=== PATIENT | male | born 1980 | race Caucasian/White ===

== ENCOUNTER → 2017-12-06 10:30 | Outpatient (CLI) | payer MEDICARE, MEDICAID, SELFPAY | PROVIDERS: PCP Nurse Practitioner Family; Visit Provider Orthopaedic Surgery | DX: S43.52XD Sprain of left acromioclavicular joint, subsequent encounter (principal); X58.XXXD Exposure to other specified factors, subsequent encounter | CPT/HCPCS: 99213 ==

== ENCOUNTER 2018-01-28 18:27 | Emergency (ER) | payer MEDICARE, MEDICAID, SELFPAY ==
[2018-01-28 18:32] VITALS: BP 125/85; PULSE 96; RESP 15; TEMP 36.7; O2SAT 97
--- NOTE | 2018-01-28 19:17 | W.ED.GENAD ---
Discharge Plan Disposition Patient Disposition: HOME Condition: Stable Discharge Details Chief Complaint: Laceration Clinical Impression: Facial laceration Primary Care Provider: Perla Martin ED Provider: Grecia Ruth Home Meds and New Rx's Prescriptions: Continue resperadine consta 50 mg IM q2w RF: 0 benztropine 1 MG tablet 1 mg PO BID RF: 0 lorazepam 1 MG tablet 1 mg PO BID RF: 0 ranitidine HCl 150 MG tablet 150 mg PO DAILY RF: 0 risperidone [Risperdal] 3 MG tablet 4 mg PO DAILY RF: 0 omeprazole 20 MG capsule,delayed release(DR/EC) 20 mg PO BID RF: 0 Discharge Instructions Additional Instructions: Keep wound clean dry and cover with bacitracin twice daily over the next 2 days. Take Tylenol and Motrin as needed and directed for pain. Follow-up with your primary care doctor in 1 week for reevaluation as needed. Return to the emergency department with any worsening or new concerning symptoms such as fever, increased pain redness or swelling. Discharge Data Discharge Physician: Grecia Ruth Medical Decision Making 37-year-old male presents with laceration to area just below right eyebrow prior to arrival. No LOC or vomiting. Patient states unknown tetanus status but we were able to confirm 2008. Patient denied any blurry vision but visual acuity done on arrival and left eye 20/50, right eye 20/70, patient does wear reading glasses and does not have them. No periorbital edema/ecchymoses, normal EOMI, no entrapment. Wound edges are closely approximated there is no active bleeding. Patient irrigated wound well at home. I offered to patient to open wound, irrigate and close with Dermabond but he declines. I discussed with patient that as edges are closely approximated and there is no bleeding, we can apply bacitracin and wound will likely heal well. Dose of tetanus given here due to high risk of dirty wound. Patient was instructed on the importance of keeping wound clean dry and to apply bacitracin twice daily. He was instructed to follow-up with his primary care doctor for reevaluation as needed and to the ER with any concerns or significant worsening of symptoms. HPI General Mode of arrival: ambulatory. Date/Time Provider Initiated Documentation: 01/28/18 18:30. Limitations to Documentation: no limitations. Information obtained by: patient. HPI Narrative: Pt is a 37yo male who presents with laceration to area below right eyebrow sustained at home when scratched against a colten nail. States he was working at home when he lifted his head up and scratched across a colten nail. He denies loss of consciousness, vomiting. He is unsure of his last tetanus. He states he immediately washed the wound with soap and water and took a shower and cleaned it well. Past medical history: Bipolar disorder, GERD, Schizophrenia Surgical history: Hernia, L forearm surgery, R leg surgery Social history: Smokes tobacco, Previous alcohol and drug use Meds: See list Allergies: NKDA Related Data Home Medications Medication Instructions Recorded Confirmed benztropine 1 mg PO BID 08/10/12 01/28/18 Resperadine Consta 50 mg IM q2w 04/19/16 01/28/18 lorazepam 1 mg PO BID 12/29/16 01/28/18 ranitidine HCl 150 mg PO DAILY 10/29/17 01/28/18 risperidone [Risperdal] 4 mg PO DAILY 10/29/17 01/28/18 omeprazole 20 mg PO BID 01/28/18 01/28/18 Allergies Allergy/AdvReac Type Severity Reaction Status Date / Time No Known Allergies Allergy Unverified 01/28/18 18:42 General Stated Complaint: Laceration SCARLETT: 4 Review of Systems Review of Systems All systems reviewed & are unremarkable except as noted in HPI and below [facility] Medical History Gastroesophageal reflux disease Mental disorder Social History Smoking/Tobacco Use Status: Current every day Surgical History EGD - IV Sedation (06/14/16) Repair of inguinal hernia Exam Const General: cooperative and healthy appearing Orientation: alert and awake [facility] Head: other Head images: 1. 1.5 cm straight laceration noted to area just below lateral aspect of right eyebrow. Wound edges closely approximated. No active bleeding, erythema, edema or ecchymosis. Ears: hearing grossly normal bilaterally, external ears normal and TM's normal bilaterally General nose exam: external nose normal Face and sinus: normal facial exam Mouth: oral mucosae normal Teeth and gingiva: dentition normal Throat: posterior oropharynx normal Eyes General: appearance normal, both eyes and all related structures Periorbital: periorbital findings normal Eyelids: eyelids normal Conjunctivae: conjunctivae normal Sclera: sclerae normal Cornea: corneas normal Pupils: PERRL EOM: EOM intact bilaterally and no movement deficit Neck Neck: normal visual inspection Lymphatic: no lymphadenopathy noted Chest Chest: normal inspection of the chest Resp Effort & Inspection: normal respiratory effort and able to speak in complete sentences Cardio Rate: regular rate Skin General skin exam: no rashes or lesions noted Neuro General: alert and awake Cognition: normal cognition Speech: speech normal Gait: normal gait Motor: muscle tone normal throughout Sensory Exam: no sensory deficits noted Extrem General: normal to inspection and full ROM Psych Appearance: grossly normal Mental Status: mental status grossly normal Speech and Movement: speech and movement normal Affect: normal affect Thought Process: normal Course Vital Signs Temperature 98.1 F 01/28/18 18:32 Pulse 96 H 01/28/18 18:32 Respiratory Rate 15 01/28/18 18:32 Blood Pressure 125/85 01/28/18 18:32 Pulse Oximetry 97 01/28/18 18:32 Temperature 98.1 F 01/28/18 18:32 Temperature Source Temporal Artery Scan 01/28/18 18:32 Pulse 96 H 01/28/18 18:32 Respiratory Rate 15 01/28/18 18:32 Respiratory Effort 01/28/18 18:56 Blood Pressure 125/85 01/28/18 18:32 Blood Pressure Position Sitting 01/28/18 18:32 Pulse Oximetry 97 01/28/18 18:32 Oxygen Delivery Method Room Air 01/28/18 18:32 Oxygen Flow Rate 0 01/28/18 18:32 Pain Level 0 01/28/18 18:53
[2018-01-28] MEDS: Bacitracin 1 PACKET TP (19:25)
--- NOTE | 2018-01-28 19:26 | ED.GENADUL_ITS ---
Discharge Plan Disposition Patient Disposition: HOME Condition: Stable Discharge Details Chief Complaint: Laceration Clinical Impression: Facial laceration Primary Care Provider: Perla Martin ED Provider: Grecia Ruth Home Meds and New Rx's Prescriptions: Continue resperadine consta 50 mg IM q2w RF: 0 benztropine 1 MG tablet 1 mg PO BID RF: 0 lorazepam 1 MG tablet 1 mg PO BID RF: 0 ranitidine HCl 150 MG tablet 150 mg PO DAILY RF: 0 risperidone [Risperdal] 3 MG tablet 4 mg PO DAILY RF: 0 omeprazole 20 MG capsule,delayed release(DR/EC) 20 mg PO BID RF: 0 Discharge Instructions Additional Instructions: Keep wound clean dry and cover with bacitracin twice daily over the next 2 days. Take Tylenol and Motrin as needed and directed for pain. Follow-up with your primary care doctor in 1 week for reevaluation as needed. Return to the emergency department with any worsening or new concerning symptoms such as fever, increased pain redness or swelling. Discharge Data Discharge Physician: Grecia Ruth Medical Decision Making 37-year-old male presents with laceration to area just below right eyebrow prior to arrival. No LOC or vomiting. Patient states unknown tetanus status but we were able to confirm 2008. Patient denied any blurry vision but visual acuity done on arrival and left eye 20/50, right eye 20/70, patient does wear reading glasses and does not have them. No periorbital edema/ecchymoses, normal EOMI, no entrapment. Wound edges are closely approximated there is no active bleeding. Patient irrigated wound well at home. I offered to patient to open wound, irrigate and close with Dermabond but he declines. I discussed with patient that as edges are closely approximated and there is no bleeding, we can apply bacitracin and wound will likely heal well. Dose of tetanus given here due to high risk of dirty wound. Patient was instructed on the importance of keeping wound clean dry and to apply bacitracin twice daily. He was instructed to follow-up with his primary care doctor for reevaluation as needed and to the ER with any concerns or significant worsening of symptoms. HPI General Mode of arrival: ambulatory . Date/Time Provider Initiated Documentation: 01/28/18 18:30 . Limitations to Documentation: no limitations . Information obtained by: patient . HPI Narrative: Pt is a 37yo male who presents with laceration to area below right eyebrow sustained at home when scratched against a colten nail. States he was working at home when he lifted his head up and scratched across a colten nail. He denies loss of consciousness, vomiting. He is unsure of his last tetanus. He states he immediately washed the wound with soap and water and took a shower and cleaned it well. Past medical history: Bipolar disorder, GERD, Schizophrenia Surgical history: Hernia, L forearm surgery, R leg surgery Social history: Smokes tobacco, Previous alcohol and drug use Meds: See list Allergies: NKDA Related Data Home Medications Medication Instructions Recorded Confirmed benztropine 1 mg PO BID 08/10/12 01/28/18 Resperadine Consta 50 mg IM q2w 04/19/16 01/28/18 lorazepam 1 mg PO BID 12/29/16 01/28/18 ranitidine HCl 150 mg PO DAILY 10/29/17 01/28/18 risperidone [Risperdal] 4 mg PO DAILY 10/29/17 01/28/18 omeprazole 20 mg PO BID 01/28/18 01/28/18 Allergies Allergy/AdvReac Type Severity Reaction Status Date / Time No Known Allergies Allergy Unverified 01/28/18 18:42 General Stated Complaint: Laceration SCARLETT: 4 Review of Systems Review of Systems All systems reviewed & are unremarkable except as noted in HPI and below [facility] Medical History Gastroesophageal reflux disease Mental disorder Social History Smoking/Tobacco Use Status: Current every day Surgical History EGD - IV Sedation (06/14/16) Repair of inguinal hernia Exam Const General: cooperative and healthy appearing Orientation: alert and awake [facility] Head: other Head images: 2 1. 1.5 cm straight laceration noted to area just below lateral aspect of right eyebrow. Wound edges closely approximated. No active bleeding, erythema, edema or ecchymosis. Ears: hearing grossly normal bilaterally, external ears normal and TM's normal bilaterally General nose exam: external nose normal Face and sinus: normal facial exam Mouth: oral mucosae normal Teeth and gingiva: dentition normal Throat: posterior oropharynx normal Eyes General: appearance normal, both eyes and all related structures Periorbital: periorbital findings normal Eyelids: eyelids normal Conjunctivae: conjunctivae normal Sclera: sclerae normal Cornea: corneas normal Pupils: PERRL EOM: EOM intact bilaterally and no movement deficit Neck Neck: normal visual inspection Lymphatic: no lymphadenopathy noted Chest Chest: normal inspection of the chest Resp Effort & Inspection: normal respiratory effort and able to speak in complete sentences Cardio Rate: regular rate Skin General skin exam: no rashes or lesions noted Neuro General: alert and awake Cognition: normal cognition Speech: speech normal Gait: normal gait Motor: muscle tone normal throughout Sensory Exam: no sensory deficits noted Extrem General: normal to inspection and full ROM Psych Appearance: grossly normal Mental Status: mental status grossly normal Speech and Movement: speech and movement normal Affect: normal affect Thought Process: normal Course Vital Signs Temperature 98.1 F 01/28/18 18:32 Pulse 96 H 01/28/18 18:32 Respiratory Rate 15 01/28/18 18:32 Blood Pressure 125/85 01/28/18 18:32 Pulse Oximetry 97 01/28/18 18:32 Temperature 98.1 F 01/28/18 18:32 Temperature Source Temporal Artery Scan 01/28/18 18:32 Pulse 96 H 01/28/18 18:32 Respiratory Rate 15 01/28/18 18:32 Respiratory Effort 01/28/18 18:56 Blood Pressure 125/85 01/28/18 18:32 Blood Pressure Position Sitting 01/28/18 18:32 Pulse Oximetry 97 01/28/18 18:32 Oxygen Delivery Method Room Air 01/28/18 18:32 Oxygen Flow Rate 0 01/28/18 18:32 Pain Level 0 01/28/18 18:53
== END 2018-01-28 19:33 | disposition home or self-care (01) ==
PROVIDERS: Emergency Provider Physician Assistant; PCP Nurse Practitioner Family
DX: S01.111A Laceration without foreign body of right eyelid and periocular area, initial encounter (principal); W45.0XXA Nail entering through skin, initial encounter
CPT/HCPCS: 90471; 99284; 99283

== ENCOUNTER 2018-02-03 22:54 | Emergency (ER) | payer MEDICARE, MEDICAID, SELFPAY ==
[2018-02-03 22:59] VITALS: BP 142/89; PULSE 87; RESP 18; TEMP 36.8
--- NOTE | 2018-02-04 02:44 | ED.GENADUL_ITS ---
Discharge Plan Discharge Details Chief Complaint: Patient Exposure Risk Primary Care Provider: Perla Martin ED Provider: Karl Healy Home Meds and New Rx's Prescriptions: No Action resperadine consta 50 mg IM q2w RF: 0 benztropine 1 MG tablet 1 mg PO BID RF: 0 lorazepam 1 MG tablet 1 mg PO BID RF: 0 ranitidine HCl 150 MG tablet 150 mg PO DAILY RF: 0 risperidone [Risperdal] 3 MG tablet 4 mg PO DAILY RF: 0 omeprazole 20 MG capsule,delayed release(DR/EC) 20 mg PO BID RF: 0 Discharge Data Discharge Date/Time-TO BE ENTERED AT DEPARTURE: 02/03/18 23:10 Medical Decision Making Patient eloped prior to my evaluation. I did not have the opportunity to speak with this patient. HPI General Date/Time Provider Initiated Documentation: 02/03/18 23:02 . Related Data Home Medications Medication Instructions Recorded Confirmed benztropine 1 mg PO BID 08/10/12 01/28/18 Resperadine Consta 50 mg IM q2w 04/19/16 01/28/18 lorazepam 1 mg PO BID 12/29/16 01/28/18 ranitidine HCl 150 mg PO DAILY 10/29/17 01/28/18 risperidone [Risperdal] 4 mg PO DAILY 10/29/17 01/28/18 omeprazole 20 mg PO BID 01/28/18 01/28/18 Allergies Allergy/AdvReac Type Severity Reaction Status Date / Time No Known Allergies Allergy Unverified 01/28/18 18:42 General Stated Complaint: Patient Exposure Risk SCARLETT: 3 Course Vital Signs Temperature 36.8 C 02/03/18 22:59 Pulse 87 02/03/18 22:59 Respiratory Rate 18 02/03/18 22:59 Blood Pressure 142/89 H 02/03/18 22:59 Temperature 36.8 C 02/03/18 22:59 Temperature Source Temporal Artery Scan 02/03/18 22:59 Pulse 87 02/03/18 22:59 Respiratory Rate 18 02/03/18 22:59 Respiratory Effort 02/03/18 23:01 Blood Pressure 142/89 H 02/03/18 22:59 Blood Pressure Position Sitting 02/03/18 22:59 Oxygen Delivery Method Room Air 02/03/18 22:59 Oxygen Flow Rate 0 02/03/18 22:59 Pain Level 0 02/03/18 23:09
== END 2018-02-03 23:10 ==
LOC: ER 23:07
PROVIDERS: Emergency Provider Student in an Organized Health Care Education/Training Program; PCP Nurse Practitioner Family
DX: Z53.21 Procedure and treatment not carried out due to patient leaving prior to being seen by health care provider (principal)

== ENCOUNTER 2018-03-11 21:17 | Emergency (ER) | payer MEDICARE, MEDICAID, SELFPAY ==
--- NOTE | 2018-03-11 21:22 | W.ED.GENAD ---
Discharge Plan Disposition Patient Disposition: HOME Condition: Good Discharge Details Chief Complaint: GenMedical Clinical Impression: Possible exposure to STD Primary Care Provider: Perla Martin ED Provider: Leoncio Miranda Home Meds and New Rx's Prescriptions: Continue resperadine consta 50 mg IM q2w RF: 0 benztropine 1 MG tablet 1 mg PO BID RF: 0 lorazepam 1 MG tablet 1 mg PO BID RF: 0 ranitidine HCl 150 MG tablet 150 mg PO DAILY RF: 0 risperidone [Risperdal] 3 MG tablet 4 mg PO DAILY RF: 0 omeprazole 20 MG capsule,delayed release(DR/EC) 20 mg PO BID RF: 0 Discharge Instructions Additional Instructions: Follow up with your primary care provider for std testing IF you have severe abdominal pain, fevers or persistent vomit return to the emergency department Medical Decision Making patient comes in with concern for possible hIV. HE states his current partner's old partner may have HIV and he got concerned about this so came here. HE is completely asymptomatic without complaints, no d/c or burning on urination. I advised I generally leave HIV testing to the pcp but am happy to test for gc/chlamdyia but he declined and wants to just f/u with his pcp for testing. HE was advised strongly to do so and return if he develops any symptoms Differential Diagnosis std exposure, anxiety HPI General Mode of arrival: ambulatory. Date/Time Provider Initiated Documentation: 03/11/18 21:18. Limitations to Documentation: no limitations. Information obtained by: patient. History of Present Illness 37 year old M presents to the emergency department with the chief complaint of concern for HIV, No relieving factors improve symptom(s), No exacerbating factors reported . Patient did receive the following treatments prior to arrival, none Related Data Home Medications Medication Instructions Recorded Confirmed benztropine 1 mg PO BID 08/10/12 01/28/18 Resperadine Consta 50 mg IM q2w 04/19/16 01/28/18 lorazepam 1 mg PO BID 12/29/16 01/28/18 ranitidine HCl 150 mg PO DAILY 10/29/17 01/28/18 risperidone [Risperdal] 4 mg PO DAILY 10/29/17 01/28/18 omeprazole 20 mg PO BID 01/28/18 01/28/18 Allergies Allergy/AdvReac Type Severity Reaction Status Date / Time No Known Allergies Allergy Unverified 01/28/18 18:42 General SCARLETT: 3 Review of Systems Review of Systems All systems reviewed & are unremarkable except as noted in HPI and below Constitutional Denies chills and Denies fever(s) Cardiovascular Denies dyspnea Respiratory Denies dyspnea Gastrointestinal Denies abdominal pain, Denies nausea and Denies vomiting Genitourinary Denies dysuria Musculoskeletal Denies joint swelling Psychiatric Denies depression Exam Const General: no acute distress Orientation: alert HENMT Head: normal to inspection Ears: external ears normal General nose exam: external nose normal Mouth: moist mucous membranes Eyes General: appearance normal, both eyes and all related structures Neck Neck: normal visual inspection Resp Effort & Inspection: normal respiratory effort and able to speak in complete sentences Cardio Rate: regular rate Skin General skin exam: no rashes or lesions noted Neuro General: alert and oriented x3 Extrem General: normal to inspection Psych Mental Status: mental status grossly normal
[2018-03-11 21:24] VITALS: BP 120/74; PULSE 71; RESP 15; TEMP 36.4; O2SAT 98
--- NOTE | 2018-03-11 21:26 | ED.GENADUL_ITS ---
Discharge Plan Disposition Patient Disposition: HOME Condition: Good Discharge Details Chief Complaint: GenMedical Clinical Impression: Possible exposure to STD Primary Care Provider: Perla Martin ED Provider: Leoncio Miranda Home Meds and New Rx's Prescriptions: Continue resperadine consta 50 mg IM q2w RF: 0 benztropine 1 MG tablet 1 mg PO BID RF: 0 lorazepam 1 MG tablet 1 mg PO BID RF: 0 ranitidine HCl 150 MG tablet 150 mg PO DAILY RF: 0 risperidone [Risperdal] 3 MG tablet 4 mg PO DAILY RF: 0 omeprazole 20 MG capsule,delayed release(DR/EC) 20 mg PO BID RF: 0 Discharge Instructions Additional Instructions: Follow up with your primary care provider for std testing IF you have severe abdominal pain, fevers or persistent vomit return to the emergency department Medical Decision Making patient comes in with concern for possible hIV. HE states his current partner's old partner may have HIV and he got concerned about this so came here. HE is completely asymptomatic without complaints, no d/c or burning on urination. I advised I generally leave HIV testing to the pcp but am happy to test for gc/ chlamdyia but he declined and wants to just f/u with his pcp for testing. HE was advised strongly to do so and return if he develops any symptoms Differential Diagnosis std exposure, anxiety HPI General Mode of arrival: ambulatory . Date/Time Provider Initiated Documentation: 03/11/18 21:18 . Limitations to Documentation: no limitations . Information obtained by: patient . History of Present Illness 37 year old M presents to the emergency department with the chief complaint of concern for HIV, No relieving factors improve symptom(s), No exacerbating factors reported . Patient did receive the following treatments prior to arrival, none Related Data Home Medications Medication Instructions Recorded Confirmed benztropine 1 mg PO BID 08/10/12 01/28/18 Resperadine Consta 50 mg IM q2w 04/19/16 01/28/18 lorazepam 1 mg PO BID 12/29/16 01/28/18 ranitidine HCl 150 mg PO DAILY 10/29/17 01/28/18 risperidone [Risperdal] 4 mg PO DAILY 10/29/17 01/28/18 omeprazole 20 mg PO BID 01/28/18 01/28/18 Allergies Allergy/AdvReac Type Severity Reaction Status Date / Time No Known Allergies Allergy Unverified 01/28/18 18:42 General SCARLETT: 3 Review of Systems Review of Systems All systems reviewed & are unremarkable except as noted in HPI and below Constitutional Denies chills and Denies fever(s) Cardiovascular Denies dyspnea Respiratory Denies dyspnea Gastrointestinal Denies abdominal pain, Denies nausea and Denies vomiting Genitourinary Denies dysuria Musculoskeletal Denies joint swelling Psychiatric Denies depression Exam Const General: no acute distress Orientation: alert HENMT Head: normal to inspection Ears: external ears normal General nose exam: external nose normal Mouth: moist mucous membranes Eyes General: appearance normal, both eyes and all related structures Neck Neck: normal visual inspection Resp Effort & Inspection: normal respiratory effort and able to speak in complete sentences Cardio Rate: regular rate Skin General skin exam: no rashes or lesions noted Neuro General: alert and oriented x3 Extrem General: normal to inspection Psych Mental Status: mental status grossly normal
[2018-03-11 21:28] VITALS: RESP 16
== END 2018-03-11 21:35 | disposition home or self-care (01) ==
LOC: ER 21:32
PROVIDERS: Emergency Provider Emergency Medicine; PCP Nurse Practitioner Family
DX: F41.9 Anxiety disorder, unspecified (principal); Z20.6 Contact with and (suspected) exposure to human immunodeficiency virus [HIV]
CPT/HCPCS: 99281

== ENCOUNTER 2018-03-12 15:57 | Outpatient (REF) | payer MEDICARE, MEDICAID, SELFPAY ==
[2018-03-14 10:06] LABS: HIV-1/2 Ag & Ab Screen Negative (NEGAT)
[2018-03-14 12:39] LABS: Syphilis Serology (RPR) Negative (Negative)
== END 2018-03-12 16:17 ==
LOC: NCHCN 15:57
PROVIDERS: PCP Nurse Practitioner Family; Visit Provider Nurse Practitioner Family
DX: Z20.2 Contact with and (suspected) exposure to infections with a predominantly sexual mode of transmission (principal); Z11.4 Encounter for screening for human immunodeficiency virus [HIV]
CPT/HCPCS: 87389; 86592

== ENCOUNTER 2018-03-13 08:46 | Outpatient (REF) | payer MEDICARE, MEDICAID, SELFPAY ==
[2018-03-14 15:20] LABS: Chlamydia Result Negative; GC Result Negative; Specimen Description URINE
== END 2018-03-13 09:06 ==
LOC: NCHCN 08:46
PROVIDERS: PCP Nurse Practitioner Family; Visit Provider Nurse Practitioner Family
DX: Z20.2 Contact with and (suspected) exposure to infections with a predominantly sexual mode of transmission (principal); Z11.3 Encounter for screening for infections with a predominantly sexual mode of transmission
CPT/HCPCS: 87491; 87591

== ENCOUNTER 2018-03-28 17:52 | Emergency (ER) | payer MEDICARE, MEDICAID, SELFPAY ==
[2018-03-28 18:20] VITALS: BP 128/83; PULSE 96; RESP 16; TEMP 36.8; O2SAT 97
[2018-03-28 19:42] LABS: Abs Immature Grans 0.02 k/cumm (0.0-0.09); Absolute Basophil Count 0.04 k/cumm (0.0-0.2); Absolute Eosinophil Count 0.27 k/cumm (0.0-0.7); Absolute Lymphocyte Count 4.38 k/cumm (1.2-3.4); Absolute Monocyte Count 0.54 k/cumm (0.11-0.7); Basophils % 0.4; Eosinophils % 2.5; HCT 43.6 % (40.0-50.0); Immature Grans % 0.2; Lymphocytes % 41.1; Mean Corp. HGB Concentration 34.4 g/dL (32.0-36.0); Mean Corpuscular Hemoglobin 31.5 pg (27.0-33.0); Mean Corpuscular Volume 91.6 fL (80-95); Mean Platelet Volume 9.4 fL (8.0-11.0); Monocytes % 5.1; Neutrophils % 50.7; Platelet Count 231 x1000/uL (130-400); RBC 4.76 m/cumm (4.50-6.00); RBC Distribution Width 12.4 % (11.8-14.1); White Blood Cell Count 10.65 k/cumm (4.4-10.8)
[2018-03-28 19:51] LABS: Anion Gap 8.6 mmol/L (3-11); BUN 12 mg/dL (7-18); CO2 27.4 mmol/L (21.0-32.0); CREATININE 0.98 mg/dL (0.70-1.30); Chloride 102 mmol/L (98-107); Glucose 99 mg/dL (70-100); Potassium 3.6 mmol/L (3.5-5.1); Sodium 138 mmol/L (136-145)
[2018-03-28 19:53] LABS: *AMPHETAMINES SCREEN URINE Negative (Negative); *BARBITURATES SCREEN URINE Negative (Negative); *BENZODIAZEPINES SCREEN URINE Negative (Negative); Cannabinoids THC Negative (Negative); Cocaine Screen,Urine Negative (Negative); METHADONE URINE SCREEN Negative (Negative); OPIATES URINE SCREEN Negative (Negative)
[2018-03-28 19:56] LABS: Tricyclic Antidepressants Negative (Negative)
--- NOTE | 2018-03-28 19:59 | W.ED.GENAD ---
Discharge Plan Disposition Patient Disposition: HOME Condition: Good Discharge Details Chief Complaint: PsychEval Clinical Impression: Paranoid schizophrenia Primary Care Provider: Perla Martin ED Provider: Gonzales Bolaños [place] Meds and New Rx's Prescriptions: Continue resperadine consta 50 mg IM q2w RF: 0 benztropine 1 MG tablet 1 mg PO BID RF: 0 lorazepam 1 MG tablet 1 mg PO BID RF: 0 ranitidine HCl 150 MG tablet 150 mg PO DAILY RF: 0 risperidone [Risperdal] 3 MG tablet 4 mg PO DAILY RF: 0 esomeprazole magnesium [Nexium] 20 mg Capsule,Delayed Release(Dr/Ec) 20 mg PO DAILY RF: 0 Discharge Instructions Additional Instructions: Keep your appointment with your counselor on Monday. Continue medications as before. Call mental health to return to ED if any unsafe feelings or concerns per Referrals: [facility] [Provider Group] Medical Decision Making Patient here to see mental health. He has no physical complaints of. He has been having suicidal thoughts on and off today but is fairly confident he would not act on them. He just felt he needed to talk to someone. Basic labs are unremarkable. Urine drug screen and alcohol negative. He does have one-to-one observation ordered. He is medically cleared and waiting for mental health to see him. Seen by mental health. No longer suicidal and feels safe. Is good with going home and will contact mental health and return to ED if any problems. Will follow up with his counselor on Monday as planned. HPI General Mode of arrival: ambulatory. Date/Time Provider Initiated Documentation: 03/28/18 18:33. Limitations to Documentation: no limitations. Information obtained by: patient. HPI Narrative: Patient here for mental health eval. He is feeling a little suicidal. He thought about jumping off a bridge but has not even gone near bridge. He does have a history of mental health disorders. He is taking his medications. He has been stable and doing well. He denies being actively suicidal. He has had some thoughts that are bothering him. He has a counselor that he is supposed to see on Monday. He denies drugs or alcohol. He denies physical complaint of. He has no visual or auditory hallucination. Related Data Home Medications Medication Instructions Recorded Confirmed benztropine 1 mg PO BID 08/10/12 03/28/18 Resperadine Consta 50 mg IM q2w 04/19/16 03/28/18 lorazepam 1 mg PO BID 12/29/16 03/28/18 ranitidine HCl 150 mg PO DAILY 10/29/17 03/28/18 risperidone [Risperdal] 4 mg PO DAILY 10/29/17 03/28/18 esomeprazole magnesium [Nexium] 20 mg PO DAILY 03/28/18 03/28/18 Allergies Allergy/AdvReac Type Severity Reaction Status Date / Time No Known Allergies Allergy Unverified 03/28/18 18:24 General Stated Complaint: PsychEval SCARLETT: 2 Review of Systems Constitutional Denies chills, Denies fever(s), Denies headache(s), Denies malaise and Denies weakness Eyes Denies eye discharge and Denies eye pain ENT Denies otalgia, Denies headache(s), Denies neck pain and Denies sinus pressure Cardiovascular Denies chest pain, Denies syncope and Denies dyspnea Respiratory Denies cough and Denies dyspnea Gastrointestinal Denies abdominal pain, Denies diarrhea, Denies nausea and Denies vomiting Musculoskeletal Denies back pain, Denies arthralgias, Denies neck pain and Denies numbness Integumentary/Breasts Denies rash Neurologic Denies syncope, Denies headache(s), Denies focal weakness, Denies numbness and Denies weakness Psychiatric Denies depression, Denies paranoia, Denies hallucinations, Denies homicidal ideation and Reports suicidal ideation PFSH Gastroesophageal reflux disease Mental disorder EGD - IV Sedation (06/14/16) Repair of inguinal hernia Social History Smoking/Tobacco Use Status: Current every day Exam Const General: cooperative, comfortable, well developed and well groomed Orientation: alert and oriented x3 HENMT Head: normocephalic and atraumatic Neck Neck: trachea midline and supple Resp Effort & Inspection: normal respiratory effort Auscultation: clear to auscultation bilaterally Cardio Rate: regular rate Rhythm: regular rhythm Heart Sounds: S1 normal and S2 normal Skin General skin exam: no rashes or lesions noted Neuro General: alert, oriented x3, no focal motor deficits and CN's II-XI intact bilaterally Extrem General: normal to inspection and full ROM Psych Appearance: grossly normal Mental Status: mental status grossly normal Speech and Movement: speech and movement normal Mood: congruent mood Affect: normal affect Attitude: cooperative Thought Process: normal Thought Content: suicidality (on/off today) Insight: insight good Judgment: judgment good Course Vital Signs Temperature 98.2 F 03/28/18 18:20 Pulse 96 H 03/28/18 18:20 Respiratory Rate 16 03/28/18 18:20 Blood Pressure 128/83 03/28/18 18:20 Pulse Oximetry 97 03/28/18 18:20 Temperature 98.2 F 03/28/18 18:20 Temperature Source Skin 03/28/18 18:20 Pulse 96 H 03/28/18 18:20 Respiratory Rate 16 03/28/18 18:20 Respiratory Effort Non-Labored 03/28/18 18:20 Blood Pressure 128/83 03/28/18 18:20 Blood Pressure Position Sitting 03/28/18 18:20 Pulse Oximetry 97 03/28/18 18:20 Pain Level 0 03/28/18 18:20 Lab/Test Results Lab/Test Results: Laboratory Tests Range/Units 03/28/18 03/28/18 03/28/18 19:20 19:33 19:33 WBC (4.4-10.8) k/cumm 10.65 RBC (4.50-6.00) m/cumm 4.76 Hgb (13.5-17.5) g/dL 15.0 Hct (40.0-50.0) % 43.6 MCV (80-95) fL 91.6 MCH (27.0-33.0) pg 31.5 MCHC (32.0-36.0) g/dL 34.4 RDW (11.8-14.1) % 12.4 Plt Count (130-400) x1000/uL 231 MPV (8.0-11.0) fL 9.4 Immature Gran % 0.2 Neutrophils % 50.7 Lymphocytes % 41.1 Monocytes % 5.1 Eosinophils % 2.5 Basophils % 0.4 Absolute Neutrophils (1.2-6.7) k/cumm 5.40 Absolute Lymphocytes (1.2-3.4) k/cumm 4.38 H Absolute Monocytes (0.11-0.7) k/cumm 0.54 Absolute Eosinophils (0.0-0.7) k/cumm 0.27 Absolute Basophils (0.0-0.2) k/cumm 0.04 Sodium (136-145) mmol/L 138 Potassium (3.5-5.1) mmol/L 3.6 Chloride (98-107) mmol/L 102 Carbon Dioxide (21.0-32.0) mmol/L 27.4 Anion Gap (3-11) mmol/L 8.6 BUN (7-18) mg/dL 12 Creatinine (0.70-1.30) mg/dL 0.98 Estimated GFR/1.73 m2 (mL/min/1.73m2) >= 60.00 Glucose (70-100) mg/dL 99 Calcium (8.5-10.1) mg/dL 9.0 Urine Opiates Screen (Negative) Negative Urine Methadone Screen (Negative) Negative Ur Barbiturates Screen (Negative) Negative Ur Tricyclics Screen (Negative) Negative Ur Amphetamines Screen (Negative) Negative U Benzodiazepines Scrn (Negative) Negative Urine Cocaine Screen (Negative) Negative Ur THC Screen (Negative) Negative
[2018-03-28 20:07] LABS: ETHANOL BLOOD < 3.0 mg/dL (<3)
--- NOTE | 2018-03-28 21:11 | PDOC.MHCN ---
Mental Health Crisis Note Presenting Issue How did you arrive at the ED and why did you come: Patient's friend brings him to the ED due to suicidal ideation. Precipitating Factors When I meet with patient at the hospital, he reports that he is feeling better and denies current suicidal ideation. He states he was depressed earlier and had suicidal thoughts but says these thoughts are gone. He denies intent or plan of harming himself, and says he is safe to return home. He expresses his belief that he is prescribed too many medications and states that he has an appointment with his psych med provider on Monday, March 30, 2018, and he will discuss that with her. Disposition BEHAVIOR: Cooperative. EYE CONTACT: Good. MOOD: Euthymic. AFFECT: Congruent to mood. APPETITE: Reported by patient as good. SLEEP(trouble falling/staying asleep: Patient denies sleep difficulties. Plan After consultation with Dr. Bolaños, the decision is made to discharge patient home. He knows how to contact [facility] emergency services and agrees to call if needed. 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
--- NOTE | 2018-03-28 21:20 | PDOC.MHCN_ITS ---
Mental Health Crisis Note Presenting Issue How did you arrive at the ED and why did you come: Patient's friend brings him to the ED due to suicidal ideation. Precipitating Factors When I meet with patient at the hospital, he reports that he is feeling better and denies current suicidal ideation. He states he was depressed earlier and had suicidal thoughts but says these thoughts are gone. He denies intent or plan of harming himself, and says he is safe to return home. He expresses his belief that he is prescribed too many medications and states that he has an appointment with his psych med provider on Monday, March 30, 2018, and he will discuss that with her. Disposition BEHAVIOR: Cooperative. EYE CONTACT: Good. MOOD: Euthymic. AFFECT: Congruent to mood. APPETITE: Reported by patient as good. SLEEP(trouble falling/staying asleep: Patient denies sleep difficulties. Plan After consultation with Dr. Bolaños, the decision is made to discharge patient home. He knows how to contact [facility] emergency services and agrees to call if needed. 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
== END 2018-03-28 22:07 | disposition home or self-care (01) ==
PROVIDERS: Physician Assistant; Emergency Provider Emergency Medicine; PCP Nurse Practitioner Family
DX: F20.0 Paranoid schizophrenia (principal); R45.851 Suicidal ideations
CPT/HCPCS: 36415; 80048; 80307; 99285; 80320; 85025; 99284

== ENCOUNTER 2018-05-29 13:02 | Emergency (ER) | payer MEDICARE, MEDICAID, SELFPAY ==
[2018-05-29] VITALS (39 sets, daily range): BP systolic 109–139; BP diastolic 70–88; PULSE 52–98; RESP 13–37; TEMP 36.6–36.7; O2SAT 96–100
--- NOTE | 2018-05-29 13:27 | DI.RAD_ITS ---
SYMPTOMS/DIAGNOSIS: CHEST PAIN PA AND LATERAL CHEST: Comparison is made with February,. The cardiac and mediastinal contours have a normal appearance. The lungs are well inflated and clear. No infiltrate, effusion or pneumothorax is seen. IMPRESSION: Negative chest x-ray.
--- NOTE | 2018-05-29 13:31 | ED.GENADUL_ITS ---
Discharge Plan Disposition Patient Disposition: HOME Condition: Stable Discharge Details Chief Complaint: Chest Pain Clinical Impression: Chest pain, precordial Primary Care Provider: Perla Martin ED Provider: Leoncio Miranda Home Meds and New Rx's Prescriptions: Continued resperadine consta 50 mg IM q2w RF: 0 benztropine 1 MG tablet 1 mg PO BID RF: 0 lorazepam 1 MG tablet 1 mg PO BID RF: 0 ranitidine HCl 150 MG tablet 150 mg PO DAILY RF: 0 risperidone [Risperdal] 3 MG tablet 4 mg PO DAILY RF: 0 esomeprazole magnesium [Nexium] 20 mg Capsule,Delayed Release(Dr/Ec) 20 mg PO DAILY RF: 0 Discharge Instructions Instructions: Chest Pain (ED) Additional Instructions: Feel free to return for any new or worsening symptoms or further concerns he may have otherwise follow-up with your primary care provider as needed for reassessment. Continue to take your medications as prescribed. Referrals: Perla Martin [Primary Care Provider] - (As needed for reassess or continued pain) Discharge Data Discharge Date/Time-TO BE ENTERED AT DEPARTURE: 05/29/18 16:52 Medical Decision Making <Nigel Garcia NP - Last Filed: 05/31/18 19:58> Patient presenting to the emergency department for chief complaint of chest pain. Patient states proximal a 1 hour prior to arrival he had some left arm pain that lasted a couple minutes and then had very sharp cardiac pain. Patient denies any reproducibility to pain and discomfort. Patient did attempt to see primary care provider but was sent to the emergency department for evaluation. Patient does state previous history of heart attacks but denies any treatment. Patient is a heavy smoker. Physical exam is unremarkable and patient is asymptomatic with no EKG changes noted plan to check labs including troponin for rule out of ACS but highly concerned for more precordial catch type discomfort. Review of initial labs is nondiagnostic and shows no elevation of troponin. Patient reevaluated and states one other episodes of this happen since being in the emergency department otherwise is now asymptomatic again Did finally speak with patient's primary care provider pending second troponin and primary care provider stated no known history of heart attack or any other medical problems except for bipolar, and GERD along with some anxiety. Primary care provider states main reason they sent patient to the emergency department is due to severe anxiety in regards to chest pain and patient wants to rule out with labs. I feel that this is reassuring knowing patient's mental health history and reason they sent him here. Patient reassessed and continued to remain asymptomatic. Pending second troponin patient signed out to Dr. Miranda for review of results any further treatment and disposition. HPI <Nigel Garcia NP - Last Filed: 05/31/18 19:58> General Mode of arrival: ambulatory . Date/Time Provider Initiated Documentation: 05/29/18 13:10 . Limitations to Documentation: no limitations . Information obtained by: patient, RN notes reviewed and old records reviewed . History of Present Illness 37 year old M presents to the emergency department with the chief complaint of chest pain, Quality is described as sharp and other, Patient extremity (left). Patient started experiencing this hour(s) (1) and it has been now resolved. No relieving factors improve symptom(s), No exacerbating factors reported . Patient notes no other symptoms.. Patient did receive the following treatments prior to arrival, none Related Data Home Medications Medication Instructions Recorded Confirmed benztropine 1 mg PO BID 08/10/12 05/29/18 Resperadine Consta 50 mg IM q2w 04/19/16 03/28/18 lorazepam 1 mg PO BID 12/29/16 05/29/18 ranitidine HCl 150 mg PO DAILY 10/29/17 05/29/18 risperidone [Risperdal] 4 mg PO DAILY 10/29/17 05/29/18 esomeprazole magnesium [Nexium] 20 mg PO DAILY 03/28/18 05/29/18 Allergies Allergy/AdvReac Type Severity Reaction Status Date / Time No Known Allergies Allergy Unverified 05/29/18 13:16 General Stated Complaint: Chest Pain SCARLETT: 2 Review of Systems <Nigel Garcia NP - Last Filed: 05/31/18 19:58> Constitutional Denies chills, Denies fever(s) and Denies malaise Cardiovascular Reports as per HPI, Reports chest pain, Denies chest pain with activity, Denies syncope, Denies irregular heart rhythm, Denies palpitations and Denies dyspnea Respiratory Denies cough, Denies hemoptysis and Denies dyspnea Gastrointestinal Denies abdominal pain, Denies nausea and Denies vomiting Neurologic Denies syncope Psychiatric Denies anxiety Endocrine Denies cold intolerance, Denies heat intolerance and Denies palpitations PFSH <Nigel Garcia NP - Last Filed: 05/31/18 19:58> Social History Smoking and Tabacco status: Current every day Exam <Nigel Garcia NP - Last Filed: 05/31/18 19:58> Const General: cooperative, healthy appearing, comfortable, no acute distress, not diaphoretic and not ill appearing Nutritional Appearance: average body habitus Orientation: alert, awake and oriented x3 Limitations: mental status not altered Neck Neck: normal visual inspection, full ROM, trachea midline, supple and no anterior neck swelling Thyroid: thyroid normal Carotids: normal carotid upstroke and no bruits Chest Chest: normal inspection of the chest Resp Effort & Inspection: normal respiratory effort and able to speak in complete sentences Auscultation: clear to auscultation bilaterally Cardio Jugular venous pressure: no JVD Palpation: normal PMI Rate: regular rate Rhythm: regular rhythm Heart Sounds: S1 normal, S2 normal, no click, no gallops, no murmurs and no rubs Bruits: no abdominal aortic bruits and no carotid bruits Pulses: radial pulses present bilaterally 2+ GI Inspection: normal to inspection Palpation: soft, no aortic enlargement, no pulsatile masses and nontender Auscultation: normal bowel sounds Skin General skin exam: no rashes or lesions noted Neuro General: alert, awake, oriented x3, tone normal and moves all extremities Course <Nigel Garcia NP - Last Filed: 05/31/18 19:58> Vital Signs Temperature 36.6 C 05/29/18 13:12 Pulse 71 05/29/18 13:12 Respiratory Rate 16 05/29/18 13:12 Blood Pressure 139/88 05/29/18 13:12 Pulse Oximetry 98 05/29/18 13:12 Temperature 36.6 C 05/29/18 13:12 Temperature Source Skin 05/29/18 13:12 Pulse 71 05/29/18 13:12 Respiratory Rate 16 05/29/18 13:22 Respiratory Effort Non-Labored 05/29/18 13:22 Respiratory Depth Normal 05/29/18 13:22 Respiratory Pattern Normal 05/29/18 13:22 Blood Pressure 139/88 05/29/18 13:12 Blood Pressure Position Supine 05/29/18 13:12 Pulse Oximetry 98 05/29/18 13:12 Oxygen Delivery Method Room Air 05/29/18 13:12 Oxygen Flow Rate 0 05/29/18 13:12 Pain Level 0 05/29/18 13:12 Sign Out <Nigel Garcia NP - Last Filed: 05/31/18 19:58> Sign Out Data: Sign Out Comment: Signed out to Dr. Miranda pending repeat troponin results concern for more precordial chest pain. Last updated by Nigel Garcia NP at 05/29/18 16:32 Post-Handoff Eval: PT signed out to me pending lab work, second troponin negative. HE is pain free on my exam, heart scorre is 1 on my hx and physical exam. Feel he is safe for outaptient management, ahs an appt on 06/01 with his pcp and advised to return if symptoms worsen
[2018-05-29 13:50] LABS: ALT 15 U/L (12-78); AST 10 U/L (15-37); Alkaline Phosphatase 73 U/L (46-116); Anion Gap 9.9 mmol/L (3-11); BUN 9 mg/dL (7-18); Bilirubin, Total 0.5 mg/dL (0.2-1.0); CO2 28.1 mmol/L (21.0-32.0); CREATININE 1.03 mg/dL (0.70-1.30); Chloride 103 mmol/L (98-107); Glucose 104 mg/dL (70-100); Potassium 3.5 mmol/L (3.5-5.1); Sodium 141 mmol/L (136-145); Total Protein 7.9 g/dL (6.4-8.2); Troponin I < 0.02 ng/mL (0.00-0.06)
[2018-05-29 13:52] LABS: Absolute Lymphocyte Count 3.07 k/cumm (1.2-3.4); Absolute Monocyte Count 0.67 k/cumm (0.11-0.7); Absolute Neutrophil Count 5.76 k/cumm (1.2-6.7); Atypical Lymphocytes % 2; HCT 45.4 % (40.0-50.0); HGB 15.1 g/dL (13.5-17.5); Mean Corp. HGB Concentration 33.3 g/dL (32.0-36.0); Mean Corpuscular Hemoglobin 31.3 pg (27.0-33.0); Mean Platelet Volume 9.8 fL (8.0-11.0); Platelet Count 231 x1000/uL (130-400); RBC 4.83 m/cumm (4.50-6.00); RBC Distribution Width 12.9 % (11.8-14.1)
[2018-05-29 13:53] LABS: Diff Comment Manual Differential; RBC Morphology Normal
[2018-05-29 16:32] LABS: Troponin I < 0.02 ng/mL (0.00-0.06)
[2018-05-29] MEDS: Ketorolac 15 MG/ML VIAL IVP (16:42)
[2018-05-29] MEDS: Normal Saline Flush 10 ML SYR IVP (16:43)
--- NOTE | 2018-06-01 13:39 | ED.FU.B_ITS ---
Patient called the emergency department requesting further information as he was convinced that during the visit which I took care of him a couple days ago that he had a heart attack . I never inform the patient of that and patient had 2- troponins and nondiagnostic EKGs. I did also did communicate with patient's primary care provider of these negative results. Patient also was under the impression when he presented to the emergency department at that time that he had also had previous heart attacks which there were no records of nor did his primary care provider ever have records of any heart attack. There were records that patient did have heartburn and GERD type symptoms but was being appropriately treated for these. When I thoroughly discussed these findings with patient today he stated he wanted a second opinion. I informed patient that if he had any emergent concerns that he should go to the closest emergency department for evaluation if his worry was heart attack. He stated clear understanding and it was also vocalized that we would be more than willing to reassessed and reevaluate patient on an emergent basis. Patient states that he may get a second opinion at [facility] which I informed him if this is an emergency that he again should go to closest facility.
== END 2018-05-29 16:52 | disposition home or self-care (01) ==
PROVIDERS: Nurse Practitioner Family; Emergency Provider Emergency Medicine; PCP Nurse Practitioner Family
DX: R07.2 Precordial pain (principal); F41.9 Anxiety disorder, unspecified; F17.210 Nicotine dependence, cigarettes, uncomplicated
CPT/HCPCS: 36415; 80053; 93005; 96374; 99285; 71046; 83735; 84484; 85025; 93010; 99284; J1885

== ENCOUNTER 2018-06-04 03:13 | Outpatient (CLI) | payer MEDICARE, MEDICAID, SELFPAY | END 2018-06-04 03:33 | PROVIDERS: PCP Nurse Practitioner Family; Visit Provider Nurse Practitioner Family | DX: R07.89 Other chest pain (principal) | CPT/HCPCS: 93225 ==

== ENCOUNTER 2018-06-05 13:44 | Outpatient (CLI) | payer MEDICARE, MEDICAID, SELFPAY ==
--- NOTE | 2018-06-06 13:40 | HOLTER_ITS ---
JUDSON MONITOR DATE OF DICTATION June 06, 2018 STUDY INDICATION Chest pain. REQUESTING PROVIDER Perla Martin NP FINDINGS The patient was monitored for 24 hours. The baseline rhythm was sinus rhythm. Average heart rate 86 beats per minute, range 59 to 165 beats per minute. There was no significant ectopy, 9 PVCs and 2 PACs. There was no ventricular or supraventricular tachycardia. There were no patient events. FINAL INTEPRETATION Normal study. Fish Azar M.D. FATMATA/sharon T - 06/06/18
== END 2018-06-05 14:04 ==
PROVIDERS: PCP Nurse Practitioner Family; Visit Provider Nurse Practitioner Family
DX: R07.89 Other chest pain (principal)
CPT/HCPCS: 93226

== ENCOUNTER 2018-06-06 20:02 | Emergency (ER) | payer MEDICARE, MEDICAID, SELFPAY ==
[2018-06-06] VITALS (16 sets, daily range): BP systolic 135–147; BP diastolic 79–89; PULSE 62–97; RESP 15–23; TEMP 37.4; O2SAT 96–98
--- NOTE | 2018-06-06 20:22 | ED.GENADUL_ITS ---
Discharge Plan Disposition Patient Disposition: HOME Condition: Stable Discharge Details Chief Complaint: Chest Pain Clinical Impression: Abdominal wall strain Primary Care Provider: Perla Martin ED Provider: Juan Freeman Home Meds and New Rx's Prescriptions: Continued resperadine consta 50 mg IM q2w RF: 0 benztropine 1 MG tablet 1 mg PO BID RF: 0 lorazepam 1 MG tablet 1 mg PO BID RF: 0 ranitidine HCl 150 MG tablet 150 mg PO DAILY RF: 0 risperidone [Risperdal] 3 MG tablet 4 mg PO DAILY RF: 0 esomeprazole magnesium [Nexium] 20 mg Capsule,Delayed Release(Dr/Ec) 20 mg PO DAILY RF: 0 Discharge Instructions Instructions: Muscle Strain (ED) Additional Instructions: Your CAT scan and laboratories are reassuring. Para please return if you develop a fever, vomiting, or any other acute concerns. Resume normal activity,you may have ongoing muscular discomfort tomorrow. Medical Decision Making 37-year-old male presents from home stating that after shoveling a number of snow he walkways he developed periumbilical aching discomfort similar to previous hernia. No vomiting, no fever. He also has come continuing intermittent palpitations for which he had an unremarkable Holter monitor during the second week of May He arrives afebrile, pleasant, in no acute distress. Screening EKG is normal. Screening laboratories including troponin obtained patient referred for CT scan of the abdomen to rule out incarcerated hernia, bowel. Labs notable for slightly elevated white blood cell count of 12, otherwise reassuring laboratories including negative lipase and troponin. CT scan without acute findings. Patient improved. Stable for outpatient management. Discussed with him his reassuring findings. He will return for worsening, otherwise follow up with PMD for recheck Lab Data Lab results reviewed: Yes I reviewed the patient's lab results. Laboratory Results - last 24 hr 06/06/18 06/06/18 20:16 20:16 WBC 12.42 H RBC 4.32 L Hgb 13.5 Hct 40.0 MCV 92.6 MCH 31.3 MCHC 33.8 RDW 12.6 Plt Count 202 MPV 9.5 Immature Gran % 0.1 Neutrophils % 59.2 Lymphocytes % 32.9 Monocytes % 5.9 Eosinophils % 1.4 Basophils % 0.5 Absolute Neutrophils 7.35 H Absolute Lymphocytes 4.09 H Absolute Monocytes 0.73 H Absolute Eosinophils 0.17 Absolute Basophils 0.06 Sodium 141 Potassium 3.4 L Chloride 102 Carbon Dioxide 28.2 Anion Gap 10.8 BUN 12 Creatinine 1.27 Estimated GFR/1.73 m2 >= 60.00 Glucose 121 H Calcium 9.1 Magnesium 1.8 Total Bilirubin 0.4 AST 11 L ALT 15 Alkaline Phosphatase 76 Troponin I < 0.02 Total Protein 7.6 Albumin 3.8 Lipase 113 ECG Data Attestation: I personally reviewed and interpreted this ECG (s) as follows: Interpretation: Normal sinus rhythm, rate of 85, QRS is narrow, no ST segment elevation HPI General Mode of arrival: ambulatory . Date/Time Provider Initiated Documentation: 06/06/18 20:10 . Limitations to Documentation: no limitations . Information obtained by: patient . History of Present Illness 37 year old M presents to the emergency department with the chief complaint of 2 complaints, ongoing palpitations, periumbilical pain, described as similar to prior episodes, Quality is described as aching and dull, and is localized to the abdomen. Patient reports no radiation. Patient started experiencing this hour(s) and it has been intermittent and now resolved. No relieving factors improve symptom(s), No exacerbating factors reported . Patient notes cough; denies chest pain and nausea/vomiting. Patient did receive the following treatments prior to arrival, none Related Data Home Medications Medication Instructions Recorded Confirmed benztropine 1 mg PO BID 08/10/12 05/29/18 Resperadine Consta 50 mg IM q2w 04/19/16 03/28/18 lorazepam 1 mg PO BID 12/29/16 05/29/18 ranitidine HCl 150 mg PO DAILY 10/29/17 05/29/18 risperidone [Risperdal] 4 mg PO DAILY 10/29/17 05/29/18 esomeprazole magnesium [Nexium] 20 mg PO DAILY 03/28/18 05/29/18 Allergies Allergy/AdvReac Type Severity Reaction Status Date / Time No Known Allergies Allergy Unverified 05/29/18 13:16 General SCARLETT: 2 Review of Systems Review of Systems 8 systems reviewed and otherwise negative [facility] Medical History Gastroesophageal reflux disease Mental disorder Surgical History EGD - IV Sedation (06/14/16) Repair of inguinal hernia Social History Smoking and Tabacco status: Current every day Exam Narrative Exam Narrative: GEN: awake, alert, oriented 3. Pleasant, well groomed, interactive. HEAD: Normocephalic, atraumatic ENT: Mucous membranes moist, oropharynx unremarkable, External ear exam unremarkable EYES: PERRL, EOMI NECK: Full ROM, no FRITZ, no menigismus CHEST/RESP: Nontender, clear to auscultation bilateral, no wheeze/rhonchi/rales CARDIOVASCULAR: RRR, no murmur, rub senia. 2+ Rad pulse bilateral ABDOMEN: Soft, minimal left periumbilical tenderness without palpable defect, no mass. +Bowel sounds EXT: Full ROM, no edema, no rash Neuro: Grossly normal neurologic exam, conversant, interactive. Psych: Speech fluent, thoughts congruent, affect normal
--- NOTE | 2018-06-06 20:28 | DI.CT_ITS ---
SYMPTOM/DIAGNOSIS: LT PERIUMBILICAL PAIN, ? HERNIA ABDOMEN AND PELVIC CT: CT examination of the abdomen and pelvis was performed with a bolus infusion of 100 cc's of Omnipaque 350. There is significant motion artifact on this examination which limits interpretation. Likely small bone islands noted in right femur and right iliac bone. Liver and spleen appear intact as visualized. Gallbladder is contracted. There is a large hiatal hernia. Pancreas appears normal as visualized. Adrenals and kidneys appear normal. No evidence of urinary tract calcification or obstruction. Abdominal aorta is of normal diameter and no major vascular abnormality is seen. Small fat containing right inguinal hernia noted. No other significant abdominal wall hernia is seen. Appendix is normal. No evidence of diverticulitis or bowel obstruction. No abdominal or pelvic adenopathy is seen. CONCLUSION: No evidence of acute intra-abdominal process.
[2018-06-06 20:42] LABS: Abs Immature Grans 0.01 k/cumm (0.0-0.09); Absolute Basophil Count 0.06 k/cumm (0.0-0.2); Absolute Eosinophil Count 0.17 k/cumm (0.0-0.7); Absolute Lymphocyte Count 4.09 k/cumm (1.2-3.4); Absolute Monocyte Count 0.73 k/cumm (0.11-0.7); Absolute Neutrophil Count 7.35 k/cumm (1.2-6.7); Basophils % 0.5; Eosinophils % 1.4; HGB 13.5 g/dL (13.5-17.5); Immature Grans % 0.1; Lymphocytes % 32.9; Mean Corp. HGB Concentration 33.8 g/dL (32.0-36.0); Mean Corpuscular Hemoglobin 31.3 pg (27.0-33.0); Mean Corpuscular Volume 92.6 fL (80-95); Mean Platelet Volume 9.5 fL (8.0-11.0); Monocytes % 5.9; Neutrophils % 59.2; Platelet Count 202 x1000/uL (130-400); RBC 4.32 m/cumm (4.50-6.00); RBC Distribution Width 12.6 % (11.8-14.1); White Blood Cell Count 12.42 k/cumm (4.4-10.8)
[2018-06-06] MEDS: Normal Saline Flush 10 ML SYR IVP (20:45)
[2018-06-06] MEDS: Normal Saline 1,000 ML 1000 ML IV (20:45)
[2018-06-06 21:01] LABS: ALT 15 U/L (12-78); AST 11 U/L (15-37); Albumin 3.8 g/dL (3.4-5.0); Alkaline Phosphatase 76 U/L (46-116); Anion Gap 10.8 mmol/L (3-11); BUN 12 mg/dL (7-18); Bilirubin, Total 0.4 mg/dL (0.2-1.0); CO2 28.2 mmol/L (21.0-32.0); CREATININE 1.27 mg/dL (0.70-1.30); Calcium 9.1 mg/dL (8.5-10.1); Chloride 102 mmol/L (98-107); Glucose 121 mg/dL (70-100); Lipase 113 U/L (73-393); Magnesium 1.8 mg/dL (1.8-2.4); Potassium 3.4 mmol/L (3.5-5.1); Sodium 141 mmol/L (136-145); Total Protein 7.6 g/dL (6.4-8.2)
[2018-06-06 21:02] LABS: Troponin I < 0.02 ng/mL (0.00-0.06)
[2018-06-06] MEDS: Omnipaque 350 MG/ML 100 ML BTL IJ (21:29)
[2018-06-06] MEDS: Calcium Carbonate *TUMS* 500 MG CHEW (21:30)
--- NOTE | 2018-06-06 22:01 | DI.VRAD_ITS ---
EXAM: CT Abdomen and Pelvis With Contrast EXAM DATE/TIME: 06/06/2018 8:30 PM CLINICAL HISTORY: 37 years old, male; Pain; Abdominal pain; Periumbilical TECHNIQUE: Axial computed tomography images of the abdomen and pelvis with intravenous contrast. All CT scans at this facility use at least one of these dose optimization techniques: automated exposure control; mA and/or kV adjustment per patient size (includes targeted exams where dose is matched to clinical indication); or iterative reconstruction. Coronal and sagittal reformatted images were created and reviewed. CONTRAST: 100 ml of [id number] administered intravenously. COMPARISON: No relevant prior studies available. FINDINGS: Limitations: Study is limited due to motion artifact. Lower thorax: There is subpleural atelectasis of the dependent portions of the lungs. ABDOMEN: Liver: Normal. No mass. Gallbladder and bile ducts: The gallbladder is contracted. There is no evidence of biliary ductal dilation. Pancreas: Normal. No ductal dilation. Spleen: Normal. No splenomegaly. Adrenals: Normal. No mass. Kidneys and ureters: Mild distention to the right ureter when compared with the left is most likely related to urine excretion. No concerning right ureteral pathology was noted within the limits of this examination. No acute renal findings otherwise. Stomach and bowel: Normal. No obstruction. No mucosal thickening. Appendix: No evidence of appendicitis. PELVIS: Bladder: Unremarkable as visualized. Reproductive: Unremarkable as visualized. ABDOMEN and PELVIS: Intraperitoneal space: Normal. No free air. No significant fluid collection. Bones/joints: 6.5 mm sclerotic lesion in the right iliac bone favors a bone island. There are degenerative changes of the right sacroiliac joint likewise noted. No acute skeletal abnormalities. Mild multilevel degenerative changes of the spine. Soft tissues: Unremarkable. Vasculature: Normal. No abdominal aortic aneurysm. Lymph nodes: Normal. No enlarged lymph nodes. IMPRESSION: 1. Negative for acute abdominopelvic pathology, within the limits of this exam. 2. Incidental findings as detailed above. Dictated and Authenticated by: Juan Feliz MD. Ordering:LONDON Martinez MD
== END 2018-06-06 22:20 | disposition home or self-care (01) ==
PROVIDERS: Emergency Provider Emergency Medicine; PCP Nurse Practitioner Family
DX: S29.019A Strain of muscle and tendon of unspecified wall of thorax, initial encounter (principal); R00.2 Palpitations; X50.3XXA Overexertion from repetitive movements, initial encounter; K44.9 Diaphragmatic hernia without obstruction or gangrene; R07.89 Other chest pain
CPT/HCPCS: 36415; 80053; 83690; 93005; 93227; 96360; 99285; 74177; 83735; 84484; 85025; 93010; 99284; J3490

== ENCOUNTER 2018-07-09 11:51 | Emergency (ER) | payer MEDICARE, MEDICAID, SELFPAY ==
--- NOTE | 2018-07-09 12:06 | NUR.NOTE ---
Nursing Note: Patient stated to [facility] in Access that he was leaving. Would come back later when it wasn't as busy. Kely Goldberg.
--- NOTE | 2018-07-10 14:23 | PDOC.ERCMPRO ---
Care Management Progress Note 07/10-Nigel presented to the emergency department on 07/09 for hernia pain. Nigel left without being seen. His PCP is Fatemeh Martin at [facility]. This CM called Nigel and left a message on his voice mail.
== END 2018-07-09 12:06 | disposition left before discharge ==
LOC: ER 12:29
PROVIDERS: PCP Nurse Practitioner Family
DX: R69 Illness, unspecified (principal)

== ENCOUNTER 2018-08-05 12:32 | Observation (INO) | payer MEDICARE, MEDICAID, SELFPAY ==
[2018-08-05] VITALS (10 sets, daily range): BP systolic 119–153; BP diastolic 76–96; PULSE 68–110; RESP 14–22; TEMP 36.6–37.4; O2SAT 92–98
--- NOTE | 2018-08-05 12:52 | W.ED.GENAD ---
Discharge Plan Disposition Patient Disposition: [facility] INPATIENT Condition: Stable Discharge Details Chief Complaint: Abd Prob Clinical Impression: Acute appendicitis Primary Care Provider: Perla Martin ED Provider: Kaleb Miller Home Meds and New Rx's Prescriptions: No Action resperadine consta 50 mg IM q2w RF: 0 benztropine 1 MG tablet 1 mg PO BID RF: 0 lorazepam 1 MG tablet 1 mg PO BID RF: 0 ranitidine HCl 150 MG tablet 150 mg PO DAILY RF: 0 risperidone [Risperdal] 3 MG tablet 4 mg PO DAILY RF: 0 esomeprazole magnesium [Nexium] 20 mg Capsule,Delayed Release(Dr/Ec) 20 mg PO DAILY RF: 0 Medical Decision Making This is a 37-year-old male with a past medical history of GERD, paranoid schizophrenia, who presents for right lower quadrant abdominal pain that started today. He did multiple push-ups yesterday and the day before and is concerned this might have brought about his symptoms. No concerning red flags of diarrhea, vomiting, fever, chills. Normal genital exam that is inconsistent with testicular torsion. No urinary complaints. He does have a history of an umbilical hernia repair with subsequent mesh. Exam demonstrates right lower quadrant tenderness however it is notably mild, with no guarding or rebound. Symptoms may be a muscle strain versus pain from mild constipation, however obviously an appendicitis is certainly on the differential. We will get a CT scan to rule out acute intra-abdominal process, laboratory workup to evaluate for any other signs of significant systemic infection. 3:[address] scan has returned, he does demonstrate evidence of an acute appendicitis per virtual radiology. No evidence of abscess or perforation. We will start Zosyn. I did contact surgeon telephone triage nurse Dr. Aquino, she agrees with the plan and recommends admission to the OR for surgical management. Patient's pain is notably improved at this time. I have extensively reviewed the treatment plan with the patient. I have addressed all patient concerns at this time. I have also discussed the plan with the admitting physician and they agree with the current assessment and plan and have agreed to assume responsibility for the patient. All parties demonstrate verbal understanding and agreement with our assessment and plan at this time. FINDINGS: Lower thorax: No acute findings. ABDOMEN: Liver: Normal. No mass. Gallbladder and bile ducts: Normal. No calcified stones. No ductal dilation. Pancreas: Normal. No ductal dilation. Spleen: Normal. No splenomegaly. Adrenals: Normal. No mass. Kidneys and ureters: Normal. No hydronephrosis. Stomach and bowel: Normal. No obstruction. No mucosal thickening. Appendix: Mild appendicitis without abscess or perforation. 9 mm appendix with appendiceal wall thickening and mild periappendiceal fat inflammation consistent with mild appendicitis. PELVIS: Bladder: Unremarkable as visualized. Reproductive: Unremarkable as visualized. ABDOMEN and PELVIS: Intraperitoneal space: Normal. No free air. No significant fluid collection. Bones/joints: Mild dextroscoliosis. Partial sacralization of the right portion of L5 with unilateral right-sided articulation which can be a source of chronic low back pain. Soft tissues: Previous right inguinal hernia repair. Vasculature: Normal. No abdominal aortic aneurysm. Lymph nodes: Normal. No enlarged lymph nodes. IMPRESSION: Mild appendicitis without abscess or perforation. Dictated and Authenticated by: Leoncio Hamilton MD. Ordering:KHADRA Manuel MD HPI General Date/Time Provider Initiated Documentation: 08/05/18 12:34. HPI Narrative: This is a 37-year-old male with past medical history of an umbilical hernia that was surgically repaired, as well as a history of paranoid schizophrenia, GERD, who presents today for evaluation of abdominal pain. Patient states that he was doing push-ups 2-3 days ago, and then this morning he developed a mild achy-like sensation in his periumbilical region. He has been able to eat without any difficulty. He has had no associated vomiting or diarrhea. No radiation of the pain to his genitals or any other location. He denies any tearing or ripping sensation. He denies any hematuria or increased urinary frequency or dysuria. He denies any flank or CVA tenderness. He denies any other complaints or modifying factors at this time. He has not taken any medications for relief of the pain. Related Data Home Medications Medication Instructions Recorded Confirmed benztropine 1 mg PO BID 08/10/12 08/05/18 Resperadine Consta 50 mg IM q2w 04/19/16 08/05/18 lorazepam 1 mg PO BID 12/29/16 08/05/18 ranitidine HCl 150 mg PO DAILY 10/29/17 08/05/18 risperidone [Risperdal] 4 mg PO DAILY 10/29/17 08/05/18 esomeprazole magnesium [Nexium] 20 mg PO DAILY 03/28/18 08/05/18 Allergies Allergy/AdvReac Type Severity Reaction Status Date / Time No Known Allergies Allergy Unverified 08/05/18 12:41 General Stated Complaint: Abd Prob SCARLETT: 3 Review of Systems Review of Systems All systems reviewed & are unremarkable except as noted in HPI and below PFSH Social History Smoking/Tobacco Use Status: Current every day Alcohol Intake: former Drug use: Never Substance use type: does not use Do you feel safe at home: Yes Do you feel safe in your relationship?: Yes Exam Narrative Exam Narrative: 1.Const: Well-nourished, Well-developed, appearing stated age 2.Eyes: PERRL, no conjunctival injection, and symmetrical lids. 3.ENT: Atraumatic external nose and ears. Moist MM. Neck: Symmetric, trachea midline, No thyromegaly. 4.CVS: +S1/S2, No murmurs or gallops. Peripheral pulses 2+ and equal in all extremities. Brisk capillary refill in all extremities. 5.RESP: Unlabored respiratory effort. Clear to auscultation bilaterally. No wheezes rales or rhonchi 6.GI: Soft, Nontender, No hepatosplenomegaly. No guarding or rebound. Right lower quadrant reproducible tenderness at McBurney's point. Negative Willis sign. Negative Rovsing sign. Negative obturator and psoas sign. No flank or CVA tenderness. Genital exam demonstrates bilaterally descended testicles, normal mole male genitalia. Normal cremasteric reflex. Nontender testicles on palpation. 7.MSK: Normocephalic/Atraumatic, Extremities w/o deformity or ttp No cyanosis or clubbing, Normal movement of all extremities 8.Skin: Warm, Dry. No rashes or lesions. 9.Neuro: dispatcher radio II-XII grossly intact. Sensation grossly intact, no focal neurologic deficits. 10.Psych: (AAO) x3. Appropriate mood and affect Course Vital Signs Temperature 36.6 C 08/05/18 12:37 Pulse 97 H 08/05/18 12:37 Respiratory Rate 18 08/05/18 12:37 Blood Pressure 139/92 H 08/05/18 12:37 Pulse Oximetry 98 08/05/18 12:37 Temperature 36.6 C 08/05/18 12:37 Temperature Source Skin 08/05/18 12:37 Pulse 97 H 08/05/18 12:37 Respiratory Rate 18 08/05/18 12:37 Blood Pressure 139/92 H 08/05/18 12:37 Blood Pressure Position Supine 08/05/18 12:37 Pulse Oximetry 98 08/05/18 12:37 Oxygen Delivery Method Room Air 08/05/18 12:37 Oxygen Flow Rate 0 08/05/18 12:37
--- NOTE | 2018-08-05 12:57 | ED.GENADUL_ITS ---
Discharge Plan Disposition Patient Disposition: [facility] INPATIENT Condition: Stable Discharge Details Chief Complaint: Abd Prob Clinical Impression: Acute appendicitis Primary Care Provider: Perla Martin ED Provider: Kaleb Miller Home Meds and New Rx's Prescriptions: No Action resperadine consta 50 mg IM q2w RF: 0 benztropine 1 MG tablet 1 mg PO BID RF: 0 lorazepam 1 MG tablet 1 mg PO BID RF: 0 ranitidine HCl 150 MG tablet 150 mg PO DAILY RF: 0 risperidone [Risperdal] 3 MG tablet 4 mg PO DAILY RF: 0 esomeprazole magnesium [Nexium] 20 mg Capsule,Delayed Release(Dr/Ec) 20 mg PO DAILY RF: 0 Medical Decision Making This is a 37-year-old male with a past medical history of GERD, paranoid schizophrenia, who presents for right lower quadrant abdominal pain that started today. He did multiple push-ups yesterday and the day before and is concerned this might have brought about his symptoms. No concerning red flags of diarrhea, vomiting, fever, chills. Normal genital exam that is inconsistent with testicular torsion. No urinary complaints. He does have a history of an umbilical hernia repair with subsequent mesh. Exam demonstrates right lower q uadrant tenderness however it is notably mild, with no guarding or rebound. Symptoms may be a muscle strain versus pain from mild constipation, however obviously an appendicitis is certainly on the differential. We will get a CT scan to rule out acute intra-abdominal process, laboratory workup to evaluate for any other signs of significant systemic infection. 3:[address] scan has returned, he does demonstrate evidence of an acute appendicitis per virtual radiology. No evidence of abscess or perforation. We will start Zosyn. I did contact surgeon computer operations analyst Dr. Aquino, she agrees with the plan and recommends admission to the OR for surgical management. Patient's pain is notably improved at this time. I have extensively reviewed the treatment plan with the patient. I have addressed all patient concerns at this time. I have also discussed the plan with the admitting physician and they agree with the current assessment and plan and have agreed to assume responsibility for the patient. All parties demonstrate verbal understanding and agreement with our assessment and plan at this time. FINDINGS: Lower thorax: No acute findings. ABDOMEN: Liver: Normal. No mass. Gallbladder and bile ducts: Normal. No calcified stones. No ductal dilation. Pancreas: Normal. No ductal dilation. Spleen: Normal. No splenomegaly. Adrenals: Normal. No mass. Kidneys and ureters: Normal. No hydronephrosis. Stomach and bowel: Normal. No obstruction. No mucosal thickening. Appendix: Mild appendicitis without abscess or perforation. 9 mm appendix with appendiceal wall thickening and mild periappendiceal fat inflammation consistent with mild appendicitis. PELVIS: Bladder: Unremarkable as visualized. Reproductive: Unremarkable as visualized. ABDOMEN and PELVIS: Intraperitoneal space: Normal. No free air. No significant fluid collection. Bones/joints: Mild dextroscoliosis. Partial sacralization of the right portion of L5 with unilateral right-sided articulation which can be a source of chronic low back pain. Soft tissues: Previous right inguinal hernia repair. Vasculature: Normal. No abdominal aortic aneurysm. Lymph nodes: Normal. No enlarged lymph nodes. IMPRESSION: Mild appendicitis without abscess or perforation. Dictated and Authenticated by: Leoncio Hamilton MD. Ordering:KHADRA Manuel MD HPI General Date/Time Provider Initiated Documentation: 08/05/18 12:34 . HPI Narrative: This is a 37-year-old male with past medical history of an umbilical hernia that was surgically repaired, as well as a history of paranoid schizophrenia, GERD, who presents today for evaluation of abdominal pain. Hilda ent states that he was doing push-ups 2-3 days ago, and then this morning he developed a mild achy-like sensation in his periumbilical region. He has been able to eat without any difficulty. He has had no associated vomiting or diarrhea. No radiation of the pain to his genitals or any other location. He denies any tearing or ripping sensation. He denies any hematuria or increased urinary frequency or dysuria. He denies any flank or CVA tenderness. He denies any other complaints or modifying factors at this time. He has not taken any medications for relief of the pain. Related Data Home Medications Medication Instructions Recorded Confirmed benztropine 1 mg PO BID 08/10/12 08/05/18 Resperadine Consta 50 mg IM q2w 04/19/16 08/05/18 lorazepam 1 mg PO BID 12/29/16 08/05/18 ranitidine HCl 150 mg PO DAILY 10/29/17 08/05/18 risperidone [Risperdal] 4 mg PO DAILY 10/29/17 08/05/18 esomeprazole magnesium [Nexium] 20 mg PO DAILY 03/28/18 08/05/18 Allergies Allergy/AdvReac Type Severity Reaction Status Date / Time No Known Allergies Allergy Unverified 08/05/18 12:41 General Stated Complaint: Abd Prob SCARLETT: 3 Review of Systems Review of Systems All systems reviewed & are unremarkable except as noted in HPI and below PFSH Social History Smoking/Tobacco Use Status: Current every day Alcohol Intake: former Drug use: Never Substance use type: does not use Do you feel safe at home: Yes Do you feel safe in your relationship?: Yes Exam Narrative Exam Narrative: 1.Const: Well-nourished, Well-developed, appearing stated age 2.Eyes: PERRL, no conjunctival injection, and symmetrical lids. 3.ENT: Atraumatic external nose and ears. Moist MM. Neck: Symmetric, trachea midline, No thyromegaly. 4.CVS: +S1/S2, No murmurs or gallops. Peripheral pulses 2+ and equal in all extremities. Brisk capillary refill in all extremities. 5.RESP: Unlabored respiratory effort. Clear to auscultation bilaterally. No wh eezes rales or rhonchi 6.GI: Soft, Nontender, No hepatosplenomegaly. No guarding or rebound. Right lower quadrant reproducible tenderness at McBurney's point. Negative Willis sign. Negative Rovsing sign. Negative obturator and psoas sign. No flank or CVA tenderness. Genital exam demonstrates bilaterally descended testicles, normal mole male genitalia. Normal cremasteric reflex. Nontender testicles on palpation. 7.MSK: Normocephalic/Atraumatic, Extremities w/o deformity or ttp No cyanosis or clubbing, Normal movement of all extremities 8.Skin: Warm, Dry. No rashes or lesions. 9.Neuro: night monitor II-XII grossly intact. Sensation grossly intact, no focal neurologic deficits. 10.Psych: (AAO) x3. Appropriate mood and affect Course Vital Signs Temperature 36.6 C 08/05/18 12:37 Pulse 97 H 08/05/18 12:37 Respiratory Rate 18 08/05/18 12:37 Blood Pressure 139/92 H 08/05/18 12:37 Pulse Oximetry 98 08/05/18 12:37 Temperature 36.6 C 08/05/18 12:37 Temperature Source Skin 08/05/18 12:37 Pulse 97 H 08/05/18 12:37 Respiratory Rate 18 08/05/18 12:37 Blood Pressure 139/92 H 08/05/18 12:37 Blood Pressure Position Supine 08/05/18 12:37 Pulse Oximetry 98 08/05/18 12:37 Oxygen Delivery Method Room Air 08/05/18 12:37 Oxygen Flow Rate 0 08/05/18 12:37
[2018-08-05] MEDS: Ketorolac 30 MG/ML VIAL IVP ×2 (13:10→19:46)
[2018-08-05] MEDS: MORPHine 10 MG/ML VIAL 4 MG IVP (13:10)
[2018-08-05] MEDS: Normal Saline 1,000 ML 1000 ML IV (13:11)
[2018-08-05 13:28] LABS: Abs Immature Grans 0.04 k/cumm (0.0-0.09); Absolute Basophil Count 0.05 k/cumm (0.0-0.2); Absolute Monocyte Count 1.02 k/cumm (0.11-0.7); Absolute Neutrophil Count 14.19 k/cumm (1.2-6.7); Basophils % 0.3; Eosinophils % 0.6; HCT 43.2 % (40.0-50.0); HGB 14.8 g/dL (13.5-17.5); Immature Grans % 0.2; Lymphocytes % 11.3; Mean Corp. HGB Concentration 34.3 g/dL (32.0-36.0); Mean Corpuscular Hemoglobin 31.7 pg (27.0-33.0); Mean Corpuscular Volume 92.5 fL (80-95); Mean Platelet Volume 9.6 fL (8.0-11.0); Monocytes % 5.9; Neutrophils % 81.7; Platelet Count 204 x1000/uL (130-400); RBC 4.67 m/cumm (4.50-6.00); RBC Distribution Width 12.4 % (11.8-14.1); White Blood Cell Count 17.37 k/cumm (4.4-10.8)
[2018-08-05 13:32] LABS: Absolute Lymphocyte Count 1.96 k/cumm (1.2-3.4)
[2018-08-05 13:37] LABS: ALT 25 U/L (12-78); AST 45 U/L (15-37); Alkaline Phosphatase 84 U/L (46-116); Anion Gap 10.3 mmol/L (3-11); BUN 12 mg/dL (7-18); Bilirubin, Total 0.7 mg/dL (0.2-1.0); CO2 27.7 mmol/L (21.0-32.0); Chloride 98 mmol/L (98-107); Glucose 137 mg/dL (70-100); Lipase 63 U/L (73-393); Potassium 3.6 mmol/L (3.5-5.1); Sodium 136 mmol/L (136-145); Total Protein 7.7 g/dL (6.4-8.2)
[2018-08-05 13:38] LABS: Bilirubin Negative (Negative); Blood Negative (Negative); Clarity Clear; Glucose Negative (Negative); Ketones Negative (Negative); Leukocyte Esterase Negative (Negative); Nitrite Negative (Negative); Urobilinogen 0.2 EU/dL (Up TO 0.2)
[2018-08-05] MEDS: Omnipaque 350 MG/ML 100 ML BTL IJ (14:13)
--- NOTE | 2018-08-05 14:16 | DI.CT_ITS ---
SYMPTOM/DIAGNOSIS: RLQ PAIN. H/O ABD UMB HERNIA SURG ABDOMINAL AND PELVIC CT: 08/05/18 CT examination of the abdomen and pelvis was performed with intravenous infusion of 100 cc Omnipaque 350. Images obtained through the lung bases are unremarkable. Liver, spleen, pancreas, gallbladder and bile ducts are unremarkable. Adrenals and kidneys are unremarkable. Abdominal aorta is of normal diameter. No major vascular abnormality seen. No significant abdominal wall hernia seen. No abdominal or pelvic adenopathy. Appendix is borderline enlarged measuring up to about 10-13 mm in greatest diameter with suggestion of mild periappendiceal fat edema. Findings are suspicious for acute appendicitis. No evidence of perforation or abscess. No additional bowel pathology apart from mild small bowel dilatation consistent with nonspecific ileus. I would note that the appendix is significantly more thick-walled and dilated than on previous abdominal CT of 06/06/18 which is also suggestive of an acute process. CONCLUSION: Findings suspicious for acute appendicitis.
--- NOTE | 2018-08-05 14:47 | DI.VRAD_ITS ---
EXAM: CT Abdomen and Pelvis With Contrast EXAM DATE/TIME: 08/05/2018 12:49 PM CLINICAL HISTORY: 37 years old, male; Pain; Other: Rlq; Prior surgery; Surgery date: 6+ months; Surgery type: Hernia 26yrs ago; Patient HX: Rlq pain TECHNIQUE: Imaging protocol: Axial computed tomography images of the abdomen and pelvis with intravenous contrast. Coronal and sagittal reformatted images were created and reviewed. Radiation optimization: All CT scans at this facility use at least one of these dose optimization techniques: automated exposure control; mA and/or kV adjustment per patient size (includes targeted exams where dose is matched to clinical indication); or iterative reconstruction. Contrast material: [id number] Contrast volume: 100 ml Contrast route: iv COMPARISON: CT ABDOMEN PELVIS W 06/06/2018 8:57 PM FINDINGS: Lower thorax: No acute findings. ABDOMEN: Liver: Normal. No mass. Gallbladder and bile ducts: Normal. No calcified stones. No ductal dilation. Pancreas: Normal. No ductal dilation. Spleen: Normal. No splenomegaly. Adrenals: Normal. No mass. Kidneys and ureters: Normal. No hydronephrosis. Stomach and bowel: Normal. No obstruction. No mucosal thickening. Appendix: Mild appendicitis without abscess or perforation. 9 mm appendix with appendiceal wall thickening and mild periappendiceal fat inflammation consistent with mild appendicitis. PELVIS: Bladder: Unremarkable as visualized. Reproductive: Unremarkable as visualized. ABDOMEN and PELVIS: Intraperitoneal space: Normal. No free air. No significant fluid collection. Bones/joints: Mild dextroscoliosis. Partial sacralization of the right portion of L5 with unilateral right-sided articulation which can be a source of chronic low back pain. Soft tissues: Previous right inguinal hernia repair. Vasculature: Normal. No abdominal aortic aneurysm. Lymph nodes: Normal. No enlarged lymph nodes. IMPRESSION: Mild appendicitis without abscess or perforation. Dictated and Authenticated by: Leoncio Hamilton MD. Ordering:KHADRA Manuel MD
[2018-08-05] MEDS: PIPERACILLIN/TAZO 4.5 GM in Normal Saline 100 ML IVPB (15:16)
--- NOTE | 2018-08-05 15:50 | HPE_ITS ---
Date of service: 08/05/18 Time of Service: 15:00 Assessment and Plan (1) Acute appendicitis: Current visit: Yes Status: Acute A\\ Acute Appendicitis without signs of perforation or abscess on CT scan P\\ 1. Laparoscopic Appendectomy Risks, benefits, complications of laparoscopic appendectomy were reviewed with the patient. Alternative treatment with inpatient IV antibiotics was also reviewed. Risk of recurrence if treated with IV antibiotics only were reviewed. Complications of laparoscopic appendectomy were reviewed. These include but are not limited to bleeding, infection, injury to large or small bowel, postoperative abscess, postoperative leak, postoperative ileus, adverse reaction to the medications given, ID, stroke, and . Questions were entertained and answered to his satisfaction and he wished to proceed. No guarantees were given or implied. I discussed postoperative pain control with the patient. He will be getting Tylenol, Toradol, and narcotics as needed. I discussed postoperative shoulder pain with the patient. 2. Admission to hospital overnight, most likely for OBS 3. DVT prophilaxis with SCD's and ambulation 4. GI prophilaxis with PPI 5. Diet: Will start on clear liquids and advanced as tolerated to regular diet 6. Activity: up ad demario Qualifiers: Acute appendicitis type: with localized peritonitis Appendicitis gangrene presence: unspecified whether gangrene present Appendicitis perforation presence: without perforation Appendicitis abscess presence: wi thout abscess Qualified Code(s): K35.30 - Acute appendicitis with localized peritonitis, without perforation or gangrene (2) Paranoid schizophrenia: Current visit: Yes Status: Acute A\\ Stable P\\ Will continue his home medcations (3) GERD (gastroesophageal reflux disease): Current visit: No Status: Chronic P\\ Place on antacid post surgery Qualifiers: Esophagitis presence: esophagitis presence not specified Qualified Code(s): K21.9 - Gastro-esophageal reflux disease without esophagitis History of Present Illness Chief Complaint: Abdominal pain Consults Consult date: 08/05/18 Requesting physician: Kaleb Miller Narrative: This is a 37-year-old male with past medical history of an umbilical hernia that was surgically repaired, as well as a history of paranoid schizophrenia, GERD, who presents today for evaluation of abdominal pain. Patient states that he was doing push-ups 2-3 days ago, and then this morning he developed a mild achy-like sensation in his periumbilical region. He has been able to eat without any difficulty. He has had no associated vomiting or diarrhea. No radiation of the pain to his genita ls or any other location. He denies any tearing or ripping sensation. He denies any hematuria or increased urinary frequency or dysuria. He denies any flank or CVA tenderness. He denies any other complaints or modifying factors at this time. He has not taken any medications for relief of the pain. Workup in the ER revealed a WBC count of >17,000. Ct scan showed an enlarged appendix. No signs of perforation or abscess. Review of Systems Constitutional Denies fever(s), Denies headache(s), Denies lethargy and Denies weight loss Eyes Denies change in vision ENT Denies dysphagia, Denies ear discharge, Denies headache(s) and Denies hearing loss Cardiovascular Denies chest pain, Denies chest pain at rest, Denies irregular heart rhythm, Denies claudication, Denies palpitations, Denies dyspnea and Denies dyspnea on exertion Respiratory Denies cough, Denies dyspnea and Denies dyspnea on exertion Gastrointestinal Reports as per HPI and Denies dysphagia Genitourinary Denies hematuria and Denies dysuria Neurologic Denies headache(s) Endocrine Denies palpitations Hematologic/Lymphatic Denies easy bleeding, Denies easy bruising and Denies lymphadenopathy [facility] Medical History Paranoid schizophrenia (Acute) Gastroesophageal reflux disease Mental disorder Surgical History EGD - IV Sedation (06/14/16) Repair of inguinal hernia Social History Smoking/Tobacco Use Status: Current every day Alcohol Intake: former Drug use: Never Substance use type: does not use Do you feel safe at home: Yes Do you feel safe in your relationship?: Yes Meds Home Medications Medication Instructions Recorded Confirmed Type benztropine 1 mg PO BID 08/10/12 08/05/18 History Resperadine Consta 50 mg IM q2w 04/19/16 08/05/18 History lorazepam 1 mg PO BID 12/29/16 08/05/18 History ranitidine HCl 150 mg PO DAILY 10/29/17 08/05/18 History risperidone [Risperdal] 4 mg PO DAILY 10/29/17 08/05/18 History esomeprazole magnesium [Nexium] 20 mg PO DAILY 03/28/18 08/05/18 History Allergies Allergy/AdvReac Type Severity Reaction Status Date / Time No Known Allergies Allergy Unverified 08/05/18 12:41 Exam Const General: cooperative, healthy appearing, comfortable and no acute distress Orientation: alert and oriented x3 HENMT Head: normocephalic and atraumatic Eyes Pupils: PERRL Resp Effort & Inspection: normal respiratory effort Auscultation: clear to auscultation bilaterally Cardio Rate: regular rate Rhythm: regular rhythm Heart Sounds: no click, no gallops and no murmurs GI Inspection: normal to inspection Palpation: soft, no hepatosplenomegaly, hernia umbilical and tender in the RLQ (No rebound or guarding) Auscultation: normal bowel sounds Results Labs : 08/05/18 13:10 08/05/18 13:10 Laboratory Results - last 24 hr 08/05/18 08/05/18 08/05/18 13:02 13:10 13:10 WBC 17.37 H RBC 4.67 Hgb 14.8 Hct 43.2 MCV 92.5 MCH 31.7 MCHC 34.3 RDW 12.4 Plt Count 204 MPV 9.6 Immature Gran % 0.2 Neutrophils % 81.7 Lymphocytes % 11.3 Monocytes % 5.9 Eosinophils % 0.6 Basophils % 0.3 Absolute Neutrophils 14.19 H Absolute Lymphocytes 1.96 Absolute Monocytes 1.02 H Absolute Eosinophils 0.10 Absolute Basophils 0.05 Sodium 136 Potassium 3.6 Chloride 98 Carbon Dioxide 27.7 Anion Gap 10.3 BUN 12 Creatinine 1.00 Estimated GFR/1.73 m2 >= 60.00 Glucose 137 H Calcium 9.0 Total Bilirubin 0.7 AST 45 H ALT 25 Alkaline Phosphatase 84 Total Protein 7.7 Albumin 4.0 Lipase 63 L Urine Color Yellow Urine Clarity Clear Urine pH 6.0 Ur Specific [place] 1.010 Urine Protein Negative Urine Ketones Negative Urine Blood Negative Urine Nitrite Negative Urine Bilirubin Negative Urine Urobilinogen 0.2 Ur Leukocyte Esterase Negative Urine Glucose Negative Last Vital Signs Temp 98.6 F 08/05/18 15:29 Pulse 86 08/05/18 15:29 Resp 20 08/05/18 15:29 BP 128/76 08/05/18 15:29 Pulse Ox 96 08/05/18 15:29
[2018-08-05] MEDS: Lactated Ringers 1,000 ML 75 ML IV (16:00)
--- NOTE | 2018-08-05 16:30 | APP_PTH ---
PATIENT: Nigel Gomez LOC: U#:[id number] AGE/SX: 37/M ROOM: 230 RE08/05/[address]: Park Aquino MD : 1980 BED: A DIS: 08/06/2018 SPEC #: [id number] RECD: 08/06/18 12:36 STATUS: BRAULIO REQ #: [id number] ELIZABETH: 08/05/18 16:[address]: Park Aquino DEPT: Surgical Specimen RECD BY: Nu Driver ENTERED: 08/06/18 12:37 SP TYPE: Appendix OTHR DR: Perla Martin Tissues: 1 - APPENDIX NOT INCIDENTAL Procedures: GROSS AND MICRO LEVEL 3 Comments: [id number]
[2018-08-05] MEDS: Lidocaine 1% Multi-Dose 50 ML VIAL (16:40)
--- NOTE | 2018-08-05 16:52 | W.PM.OP ---
Date of service: 08/05/18 Time of Service: 16:52 Operative Note DATE OF PROCEDURE: 08/05/18 PRE-OP DIAGNOSIS: Acute Appendicitis POST-OP DIAGNOSIS: same PROCEDURE: Laparoscopic Appendectomy SURGEON: Park Aquino WEATHERIZATION COORDINATOR: Chinmay Hatfield ANESTHESIA: GETA (Imtiaz Urena, FORESTRY EXTENSION SPECIALIST/ ASA 2) ESTIMATED BLOOD LOSS: 5 PATHOLOGY: other (Appendix) COMPLICATIONS: None Patient was transported to: PACU Patient's condition: stable Indications: Mr. Gomez is a pleasant 37-year-old gentleman who came to the emergency department with abdominal pain which started this morning. CT scan showed appendicitis. White blood cell count was over 17,000. Risks, benefits, complications and alternatives were reviewed with him and he wished to proceed. No guarantees were given or implied Findings: Enlarged and thick-walled appendix. No purulent fluid in the abdomen. Liver looked smooth and normal. Previous right inguinal hernia repair noted. Procedure Description: After informed consent was obtained the patient was taken to the operating room placed in the supine position, SCDs were applied, as well as monitors. A timeout was done. The patient was then placed under general anesthesia and intubated without any difficulty. Next a Abreu catheter was placed in a standard surgical fashion. The abdomen hair was clipped. At this point the abdomen was prepped and draped in a sterile surgical fashion with chlorhexidine. A second timeout was done and the patient's name, date of , operation to be performed, DVT prophylaxis, antibiotic given, and fire risk was assessed. 1% Percent lidocaine was mixed 50-50 with 0.5 % Marcaine with epinephrine. The mixture was injected into the dermis just above the umbilicus. A small 5 mm incision was made with an 11 blade. The skin was grasped with penetrating towel clamps on either side of the incision and then using a Visiport, a 5 mm port was placed under direct visualization into the abdomen. The abdomen was insufflated. Local anesthetic was then injected just above the pubic symphysis in the midline. A small 5 mm incision was made with an 11 blade and another 5 mm port was placed under direct visualization into the abdomen. The local anesthetic was then injected in the left lower quadrant area and a 11 mm incision was made with an 11 blade. A 11 mm port was then placed under direct visualization. The patient's bed was then turned to the left allowing me to sweep the small bowel out of the right lower quadrant. The cecum was gently grasped and the appendix was identified. The appendix was grasped at the tip and pulled up allowing me to visualize the junction with the cecum. Using the laparoscopic LigaSure the mesoappendix was transected. Using a straight laparoscopic stapler the appendix was stapled at the junction with the cecum. The appendix was then placed into an Endo Catch bag and removed through the 11 mm port site. The port was placed back into the abdomen and the staple line was identified. No bleeding was noted at the staple line. The liver was inspected and looked normal. The Glabbladder was not seen as it was under some omentum. 20 cc of the local anesthetic was then injected above the liver bed to hopefully help with postoperative shoulder pain. The Right inguinal area was inspected. A mesh was noted from his previous repair. No hernia was identified in the left inguinal area. The two 5 mm ports were then removed under direct visualization and no bleeding was noted from the fascia. The insufflation was stopped and the 11 mm port was removed. The 11 mm port site fascia was closed with a 0 Vicryl [id number] suture. The skin was then closed with 4-0 Vicryl. The skin was cleaned and dried and skin affix was applied. The abreu catheter was removed prior to the patient waking up. There was about 250 cc of clear urine noted. The patient was woken up extubated and taken back to recovery room in stable condition. There were no immediate complications. Sponge instrument needle counts were correct at the end of the case x2.
--- NOTE | 2018-08-05 18:35 | NUR.NOTE ---
Nursing Note: Pt to [facility] floor at 1730 via stretcher. Ambulated well from stretcher to bed with standby. Report received from CLOCK ASSEMBLER and BUSINESS INTELLIGENCE CONSULTANT. A&Ox3, VSS, lungs clear. Pt denies pain at this time. Pt oriented to hospital room, call jones, etc. RN will continue to monitor.
[2018-08-05] MEDS: Benztropine 1 MG TAB PO (19:45)
[2018-08-05] MEDS: Docusate Sodium 100 MG CAP PO (19:46)
[2018-08-05] MEDS: LORazepam 1 MG TAB PO (19:46)
[2018-08-05] MEDS: Normal Saline Flush 10 ML SYR IVP ×2 (19:46→20:18)
[2018-08-05] MEDS: PIPERACILLIN/TAZO 3.375 GM in Normal Saline 50 ML IVPB (20:18)
[2018-08-06] MEDS: PIPERACILLIN/TAZO 3.375 GM in Normal Saline 50 ML IVPB ×2 (02:14→07:54)
[2018-08-06] MEDS: Ketorolac 30 MG/ML VIAL IVP (02:14)
[2018-08-06] MEDS: Normal Saline Flush 10 ML SYR IVP ×2 (02:15→07:47)
[2018-08-06 03:24] VITALS: BP 122/70; PULSE 63; RESP 17; TEMP 36.6; O2SAT 95
[2018-08-06 07:25] VITALS: BP 119/76; PULSE 77; RESP 18; TEMP 36.6; O2SAT 96
[2018-08-06] MEDS: LORazepam 1 MG TAB PO (07:44)
[2018-08-06] MEDS: risperiDONE 1 MG TAB 4 MG PO (07:44)
[2018-08-06] MEDS: Docusate Sodium 100 MG CAP PO ×2 (07:44→13:25)
[2018-08-06] MEDS: Benztropine 1 MG TAB PO (07:45)
[2018-08-06] MEDS: Esomeprazole 20 MG CAPCR PO (07:45)
[2018-08-06 07:50] LABS: Abs Immature Grans 0.04 k/cumm (0.0-0.09); Absolute Basophil Count 0.01 k/cumm (0.0-0.2); Absolute Eosinophil Count 0.01 k/cumm (0.0-0.7); Absolute Lymphocyte Count 1.43 k/cumm (1.2-3.4); Basophils % 0.1; Eosinophils % 0.1; HCT 39.9 % (40.0-50.0); HGB 13.3 g/dL (13.5-17.5); Immature Grans % 0.3; Lymphocytes % 9.8; Mean Corp. HGB Concentration 33.3 g/dL (32.0-36.0); Mean Corpuscular Hemoglobin 31.1 pg (27.0-33.0); Mean Corpuscular Volume 93.4 fL (80-95); Mean Platelet Volume 9.7 fL (8.0-11.0); Monocytes % 5.5; Neutrophils % 84.2; Platelet Count 206 x1000/uL (130-400); RBC 4.27 m/cumm (4.50-6.00); RBC Distribution Width 12.3 % (11.8-14.1); White Blood Cell Count 14.61 k/cumm (4.4-10.8)
--- NOTE | 2018-08-06 07:52 | W.PM.PROGNOT ---
Date of Service Date of service: 08/06/18 Time of Service: 07:52 Assessment and Plan (1) Acute appendicitis: Current visit: Yes Status: Acute A\\ POD #1 s/p laparoscopic appendectomy. Patient reports minimal pain over night. He Has not yet had a BM, nsg was giving him a stool softner. He has not yet passed any flatus. No fevers over night. WBC 14.61 this morning. BMP Pending Tolerating regular diet late last night, will see how he does with breakfast tray. P\\ See how he tolerates regular diet this morning. Encouraged ambulation and activities out of bed. Continue Tylenol and Toradol PRN for pain. If tolerating regular diet and passing flatus probable D/C home later today. Qualifiers: Acute appendicitis type: with localized peritonitis Appendicitis gangrene presence: unspecified whether gangrene present Appendicitis perforation presence: without perforation Appendicitis abscess presence: without abscess Qualified Code(s): K35.30 - Acute appendicitis with localized peritonitis, without perforation or gangrene (2) Paranoid schizophrenia: Current visit: Yes Status: Acute A\\ Stable P\\ Will continue his home medications (3) GERD (gastroesophageal reflux disease): Current visit: No Status: Chronic P\\ Placed on antacid post surgery Qualifiers: Esophagitis presence: esophagitis presence not specified Qualified Code(s): K21.9 - Gastro-esophageal reflux disease without esophagitis Subjective Interval history since last seen: Feeling better, the pain is gone. He reports that he has been eating okay. Denies nausea, vomiting or fevers. He has not yet had a BM and is not passing gas yet this morning. Exam Const General: cooperative, healthy appearing and comfortable Orientation: alert and oriented x3 Resp Effort & Inspection: normal respiratory effort and no audible wheezes GI Inspection: normal to inspection, non-distended and incision (With skin a fix. No erythema, swelling or ecchymosis) Palpation: soft, no guarding and nontender Auscultation: hypoactive bowel sounds Objective Objective Clinical Data: Abnormal lab results 08/05/18 08/05/18 Range/Units 13:10 13:10 WBC 17.37 H (4.4-10.8) k/cumm Absolute Neutrophils 14.19 H (1.2-6.7) k/cumm Absolute Monocytes 1.02 H (0.11-0.7) k/cumm Glucose 137 H (70-100) mg/dL AST 45 H (15-37) U/L Lipase 63 L (73-393) U/L Vital Signs Temperature 36.6 C 08/06/18 03:24 Temperature Source Tympanic 08/06/18 03:24 Pulse 63 08/06/18 03:24 Pulse Rhythm Regular 08/05/18 20:52 Respiratory Rate 17 08/06/18 03:24 Respiratory Effort Non-Labored 08/05/18 20:52 Respiratory Depth Normal 08/05/18 20:52 Respiratory Pattern Normal 08/05/18 20:52 Blood Pressure 122/70 08/06/18 03:24 Blood Pressure Position Supine 08/05/18 12:37 Pulse Oximetry 95 08/06/18 03:24 Respiratory End-tidal CO2 39 08/05/18 17:13 Oxygen Delivery Method Room Air 08/06/18 03:24 Oxygen Flow Rate 0 08/06/18 03:24 Pain Level 1 08/06/18 07:47 Intake & Output 08/05/18 08/06/18 08/06/18 18:59 06:59 18:59 Intake Total 1890 / 3617.5 1727.5 / 3617.5 Output Total 200 / 2900 2700 / 2900 Balance 1690 / 717.5 -972.5 / 717.5 Weight 90.718 kg Intake: IV 1700 / 1987.5 287.5 / 1987.5 Oral 190 / 1630 1440 / 1630 Output: Urine 200 / 2900 2700 / 2900 Other: Urine Color Yellow Yellow Urine Appearance Clear Clear Emesis Description None Voiding Methods Toilet Laboratory Results WBC 17.37 k/cumm (4.4-10.8) H 08/05/18 13:10 RBC 4.67 m/cumm (4.50-6.00) 08/05/18 13:10 Hgb 14.8 g/dL (13.5-17.5) 08/05/18 13:10 Hct 43.2 % (40.0-50.0) 08/05/18 13:10 MCV 92.5 fL (80-95) 08/05/18 13:10 MCH 31.7 pg (27.0-33.0) 08/05/18 13:10 MCHC 34.3 g/dL (32.0-36.0) 08/05/18 13:10 RDW 12.4 % (11.8-14.1) 08/05/18 13:10 Plt Count 204 x1000/uL (130-400) 08/05/18 13:10 MPV 9.6 fL (8.0-11.0) 08/05/18 13:10 Immature Gran % 0.2 08/05/18 13:10 Neutrophils % 81.7 08/05/18 13:10 Lymphocytes % 11.3 08/05/18 13:10 Monocytes % 5.9 08/05/18 13:10 Eosinophils % 0.6 08/05/18 13:10 Basophils % 0.3 08/05/18 13:10 Absolute Neutrophils 14.19 k/cumm (1.2-6.7) H 08/05/18 13:10 Absolute Lymphocytes 1.96 k/cumm (1.2-3.4) 08/05/18 13:10 Absolute Monocytes 1.02 k/cumm (0.11-0.7) H 08/05/18 13:10 Absolute Eosinophils 0.10 k/cumm (0.0-0.7) 08/05/18 13:10 Absolute Basophils 0.05 k/cumm (0.0-0.2) 08/05/18 13:10 Sodium 136 mmol/L (136-145) 08/05/18 13:10 Potassium 3.6 mmol/L (3.5-5.1) 08/05/18 13:10 Chloride 98 mmol/L (98-107) 08/05/18 13:10 Carbon Dioxide 27.7 mmol/L (21.0-32.0) 08/05/18 13:10 Anion Gap 10.3 mmol/L (3-11) 08/05/18 13:10 BUN 12 mg/dL (7-18) 08/05/18 13:10 Creatinine 1.00 mg/dL (0.70-1.30) 08/05/18 13:10 Estimated GFR/1.73 m2 >= 60.00 (mL/min/1.73m2) 08/05/18 13:10 Glucose 137 mg/dL (70-100) H 08/05/18 13:10 Calcium 9.0 mg/dL (8.5-10.1) 08/05/18 13:10 Total Bilirubin 0.7 mg/dL (0.2-1.0) 08/05/18 13:10 AST 45 U/L (15-37) H 08/05/18 13:10 ALT 25 U/L (12-78) 08/05/18 13:10 Alkaline Phosphatase 84 U/L (46-116) 08/05/18 13:10 Total Protein 7.7 g/dL (6.4-8.2) 08/05/18 13:10 Albumin 4.0 g/dL (3.4-5.0) 08/05/18 13:10 Lipase 63 U/L (73-393) L 08/05/18 13:10 Urine Color Yellow (Yellow) 08/05/18 13:02 Urine Clarity Clear 08/05/18 13:02 Urine pH 6.0 (5-8) 08/05/18 13:02 Ur Specific [place] 1.010 (1.005-1.025) 08/05/18 13:02 Urine Protein Negative mg/dL (Negative) 08/05/18 13:02 Urine Ketones Negative mg/dL (Negative) 08/05/18 13:02 Urine Blood Negative (Negative) 08/05/18 13:02 Urine Nitrite Negative (Negative) 08/05/18 13:02 Urine Bilirubin Negative (Negative) 08/05/18 13:02 Urine Urobilinogen 0.2 EU/dL (Up TO 0.2) 08/05/18 13:02 Ur Leukocyte Esterase Negative (Negative) 08/05/18 13:02 Urine Glucose Negative mg/dL (Negative) 08/05/18 13:02
[2018-08-06 08:03] LABS: Anion Gap 9.8 mmol/L (3-11); BUN 13 mg/dL (7-18); CO2 26.2 mmol/L (21.0-32.0); CREATININE 0.87 mg/dL (0.70-1.30); Calcium 8.6 mg/dL (8.5-10.1); Chloride 101 mmol/L (98-107); Glucose 140 mg/dL (70-100); Sodium 137 mmol/L (136-145)
--- NOTE | 2018-08-06 09:12 | INITIAL_ITS ---
Care Management Initial Assess REASON FOR HOSPITALIZATION:: Acute Appendicitis PAST MEDICAL HISTORY/PAST SURGICAL HISTORY:: GERD, Mental disorder; paranoid schizophrenia, EGD, inguinal hernia PREVIOUS FUNCTIONAL STATUS/SOCIAL/FAMILY SUPPORTS:: Nigel resides in his own apartment in [place], [place]. His dad resides in [place]. Nigel is on diability due to mental health history; though is current well managed with medications and services through [facility]. He is independent with all ADLs in the community. CURRENT FUNCTIONAL STATUS:: Nigel was sitting up on the side of his bed, he was quite friendly in interaction and reported appreciation for his care and surgical intervention. Nigel reported anticipating he would discharge to home today. ADVANCE DIRECTIVES:: None on file at [facility] Has patient been provided with information about the portal?: Yes Did the patient sign up for the portal?: No CODE STATUS:: Full Code INSURANCE COVERAGE / FINANCIAL ISSUES:: Medicare. Medicaid CURRENT HOME/COMMUNITY SERVICES/EQUIPMENT:: [facility] PRIMARY CARE PHYSICIAN:: Perla Martin POTENTIAL DISCHARGE NEEDS:: Follow up appointments. PATIENT/FAMILY EDUCATION NEEDS:: Review discharge instructions, discuss Ask Me Three. ANTICIPATED BARRIERS TO DISCHARGE:: None identified. TRANSPORTATION:: Via private vehicle with a friend, or RCT. PLAN:: Nigel will return home when ready per MD. He will follow up with his PCP and plan of care as prescribed. He will transport via private vehicle with a friend or via RCT.
[2018-08-06 11:27] VITALS: BP 134/82; PULSE 73; RESP 19; TEMP 36.8; O2SAT 99
--- NOTE | 2018-08-06 14:39 | NUR.NOTE ---
Patient left AMA at 1438. Pt was advice to wait for the doctor to see him before leaving and wait for a discharge order. Pt was educated on risk of leaving patient still refused to wait and insisted on signing out AMA. Nursing Note:
--- NOTE | 2018-08-06 14:59 | W.PM.PROGNOT ---
Date of Service Date of service: 08/06/18 Time of Service: 14:59 Assessment and Plan (1) Acute appendicitis: Current visit: Yes Status: Acute A\\ 37 year old male POD #1 from Lap. Appi. His WBC count still elevated today. No fevers overnight. I was waiting to discharge patient until he had had his 3rd dose of antibiotic to give him 24 hour coverage. Patient decided to leave AMA prior to me beeing able to come back up to see him. he was seen by our PA this morning. He should be seen for follow up in 2 weeks. I will ask my office to call him and try to get him in to see me. No Rx were written for pain medication. Again patient left AMA prior to getting his last dose of antibiotics and with a still elevated WBC count Qualifiers: Acute appendicitis type: with localized peritonitis Appendicitis gangrene presence: unspecified whether gangrene present Appendicitis perforation presence: without perforation Appendicitis abscess presence: without abscess Qualified Code(s): K35.30 - Acute appendicitis with localized peritonitis, without perforation or gangrene Objective Objective Clinical Data: Abnormal lab results 08/06/18 08/06/18 Range/Units 07:20 07:20 WBC 14.61 H (4.4-10.8) k/cumm RBC 4.27 L (4.50-6.00) m/cumm Hgb 13.3 L (13.5-17.5) g/dL Hct 39.9 L (40.0-50.0) % Absolute Neutrophils 12.30 H (1.2-6.7) k/cumm Absolute Monocytes 0.80 H (0.11-0.7) k/cumm Glucose 140 H (70-100) mg/dL Vital Signs Temperature 97.9 F 08/06/18 07:25 Temperature Source Tympanic 08/06/18 07:25 Pulse 77 08/06/18 07:25 Pulse Rhythm Regular 08/06/18 09:10 Respiratory Rate 18 08/06/18 07:25 Respiratory Effort Non-Labored 08/06/18 09:10 Respiratory Depth Normal 08/06/18 09:10 Respiratory Pattern Normal 08/06/18 09:10 Blood Pressure 119/76 08/06/18 07:25 Blood Pressure Position Supine 08/05/18 12:37 Pulse Oximetry 96 08/06/18 07:25 Respiratory End-tidal CO2 39 08/05/18 17:13 Oxygen Delivery Method Room Air 08/06/18 07:25 Oxygen Flow Rate 0 08/06/18 07:25 Pain Level 1 08/06/18 13:25 Intake & Output 08/05/18 08/06/18 08/06/18 23:59 11:59 23:59 Intake Total 2767.5 / 2767.5 1210 / 1450 240 / 1450 Output Total 1500 / 1500 1400 / 1400 Balance 1267.5 / 1267.5 -190 / 50 240 / 50 Weight 199 lb 15.983 oz Intake: IV 1937.5 / 1937.5 50 / 50 Oral 830 / 830 1160 / 1400 240 / 1400 Output: Urine 1500 / 1500 1400 / 1400 Other: Urine Color Yellow Yellow Urine Appearance Clear Clear Stool Size Moderate Stool Characteristics Soft Formed Brown Emesis Description None Undigested Food Voiding Methods Toilet Toilet Laboratory Results WBC 14.61 k/cumm (4.4-10.8) H 08/06/18 07:20 RBC 4.27 m/cumm (4.50-6.00) L 08/06/18 07:20 Hgb 13.3 g/dL (13.5-17.5) L 08/06/18 07:20 Hct 39.9 % (40.0-50.0) L 08/06/18 07:20 MCV 93.4 fL (80-95) 08/06/18 07:20 MCH 31.1 pg (27.0-33.0) 08/06/18 07:20 MCHC 33.3 g/dL (32.0-36.0) 08/06/18 07:20 RDW 12.3 % (11.8-14.1) 08/06/18 07:20 Plt Count 206 x1000/uL (130-400) 08/06/18 07:20 MPV 9.7 fL (8.0-11.0) 08/06/18 07:20 Immature Gran % 0.3 08/06/18 07:20 Neutrophils % 84.2 08/06/18 07:20 Lymphocytes % 9.8 08/06/18 07:20 Monocytes % 5.5 08/06/18 07:20 Eosinophils % 0.1 08/06/18 07:20 Basophils % 0.1 08/06/18 07:20 Absolute Neutrophils 12.30 k/cumm (1.2-6.7) H 08/06/18 07:20 Absolute Lymphocytes 1.43 k/cumm (1.2-3.4) 08/06/18 07:20 Absolute Monocytes 0.80 k/cumm (0.11-0.7) H 08/06/18 07:20 Absolute Eosinophils 0.01 k/cumm (0.0-0.7) 08/06/18 07:20 Absolute Basophils 0.01 k/cumm (0.0-0.2) 08/06/18 07:20 Sodium 137 mmol/L (136-145) 08/06/18 07:20 Potassium 4.0 mmol/L (3.5-5.1) 08/06/18 07:20 Chloride 101 mmol/L (98-107) 08/06/18 07:20 Carbon Dioxide 26.2 mmol/L (21.0-32.0) 08/06/18 07:20 Anion Gap 9.8 mmol/L (3-11) 08/06/18 07:20 BUN 13 mg/dL (7-18) 08/06/18 07:20 Creatinine 0.87 mg/dL (0.70-1.30) 08/06/18 07:20 Estimated GFR/1.73 m2 >= 60.00 (mL/min/1.73m2) 08/06/18 07:20 Glucose 140 mg/dL (70-100) H 08/06/18 07:20 Calcium 8.6 mg/dL (8.5-10.1) 08/06/18 07:20 Total Bilirubin 0.7 mg/dL (0.2-1.0) 08/05/18 13:10 AST 45 U/L (15-37) H 08/05/18 13:10 ALT 25 U/L (12-78) 08/05/18 13:10 Alkaline Phosphatase 84 U/L (46-116) 08/05/18 13:10 Total Protein 7.7 g/dL (6.4-8.2) 08/05/18 13:10 Albumin 4.0 g/dL (3.4-5.0) 08/05/18 13:10 Lipase 63 U/L (73-393) L 08/05/18 13:10 Urine Color Yellow (Yellow) 08/05/18 13:02 Urine Clarity Clear 08/05/18 13:02 Urine pH 6.0 (5-8) 08/05/18 13:02 Ur Specific [place] 1.010 (1.005-1.025) 08/05/18 13:02 Urine Protein Negative mg/dL (Negative) 08/05/18 13:02 Urine Ketones Negative mg/dL (Negative) 08/05/18 13:02 Urine Blood Negative (Negative) 08/05/18 13:02 Urine Nitrite Negative (Negative) 08/05/18 13:02 Urine Bilirubin Negative (Negative) 08/05/18 13:02 Urine Urobilinogen 0.2 EU/dL (Up TO 0.2) 08/05/18 13:02 Ur Leukocyte Esterase Negative (Negative) 08/05/18 13:02 Urine Glucose Negative mg/dL (Negative) 08/05/18 13:02
--- NOTE | 2018-08-06 15:08 | DSE_ITS ---
Date of service: 08/06/18 Time of Service: 15:03 DS: Diagnosis Discharge Diagnosis (1) Acute appendicitis: Status: Acute Discharge Plan Disposition Patient Disposition: AGAINST MEDICAL ADVICE Condition: Stable Discharge Details Reason For Visit: ACUTE APENDICITIS Admit Date/Time: 08/05/18 16:44 Admit Provider: Park Aquino Attending Provider: Park Aquino [facility] Hospital Course: Mr. Gomez was admitted yesterday evening after undergoing a Laparoscopic Appendectomy. His WBC count on admission was >17,000. He was admitted for obs. My plan was to give him 24 hour s of IV antibiotics prior to discharge. His WBC count was just over 14,000 on 08/06/18. He was seen in the am by Shayna Medeiros and was doing well. His diet had been advanced. I was going to go see the patient in the afternoon with plan for discharge after his last dose of antibiotics. Patient left AMA prior to me being able to come up to see him. No Rx were written Will attempt to contact to make a follow up appointment Home Meds and New Rx's Prescriptions: No Action resperadine consta 50 mg IM q2w RF: 0 benztropine 1 MG tablet 1 mg PO BID RF: 0 lorazepam 1 MG tablet 1 mg PO BID RF: 0 ranitidine HCl 150 MG tablet 150 mg PO DAILY RF: 0 risperidone [Risperdal] 3 MG tablet 4 mg PO DAILY RF: 0 esomeprazole magnesium [Nexium] 20 mg Capsule,Delayed Release(Dr/Ec) 20 mg PO DAILY RF: 0 Discharge Instructions Stand Alone Forms: Nursing Discharge Form Referrals: Park Aquino MD [ [facility] STAFF PHYSICIAN] - 08/14/18 1:30 pm Activity:: No lifting >20 lb Equipment/Supplies:: No Equipment Needed Diet:: As Tolerated DS: Data Vitals/I&O Vitals and I&O: Vital Signs Temperature 97.9 F 08/06/18 07:25 Temperature Source Tympanic 08/06/18 07:25 Pulse 77 08/06/18 07:25 Pulse Rhythm Regular 08/06/18 09:10 Respiratory Rate 18 08/06/18 07:25 Respiratory Effort Non-Labored 08/06/18 09:10 Respiratory Depth Normal 08/06/18 09:10 Respiratory Pattern Normal 08/06/18 09:10 Blood Pressure 119/76 08/06/18 07:25 Blood Pressure Position Supine 08/05/18 12:37 Pulse Oximetry 96 08/06/18 07:25 Respiratory End-tidal CO2 39 08/05/18 17:13 Oxygen Delivery Method Room Air 08/06/18 07:25 Oxygen Flow Rate 0 08/06/18 07:25 Pain Level 1 08/06/18 13:25 Intake & Output 08/05/18 08/06/18 08/06/18 23:59 11:59 23:59 Intake Total 2767.5 / 2767.5 1210 / 1450 240 / 1450 Output Total 1500 / 1500 1400 / 1400 Balance 1267.5 / 1267.5 -190 / 50 240 / 50 Weight 199 lb 15.983 oz Intake: IV 1937.5 / 1937.5 50 / 50 Oral 830 / 830 1160 / 1400 240 / 1400 Output: Urine 1500 / 1500 1400 / 1400 Other: Urine Color Yellow Yellow Urine Appearance Clear Clear Stool Size Moderate Stool Characteristics Soft Formed Brown Emesis Description None Undigested Food Voiding Methods Toilet Toilet Labs on day of discharge: Labs from last 24 hours 08/06/18 08/06/18 07:20 07:20 WBC 14.61 H RBC 4.27 L Hgb 13.3 L Hct 39.9 L MCV 93.4 MCH 31.1 MCHC 33.3 RDW 12.3 Plt Count 206 MPV 9.7 Immature Gran % 0.3 Neutrophils % 84.2 Lymphocytes % 9.8 Monocytes % 5.5 Eosinophils % 0.1 Basophils % 0.1 Absolute Neutrophils 12.30 H Absolute Lymphocytes 1.43 Absolute Monocytes 0.80 H Absolute Eosinophils 0.01 Absolute Basophils 0.01 Sodium 137 Potassium 4.0 Chloride 101 Carbon Dioxide 26.2 Anion Gap 9.8 BUN 13 Creatinine 0.87 Estimated GFR/1.73 m2 >= 60.00 Glucose 140 H Calcium 8.6 PFSH Medical History Paranoid schizophrenia (Acute) Gastroesophageal reflux disease Mental disorder Surgical History S/P laparoscopic appendectomy (Acute ~04/14/19) EGD - IV Sedation (06/14/16) Repair of inguinal hernia Social History Smoking/Tobacco Use Status: Current every day Alcohol Intake: former Drug use: Never Substance use type: does not use Do you feel safe at home: Yes Do you feel safe in your relationship?: Yes
== END 2018-08-06 15:23 | disposition left against medical advice (07) ==
LOC: ER 15:52 → SUR 15:55 → MS 17:34
PROVIDERS: Admitting Provider Surgery; Emergency Provider Student in an Organized Health Care Education/Training Program; PCP Nurse Practitioner Family; Visit Provider Surgery
PROC: 0DTJ4ZZ Resection of Appendix, Percutaneous Endoscopic Approach (ICD-10-PCS; CPT 44970; principal; 2018-08-05 15:30)
DX: K35.30 Acute appendicitis with localized peritonitis, without perforation or gangrene (principal); Z53.21 Procedure and treatment not carried out due to patient leaving prior to being seen by health care provider; F20.0 Paranoid schizophrenia; K21.9 Gastro-esophageal reflux disease without esophagitis
CPT/HCPCS: 44970; 36415; 80048; 80053; 83690; 96361; 96365; 96375; 99220; 99223; 99285; NC; 74177; 81003; 85025; 88304; 99284; G0378; J1100; J1885; J2270; J2405; J2543; J3490

== ENCOUNTER → 2018-08-17 10:41 | Outpatient (BNVA) | payer MEDICARE, MEDICAID, SELFPAY | PROVIDERS: PCP Nurse Practitioner Family; Referring Provider Nurse Practitioner Family; Visit Provider Surgery | DX: Z48.815 Encounter for surgical aftercare following surgery on the digestive system (principal); Z90.49 Acquired absence of other specified parts of digestive tract; K35.80 Unspecified acute appendicitis ==

== ENCOUNTER 2018-08-23 19:38 | Emergency (ER) | payer MEDICARE, MEDICAID, SELFPAY ==
--- NOTE | 2018-08-23 19:47 | DI.CT_ITS ---
SYMPTOM/DIAGNOSIS: RT MID ABD PAIN, S/P APPENDECTOMY ABDOMEN AND PELVIC CT: CT examination of the abdomen and pelvis was performed with a bolus infusion of 100 cc's of Omnipaque 350. Images obtained through the lung bases are unremarkable. Liver, spleen and pancreas appear normal. Gallbladder is contracted and there is no biliary dilatation. Abdominal aorta is of normal diameter and no major vascular abnormality is seen. Small fat containing inguinal hernia is noted bilaterally along with a small fat containing umbilical hernia. No evidence of abdominal or pelvic adenopathy. Appendix has been surgically removed since the previous CT of 08/05/18. No evidence of abscess or hematoma. No free intraperitoneal air. No evidence of bowel obstruction. Adrenals and kidneys are unremarkable in appearance with no evidence of urinary tract obstruction or calcification. Urinary bladder is unremarkable in appearance. CONCLUSION: No evidence of acute intra-abdominal process.
[2018-08-23 19:48] VITALS: BP 124/90; PULSE 94; RESP 20; TEMP 37.2; O2SAT 94
--- NOTE | 2018-08-23 19:56 | ED.GENADUL_ITS ---
Discharge Plan Disposition Patient Disposition: HOME Condition: Stable Discharge Details Chief Complaint: Abd Prob Clinical Impression: Abdominal pain Primary Care Provider: Perla Martin ED Provider: Leoncio Miranda Home Meds and New Rx's Prescriptions: No Action resperadine consta 50 mg IM q2w RF: 0 benztropine 1 MG tablet 1 mg PO BID RF: 0 lorazepam 1 MG tablet 1 mg PO BID RF: 0 ranitidine HCl 150 MG tablet 150 mg PO DAILY RF: 0 risperidone [Risperdal] 3 MG tablet 4 mg PO DAILY RF: 0 esomeprazole magnesium [Nexium] 20 mg Capsule,Delayed Release(Dr/Ec) 20 mg PO DAILY RF: 0 Discharge Instructions Additional Instructions: Your cat scan and lab work did not show any concerning findings. this is likely abdominal muscle pain causing your discomfort you can take 1000mg tylenol and 600mg ibuprofen every 6 hours for pain as needed if you have significant worsening of pain, persistent vomit or high fevers return to the emergency department Medical Decision Making 37 yo male who underwent appendectomy on 08/05 last month comes in with right mid abdomen/oblique area that started earlier today. Denies fevers, vomit, chills, chest pain or sob. He has tenderness to the right oblique and right middle abodmen without guarding or rebuond and his surgical wounds are well healed without signs of infection. I suspect muscle pain but given recent surgery will obtian imaging to eval for possible abscess, less likely sbo. no testicle swelling or pain so doubt torsion Pt's labs and imaging unremarkble. He feels significantly better after toradol. He has no tenderness on exam now. Feel he is safe for d/c, advised f/u with pcp and return precautions given Differential Diagnosis post surgical pain, muscle strain, abscess Medical Records Medical records reviewed: Yes I reviewed the patient's medical records. Imaging Data Radiologic Study: Attestation: I personally reviewed and interpreted this imaging study as follows: Imaging: CT Scan My impression: no acute findings Lab Data Lab results reviewed: Yes I reviewed the patient's lab results. HPI General Mode of arrival: ambulatory . Date/Time Provider Initiated Documentation: 08/23/18 19:39 . Limitations to Documentation: no limitations . Information obtained by: patient . History of Present Illness 37 year old M presents to the emergency department with the chief complaint of right mid/oblique pain, described as moderate, Quality is described as aching, and is localized to the abdomen. Patient reports no radiation. Patient started experiencing this hour(s) (5) and it has been constant. No relieving factors improve symptom(s), No exacerbating factors reported . Patient notes no other symptoms.. Patient did receive the following treatments prior to arrival, none Related Data Home Medications Medication Instructions Recorded Confirmed benztropine 1 mg PO BID 08/10/12 08/23/18 Resperadine Consta 50 mg IM q2w 04/19/16 08/23/18 lorazepam 1 mg PO BID 12/29/16 08/23/18 ranitidine HCl 150 mg PO DAILY 10/29/17 08/23/18 risperidone [Risperdal] 4 mg PO DAILY 10/29/17 08/23/18 esomeprazole magnesium [Nexium] 20 mg PO DAILY 03/28/18 08/23/18 Allergies Allergy/AdvReac Type Severity Reaction Status Date / Time No Known Allergies Allergy Unverified 08/23/18 19:52 General Stated Complaint: Abd Prob SCARLETT: 3 Review of Systems Review of Systems All systems reviewed & are unremarkable except as noted in HPI and below Constitutional Denies chills, Denies fever(s) and Denies weakness ENT Denies change in voice Cardiovascular Denies chest pain and Denies dyspnea Respiratory Denies dyspnea Gastrointestinal Denies nausea and Denies vomiting Genitourinary Denies dysuria Musculoskeletal Denies joint swelling Integumentary/Breasts Denies rash Neurologic Denies weakness [facility] Medical History Paranoid schizophrenia (Acute) Gastroesophageal reflux disease Mental disorder Surgical History S/P laparoscopic appendectomy (Acute ~08/05/18) EGD - IV Sedation (06/14/16) Repair of inguinal hernia Social History Smoking/Tobacco Use Status: Current every day Alcohol Intake: former Drug use: Never Substance use type: does not use Do you feel safe at home: Yes Do you feel safe in your relationship?: Yes Exam Const General: no acute distress Orientation: alert HENMT Head: normal to inspection Ears: external ears normal General nose exam: external nose normal Mouth: moist mucous membranes Eyes General: appearance normal, both eyes and all related structures Neck Neck: normal visual inspection Resp Effort & Inspection: normal respiratory effort and able to speak in complete sentences Cardio Rate: regular rate GI Palpation: soft Skin General skin exam: no rashes or lesions noted Neuro General: alert and oriented x3 Extrem General: normal to inspection Psych Mental Status: mental status grossly normal Course Vital Signs Temperature 37.2 C 08/23/18 19:48 Pulse 94 H 08/23/18 19:48 Respiratory Rate 20 08/23/18 19:48 Blood Pressure 124/90 08/23/18 19:48 Pulse Oximetry 94 L 08/23/18 19:48 Temperature 37.2 C 08/23/18 19:48 Temperature Source Temporal Artery Scan 08/23/18 19:48 Pulse 94 H 08/23/18 19:48 Respiratory Rate 08/23/18 19:48 Respiratory Effort Non-Labored 08/23/18 19:48 Blood Pressure 124/90 08/23/18 19:48 Blood Pressure Position Sitting 08/23/18 19:48 Pulse Oximetry 94 L 08/23/18 19:48 Oxygen Delivery Method Room Air 08/23/18 19:48 Oxygen Flow Rate 0 08/23/18 19:48 Pain Level 6 08/23/18 19:48
[2018-08-23] MEDS: Normal Saline 1,000 ML 1000 ML IV (20:10)
[2018-08-23] MEDS: Ketorolac 15 MG/ML VIAL IVP (20:12)
[2018-08-23 20:24] LABS: Abs Immature Grans 0.03 k/cumm (0.0-0.09); Absolute Basophil Count 0.05 k/cumm (0.0-0.2); Absolute Lymphocyte Count 3.99 k/cumm (1.2-3.4); Absolute Monocyte Count 0.38 k/cumm (0.11-0.7); Absolute Neutrophil Count 5.59 k/cumm (1.2-6.7); Basophils % 0.5; Eosinophils % 2.9; HCT 41.2 % (40.0-50.0); HGB 14.3 g/dL (13.5-17.5); Immature Grans % 0.3; Lymphocytes % 38.6; Mean Corp. HGB Concentration 34.7 g/dL (32.0-36.0); Mean Corpuscular Hemoglobin 32.1 pg (27.0-33.0); Mean Corpuscular Volume 92.4 fL (80-95); Mean Platelet Volume 9.4 fL (8.0-11.0); Monocytes % 3.7; Platelet Count 236 x1000/uL (130-400); RBC 4.46 m/cumm (4.50-6.00); RBC Distribution Width 12.3 % (11.8-14.1); White Blood Cell Count 10.34 k/cumm (4.4-10.8)
[2018-08-23 20:35] LABS: ALT 20 U/L (12-78); AST 9 U/L (15-37); Albumin 3.6 g/dL (3.4-5.0); Alkaline Phosphatase 76 U/L (46-116); BUN 12 mg/dL (7-18); Bilirubin, Total 0.4 mg/dL (0.2-1.0); CREATININE 1.05 mg/dL (0.70-1.30); Chloride 103 mmol/L (98-107); Glucose 139 mg/dL (70-100); Lipase 81 U/L (73-393); Potassium 3.2 mmol/L (3.5-5.1); Sodium 140 mmol/L (136-145); Total Protein 7.2 g/dL (6.4-8.2)
[2018-08-23 20:36] LABS: INR 0.9 (0.9-1.1); PTT Activated 23.9 sec (21.0-31.4); Prothrombin Time 9.3 sec (9.3-11.0)
[2018-08-23] MEDS: Omnipaque 350 MG/ML 100 ML BTL IJ (20:41)
[2018-08-23 20:48] LABS: Calcium 8.8 mg/dL (8.5-10.1)
--- NOTE | 2018-08-23 21:27 | DI.VRAD_ITS ---
EXAM: CT Abdomen and Pelvis With Contrast EXAM DATE/TIME: 08/23/2018 7:48 PM CLINICAL HISTORY: 37 years old, male; Abdominal pain; Localized; Other: Right mid abdominal; Prior surgery; Surgery date: <1 month; Surgery type: Appendectomy 2 weeks ago TECHNIQUE: Imaging protocol: Axial computed tomography images of the abdomen and pelvis with intravenous contrast. Coronal and sagittal reformatted images were created and reviewed. Radiation optimization: All CT scans at this facility use at least one of these dose optimization techniques: automated exposure control; mA and/or kV adjustment per patient size (includes targeted exams where dose is matched to clinical indication); or iterative reconstruction. Contrast material: [id number]; Contrast volume: 100 ml; Contrast route: IV; COMPARISON: CT ABDOMEN PELVIS W 08/05/2018 2:09 PM FINDINGS: ABDOMEN: Liver: Unremarkable. No mass. Gallbladder and bile ducts: No calcified stones. No ductal dilation. Pancreas: Unremarkable. No ductal dilation. Spleen: Unremarkable. No splenomegaly. Adrenals: Unremarkable. No mass. Kidneys and ureters: Unremarkable. No hydronephrosis. Stomach and bowel: Unremarkable. No obstruction. No mucosal thickening. Appendix: Status post appendectomy. PELVIS: Bladder: Unremarkable as visualized. Reproductive: Unremarkable as visualized. ABDOMEN and PELVIS: Intraperitoneal space: No free air. No significant fluid collection. Bones/joints: No acute fracture. No dislocation. Soft tissues: Status post herniorrhaphy with mesh placement in the right lower quadrant. Vasculature: No abdominal aortic aneurysm. Lymph nodes: No enlarged lymph nodes. IMPRESSION: No acute intra-abdominal pathology. Status post interval appendectomy. Dictated and Authenticated by: Anup Duran MD. Ordering:KARI Fang MD
== END 2018-08-23 21:41 | disposition home or self-care (01) ==
PROVIDERS: Emergency Provider Emergency Medicine; PCP Nurse Practitioner Family
DX: R10.9 Unspecified abdominal pain (principal); Z90.49 Acquired absence of other specified parts of digestive tract
CPT/HCPCS: 80053; 83690; 96374; 99285; 74177; 85025; 85610; 85730; 99284; J1885; J3490

== ENCOUNTER 2019-01-15 16:40 | Emergency (ER) | payer MEDICARE, MEDICAID, SELFPAY ==
[2019-01-15 16:50] VITALS: BP 144/88; PULSE 85; RESP 18; TEMP 36.8; O2SAT 97
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
== END 2019-01-15 17:45 | disposition home or self-care (01) ==
PROVIDERS: Emergency Provider Physician Assistant; PCP Nurse Practitioner Family
DX: T20.09XA Burn of unspecified degree of multiple sites of head, face, and neck, initial encounter (principal); W40.1XXA Explosion of explosive gases, initial encounter; Y99.0 Civilian activity done for income or pay
CPT/HCPCS: 99282

== ENCOUNTER 2019-01-23 20:04 | Emergency (ER) | payer MEDICARE, MEDICAID, SELFPAY ==
[2019-01-23 20:07] VITALS: BP 135/70; PULSE 92; RESP 18; TEMP 36.3; O2SAT 97
--- NOTE | 2019-01-23 20:12 | W.ED.GENAD ---
Discharge Plan Disposition Patient Disposition: HOME Condition: Fair Discharge Details Chief Complaint: RespSymp Clinical Impression: Pneumonia Primary Care Provider: Perla Martin ED Provider: Toshia Wade Home Meds and New Rx's Prescriptions: New doxycycline hyclate 100 mg capsule 100 mg PO BID Qty: 10 RF: 0 Continued resperadine consta 50 mg IM q2w RF: 0 benztropine 1 MG tablet 1 mg PO BID RF: 0 lorazepam 1 MG tablet 1 mg PO BID RF: 0 ranitidine HCl 150 MG tablet 150 mg PO DAILY RF: 0 risperidone [Risperdal] 3 MG tablet 4 mg PO HS RF: 0 esomeprazole magnesium [Nexium] 20 mg Capsule,Delayed Release(Dr/Ec) 20 mg PO DAILY RF: 0 Discharge Instructions Instructions: Doxycycline (By mouth), Pneumonia (ED) Additional Instructions: Encourage hydration. Tylenol and ibuprofen as needed for discomfort. Please take the doxycycline as prescribed for your infection. Even if symptoms improve, please take the entire thing. Please stop smoking. Keep your appointment tomorrow with your primary care discussed your medications further. Your risperidone was administered here today. If you develop chest pain, difficulty breathing, shortness of breath or the new/worsening symptoms please seek care urgently once again. Referrals: Perla Martin [Primary Care Provider] - Discharge Data Discharge Date/Time-TO BE ENTERED AT DEPARTURE: 01/23/19 20:55 Medical Decision Making Patient is a 38-year-old male presents today with chief complaint of cough. Reports a cough began approximate 3 weeks ago but over the recent days, he has developed fevers, increased sputum production. Change in sputum color. Patient is an active smoker. He is not feeling short of breath. No chest pain. No recent travel. No recent antibiotics. On exam, patient is resting comfortably. He is speaking in full sentences. Lungs are clear to auscultation. However, given the patient's progression, I am concerned he may be developing pneumonia. No evidence at this time to suggest ACS, PE, pneumothorax. Patient is not having any tenderness. No recent trauma. Is likely developing a pneumonia. We discussed chest x-ray, he prefers to hold off at this time. Instead, patient will be treated with doxycycline as he sounds to be developing pneumonia. Patient is also requesting that we can give him his risperidone injection. He reports that he gets this every 2 weeks. However, he states that he missed recent doses. States that he did stop a multitude of his medications as he was experiencing suicidal ideation. Denies suicidal ideation at this time. He did not find that this was a link with the risperidone. Patient picked up an injection of his risperidone today from the pharmacy today. Patient has intact package with appropriate labeling on it. He is requesting nursing staff to administer the medication for him. Last dosing was administered November 16 based on primary care notes. Nursing staff will administer the patient's 50 mg one-time dose of risperidone. Patient discharged home diagnosed with pneumonia. Encourage hydration. Advise close follow-up with primary care. He does have an appointment with them tomorrow. He was given strict return precautions. All his questions and concerns were addressed and he is in agreement this plan. He was requesting refills of his other medications and advised that he discuss this further with his primary care particularly as these were inducing suicidal ideation. We will hold off on prescribing or refilling any of his medications at this time. He does have follow-up appointment tomorrow. HPI General Mode of arrival: ambulatory. Date/Time Provider Initiated Documentation: 01/23/19 20:12. Limitations to Documentation: no limitations. Information obtained by: patient and RN notes reviewed. History of Present Illness 38 year old M presents to the emergency department with the chief complaint of cough, described as moderate, Patient started experiencing this week(s) (3) and it has been constant (worsening over recent days). No relieving factors improve symptom(s), No exacerbating factors reported . Patient notes cough and fever/chills; denies chest pain, headaches, loss of appetite, nausea/vomiting, rash, shortness of breath and weakness. Patient did receive the following treatments prior to arrival, none Related Data Home Medications Medication Instructions Recorded Confirmed benztropine 1 mg PO BID 08/10/12 01/23/19 Resperadine Consta 50 mg IM q2w 04/19/16 01/23/19 lorazepam 1 mg PO BID 12/29/16 01/23/19 ranitidine HCl 150 mg PO DAILY 10/29/17 01/23/19 risperidone [Risperdal] 4 mg PO HS 10/29/17 01/23/19 esomeprazole magnesium [Nexium] 20 mg PO DAILY 03/28/18 01/23/19 doxycycline hyclate 100 mg PO BID #10 cap 01/23/19 Previous Rx's Medication Instructions Recorded doxycycline hyclate 100 mg PO BID #10 cap 01/23/19 Allergies Allergy/AdvReac Type Severity Reaction Status Date / Time No Known Allergies Allergy Unverified 01/23/19 20:16 General SCARLETT: 3 Review of Systems Constitutional Constitutional: Reports as per HPI, Denies chills, Reports fatigue, Reports fever(s), Denies headache(s), Denies lethargy and Denies poor appetite Eyes Eyes: Reports as per HPI, Denies eye discharge and Denies irritation ENT Ears, Nose, Mouth, and Throat: Reports as per HPI, Denies change in voice, Denies ear discharge, Denies otalgia, Denies headache(s), Reports nasal congestion, Reports nasal discharge, Denies sinus pain, Denies sinus pressure, Denies sore throat and Denies throat swelling Cardiovascular Cardiovascular: Reports as per HPI, Denies chest pain, Reports chest pain with activity, Denies syncope, Denies lightheadedness, Denies radiating jaw, neck or arm pain, Denies dyspnea and Denies dyspnea on exertion Respiratory Respiratory: Reports as per HPI, Reports chest congestion, Reports cough, Denies hemoptysis, Denies excessive phlegm production, Denies pain on inspiration, Denies pain with cough, Denies dyspnea and Denies dyspnea on exertion Gastrointestinal Gastrointestinal: Reports as per HPI, Denies abdominal pain, Denies change in bowel habits, Denies nausea and Denies vomiting Integumentary/Breasts Skin/Breast: Reports as per HPI and Denies rash Neurologic Neurologic: Reports as per HPI, Denies syncope and Denies headache(s) Psychiatric Psychiatric: Denies homicidal ideation and Denies suicidal ideation Endocrine Endocrine: Reports fatigue Allergic/Immunologic Allergic/Immunologic: Denies throat swelling PFSH Medical History Gastroesophageal reflux disease Mental disorder Poorly defined Paranoid schizophrenia (Acute) Surgical History EGD - IV Sedation (06/14/16) Repair of inguinal hernia S/P laparoscopic appendectomy (Acute ~08/05/18) Social History Smoking/Tobacco Use Status: Current every day Tobacco Type: cigarettes Years smoked: 28 Alcohol Intake: former Drug use: Never Substance use type: does not use Do you feel safe at home: Yes Do you feel safe in your relationship?: Yes Exam Const General: cooperative, healthy appearing, comfortable, no acute distress, well developed and well groomed Nutritional Appearance: average body habitus and well nourished Orientation: alert and awake [facility] Head: normal to inspection, normocephalic and atraumatic Ears: hearing grossly normal bilaterally, external ears normal and TM's normal bilaterally General nose exam: external nose normal and nares normal Face and sinus: normal facial exam, sinuses nontender and face symmetric Mouth: oral mucosae normal, lip normal, tongue normal, oropharynx normal and moist mucous membranes Teeth and gingiva: dentition normal Throat: posterior oropharynx normal, tonsils normal and uvula midline Eyes General: appearance normal, both eyes and all related structures Neck Neck: normal visual inspection, full ROM, no lymphadenopathy and no meningeal signs Resp Effort & Inspection: normal respiratory effort, able to speak in complete sentences and no respiratory distress Auscultation: clear to auscultation bilaterally, no rales, no rhonchi and no wheezes Cardio Rate: regular rate Rhythm: regular rhythm Heart Sounds: S1 normal and S2 normal Skin General skin exam: no rashes or lesions noted Neuro General: alert and awake Cognition: normal cognition Speech: speech normal Gait: normal gait Psych Appearance: grossly normal and well kempt Mental Status: mental status grossly normal Speech and Movement: speech and movement normal
[2019-01-23] MEDS: Doxycycline Hyclate 100 MG CAP PO ×2 (20:49)
--- NOTE | 2019-01-23 20:55 | NUR.NOTE ---
Respirdal contra 50mg admin to right deltoid as ordered without incident. Nursing Note:
== END 2019-01-23 20:55 | disposition home or self-care (01) ==
PROVIDERS: Emergency Provider Physician Assistant; PCP Nurse Practitioner Family
DX: J18.9 Pneumonia, unspecified organism (principal)
CPT/HCPCS: 96374; 99284

== ENCOUNTER 2019-01-30 20:03 | Emergency (ER) | payer MEDICARE, SELFPAY ==
[2019-01-30 20:33] VITALS: BP 134/83; PULSE 98; RESP 16; TEMP 36.7; O2SAT 98
== END 2019-01-30 20:45 ==
LOC: ER 20:48
PROVIDERS: PCP Nurse Practitioner Family
DX: Z53.21 Procedure and treatment not carried out due to patient leaving prior to being seen by health care provider (principal)

== ENCOUNTER 2019-02-09 11:27 | Emergency (ER) | payer MEDICARE, MEDICAID, SELFPAY ==
--- NOTE | 2019-02-09 11:39 | W.ED.GENAD ---
Discharge Plan Disposition Patient Disposition: OTHER Condition: Stable Discharge Details Chief Complaint: PsychEval Clinical Impression: Paranoid schizophrenia Primary Care Provider: Perla Martin ED Provider: Leoncio Miranda Home Meds and New Rx's Prescriptions: No Action resperadine consta 50 mg IM q2w RF: 0 benztropine 1 MG tablet 1 mg PO BID RF: 0 lorazepam 1 MG tablet 1 mg PO BID RF: 0 ranitidine HCl 150 MG tablet 150 mg PO DAILY RF: 0 risperidone [Risperdal] 3 MG tablet 4 mg PO HS RF: 0 doxycycline hyclate 100 mg capsule 100 mg PO BID Qty: 10 RF: 0 esomeprazole magnesium [Nexium] 20 mg Capsule,Delayed Release(Dr/Ec) 20 mg PO DAILY RF: 0 Medical Decision Making 38 yo male with hx of paranoid schizophrenia who comes in with PD for psychiatric eval. He apparently has been arrested numberous times this week and mental health clinician advised he come here for an eval. He initially wasn't answering questions with nursing but answers all my questions with clear speech. He is caox4 and denies any si/hi and denies hallucinations or delusions on my exam and has no complaints. I am unclear the reason he was sent here for an eval, will consult with mental health. mental health saw patient and agreed he couldn't be EE'd. He refused any meidcal care and has capacity to make his own decisions. He will return if any new symptoms arise or he feels more ill Differential Diagnosis Differential Diagnosis: schizophrenia, bipolar HPI General Mode of arrival: ambulatory (with PD). Date/Time Provider Initiated Documentation: 02/09/19 11:37. Limitations to Documentation: no limitations. Information obtained by: patient. History of Present Illness 38 year old M presents to the emergency department with the chief complaint of there's nothing wrong, Patient started experiencing this unknown No relieving factors improve symptom(s), No exacerbating factors reported . Related Data Home Medications Medication Instructions Recorded Confirmed benztropine 1 mg PO BID 08/10/12 01/23/19 Resperadine Consta 50 mg IM q2w 04/19/16 01/23/19 lorazepam 1 mg PO BID 12/29/16 01/23/19 ranitidine HCl 150 mg PO DAILY 10/29/17 01/23/19 risperidone [Risperdal] 4 mg PO HS 10/29/17 01/23/19 esomeprazole magnesium [Nexium] 20 mg PO DAILY 03/28/18 01/23/19 doxycycline hyclate 100 mg PO BID #10 cap 01/23/19 Previous Rx's Medication Instructions Recorded doxycycline hyclate 100 mg PO BID #10 cap 01/23/19 Allergies Allergy/AdvReac Type Severity Reaction Status Date / Time No Known Allergies Allergy Unverified 01/23/19 20:16 General Stated Complaint: PsychEval SCARLETT: 2 Review of Systems Review of Systems ROS Unobtainable: All systems reviewed & are unremarkable except as noted in HPI and below Constitutional Constitutional: Denies chills, Denies fever(s) and Denies weakness Cardiovascular Cardiovascular: Denies dyspnea Respiratory Respiratory: Denies cough and Denies dyspnea Gastrointestinal Gastrointestinal: Denies abdominal pain, Denies nausea and Denies vomiting Musculoskeletal Musculoskeletal: Denies joint swelling Neurologic Neurologic: Denies weakness Psychiatric Psychiatric: Denies depression Endocrine Endocrine: Denies cold intolerance and Denies heat intolerance [facility] Social History Smoking/Tobacco Use Status: Current every day Tobacco Type: cigarettes Years smoked: 28 Alcohol Intake: former Drug use: Never Substance use type: does not use Details: refuses to annswer any questions Do you feel safe at home: Yes Do you feel safe in your relationship?: Yes Exam Const General: no acute distress Orientation: alert HENMT Head: normal to inspection Ears: external ears normal General nose exam: external nose normal Mouth: moist mucous membranes Eyes General: appearance normal, both eyes and all related structures Neck Neck: normal visual inspection Resp Effort & Inspection: normal respiratory effort and able to speak in complete sentences Cardio Rate: regular rate Skin General skin exam: no rashes or lesions noted Neuro General: alert and oriented x3 Extrem General: normal to inspection Psych Mental Status: mental status grossly normal
--- NOTE | 2019-02-12 13:47 | PDOC.MHCN_ITS ---
Date of service: 02/09/19 Time of Service: 11:30 Mental Health Crisis Note Presenting Issue How did you arrive at the ED and why did you come: Client came to [facility] via law enforcement for mental health assessment by [facility]. Precipitating Factors Client has been off his medications for three months and is presenting with paranoid delusions. Examples: that their are drugs in the back tires of the truck he purchased. Disposition BEHAVIOR: When asked questions he refused Don't you worry about it.; he was not able to engage in questions. EYE CONTACT: Intense - abnormal amount of time MOOD: Irritable. Angry. AFFECT: Flat - with sharpness APPETITE: unknown to this clinician SLEEP(trouble falling/staying asleep: unknown to this clinician Plan Client will walk home and meet up with this clinician, at the police station, at 5 pm (January). This clinician advised Dr. Walton and officer Harvey that this client should be seen by a [facility], and one was on their way. Dr. Walton stated that he was going to discharge the client before the [facility] arrived, as client was not engaging and Dr. Walton didn't see a reason that the client could meet the criteria to be EE'd. Signature Clinician's Name/Title: Julia Calderón
== END 2019-02-09 12:14 | disposition other institution (70) ==
PROVIDERS: Emergency Provider Emergency Medicine; PCP Nurse Practitioner Family
DX: F20.0 Paranoid schizophrenia (principal); Z13.39 Encounter for screening examination for other mental health and behavioral disorders; Z53.29 Procedure and treatment not carried out because of patient's decision for other reasons
CPT/HCPCS: 99285; 99281

== ENCOUNTER 2019-02-13 03:33 | Emergency (ER) | payer MEDICARE, MEDICAID, SELFPAY ==
[2019-02-13] VITALS (19 sets, daily range): BP systolic 115–125; BP diastolic 66–83; PULSE 53–92; RESP 13–20; TEMP 36.9; O2SAT 95–99
--- NOTE | 2019-02-13 03:43 | ED.GENADUL_ITS ---
Discharge Plan Disposition Patient Disposition: AGAINST MEDICAL ADVICE Condition: Good Discharge Details Chief Complaint: Chest Pain Clinical Impression: Chest pain, Paranoid schizophrenia Primary Care Provider: Perla Martin ED Provider: Gonzales Bolaños Sabine Meds and New Rx's Prescriptions: Continued resperadine consta 50 mg IM q2w RF: 0 benztropine 1 MG tablet 1 mg PO BID RF: 0 lorazepam 1 MG tablet 1 mg PO BID RF: 0 ranitidine HCl 150 MG tablet 150 mg PO DAILY RF: 0 risperidone [Risperdal] 3 MG tablet 4 mg PO HS RF: 0 esomeprazole magnesium [Nexium] 20 mg Capsule,Delayed Release(Dr/Ec) 20 mg PO DAILY RF: 0 Discharge Instructions Additional Instructions: Initial work-up appears unremarkable. He should stay and get a repeat EKG and troponin to help determine no heart problems. You understand there is some risk involved but want follow-up with your primary care and mental health. He was signing out AGAINST MEDICAL ADVICE. Return to ED if new or worsening pain, shortness of breath, other concerns or problems. Referrals: Perla Martin [Primary Care Provider] - Medical Decision Making Medical Records Medical records reviewed: Yes I reviewed the patient's medical records. Medical records narrative: Patient presenting with chief complaint of chest pain though he is unable to describe it in any way including timing other than a long time. Has a history of paranoid schizophrenia and has not been taking oral medications. Suspect this is related to his paranoia and psychiatric disease. However, he is a smoker and reports a family history though I am not sure how reliable that r eport is. His EKG is normal. His revised [place] score is 0. He PERCs out for PE. Recently treated with antibiotics here for presumed pneumonia. Will obtain chest x-ray but lungs are clear and sats are normal. Will proceed with HEART pathway. He is given aspirin. We will plan two troponins. If negative we will plan discharge for primary care follow-up. Will also need to be sure he has [facility] mental health support. 06:00 - Initial labs are fine. CXR without acute disease. No complaints here and calm/cooperative. Plan on EKG and trop at 7AM. 06:15 -patient has now decided that he does not want to wait for a second EKG or labs. He wishes to be discharged and will follow up with his primary care and mental health on his own. He states he will get his prescriptions filled and start taking them. Attempted to explain reason to get the repeat troponin. Does not want to hear it. Wants his IV out and wishes to leave. Explained that he would have to leave AMA which she has agreed to. He does have psychiatric history but appears to have capacity at this point in time and is discharged AGAINST MEDICAL ADVICE per his choosing. Lab Data Lab results reviewed: Yes I reviewed the patient's lab results. ECG Data Attestation: I personally reviewed and interpreted this ECG (s) as follows: Prior ECG tracings: not available for review Interpretation: Sinus arrhythmia at a rate of 61. Normal axis and intervals. Normal ST segments. HPI General Mode of arrival: ambulatory . Date/Time Provider Initiated Documentation: 02/13/19 03:40 . Information obtained by: patient, RN notes reviewed and old records reviewed . HPI Narrative: Patient presents to ED with complaint of heart problem. He is unable to really describe anything. He reports chest pain but cannot give any type of description of the pain. Is not clear on timing. He states that he has had chest pain for a long time. He initially told the nurses that he needed open heart surgery right now. He has history of schizophrenia. He was seen here recently for mental health eval. He has had his risperidone shot. He is not taking his oral medications. He denies SI or HI. His other physical complaints include shortness of breath which he cannot describe as well as nausea. Denies having pain elsewhere. Admits to smoking cigarettes but denies drug use. Related Data Home Medications Medication Instructions Recorded Confirmed benztropine 1 mg PO BID 08/10/12 02/13/19 Resperadine Consta 50 mg IM q2w 04/19/16 02/13/19 lorazepam 1 mg PO BID 12/29/16 02/13/19 ranitidine HCl 150 mg PO DAILY 10/29/17 02/13/19 risperidone [Risperdal] 4 mg PO HS 10/29/17 02/13/19 esomeprazole magnesium [Nexium] 20 mg PO DAILY 03/28/18 02/13/19 Allergies Allergy/AdvReac Type Severity Reaction Status Date / Time No Known Allergies Allergy Unverified 02/13/19 03:43 General Stated Complaint: Chest Pain SCARLETT: 3 Review of Systems Review of Systems ROS Unobtainable: Unobtainable due to mental condition (unreliable historian due to schizophrenia/non-compliance with medications) [facility], [facility] Medical History Gastroesophageal reflux disease Mental disorder Poorly defined Paranoid schizophrenia (Acute) Surgical History EGD - IV Sedation (06/14/16) Repair of inguinal hernia S/P laparoscopic appendectomy (Acute ~08/05/18) Social History Smoking/Tobacco Use Status: Current every day Tobacco Type: cigarettes Years smoked: 28 Alcohol Intake: former Drug use: Never Substance use type: does not use Details: refuses to annswer any questions Do you feel safe at home: Yes Do you feel safe in your relationship?: Yes Exam Narrative Exam Narrative: Vitals: Afebrile. Normal vital signs. Normal room air pulse oximetry. Const: WDWN male in NAD. HEENT: NC/AT. Normal facial exam. except for abrasion under chin he reports from shaving. Eyes: Normal conjunctiva and sclera. Neck: Supple. Trachea midline. Lungs: Normal respiratory effort. Lungs are clear. Cor: RRR without murmur/gallop. Good radial pulses. GI: Soft. NT/ND. No guarding or rebound. Neuro: A+O x 3. CN grossly in tact. Good strength and no focal deficit. Ext: No C/C/E. No calf tenderness. Skin: Warm and dry. Psych: A little disheveled. Seems detached. Normal speech and mental status. Denies SI or HI. Some paranoid thoughts present. No apparent hallucinations. Course Vital Signs Vital signs: Vital Signs Temperature 98.4 F 02/13/19 03:36 Pulse 65 02/13/19 03:36 Respiratory Rate 18 02/13/19 03:36 Blood Pressure 115/66 02/13/19 03:36 Pulse Oximetry 99 02/13/19 03:36 Temperature 98.4 F 02/13/19 03:36 Temperature Source Skin 02/13/19 03:36 Pulse 65 02/13/19 03:36 Respiratory Rate 18 02/13/19 03:36 Blood Pressure 115/66 02/13/19 03:36 Blood Pressure Position Supine 02/13/19 03:36 Pulse Oximetry 99 02/13/19 03:36 Oxygen Delivery Method Room Air 02/13/19 03:36 Oxygen Flow Rate 0 02/13/19 03:36 Pain Level 0 02/13/19 03:36
--- NOTE | 2019-02-13 03:58 | DI.RAD_ITS ---
EXAM: XR CHEST 2V PA LATERAL INDICATION: chest pain. COMPARISON: XR CHEST 2V PA LATERAL from 05/29/2018 TECHNIQUE: 2D digital imaging was performed. FINDINGS: The lungs are well expanded and free of infiltrate. There is no evidence of a pleural effusion. The c ardiovascular structures are intact. IMPRESSION: No evidence of acute cardiopulmonary disease.
[2019-02-13] MEDS: Aspirin 81 MG CHEW 324 MG CH (04:11)
[2019-02-13 04:26] LABS: Abs Immature Grans 0.01 k/cumm (0.0-0.09); Absolute Basophil Count 0.05 k/cumm (0.0-0.2); Absolute Eosinophil Count 0.35 k/cumm (0.0-0.7); Absolute Lymphocyte Count 2.84 k/cumm (1.2-3.4); Absolute Neutrophil Count 3.95 k/cumm (1.2-6.7); Basophils % 0.6; Eosinophils % 4.5; HCT 41.6 % (40.0-50.0); Immature Grans % 0.1; Lymphocytes % 36.9; Mean Corp. HGB Concentration 33.7 g/dL (32.0-36.0); Mean Corpuscular Hemoglobin 31.8 pg (27.0-33.0); Mean Corpuscular Volume 94.5 fL (80-95); Mean Platelet Volume 8.7 fL (8.0-11.0); Monocytes % 6.5; Neutrophils % 51.4; Platelet Count 244 x1000/uL (130-400); RBC Distribution Width 12.5 % (11.8-14.1)
[2019-02-13 04:39] LABS: ALT 15 U/L (16-63); AST 12 U/L (15-37); Albumin 3.7 g/dL (3.4-5.0); Alkaline Phosphatase 76 U/L (46-116); Anion Gap 7.7 mmol/L (3-11); BUN 17 mg/dL (7-18); Bilirubin, Total 0.4 mg/dL (0.2-1.0); CO2 30.3 mmol/L (21.0-32.0); Calcium 8.9 mg/dL (8.5-10.1); Chloride 105 mmol/L (98-107); Glucose 103 mg/dL (70-100); Magnesium 2.1 mg/dL (1.8-2.4); Potassium 4.9 mmol/L (3.5-5.1); Sodium 143 mmol/L (136-145); Total Protein 6.9 g/dL (6.4-8.2); Troponin I < 0.05 ng/mL (0.00-0.06)
--- NOTE | 2019-02-13 04:42 | DI.VRAD_ITS ---
PROCEDURE INFORMATION: Exam: XR Chest, 2 Views Exam date and time: 02/13/2019 4:02 AM Clinical history: 38 years old, male; Other: Chest pain TECHNIQUE: Imaging protocol: XR of the chest Views: 2 views. COMPARISON: CR XR CHEST 2V PA LATERAL 05/29/2018 1:45 PM FINDINGS: Lungs: Clear lungs. Pleural space: No pneumothorax. No sizable pleural effusion. Heart/Mediastinum: No cardiomegaly. Bones/joints: Unremarkable. IMPRESSION: Clear lungs. Dictated and Authenticated by: Red Serna MD. Ordering:ELFEGO Rolon MD
== END 2019-02-13 06:10 | disposition left against medical advice (07) ==
PROVIDERS: Emergency Provider Emergency Medicine; PCP Nurse Practitioner Family
DX: R07.9 Chest pain, unspecified (principal); F20.0 Paranoid schizophrenia
CPT/HCPCS: 36415; 80053; 93005; 99285; 71046; 83735; 84484; 85025; 93010

== ENCOUNTER 2019-02-25 14:36 | Observation (INO) | payer MEDICARE, SELFPAY ==
[2019-02-25 14:39] VITALS: BP 127/76; PULSE 78; RESP 16; TEMP 36.5; O2SAT 97
--- NOTE | 2019-02-25 15:44 | PDOC.MHCN ---
<Juan Burns - Last Filed: 02/25/19 16:05> Presenting Issue How did you arrive at the ED and why did you come: Patient drove himself to the ED after calling to report that he was having strong suicidal thoughts. Precipitating Factors Patient is going to loose his drivers license, may be evicted from his apartment and is facing multiple criminal charges for trespassing, breaking and entering and has had multiple encounters with police and emergency services. Patient has been off most of his medications for the past seven months and has been inconsistent with his Resperadol injection. Disposition BEHAVIOR: Patient is presenting with manic thought process and erratic behaviors. He has entered a home thinking that the had murdered his , he also called police for the same reason. He has also entered the home of a 92 year old female late at night. He admits he is not eating properly nor sleeping properly. He denies thoughts of harming others but has made threats to harm an individual who he traded equipment for a pickup truck and then wanted his things back. He is having difficulty in controlling his emotions and impulses. He also reports having an 8 inch boot knife in his truck, under the davis of the vehicle. EYE CONTACT: Patient makes appropriate eye contact but when your not talking with him he stairs at the floor. MOOD: Patients mood fluctuates from manic to withdrawn. AFFECT: Patients affect is flat. APPETITE: Patient reports being hungry but does not prepare any meals for himself. SLEEP(trouble falling/staying asleep: Patient reports difficulty in sleeping. Plan The patient is seeking voluntary hospitalization and has agreed to such at the present time. Emergency Personal at [facility] along with his Marketing Project Lead have been trying to get him hospitalized over the past two months and the patient has not accepted these offers.This clinician feels it is in the best interest of the patient at this time for the patient to receive treatment in an inpatient facility. Signature Clinician's Name/Title: Juan Burns BA, RAFFAELE, POWER AND RECOVERY SHIFT ENGINEER Health Occupations Teacher.
[2019-02-25 15:51] LABS: Abs Immature Grans 0.02 k/cumm (0.0-0.09); Absolute Basophil Count 0.05 k/cumm (0.0-0.2); Absolute Eosinophil Count 0.15 k/cumm (0.0-0.7); Absolute Lymphocyte Count 3.31 k/cumm (1.2-3.4); Absolute Monocyte Count 0.53 k/cumm (0.11-0.7); Absolute Neutrophil Count 6.51 k/cumm (1.2-6.7); Basophils % 0.5; Eosinophils % 1.4; HGB 14.8 g/dL (13.5-17.5); Immature Grans % 0.2; Lymphocytes % 31.3; Mean Corp. HGB Concentration 33.6 g/dL (32.0-36.0); Mean Corpuscular Hemoglobin 31.6 pg (27.0-33.0); Mean Corpuscular Volume 93.8 fL (80-95); Mean Platelet Volume 9.1 fL (8.0-11.0); Neutrophils % 61.6; Platelet Count 251 x1000/uL (130-400); RBC 4.69 m/cumm (4.50-6.00); RBC Distribution Width 12.4 % (11.8-14.1); White Blood Cell Count 10.57 k/cumm (4.4-10.8)
[2019-02-25 16:22] LABS: Bilirubin Negative (Negative); Blood Negative (Negative); Clarity Clear (Clear); Glucose Negative (Negative); Ketones Negative (Negative); Leukocyte Esterase Negative (Negative); Nitrite Negative (Negative); Specific Gravity 1.015 (1.005-1.025); Urobilinogen 0.2 EU/dL (Up TO 0.2); pH 7.5 (5-8)
[2019-02-25 16:30] LABS: ALT 29 U/L (16-63); AST 15 U/L (15-37); Albumin 4.1 g/dL (3.4-5.0); Alkaline Phosphatase 74 U/L (46-116); Anion Gap 9.5 mmol/L (3-11); BUN 11 mg/dL (7-18); Bilirubin, Total 0.5 mg/dL (0.2-1.0); CO2 29.5 mmol/L (21.0-32.0); CREATININE 0.94 mg/dL (0.70-1.30); Calcium 9.5 mg/dL (8.5-10.1); Chloride 101 mmol/L (98-107); Glucose 96 mg/dL (70-100); Potassium 3.6 mmol/L (3.5-5.1); Sodium 140 mmol/L (136-145); TSH 1.29 uIU/mL (0.36-3.74); Total Protein 7.9 g/dL (6.4-8.2)
[2019-02-25 16:32] LABS: Acetaminophen < 2 ug/mL (10-30)
--- NOTE | 2019-02-25 16:53 | PDOC.MHCN ---
Date of service: 02/26/19 Time of Service: 11:25 Mental Health Crisis Note Presenting Issue How did you arrive at the ED and why did you come: Patient was admitted after present with strong S/I. Precipitating Factors Patient denies H/I, reduced S/I but continues with increase levels of paranoia and delusions. Disposition BEHAVIOR: Patient is cooperating, sleeping well, eating well, and wanting to have help with the symptoms that are prominent in his life at this time. EYE CONTACT: Patient is denying H/I, and S/I, he is asking to go home. Currently there is insufficient evidence to EE, the patient. MOOD: Mixed with a high level of impatience. AFFECT: Animated. APPETITE: Good SLEEP(trouble falling/staying asleep: Good. Plan The plan is to discharge the patient. Signature Clinician's Name/Title: Juan Burns BA, HP
[2019-02-25 16:58] LABS: ETHANOL BLOOD < 3.0 mg/dL (<3)
--- NOTE | 2019-02-25 16:58 | PDOC.MHCN ---
Date of service: 02/26/19 Time of Service: 10:55 Mental Health Crisis Note Presenting Issue How did you arrive at the ED and why did you come: Patient arrived at the ED on 02/25/19 reporting S/I. Psychiatric placement is being requested. Precipitating Factors The Patient has been off the majority of his medications for the past 3 months. He is experiencing an increased level of symptoms including heightened paranoia, strong delusional thoughts and beliefs, and an elevated levels of manic thoughts and impulses. Disposition BEHAVIOR: The patient has improved since his initial screening with reduced S/I however still having delusional, paranoid and manic symptoms. He is cooperating with staff and being medication compliant. EYE CONTACT: Improved, with appropriate eye contact through the entire assessment. MOOD: His mood is improved, with some minor fluctuations. AFFECT: Unremarkable. APPETITE: Improved, he is eating appropriately. SLEEP(trouble falling/staying asleep: Patient reports sleeping well last night. Plan [facility]. Signature Clinician's Name/Title: Juan Burns BA, [facility]
[2019-02-25 17:00] LABS: *AMPHETAMINES SCREEN URINE Negative (Negative); *BARBITURATES SCREEN URINE Negative (Negative); *BENZODIAZEPINES SCREEN URINE Negative (Negative); Cannabinoids THC Negative (Negative); Cocaine Screen,Urine Negative (Negative); METHADONE URINE SCREEN Negative (Negative); OPIATES URINE SCREEN Negative (Negative)
[2019-02-25 17:03] LABS: Tricyclic Antidepressants Negative (Negative)
[2019-02-25] MEDS: Mylanta Suspension 30 ML CUP PO (17:08)
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
--- NOTE | 2019-02-25 17:41 | CMSP_ITS ---
- If Service Date Differs Date of service: 02/25/19 Time of Service: 17:41 Care Management Safety Plan VOLUNTARY FOR INPATIENT PSYCHIATRIC STABILIZATION. Patient is appropriate in all interactions since arriving at [facility]; Pt has demonstrated appropriate coping and communication skills, has articulated his or her needs and concerns and is fully engaged during staff interactions. Safety plan has been established with patient, and care team, to adhere to p atient goals, identify restrictions based on behavioral status, address nutrition, and determine allowed personal belongings, tools for hygiene and personal care. Determine level of activity including ambulation, level of supervision, visitors, and determine privileges based on behaviors and level of engagement by patient. Safety Huddle Participants: Mental Health screener PARAMJIT Dumont, Nursing plastic sheets finishing supervisor Dr. Karl Monique and nurse Ariana. SAFETY PLAN: 1. Will remain on suicide precautions. In Paper Clothes 2. Will remain in room under direct supervision of one-on-one staff at all times provided by [employer]; VICTOR M, SUPERVISOR TICKET SALES compressor assembler. 3. May have paper cups, plates, finger foods as well as a cardboard safety spoon with which to eat meals. 4. Follow [facility] Management of the Admitted Behavioral Health Patient policy. 5. Comfort bath system or may shower under the direct supervision of staff. 6. No personal belongings 7. Visitors-No visitors at this time 8. Activities:may watch tv; remote to be maintained by staff 9. Bathroom privileges under supervision 10. Phone - no phone privileges at this time. 11. Due to VOLUNTARY status, if patient wishes to leave [facility], the [facility] fuel system maintenance worker must be contacted to re-evaluate patient prior to patient exiting the building. Patient is currently voluntarily at [facility] and seeking inpatient admission when a bed becomes available. [facility] Frontline Mc Kay Machine Operator will continue seeking placement. Please contact the Spray Gunner Fence Machine Operator ([phone]) and [facility] Mc Kay Machine Operator ([phone]) for any needed changes in the Safety Plan. Safety plan has been provided to interdepartmental care team.
[2019-02-25] MEDS: clonazePAM 0.5 MG TAB PO (17:58)
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
--- NOTE | 2019-02-25 18:11 | CMPROGNOTE_ITS ---
- If Service Date Differs Date of service: 02/25/19 Time of Service: 18:11 Care Management Progress Note Care Management Safety Plan Jonny is a 38 year old gentleman who presented to the ED voicing strong suicidal thoughts. 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 He recently started receiving injections again and has an appointment on 02/28/19 with his provider. Jonny does not verbalize that he has a plan although he is stating that he wants to give away his truck and credit card to his daughter.In recent weeks his behavior has been erratic with manic thought processes and elements of paranoia which has resulted in frequent encounters with law enforcement and emergency services. VOLUNTARY FOR INPATIENT PSYCHIATRIC STABILIZATION. Patient is appropriate in all interactions since arriving at [facility]; Pt has demonstrated appropriate coping and communication skills, has articulated his or her needs and concerns and is fully engaged during staff interactions. Safety plan has been established with patient, and care team, to adhere to patient goals, identify restrictions based on behavioral status, address nutrition, and determine allowed personal belongings, tools for hygiene and personal care. Determine level of activity including ambulation, level of supervision, visitors, and determine privileges based on behaviors and level of engagement by patient. Safety Huddle Participants: Mental Health screener PARAMJIT Dumont, Nursing supervisor taping Dr. Karl Monique and nurse Ariana. SAFETY PLAN: 1. Will remain on suicide precautions. In Paper Clothes 2. Will remain in room under direct supervision of one-on-one staff at all times provided by [employer]; VICTOR M, LINE RIDER stitcher set up operator automatic. 3. May have paper cups, plates, finger foods as well as a cardboard safety spoon with which to eat meals. 4. Follow [facility] Management of the Admitted Behavioral Health Patient policy. 5. Comfort bath system or may shower under the direct supervision of staff. 6. No personal belongings 7. Visitors-No visitors at this time 8. Activities:may watch tv; remote to be maintained by staff 9. Bathroom privileges under supervision 10. Phone - no phone privileges at this time. 11. Due to VOLUNTARY status, if patient wishes to leave [facility], the [facility] spring floor service worker must be contacted to re-evaluate patient prior to patient exiting the building. Patient is currently voluntarily at [facility] and seeking inpatient admission when a bed becomes available. [facility] Frontline Program Engagement Director will continue seeking placement. Please contact the Health Support Specialist Cash Room Clerk ([phone]) and [facility] Program Engagement Director ([phone]) for any needed changes in the Safety Plan. Safety plan has been provided to interdepartmental care team. cc:
--- NOTE | 2019-02-25 20:46 | W.PM.HP.N ---
Date of service: 02/25/19 Time of Service: 20:46 Assessment and Plan Assessment and plan (1) Suicidal ideation: Start date: 02/25/19 Status: Acute Assessment and plan: This is a 38-year-old gentleman who reported to the ED with suicidal ideation voluntarily wanting to be admitted. There was no placement during the night therefore he was observed overnight and will replace with mental health in the morning. He did not escalate did not require further anxiolytics during the night. Is a full code and remains voluntary. (2) Paranoid schizophrenia: Status: Chronic Assessment and plan: Patient is noncompliant with medical therapy and presently is on IM Risperdal every 2 weeks. This will be reevaluated with inpatient care. Mental health is consulted. History of Present Illness History of Present Illness Chief Complaint: Suicidal ideation Narrative: This is a 38-year-old gentleman who has a history of paranoid schizophrenia who comes also hospital because of suicidal thoughts. He was admitted voluntarily pending placement in the morning. In no other complaints. He was asleep when I first approached him the night of admission and in the morning he was awake and stated his door slightly restless. He was retaining a rolled piece of napkin smoking it as if it was a cigarette. He was eating normally, had no ongoing disturbing thoughts and was comfortable voluntarily waiting for Placement. He is on Risperdal IM every 2 weeks and no other medication he is noncompliant and off medicines for some time prior to the recent past. He does carry a knife in his car but had no homicidal ideation. He had some paranoid thoughts about his family and is doing harm regular into the neighbor's homes recently. He had good eye contact and shook my hand in the morning as a left. I agree with the physical exam performed in the ED not repeating this with the patient approachable but not wanting to agitate him. Review of Systems Narrative: 13 point review of systems otherwise unrevealing or stable. [facility] Medical History Gastroesophageal reflux disease Mental disorder Poorly defined Paranoid schizophrenia (Acute) Surgical History EGD - IV Sedation (06/14/16) Repair of inguinal hernia S/P laparoscopic appendectomy (Acute ~08/05/18) Social History Smoking/Tobacco Use Status: Current every day Tobacco Type: cigarettes Years smoked: 28 Alcohol Intake: former Drug use: Never Substance use type: does not use Do you feel safe at home: Yes Do you feel safe in your relationship?: Yes Meds Home Medications and Allergies Home Medications Medication Instructions Recorded Confirmed Type Resperadine Consta 50 mg IM q2w 04/19/16 02/25/19 History Allergies Allergy/AdvReac Type Severity Reaction Status Date / Time No Known Allergies Allergy Unverified 02/25/19 17:51 Exam Narrative Exam Narrative: Physical exam: As per ER evaluation the patient asleep at the time I came to examine him: Const General: cooperative HENMT Mouth: moist mucous membranes Eyes Conjunctivae: normal conjunctivae Sclera: normal sclerae Neck Neck: trachea midline and supple Resp Auscultation: clear to auscultation bilaterally, no rales, no rhonchi and no wheezes Cardio Jugular venous pressure: no JVD Rate: regular rate and not tachycardic Rhythm: regular rhythm GI Palpation: soft, not firm, no guarding, no masses, not rigid and nontender Skin General skin exam: no rashes or lesions noted Neuro General: alert, awake, oriented x3 and tone normal Extrem General: no edema Psych Appearance: grossly normal Mental Status: other (depressed) Speech and Movement: speech and movement normal Mood: other (depressed) Thought Content: no hallucinations, no homicidality and active suicidality by report Insight: limited Results Labs Result diagrams: 02/25/19 15:40 02/25/19 15:40 Labs: Laboratory Results - last 24 hr 02/25/19 02/25/19 02/25/19 15:40 15:40 15:55 WBC 10.57 RBC 4.69 Hgb 14.8 Hct 44.0 MCV 93.8 MCH 31.6 MCHC 33.6 RDW 12.4 Plt Count 251 MPV 9.1 Immature Gran % 0.2 Neutrophils % 61.6 Lymphocytes % 31.3 Monocytes % 5.0 Eosinophils % 1.4 Basophils % 0.5 Absolute Neutrophils 6.51 Absolute Lymphocytes 3.31 Absolute Monocytes 0.53 Absolute Eosinophils 0.15 Absolute Basophils 0.05 Sodium 140 Potassium 3.6 Chloride 101 Carbon Dioxide 29.5 Anion Gap 9.5 BUN 11 Creatinine 0.94 Estimated GFR/1.73 m2 >= 60.00 Glucose 96 Calcium 9.5 Total Bilirubin 0.5 AST 15 ALT 29 Alkaline Phosphatase 74 Total Protein 7.9 Albumin 4.1 TSH 1.29 Urine Color Yellow Urine Clarity Clear Urine pH 7.5 Ur Specific [place] 1.015 Urine Protein Negative Urine Ketones Negative Urine Blood Negative Urine Nitrite Negative Urine Bilirubin Negative Urine Urobilinogen 0.2 Ur Leukocyte Esterase Negative Urine Glucose Negative Urine Opiates Screen Urine Methadone Screen Acetaminophen < 2 L Ur Barbiturates Screen Ur Tricyclics Screen Ur Amphetamines Screen U Benzodiazepines Scrn Urine Cocaine Screen Ur THC Screen Ethyl Alcohol < 3.0 02/25/19 15:55 WBC RBC Hgb Hct MCV MCH MCHC RDW Plt Count MPV Immature Gran % Neutrophils % Lymphocytes % Monocytes % Eosinophils % Basophils % Absolute Neutrophils Absolute Lymphocytes Absolute Monocytes Absolute Eosinophils Absolute Basophils Sodium Potassium Chloride Carbon Dioxide Anion Gap BUN Creatinine Estimated GFR/1.73 m2 Glucose Calcium Total Bilirubin AST ALT Alkaline Phosphatase Total Protein Albumin TSH Urine Color Urine Clarity Urine pH Ur Specific [place] Urine Protein Urine Ketones Urine Blood Urine Nitrite Urine Bilirubin Urine Urobilinogen Ur Leukocyte Esterase Urine Glucose Urine Opiates Screen Negative Urine Methadone Screen Negative Acetaminophen Ur Barbiturates Screen Negative Ur Tricyclics Screen Negative Ur Amphetamines Screen Negative U Benzodiazepines Scrn Negative Urine Cocaine Screen Negative Ur THC Screen Negative Ethyl Alcohol Last Vital Signs Temp 36.5 C 02/25/19 14:39 Pulse 78 02/25/19 14:39 Resp 16 02/25/19 14:39 BP 127/76 02/25/19 14:39 Pulse Ox 97 02/25/19 14:39
[2019-02-25 21:11] VITALS: BP 127/76; PULSE 78; RESP 16; TEMP 36.5; O2SAT 97
[2019-02-25 21:32] VITALS: BP 130/79; PULSE 80; RESP 18; TEMP 36.5; O2SAT 95
[2019-02-25 22:42] VITALS: BP 130/79; PULSE 80; RESP 18; TEMP 36.5; O2SAT 95
[2019-02-26 06:20] VITALS: BP 109/71; PULSE 114; RESP 18; TEMP 36.6; O2SAT 100
--- NOTE | 2019-02-26 12:21 | PDOC.MHCN_ITS ---
Date of service: 02/26/19 Time of Service: 12:21 Mental Health Crisis Note Presenting Issue How did you arrive at the ED and why did you come: Patient presented at ED with a report of S/I. Precipitating Factors Patient has had a lot of stressors recently, He has not been taking most of his medications and is experiencing increased paranoia, delusions and psychotic symptoms. Today he denies H/I or S/I and has decided to leave against medical advice. The is insufficient grounds for Involuntary Placement. Disposition BEHAVIOR: Patient has been cooperating until he decided he would no longer wait for acceptance. EYE CONTACT: Appropriate MOOD: Manic, and mixed. AFFECT: animated. APPETITE: Good SLEEP(trouble falling/staying asleep: Good Plan The plan was to obtain voluntary placement to address his medication issues in conjuction with getting his delusions, paranoia, and psychotic symptoms managed. However the patient has decided to leave against the advice of this clinician and medical staff. Signature Clinician's Name/Title: Juan Burns BA, [facility]
--- NOTE | 2019-02-26 15:01 | NUR.NOTE ---
Nursing Note: Pt left AMA at 1221 following meeting with . Up until this time, pt had been voluntary and open to inpatient placement for medication management. RN, CCRN, CM, ROOF PROMENADE TILE SETTER, and CPSO attempted to talk with pt regarding waiting on placement and not leaving AMA. Pt refused and was ultimately given his belongings (three bags of clothing, cigarettes, and cell phone) and signed out AMA. RN offered to phone for a ride; pt refused and informed RN that he lived 3 miles away and was fine walking.
--- NOTE | 2019-02-26 15:40 | DSE_ITS ---
Date of service: 02/26/19 Time of Service: 12:00 DS: Diagnosis Discharge Diagnosis (1) Suicidal ideation: Status: Acute (2) Paranoid schizophrenia: Status: Chronic Discharge Plan Disposition Patient Disposition: AGAINST MEDICAL ADVICE Condition: Fair Discharge Details Chief Complaint: PsychEval Reason For Visit: SUICIDAL IDEATION, CHRONIC SCHIZOPHRENIA Admit Date/Time: 02/25/19 20:37 Admit Provider: Jorgito Mensah Attending Provider: Jorgito Mensah Primary Care Provider: Perla Martin ED Provider: Karl Healy [place] [facility] Course Hospital Course: Mr. Gomez is a [facility] [employer] DIRECT[employer] client. He was admitted to the transition unit on a voluntary basis for placement at a psychiatric facility for medication adjustment and psychiatric stabilization. This morning, however, he was working with mental health and decided that he wished to leave the hospital. He was no longer interested in placement at a psychiatric hospital. Referrals had been sent the night prior, mental health was awaiting responses from facilities. [facility] health contacted [facility] to see if they were willing to offer a bed. [facility] was still reviewing the referral. Care management asked Mr. Gomez if he would like to wait to see what the final determination is, he declined. When I saw the patient, he denied any thoughts of self-harm including suicide. He denied any homicidal thoughts. He was requesting discharge from the hospital. He was not interested in psychiatric stabilization at that time. He stated he was willing to wait for a proper discharge, however, he did not wait for the discharge paperwork and left AGAINST MEDICAL ADVICE. Home Meds and New Rx's Prescriptions: No Action resperadine consta 50 mg IM q2w RF: 0 Discharge Instructions Activity:: Activity as Tolerated Equipment/Supplies:: No Equipment Needed Diet:: As Tolerated Discharge Orders Discharge Orders: Discharge Order (Routine); Ordered 02/26/19 Ordered By: Clari Bowens Discharge Data Discharge Date/Time-TO BE ENTERED AT DEPARTURE: 02/26/19 12:21 DS: Summary Status at Discharge Functional status at discharge: independent ambulation Overall status at discharge: patient is back to baseline Mental Status: other (History of paranoid schizophrenia with delusions.) Speech and Movement: speech and movement normal Mood: congruent mood and other (History of paranoid schizophrenia with delusions.) Affect: normal affect Exam Psych Mental Status: other (History of paranoid schizophrenia with delusions.) Speech and Movement: speech and movement normal Mood: congruent mood and other (History of paranoid schizophrenia with delusions.) Affect: normal affect DS: Data Vitals/I&O Vitals and I&O: Vital Signs Temperature 36.6 C 02/26/19 06:20 Temperature Source Skin 02/26/19 06:20 Pulse 114 H 02/26/19 06:20 Pulse Rhythm Regular 02/26/19 08:47 Respiratory Rate 18 02/26/19 06:20 Respiratory Effort Non-Labored 02/26/19 08:47 Respiratory Depth Normal 02/26/19 08:47 Respiratory Pattern Normal 02/26/19 08:47 Blood Pressure 109/71 02/26/19 06:20 Blood Pressure Position Sitting 02/25/19 14:39 Pulse Oximetry 100 02/26/19 06:20 Oxygen Delivery Method Room Air 02/26/19 06:20 Oxygen Flow Rate 0 02/26/19 06:20 Pain Level 0 02/26/19 06:20 Comment 02/26/19 06:20 Intake & Output 02/25/19 02/26/19 02/26/19 23:59 11:59 23:59 Intake Total 1740 / 1740 Balance 1740 / 1740 Weight 79.379 kg Intake: Oral 1740 / 1740 Other: Urine Color Yellow Urine Appearance Clear Urine Odor Normal Comment Pt voiding ad demario in toilet. Denies sx. No hat. Voiding Methods Toilet Data Completed and Pending Labs on day of discharge: Labs from last 24 hours 02/25/19 02/25/19 02/25/19 15:55 15:55 15:40 WBC 10.57 RBC 4.69 Hgb 14.8 Hct 44.0 MCV 93.8 MCH 31.6 MCHC 33.6 RDW 12.4 Plt Count 251 MPV 9.1 Immature Gran % 0.2 Neutrophils % 61.6 Lymphocytes % 31.3 Monocytes % 5.0 Eosinophils % 1.4 Basophils % 0.5 Absolute Neutrophils 6.51 Absolute Lymphocytes 3.31 Absolute Monocytes 0.53 Absolute Eosinophils 0.15 Absolute Basophils 0.05 Sodium Potassium Chloride Carbon Dioxide Anion Gap BUN Creatinine Estimated GFR/1.73 m2 Glucose Calcium Total Bilirubin AST ALT Alkaline Phosphatase Total Protein Albumin TSH Urine Color Yellow Urine Clarity Clear Urine pH 7.5 Ur Specific [place] 1.015 Urine Protein Negative Urine Ketones Negative Urine Blood Negative Urine Nitrite Negative Urine Bilirubin Negative Urine Urobilinogen 0.2 Ur Leukocyte Esterase Negative Urine Glucose Negative Urine Opiates Screen Negative Urine Methadone Screen Negative Acetaminophen Ur Barbiturates Screen Negative Ur Tricyclics Screen Negative Ur Amphetamines Screen Negative U Benzodiazepines Scrn Negative Urine Cocaine Screen Negative Ur THC Screen Negative Ethyl Alcohol 02/25/19 15:40 WBC RBC Hgb Hct MCV MCH MCHC RDW Plt Count MPV Immature Gran % Neutrophils % Lymphocytes % Monocytes % Eosinophils % Basophils % Absolute Neutrophils Absolute Lymphocytes Absolute Monocytes Absolute Eosinophils Absolute Basophils Sodium 140 Potassium 3.6 Chloride 101 Carbon Dioxide 29.5 Anion Gap 9.5 BUN 11 Creatinine 0.94 Estimated GFR/1.73 m2 >= 60.00 Glucose 96 Calcium 9.5 Total Bilirubin 0.5 AST 15 ALT 29 Alkaline Phosphatase 74 Total Protein 7.9 Albumin 4.1 TSH 1.29 Urine Color Urine Clarity Urine pH Ur Specific [place] Urine Protein Urine Ketones Urine Blood Urine Nitrite Urine Bilirubin Urine Urobilinogen Ur Leukocyte Esterase Urine Glucose Urine Opiates Screen Urine Methadone Screen Acetaminophen < 2 L Ur Barbiturates Screen Ur Tricyclics Screen Ur Amphetamines Screen U Benzodiazepines Scrn Urine Cocaine Screen Ur THC Screen Ethyl Alcohol < 3.0 PFSH Medical History Gastroesophageal reflux disease Mental disorder Poorly defined Paranoid schizophrenia (Acute) Surgical History EGD - IV Sedation (06/14/16) Repair of inguinal hernia S/P laparoscopic appendectomy (Acute ~08/05/18) Social History Smoking/Tobacco Use Status: Current every day Tobacco Type: cigarettes Years smoked: 28 Alcohol Intake: former Drug use: Never Substance use type: does not use Do you feel safe at home: Yes Do you feel safe in your relationship?: Yes
--- NOTE | 2019-02-26 19:50 | PDOC.CMDIS ---
- If Service Date Differs Date of service: 02/26/19 Time of Service: 19:50 LACE Index Scoring Tool - Questions: Length of Stay (in days): 1 Acuity (Admit via E.D.?): Yes E.D. Visits: 13 - Answers: Total Score: 8 Risk of Readmission: Low Risk Care Management Discharge Reason for Hospitalization: suicidal ideation Discharge Plan: Nigel signed out against medical advice. he had agreed to voluntary psychiatric hospitalization but decided to leave when no bed was available by noon. 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 Patient/Family Education Needs: Nigel was advised against leaving the hospital and offered voluntary placement . Services Needed at Discharge: Psychiatric Facility - MH Services (Omit if N/A) Current MH Services: [employer] TECHNICIAN
== END 2019-02-26 12:21 | disposition left against medical advice (07) ==
LOC: ER 16:06 → MS 21:19
PROVIDERS: Student in an Organized Health Care Education/Training Program; Admitting Provider Family Medicine; Emergency Provider Student in an Organized Health Care Education/Training Program; PCP Nurse Practitioner Family; Visit Provider Internal Medicine
DX: F20.0 Paranoid schizophrenia (principal); R45.851 Suicidal ideations; Z53.29 Procedure and treatment not carried out because of patient's decision for other reasons; F17.210 Nicotine dependence, cigarettes, uncomplicated
CPT/HCPCS: 36415; 80053; 80307; 93005; 99219; 99239; 99285; 80320; 80329; 81003; 84443; 85025; 93010; 99217; G0378

== ENCOUNTER 2019-07-29 19:02 | Emergency (ER) | payer MEDICARE, SELFPAY ==
--- NOTE | 2019-07-29 19:00 | DI.CT_ITS ---
EXAM: CT ABDOMEN PELVIS W CLINICAL HISTORY: upper abdominal pain TECHNIQUE: COMPARISON: CT ABDOMEN PELVIS W from 08/23/2018 FINDINGS: CT examination of the abdomen and pelvis was performed with bolus infusion of 100 cc of Omnipaque 350 . Images obtained through the lung bases are unremarkable. Note is made of a hiatal hernia. Liver and spleen are unremarkable in appearance as is the pancreas. Gallbladder and bile ducts are C T normal. Adrenals and kidneys appear normal, no urinary tract obstruction or calcification. Abdominal aorta and major branch vessels appear normal. No abdominal or pelvic adenopathy. There is been a prior appendectomy. No evidence of diverticulitis or bowel obstruction. Prior right inguinal hernia repair noted. Minimal right-sided fat containing hernia persists. Tiny fat containing umbilical hernia noted. IMPRESSION: No evidence of acute intra-abdominal process.
[2019-07-29 19:09] VITALS: BP 127/86; PULSE 106; RESP 16; TEMP 36.6; O2SAT 95
--- NOTE | 2019-07-29 19:09 | W.ED.GENAD ---
Discharge Plan Disposition Patient Disposition: HOME Condition: Stable Discharge Details Chief Complaint: Abd Prob Clinical Impression: GERD (gastroesophageal reflux disease), Constipation, Abdominal pain Primary Care Provider: Perla Martin ED Provider: Leoncio Miranda Home Meds and New Rx's Prescriptions: Continued risperidone 4 mg tablet 8 mg PO HS RF: 0 clonazepam 0.5 mg tablet 1 mg PO DAILY RF: 0 omeprazole 20 mg capsule,delayed release(DR/EC) 20 mg PO DAILY RF: 0 Risperdal Consta 50 mg/2 mL suspension,extended rel recon 50 mg IM RF: 0 Discharge Instructions Instructions: Constipation (ED), Gastroesophageal Reflux Disease (ED) Additional Instructions: try taking over the counter mylanta and also colace follow up with your primary care provider within 1-2 weeks if you feel more ill, have persistent vomit or worsening pain return to the emergency department Medical Decision Making 38 yo male with hx of paranoid schizophrenia, gerd, prior appendectomy comes in with chief complaint of upper abdominal pain. HE denies vomit, fevers, dyspnea, chest pain or pressure. He localizes the pain to the epigastric area, no lower abdominal pain or tenderness. HAs mild tenderness in the epigastric region. Given location of the pain will obtain labs including lfts, lipase and ct imaging to eval for entities such as sbo vs cholecystitis though has no baldwin's sign pt's pain resolved after gi cocktail and labs and imaging show no acute abnormalities, has small hiatal hernia and constipation. No longer has any tenderness. Will d/c and advised to f/u with pcp and return precautions given Differential Diagnosis Differential Diagnosis: pancreatitis, gerd, cholecystitis Medical Records Medical records reviewed: Yes I reviewed the patient's medical records. Imaging Data Radiologic Study: Attestation: I personally reviewed and interpreted this imaging study as follows: Imaging: CT Scan Radiologist's impression: IMPRESSION: 1. Small hiatal hernia. 2. Status post right inguinal hernia repair. Status post appendectomy. 3. Suspect constipation as above. 4. Lipoma as above. 5. Osseous findings as above. Lab Data Lab results reviewed: Yes I reviewed the patient's lab results. ECG Data Attestation: I personally reviewed and interpreted this ECG (s) as follows: Prior ECG tracings: not available for review Interpretation: sinus rhythm, rate of 88, pr 134, qtc 445, no acute st t wave ischemic findings HPI General Mode of arrival: ambulatory. Date/Time Provider Initiated Documentation: 07/29/19 19:04. Limitations to Documentation: no limitations. Information obtained by: patient. History of Present Illness 38 year old M presents to the emergency department with the chief complaint of abdominal pain, described as moderate, Patient reports no radiation. Patient started experiencing this hour(s) (3) and it has been constant. No relieving factors improve symptom(s), No exacerbating factors reported . Patient notes no other symptoms.. Patient did receive the following treatments prior to arrival, none Related Data Home Medications Medication Instructions Recorded Confirmed Risperdal Consta 50 mg IM 07/29/19 clonazepam 1 mg PO DAILY 07/29/19 07/29/19 omeprazole 20 mg PO DAILY 07/29/19 07/29/19 risperidone 8 mg PO HS 07/29/19 07/29/19 Allergies Allergy/AdvReac Type Severity Reaction Status Date / Time Penicillins Allergy Other (See Unverified 07/29/19 19:11 Comment) General SCARLETT: 2 Review of Systems All systems reviewed & are unremarkable except as noted in HPI and below Constitutional Constitutional: Denies chills, Denies fever(s) and Denies weakness Cardiovascular Cardiovascular: Denies chest pain and Denies dyspnea Respiratory Respiratory: Denies cough and Denies dyspnea Gastrointestinal Gastrointestinal: Denies nausea and Denies vomiting Musculoskeletal Musculoskeletal: Denies joint swelling Neurologic Neurologic: Denies weakness [facility] Social History Smoking/Tobacco Use Status: Current every day Tobacco Type: cigarettes Years smoked: 28 Alcohol Intake: former Drug use: Never Substance use type: does not use Do you feel safe at home: Yes Do you feel safe in your relationship?: Yes Exam Const General: no acute distress Orientation: alert HENMT Head: normal to inspection Ears: external ears normal General nose exam: external nose normal Mouth: moist mucous membranes Eyes General: appearance normal, both eyes and all related structures Neck Neck: normal visual inspection Resp Effort & Inspection: normal respiratory effort and able to speak in complete sentences Cardio Rate: regular rate GI Palpation: soft and tender Skin General skin exam: no rashes or lesions noted Neuro General: patient alert and patient oriented x3 Extrem General: normal to inspection Psych Mental Status: mental status grossly normal
[2019-07-29] MEDS: Normal Saline 1,000 ML 1000 ML IV (19:28)
[2019-07-29] MEDS: Omnipaque 350 MG/ML 100 ML BTL IV (19:40)
[2019-07-29] MEDS: Normal Saline - Diluent 50 ML VIAL IV (19:43)
[2019-07-29 19:44] LABS: Abs Immature Grans 0.03 k/cumm (0.0-0.09); Absolute Basophil Count 0.03 k/cumm (0.0-0.2); Absolute Eosinophil Count 0.35 k/cumm (0.0-0.7); Absolute Lymphocyte Count 4.33 k/cumm (1.2-3.4); Absolute Monocyte Count 0.67 k/cumm (0.11-0.7); Basophils % 0.2; Eosinophils % 2.7; HCT 42.4 % (40.0-50.0); HGB 14.2 g/dL (13.5-17.5); Immature Grans % 0.2 %; Lymphocytes % 33.7; Mean Corp. HGB Concentration 33.5 g/dL (32.0-36.0); Mean Corpuscular Hemoglobin 29.7 pg (27.0-33.0); Mean Corpuscular Volume 88.7 fL (80-95); Mean Platelet Volume 8.6 fL (8.0-11.0); Monocytes % 5.2; Platelet Count 298 x1000/uL (130-400); RBC 4.78 m/cumm (4.50-6.00); RBC Distribution Width 12.3 % (11.8-14.1); White Blood Cell Count 12.84 k/cumm (4.4-10.8)
[2019-07-29 19:45] LABS: Absolute Neutrophil Count 7.45 k/cumm (1.2-6.7)
[2019-07-29 19:54] LABS: INR 0.9 (0.9-1.1); PTT Activated 25.4 sec (21.0-31.4); Prothrombin Time 9.3 sec (9.3-11.0)
--- NOTE | 2019-07-29 20:03 | DI.VRAD_ITS ---
PROCEDURE INFORMATION: Exam: CT Abdomen And Pelvis With Contrast Exam date and time: 07/29/2019 7:09 PM Age: 38 years old Clinical indication: Other: Upper abdominal pain; Prior surgery; Surgery date: 6+ months; Surgery type: Hernia repair TECHNIQUE: Imaging protocol: Computed tomography of the abdomen and pelvis with intravenous contrast. Radiation optimization: All CT scans at this facility use at least one of these dose optimization techniques: automated exposure control; mA and/or kV adjustment per patient size (includes targeted exams where dose is matched to clinical indication); or iterative reconstruction. Contrast material: OMNIPAQUE 350; Contrast volume: 100 ml; Contrast route: IV; COMPARISON: CT ABDOMEN PELVIS W 08/23/2018 8:26 PM FINDINGS: Lungs: The visualized lung bases are within normal limits. Heart: The visualized portions of the heart and pericardium are unremarkable. Mediastinum: There is a small hiatal hernia. Liver: The liver is within normal limits. Gallbladder and bile ducts: The gallbladder is contracted. Pancreas: The pancreas is within normal limits. Spleen: The spleen is unremarkable. Adrenals: The adrenal glands are unremarkable. Kidneys and ureters: The kidneys are within normal limits. Stomach and bowel: There are feces within the colon which are suspicious for constipation. Appendix: The patient is status post appendectomy. Intraperitoneal space: Unremarkable. No free air. No significant fluid collection. Vasculature: Unremarkable. No abdominal aortic aneurysm. Lymph nodes: No enlarged lymph nodes. Bladder: Unremarkable as visualized. Reproductive: Unremarkable as visualized. Bones/joints: There is a small lipoma adjacent to the 10th right rib measuring 2.3 by 1.5 cm. There are degenerative changes of the thoracic lumbar spines. Soft tissues: The patient is status post right inguinal hernia repair There is an incipient right inguinal hernia containing mesenteric fat. IMPRESSION: 1. Small hiatal hernia. 2. Status post right inguinal hernia repair. Status post appendectomy. 3. Suspect constipation as above. 4. Lipoma as above. 5. Osseous findings as above. Dictated and Authenticated by: Fernando Richard MD. Ordering:KARI Fang MD
[2019-07-29 20:07] LABS: ALT 26 U/L (16-63); AST 14 U/L (15-37); Albumin 3.9 g/dL (3.4-5.0); Alkaline Phosphatase 85 U/L (46-116); Anion Gap 8.6 mmol/L (3-11); BUN 11 mg/dL (7-18); Bilirubin, Total 0.4 mg/dL (0.2-1.0); CO2 30.4 mmol/L (21.0-32.0); CREATININE 0.95 mg/dL (0.70-1.30); Calcium 9.2 mg/dL (8.5-10.1); Chloride 102 mmol/L (98-107); Glucose 90 mg/dL (74-106); Lipase 88 U/L (73-393); Magnesium 2.2 mg/dL (1.8-2.4); Potassium 3.7 mmol/L (3.5-5.1); Sodium 141 mmol/L (136-145)
[2019-07-29 20:09] LABS: Bilirubin Negative (Negative); Blood Negative (Negative); Clarity Clear (Clear); Glucose Negative (Negative); Ketones Negative (Negative); Leukocyte Esterase Negative (Negative); Nitrite Negative (Negative); Urobilinogen 0.2 EU/dL (Up TO 0.2)
[2019-07-29 20:09] LABS: Bilirubin, Direct 0.08 mg/dL (0.00-0.20); Bilirubin, Total 0.3 mg/dL (0.2-1.0)
[2019-07-29 20:11] LABS: Troponin I < 0.05 ng/Ml (<0.06)
[2019-07-29 20:31] VITALS: BP 138/92; PULSE 82; RESP 16; O2SAT 95
== END 2019-07-29 20:32 | disposition home or self-care (01) ==
PROVIDERS: Emergency Provider Emergency Medicine; PCP Nurse Practitioner Family
DX: K21.9 Gastro-esophageal reflux disease without esophagitis (principal); K59.00 Constipation, unspecified; R10.10 Upper abdominal pain, unspecified
CPT/HCPCS: 80053; 83690; 93005; 96361; 96374; 99285; 74177; 81003; 82247; 82248; 83735; 84484; 85025; 85610; 85730; 93010; 99284; J3490

== ENCOUNTER 2019-10-01 16:10 | Outpatient (REF) | payer MEDICARE, SELFPAY ==
[2019-10-03 10:16] LABS: COVID-19 RT-PCR UVMMC Result Negative (Negative)
== END 2019-10-01 16:30 ==
LOC: NCHCN 16:10
PROVIDERS: PCP Nurse Practitioner Family; Visit Provider Nurse Practitioner Family
DX: J06.9 Acute upper respiratory infection, unspecified (principal)
CPT/HCPCS: U0003

== ENCOUNTER 2019-11-11 21:51 | Emergency (ER) | payer MEDICARE, SELFPAY ==
[2019-11-11 21:57] VITALS: BP 124/80; PULSE 73; RESP 16; TEMP 36.5; O2SAT 98
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
== END 2019-11-11 22:15 | disposition home or self-care (01) ==
PROVIDERS: Emergency Provider Student in an Organized Health Care Education/Training Program; PCP Nurse Practitioner Family
DX: R68.84 Jaw pain (principal); K02.9 Dental caries, unspecified; F20.0 Paranoid schizophrenia
CPT/HCPCS: 99282

== ENCOUNTER 2020-02-18 06:50 | Emergency (ER) | payer MEDICARE, SELFPAY ==
--- NOTE | 2020-02-18 06:54 | ED.GENADUL_ITS ---
Discharge Plan Disposition Patient Disposition: OTHER Discharge Details Clinical Impression: Eloped from emergency department Primary Care Provider: Perla Martin ED Provider: Kaleb Miller Home Meds and New Rx's Prescriptions: No Action risperidone 4 mg tablet 8 mg PO HS RF: 0 clonazepam 0.5 mg tablet 1 mg PO DAILY RF: 0 omeprazole 20 mg capsule,delayed release(DR/EC) 20 mg PO DAILY RF: 0 Risperdal Consta 50 mg/2 mL suspension,extended rel recon 50 mg IM RF: 0 HPI General Date/Time Provider Initiated Documentation: 02/18/20 06:53 . HPI Narrative: Patient left prior to evaluation or treatment. He was walking into the emergency department towards the triage box with the nurse when he decided to turn around and not be evaluated today. Uncertain as to why he decided to le ave. I did not have the opportunity to see or evaluate the patient at all. Patient has left prior to any intervention or assessment. Related Data Home Medications Medication Instructions Recorded Confirmed Risperdal Consta 50 mg IM 07/29/19 clonazepam 1 mg PO DAILY 07/29/19 07/29/19 omeprazole 20 mg PO DAILY 07/29/19 07/29/19 risperidone 8 mg PO HS 07/29/19 07/29/19 Allergies Allergy/AdvReac Type Severity Reaction Status Date / Time Penicillins Allergy Other (See Unverified 07/29/19 19:11 Comment) General SCARLETT: 3 PFS Medical History (Updated 02/18/20 @ 07:00 by Kaleb Miller DO) Gastroesophageal reflux disease Mental disorder Poorly defined Paranoid schizophrenia Surgical History EGD - IV Sedation (06/14/16) Repair of inguinal hernia S/P laparoscopic appendectomy (~08/05/18) Social History Smoking/Tobacco Use Status: Current every day Tobacco Type: cigarettes Years smoked: 28 Alcohol Intake: former Drug use: Never Substance use type: does not use Do you feel safe at home: Yes Do you feel safe in your relationship?: Yes
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
== END 2020-02-18 06:58 | disposition other institution (70) ==
LOC: ER 07:04
PROVIDERS: Emergency Provider Student in an Organized Health Care Education/Training Program; PCP Nurse Practitioner Family
DX: Z53.21 Procedure and treatment not carried out due to patient leaving prior to being seen by health care provider (principal)

== ENCOUNTER 2020-02-18 09:25 | Inpatient (IN) | payer MEDICARE, SELFPAY ==
[2020-02-18 09:31] VITALS: BP 126/75; PULSE 100; RESP 16; TEMP 36.2; O2SAT 96
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
--- NOTE | 2020-02-18 10:37 | NUR.NOTE ---
Nursing Note: Medications agree with recent fills, though pt does not engage to report any actual use of medications. No way to confirm actual use.
[2020-02-18 11:27] LABS: Abs Immature Grans 0.03 10^3/uL (0.0-0.06); Absolute Basophil Count 0.05 10^3/uL (0.0-0.2); Absolute Eosinophil Count 0.06 10^3/uL (0.0-0.7); Absolute Lymphocyte Count 2.83 10^3/uL (1.2-3.4); Absolute Monocyte Count 0.83 10^3/uL (0.1-0.8); Absolute Neutrophil Count 8.21 10^3/uL (1.2-6.7); Basophils % 0.4; Eosinophils % 0.5; HCT 41.3 % (40.0-50.0); HGB 13.7 g/dL (13.5-17.5); Immature Grans % 0.2; Lymphocytes % 23.6; MCH 31.1 pg (27.0-33.0); MCHC 33.2 % (32.0-36.0); MCV 93.9 fL (80-95); MPV 9.4 fL (8.0-11.0); Monocytes % 6.9; Neutrophils % 68.4; Nucleated RBC 0 %; Platelet Count 261 10^3/uL (130-400); RDW 12.7 % (11.8-14.1); RDW-SD 43.8 fL; WBC 12.01 10^3/uL (4.4-10.8)
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
[2020-02-18 12:05] LABS: ALT 16 U/L (16-63); AST 31 U/L (15-37); Albumin 3.9 g/dL (3.4-5.0); Alkaline Phosphatase 91 U/L (46-116); Anion Gap 6.9 mmol/L (3-11); BUN 20 mg/dL (7-18); Bilirubin, Total 0.7 mg/dL (0.2-1.0); CO2 28.1 mmol/L (21.0-32.0); Calcium 9.2 mg/dL (8.5-10.1); Chloride 106 mmol/L (98-107); Glucose 95 mg/dL (74-106); Potassium 4.3 mmol/L (3.5-5.1); Sodium 141 mmol/L (136-145); TSH 0.73 uIU/mL (0.36-3.74); Total Protein 7.1 g/dL (6.4-8.2)
[2020-02-18 12:06] LABS: Acetaminophen < 2 ug/mL (10-30)
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
[2020-02-18 17:06] LABS: Bilirubin Small (Negative); Blood Negative (Negative); Clarity Cloudy (Clear); Glucose Negative (Negative); Ketones 80 mg/dL (Negative); Leukocyte Esterase Negative (Negative); Nitrite Negative (Negative); Specific Gravity >= 1.030 (1.005-1.025); Urobilinogen 0.2 EU/dL (Up TO 0.2)
[2020-02-18 17:42] LABS: *AMPHETAMINES SCREEN URINE Negative (Negative); *BARBITURATES SCREEN URINE Negative (Negative); *BENZODIAZEPINES SCREEN URINE Negative (Negative); Cannabinoids THC Negative (Negative); Cocaine Screen,Urine Negative (Negative); METHADONE URINE SCREEN Negative (Negative); OPIATES URINE SCREEN Negative (Negative)
[2020-02-18 17:51] LABS: Tricyclic Antidepressants Negative (Negative)
[2020-02-18] MEDS: clonazePAM 0.5 MG TAB PO (17:57)
--- NOTE | 2020-02-18 19:19 | PDOC.CMPRO ---
- If Service Date Differs Date of service: 02/18/20 Time of Service: 19:19 Care Management Progress Note S/O: Nigel meets with Mary Cheney, state psychiatrist, via zoom for the Second Certification by Psychiatrist. Dr. Cheney determines that Nigel meets criteria for involuntary hospitalization. Nigel' mood is labile during the evaluation, going from laughing one minute to crying the next. He is oriented to person but is unable to say what day of the week it is, what month or even what season. He reports to Dr. Cheney that he has been in this place for several years. CM will continue to follow. A: Nigel is a 39 year old male admitted to [facility] for psychosis. P: Plan is for [facility] to continue seeking placement for Nigel. Referrals have been made to [facility], [facility], and [facility]. Jonny will remain at [facility] on involuntary status until a bed can be secured for him. CM will continue to follow.
[2020-02-18 21:57] LABS: COVID-19 RT-PCR UVMMC Result Negative (Negative)
[2020-02-18] MEDS: risperiDONE 1 MG TAB 8 MG PO (23:14)
[2020-02-19 07:30] VITALS: BP 101/67; PULSE 93; RESP 18; TEMP 36.7; O2SAT 97
[2020-02-19] MEDS: Esomeprazole 20 MG CAPCR PO (07:42)
[2020-02-19] MEDS: LORazepam 1 MG TAB PO ×2 (08:30→17:41)
--- NOTE | 2020-02-19 10:10 | PDOC.MHCN_ITS ---
Date of service: 02/19/20 Time of Service: 10:10 Mental Health Crisis Note Presenting Issue How did you arrive at the ED and why did you come: Patient was brought to the ED by [facility] Police after having multiple psychotic episodes. He was place on Involuntary Status and awaiting psychiatric placement. Precipitating Factors The patient continues to deny S/I,H/I and AH. He says that he needs help but refuses to consider psychiatric placement. Upon discussion with the patient he became angry and demanding. Stating, I have been to all those places and I'm not going back, I will stay right here. Disposition BEHAVIOR: The patient is minimally cooperating with medical staff. He does become easily angry and agitated. EYE CONTACT: Fixed and glaring. MOOD: Patient clearly had an angry edge to his converstion. AFFECT: Animated and arrogant. APPETITE: He reports his appetite is good. SLEEP(trouble falling/staying asleep: Patient reports he is having difficulty sleeping. Plan The patient will need to continue on EE status and is in need of further treatment.
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
--- NOTE | 2020-02-19 17:59 | PDOC.CMSAFE ---
- If Service Date Differs Date of service: 02/19/20 Time of Service: 17:59 Care Management Safety Plan INVOLUNTARY FOR INPATIENT PSYCHIATRIC STABILIZATION. Safety plan has been established to meet the needs of the patient, and consideration of the care team, to adhere to patient goals, identify restrictions based on behavioral status, address nutrition, and determine allowed personal belongings, tools for hygiene and personal care, determine level of activity including ambulation, level of supervision, visitors, and determine privileges based on behaviors and level of engagement by patient. SAFETY PLAN: 1. Will remain on suicide precautions and in paper clothes. 2. Will remain in room under direct supervision of one-on-one staff at all times provided by [employer], AGRICULTURAL RESEARCH ENGINEER, CHARGE AIDE supervisor forming department. 3. May have paper cups, plates, finger foods, as well as a cardboard spoon with which to eat meals. 4. Follow [facility] Management of the Admitted Behavioral Health Patient policy. 5. Shower permitted with escort to shower room and at nursing discretion. 6. No personal belongings, other than his own socks and hat. 7. Visitors: None. 8. Activities: Television with remote when available, soft cart items permitted per RN discretion. 9. Bathroom privileges: bathroom available in room without limitations once moved to Med/Surg. 10. Telephone: No telephone calls at this time. 11. Due to INVOLUNTARY status, if patient wishes to leave [facility], the [facility] chore worker must be contacted to re-evaluate patient prior to patient exiting the building. Patient is currently involuntarily at [facility]. [facility] frontline chore worker will continue seeking placement. Please contact on-call rn care manager ([phone]) and [facility] chore worker ([phone]) for any needed changes in the Safety Plan. Safety Plan has been provided to interdepartmental care team. cc:
--- NOTE | 2020-02-19 18:02 | CMPROGNOTE_ITS ---
- If Service Date Differs Date of service: 02/19/20 Time of Service: 18:02 Care Management Progress Note S/O: Nigel was sitting up in bed when CM met with him. He stated that he was upset after talking with Juan [facility]. They had a zoom meeting which CM coordinated. He stated that Juan has sent him to many [facility] and they never do anything for him. Per Juan, the last time he took his long acting medication was 01/01/20. CM offered Nigel items from the activity cart, which he declined. CM spoke to Ene at [facility], who reported that they needed additional information in order to review him for admission. CM sent all information that was requested. Ene stated that there are no beds today, and that CM can call tomorrow after 10am to inquire about a bed at that time. No beds available at the other facilities at this time. CM will continue to follow. A: Nigel is a 39 year old male admitted to [facility] for psychosis. P: Plan is for [facility] to continue seeking an involuntary placement. Referrals have been made to [facility], [facility], and [facility]. A referral was also sent to [facility] today. Jonny will remain at [facility] on involuntary status until a bed can be secured for him. CM will continue to follow.
[2020-02-19] MEDS: risperiDONE 1 MG TAB 8 MG PO (21:01)
[2020-02-20] MEDS: Polyethylene Glycol 3350 17 GM PACKET PO (08:01)
[2020-02-20] MEDS: Esomeprazole 20 MG CAPCR PO (08:01)
[2020-02-20] MEDS: LORazepam 1 MG TAB PO ×2 (08:02→10:54)
[2020-02-20 08:32] VITALS: BP 121/76; PULSE 122; RESP 18; TEMP 36.7; O2SAT 98
--- NOTE | 2020-02-20 09:49 | W.INMHPGNOTE ---
Date of service: 02/20/20 Time of Service: 09:58 Mental Health Crisis Note Presenting Issue How did you arrive at the ED and why did you come: Nigel arrived to the ER early Monday via LE. He was placed on EE status at that time. Precipitating Factors Nigel deneid SI and HI. Disposition BEHAVIOR: Standoffish and then silly and engaged this am however, this changed as the morning went on. He requested to speak to this clinician again and was asking about when he was leaving and how long he would be there. I explained this was up to him. Nigel then stated that he will not take an injectable rx and if someone comes near him with it someone will be hurt. EYE CONTACT: Eye contact is consistent and very intense. MOOD: Agitated and verbally aggressive but not acting on anything at this time. AFFECT: Affect is intense and agiatated. APPETITE: Good SLEEP(trouble falling/staying asleep: Good Plan Will continue to assess daily until placement is found. Signature Clinician's Name/Title: Jackelyn Winters MS, [facility] Emergency Services Clinician
--- NOTE | 2020-02-20 10:51 | CMSP_ITS ---
- If Service Date Differs Date of service: 02/20/20 Time of Service: 10:51 Care Management Safety Plan INVOLUNTARY FOR INPATIENT PSYCHIATRIC STABILIZATION. Safety plan has been established to meet the needs of the patient, and consideration of the care team, to adhere to patient goals, identify restrictions based on behavioral status, address nutrition, and determine allowed personal belongings, tools for hygiene and personal care, determine level of activity including ambulation, level of supervision, visitors, and determine privileges based on behaviors and level of engagement by patient. SAFETY PLAN: 1. Will remain on suicide precautions and in paper clothes. 2. Will remain in transition bed area under direct supervision of one-on-one staff at all times provided by [employer]PSO, VICTOR M, CHILD & ADOLESCENT PSYCHIATRIST director banking. 3. May have paper cups, plates, finger foods, as well as a cardboard spoon with which to eat meals. 4. Follow [facility] Management of the Admitted Behavioral Health Patient policy. 5. Shower permitted with escort to shower room and at nursing discretion. 6. No personal belongings, other than his own socks and hat. 7. Visitors: None. 8. Activities: Television with remote when available, soft cart items permitted per RN discretion. 9. Bathroom privileges: bathroom available in room without limitations once moved to Med/Surg. 10. Telephone: No telephone calls at this time. 11. Due to INVOLUNTARY status, if patient wishes to leave [facility], the [facility] iron worker must be contacted to re-evaluate patient prior to patient exiting the building. Patient is currently involuntarily at [facility]. [facility] frontline iron worker will continue seeking placement. Please contact on-call clinical manager home care ([phone]) and [facility] iron worker ([phone]) for any needed changes in the Safety Plan. Safety Plan has been provided to interdepartmental care team.
--- NOTE | 2020-02-20 11:24 | CMPROGNOTE_ITS ---
- If Service Date Differs Date of service: 02/20/20 Time of Service: 11:24 Care Management Progress Note S/O: Nigel was sitting up in bed when CM met with him. Jackelyn [facility] mental health screener was in the room as well. He reported that he does not want to take the IM respiradol, which had been ordered for him. He stated that it makes him agitated and aggressive, and that 'someone will get hurt if they try to give [him] that shot'. CM relayed this information to the RN and INTEGRATION SPECIALIST. The medication will be held at this time, and he will have further med management once he is transferred to a psychiatric inpatient facility. CM amended the safety plan to include that he can move around in the transitional bed area, at RN request. [facility] cannot accept Nigel today due to being closed to admissions at this time. [facility] is considering Nigel. CM will continue to follow. A: Nigel is a 39 year old male admitted to [facility] for psychosis. P: Plan is for [facility] to continue seeking an involuntary placement. Referrals have been made to [facility], [facility], and [facility]. A referral was also sent to [facility] today. Jonny will remain at [facility] on involuntary status until a bed can be secured for him. CM will continue to follow.
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
--- NOTE | 2020-02-20 15:22 | PHA.REVIEW ---
Pharmacy Admission Review - Admission Clinical Review (Last Reviewed 02/18/20 @ 10:56 by Shiloh Healy MD) Constipation (Acute) Suicidal ideation (Acute) Penicillins Allergy (Unverified 02/18/20 10:38) Other (See Comment) Height 6 ft Weight 88.451 kg - Renal Dosing Renal Dosing: BUN 20 mg/dL (7-18) H 02/18/20 10:54 Creatinine 0.90 mg/dL (0.70-1.30) 02/18/20 10:54 Medications needing adjustments: Reviewed (Crcl ~119 mL/min, current meds okay) - Anticoagulation Anticoagulation: Hgb 13.7 g/dL (13.5-17.5) 02/18/20 10:54 Hct 41.3 % (40.0-50.0) 02/18/20 10:54 Plt Count 261 10^3/uL (130-400) 02/18/20 10:54 Creatinine 0.90 mg/dL (0.70-1.30) 02/18/20 10:54 DVT Prohphylaxis: N/A Therapeutic Anticoagulation: N/A - Opiate Usage Evaluate Pain Scale/Pains Meds: N/A - Relevant Labs Sodium 141 mmol/L (136-145) 02/18/20 10:54 Potassium 4.3 mmol/L (3.5-5.1) 02/18/20 10:54 Chloride 106 mmol/L (98-107) 02/18/20 10:54 Electrolytes, C-Reactive P, ESR: Reviewed - DM Control DM Control: Glucose 95 mg/dL (74-106) 02/18/20 10:54 Insulin Dosing: N/A - Heart Failure/MS EF%, YOSEPH's, B-Blockers, Diuretics: N/A - BP Control BP Control: Blood Pressure 121/76 If elevated: N/A - Qtc Review If Elevated: N/A - IV to PO Switch IV Medications: Reviewed - Home Meds Home Med List reviewed: Intervened (Changed omeprazole to esomeprazole as pt is on the later per external med history. Multiple [employer] depressants.) Relevent Home Meds Not ordered & why?: clonazepam (has lorazepam ordered) - Current meds Current Medication Order Review: Reviewed (Risperidone consta was ordered as a X1 dose today but the pt refused. The med is still in the pharmacy should the patient change their mind.) - Comments Comments/Follow Ups: Watch VS, labs, and for med changes.
[2020-02-20 15:45] VITALS: BP 143/88; PULSE 79; RESP 19; TEMP 35.9; O2SAT 97
--- NOTE | 2020-02-20 16:04 | W.INMHPGNOTE ---
Date of service: 02/20/20 Time of Service: 16:04 Mental Health Crisis Note Presenting Issue How did you arrive at the ED and why did you come: Nigel arrived the ER Monday after he was brought by [facility]. He was placed on EE status. Precipitating Factors Nigel denies SI and HI. He is not showing signs of delusions at this time. Disposition BEHAVIOR: Nigel has been appropriate today since this morning. He seems more sedated than he was ths am. It is reported that he had an extra dose of Ativan because he was getting ramped up. EYE CONTACT: He makes good eye contact. MOOD: Mood appears slightly confused about where he is going thinking he is going home instead of a psychiatric hospital and sedated. AFFECT: Affect is flat mostly and smiling. APPETITE: Nigel is eating well. SLEEP(trouble falling/staying asleep: Nigel is sleeping Plan Continue with twice daily check ins and referrals for placement. Signature Clinician's Name/Title: Jackelyn Winters MS, [facility] Emergency Services Clinician
[2020-02-20] MEDS: risperiDONE 1 MG TAB 8 MG PO (22:33)
[2020-02-21] MEDS: Esomeprazole 20 MG CAPCR PO (07:52)
[2020-02-21] MEDS: LORazepam 1 MG TAB PO ×3 (07:52→11:48)
[2020-02-21] MEDS: Polyethylene Glycol 3350 17 GM PACKET PO (07:52)
--- NOTE | 2020-02-21 10:39 | W.INMHPGNOTE ---
Date of service: 02/21/20 Time of Service: 10:40 Mental Health Crisis Note Presenting Issue How did you arrive at the ED and why did you come: Nigel arrived to the ER via [facility] on Monday for evaluation and EE. Precipitating Factors Nigel denies SI and HI. He is not showing signs of delusions today. Disposition BEHAVIOR: Nigel is seen walking in the hallway of the observation unit. He is happy and talkative today. He jokes about the question of SI and HI saying with a laugh you know me better than that Jackelyn. EYE CONTACT: Eye contact is good. MOOD: Nigel is in good spirts today when he was seen by this clinician. Staff however, feel he is presenting a little more escalated today reporting, that he is just being more demanding and intense. He is on ativan every two hours to help keep him from getting more agitated. AFFECT: Affect is smiling and eyes are softer than they were yesterday morning. APPETITE: Appetite is good. SLEEP(trouble falling/staying asleep: Sleep he said that he slep well. Plan [facility] has accepted Nigel today once their water is fixed. Andres will go via [employer] and [facility] has given a heads up that they will need transport at some point today. Signature Clinician's Name/Title: Jackelyn Winters MS, [facility] EMERGENCY SERVICES CLINICIAN
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
--- NOTE | 2020-02-21 12:40 | PDOC.CMDIS ---
- If Service Date Differs Date of service: 02/21/20 Time of Service: 12:40 LACE Index Scoring Tool - Questions: Length of Stay (in days): 4 - 6 Acuity (Admit via E.D.?): Yes E.D. Visits: 5 - Answers: Total Score: 11 Risk of Readmission: High Risk Care Management Discharge Reason for Hospitalization: Suicidal Ideation Discharge Plan: Nigel was increasingly agitated today. He was accepted at [facility] this morning, and was transported by [facility], coordinated by [facility]. He will follow up with his discharge plan of care. Patient/Family Education Needs: Review discharge instructions and plan for safety, expectations for psychiatric inpatient treatment. Services Needed at Discharge: Psychiatric Facility ([facility]), Transportation ([facility])
== END 2020-02-21 11:53 | disposition short-term general hospital (02) | DRG 885 ==
LOC: ER 09:32 → MS 14:04
PROVIDERS: Admitting Provider Family Medicine; Emergency Provider Student in an Organized Health Care Education/Training Program; PCP Nurse Practitioner Family; Visit Provider Family Medicine
DX: F20.0 Paranoid schizophrenia (principal); R45.851 Suicidal ideations; K21.9 Gastro-esophageal reflux disease without esophagitis; T14.91XA Suicide attempt, initial encounter; K59.00 Constipation, unspecified; T43.596A Underdosing of other antipsychotics and neuroleptics, initial encounter
CPT/HCPCS: 80053; 80307; 99223; 99233; 99239; 99285; U0003; 80329; 81003; 84443; 85025

== ENCOUNTER 2020-05-30 14:53 | Outpatient (REF) | payer MEDICARE, MEDICAID, SELFPAY ==
[2020-06-01 13:27] LABS: COVID-19 RT-PCR UVMMC Result Negative (Negative)
== END 2020-05-30 14:54 | disposition home or self-care (01) ==
LOC: NCHCN 14:53
PROVIDERS: PCP Nurse Practitioner Family; Visit Provider Nurse Practitioner Family
DX: J06.9 Acute upper respiratory infection, unspecified (principal)
CPT/HCPCS: U0003

== ENCOUNTER 2020-06-23 19:12 | Emergency (ER) | payer MEDICARE, MEDICAID, SELFPAY ==
[2020-06-23 19:23] VITALS: BP 149/82; PULSE 120; RESP 18; TEMP 36.1; O2SAT 96
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
== END 2020-06-23 20:41 | disposition home or self-care (01) ==
PROVIDERS: Emergency Provider Emergency Medicine; PCP Nurse Practitioner Family
DX: S02.2XXA Fracture of nasal bones, initial encounter for closed fracture (principal); Y04.0XXA Assault by unarmed brawl or fight, initial encounter
CPT/HCPCS: 21310; 70450; 70486

== ENCOUNTER 2020-07-06 19:50 | Emergency (ER) | payer MEDICARE, MEDICAID, SELFPAY ==
[2020-07-06 19:54] VITALS: BP 121/79; PULSE 86; RESP 16; TEMP 36.7; O2SAT 97
[2020-07-06 20:16] LABS: Bilirubin Negative (Negative); Blood Negative (Negative); Clarity Clear (Clear); Glucose Negative (Negative); Ketones Negative (Negative); Leukocyte Esterase Negative (Negative); Nitrite Negative (Negative); Specific Gravity 1.025 (1.005-1.025); Urobilinogen 0.2 EU/dL (Up TO 0.2); pH 5.5 (5-8)
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
--- NOTE | 2020-07-07 07:15 | NUR.NOTE ---
Nursing Note: RCT referral given to Care Management. Kely Goldberg
[2020-07-08 14:09] LABS: Chlamydia Result Negative (Negative); GC Result Negative (Negative)
== END 2020-07-06 20:58 | disposition home or self-care (01) ==
PROVIDERS: Emergency Provider Physician Assistant; PCP Nurse Practitioner Family
DX: R10.31 Right lower quadrant pain (principal); R10.32 Left lower quadrant pain
CPT/HCPCS: 87491; 87591; 99282; 81003; 99283

== ENCOUNTER 2020-07-07 12:21 | Emergency (ER) | payer MEDICARE, SELFPAY ==
[2020-07-07 12:25] VITALS: BP 145/83; PULSE 81; RESP 18; TEMP 36.6; O2SAT 94
--- NOTE | 2020-07-07 12:30 | ED.GENADUL_ITS ---
Discharge Plan Disposition Patient Disposition: HOME Condition: Stable Discharge Details Clinical Impression: Spermatocele of epididymis Primary Care Provider: Perla Martin ED Provider: Brea Negron Home Meds and New Rx's Prescriptions: No Action budesonide-formoterol [Symbicort] 160-4.5 mcg/actuation HFA aerosol inhaler INHALATION RF: 0 risperidone 4 mg tablet 8 mg PO HS RF: 0 Risperdal Consta 50 mg/2 mL suspension,extended rel recon 50 mg IM Q2W RF: 0 Discharge Instructions Instructions: Spermatocele (ED) Additional Instructions: Please take Tylenol or Ibuprofen with food every 4-6 hours as needed for pain and swelling. Follow up with primary care provider in 3-5 days. Return to ED sooner if any worsening or concerns. Increase oral fluids. A referral was placed for urology follow-up regarding your symptoms. At this time cultures are pending we will call you if they are positive and you need to be on an antibiotic. Referrals: Perla Martin [Primary Care Provider] - Aj Traore MD [ [facility] STAFF PHYSICIAN] - 2 weeks (Right spermatocele/groin pain) Brandy Klein DNP [NURSE PRACTITIONER] - 2 weeks (Spermatocele/groin pain) Discharge Data Discharge Date/Time-TO BE ENTERED AT DEPARTURE: 07/07/20 13:07 Medical Decision Making 29-year-old male presents the ER chief complaint of ultrasound recheck, he was seen yesterday and referred for outpatient ultrasound of the scrotum due to some groin pain. Ultrasound results are noted below he does have a right-sided spermatocele or tiny epididymal cyst approximately 2 to 3 mm. Discussed these findings with patient who verbalizes understanding. Referral given to urology. EXAM: US SCROTUM CLINICAL HISTORY: NIKO GROIN PAIN INTO SCROTUM TECHNIQUE: Scrotal ultrasound was performed utilizing scanning with high-f requency transducer. COMPARISON: No exams were available for comparison FINDINGS: The testes are normal in size and shape and are normal in echotexture. There is normal vascular flow of the testes on Doppler evaluation and flow is symmetrical. No testicular mass identified. The epididymi are unremarkable in appearance with normal vascular flow. There is tiny right epididymal cyst or spermatocele, 2-3 millimeters. There is no evidence of a varicocele or hydrocele. Additional scanning of the patient's suprapubic area of discomfort shows no specific soft tissue findings. IMPRESSION: Normal scrotal ultrasound. Discussed home care and strict return instructions, verbalized understanding. HPI General Mode of arrival: ambulatory . Date/Time Provider Initiated Documentation: 07/07/20 12:25 . Limitations to Documentation: no limitations . Information obtained by: patient, RN notes reviewed and old records reviewed . HPI Narrative: 39-year-old male presents to the ER status post follow-up for scrotum ultrasound. She was seen here yesterday with chief complaint of groin pain. Preliminary results obtained from diagnostic imaging department and repor ting a right-sided spermatocele, nothing acute, no torsion good blood flow to bilateral testes, ultrasound was also done in the suprapubic area no masses no hernias. Patient has past medical history of paranoid schizophrenia, GERD, constipation. Related Data Home Medications Medication Instructions Recorded Confirmed Risperdal Consta 50 mg IM Q2W 07/29/19 07/07/20 risperidone 8 mg PO HS 07/29/19 07/07/20 budesonide-formoterol [Symbicort] INHALATION 06/23/20 06/23/20 Allergies Allergy/AdvReac Type Severity Reaction Status Date / Time Penicillins Allergy Other (See Unverified 07/07/20 12:41 Comment) General SCARLETT: 4 Review of Systems All systems reviewed & are unremarkable except as noted in HPI and below Genitourinary Genitourinary: Reports genital pain and Reports testicular pain [facility] Medical History (Updated 07/07/20 @ 12:53 by Brea Negron) Gastroesophageal reflux disease Mental disorder Poorly defined Paranoid schizophrenia Surgical History EGD - IV Sedation (06/14/16) Repair of inguinal hernia S/P laparoscopic appendectomy (~08/05/18) Social History Smoking/Tobacco Use Status: Current every day Tobacco Type: cigarettes Years smoked: 28 Smoking risk assessment performed?: Yes Alcohol Intake: current Alcohol Intake frequency: a few times a week Alcohol type: beer Drug use: Never Substance use type: does not use Do you feel safe at home: Yes Do you feel safe in your relationship?: Yes Exam Narrative Exam Narrative: Constitutional: Alert and oriented x3. Appears stated age. Normal body habitus. Head: Normocephalic, no trauma. Chest: RRR, Normal S1, S2, distal pulses intact. Musculoskeletal: Normal gait, 5/5 strength to all four extremities. Skin: No suspicious rashes or lesions. Capillary refill less than 2 sec. Neurologic: Cranial nerves II-XII intact. Alert and oriented x 3. DTR's intact.
--- NOTE | 2020-07-07 13:10 | NUR.NOTE ---
Nursing Note:Referral to [facility] Urology for spermatocele faxed. Kely Goldberg
== END 2020-07-07 13:07 | disposition home or self-care (01) ==
PROVIDERS: Emergency Provider Registered Nurse Emergency; PCP Nurse Practitioner Family
DX: N43.41 Spermatocele of epididymis, single (principal)

== ENCOUNTER 2020-07-07 12:22 | Outpatient (CLI) | payer MEDICARE, MEDICAID, SELFPAY ==
--- NOTE | 2020-07-07 | DI.US_ITS ---
EXAM: US SCROTUM CLINICAL HISTORY: NIKO GROIN PAIN INTO SCROTUM TECHNIQUE: Scrotal ultrasound was performed utilizing scanning with high-frequency transducer. COMPARISON: No exams were available for comparison FINDINGS: The testes are normal in size and shape and are normal in echotexture. There is normal vascular flow of the testes on Doppler evaluation and flow is symmetrical. No testicular mass identified. The epididymi are unremarkable in appearance with normal vascular flow. There is tiny right epididym al cyst or spermatocele, 2-3 millimeters. There is no evidence of a varicocele or hydrocele. Additional scanning of the patient's suprapubic area of discomfort shows no specific soft tissue find ings. IMPRESSION: Normal scrotal ultrasound. RADIATION DOSE DELIVERED: Total DLP
== END 2020-07-07 12:42 ==
PROVIDERS: PCP Nurse Practitioner Family; Visit Provider Physician Assistant
DX: R10.31 Right lower quadrant pain (principal); R10.32 Left lower quadrant pain; N50.82 Scrotal pain
CPT/HCPCS: 76870

== ENCOUNTER 2020-08-14 14:25 | Emergency (ER) | payer MEDICARE, MEDICAID, SELFPAY ==
[2020-08-14 14:29] VITALS: BP 149/85; PULSE 92; RESP 20; TEMP 36.6; O2SAT 97
--- NOTE | 2020-08-14 14:30 | DI.RAD_ITS ---
EXAM: XR KNEE LT 4V+ CLINICAL HISTORY: fall/pain. TECHNIQUE: 2D digital imaging was performed. COMPARISON: CR LEFT TIB/FIB from 10/29/2017 CR LEFT TIB/FIB from 10/29/2017 FINDINGS: BONES: No acute fracture is present. No bony destructive lesion is seen. Bony densities are seen p osterior to the tibial plateaus which appears smoothly marginated. JOINTS: The knee is normally aligned. A large joint effusion is seen. SOFT TISSUE: Normal. IMPRESSION: Large joint effusion. No fracture is visible. DATA REPOSITORY: RADIATION DOSE DELIVERED:
--- NOTE | 2020-08-14 15:41 | ED.GENADUL_ITS ---
Discharge Plan Disposition Patient Disposition: HOME Condition: Stable Discharge Details Clinical Impression: Effusion of knee Primary Care Provider: Perla Martin ED Provider: Yan Crow Home Meds and New Rx's Prescriptions: Continued budesonide-formoterol [Symbicort] 160-4.5 mcg/actuation HFA aerosol inhaler INHALATION RF: 0 risperidone 4 mg tablet 8 mg PO HS RF: 0 Risperdal Consta 50 mg/2 mL suspension,extended rel recon 50 mg IM Q2W RF: 0 omeprazole 20 mg capsule,delayed release(DR/EC) 20 mg PO DAILY RF: 0 loratadine [Allergy Relief (loratadine)] 10 mg tablet 10 mg PO DAILY RF: 0 Discharge Instructions Instructions: Swollen Knee Joint (ED), Knee Pain (ED) Additional Instructions: X-ray does not reveal any obvious bony abnormality but there is a joint effusion, this often means a soft tissue, meniscus, ligamentous injury. Rest, elevate, cool compresses every 2 hours for 20 minutes. Wear knee immobilizer and use crutches as needed, advance activity as tolerated. [id number] Tylenol and/or Motrin as directed for discomfort. Please watch for new or worsening symptoms and return to the ER for any concerns. I have given you the name and number of our local orthopedic provider and placed you on the orthopedic list. Contact their office on Monday for prompt outpatient orthopedic reevaluation. Referrals: Kirit Kaplan MD [ [facility] STAFF PHYSICIAN] - Discharge Data Discharge Date/Time-TO BE ENTERED AT DEPARTURE: 08/14/20 15:55 Medical Decision Making 39-year-old gentleman presents having slipped down the stairs twisting his left knee earlier this morning. Denies any other injury. Patient does have anterior and medial swelling, pain with valgus stress. He does ambulate with an antalgic gait. More concerned of internal derangement versus fracture. Will obtain x- ray for further evaluation. Neuro, vascular, tendon intact. X-ray read by me and confirmed by radiology as joint effusion, no bony abnormality. Discussed x-ray findings with patient. Given the large joint effusion, certainly higher concern for internal derangement. Discussed treatment options. Will place into a long leg immobilizer, crutches, weight-bear as tolerated, and placed on the orthopedic list to help expedite outpatient care. He was instructed to rest, elevate, cool compresses every 2 hours for 20 minutes., [id number] Tylenol and/or Motrin as directed for discomfort, advance activity as tolerated. Encouraged to return to the ER for new or worsening symptoms, otherwise contact the orthopedic office during business hours to set up outpatient reevaluation. He understands that reevaluation and possible MRI may be indicated. Medical Records Medical records reviewed: Yes I reviewed the patient's medical records. Imaging Data Radiologic Study: Attestation: I personally reviewed and interpreted this imaging study as follows: Imaging: X-Ray Radiologist's impression: Left knee, no bony abnormality, large joint effusion. HPI General Mode of arrival: ambulatory . Date/Time Provider Initiated Documentation: 08/14/20 14:32 . Limitations to Documentation: no limitations . Information obtained by: patient . HPI Narrative: This is a 39-year-old gentleman, presents to the ER for a left knee injury. He states that earlier this morning he was walking down the stairs, slipped, falling forward and twisting his left knee. He reports that the pain is moderate at rest, worse with movement or bearing weight. He is able to bear weight but does cause him to have an antalgic gait. He denies any other injury, denies previous knee injury. Denies striking his head, numbness, tingling, weakness. Pain does not radiate. Patient has taken the counter Tylenol for minimal relief. Has not tried resting, elevation, icing, or NSAIDs. Related Data Home Medications Medication Instructions Recorded Confirmed Risperdal Consta 50 mg IM Q2W 07/29/19 08/14/20 risperidone 8 mg PO HS 07/29/19 08/14/20 budesonide-formoterol [Symbicort] INHALATION 06/23/20 06/23/20 loratadine [Allergy Relief 10 mg PO DAILY 08/14/20 08/14/20 (loratadine)] omeprazole 20 mg PO DAILY 08/14/20 08/14/20 Allergies Allergy/AdvReac Type Severity Reaction Status Date / Time Penicillins Allergy Other (See Unverified 07/07/20 12:41 Comment) General Stated Complaint: Orthopedic SCARLETT: 4 Review of Systems Constitutional Constitutional: Denies fever(s) and Denies weakness Musculoskeletal Musculoskeletal: Reports arthralgias, Denies numbness, Reports stiffness and Denies tingling Integumentary/Breasts Skin/Breast: Denies rash Neurologic Neurologic: Denies numbness, Denies tingling and Denies weakness [facility] Medical History Gastroesophageal reflux disease Mental disorder Poorly defined Paranoid schizophrenia Surgical History EGD - IV Sedation (06/14/16) Repair of inguinal hernia S/P laparoscopic appendectomy (~08/05/18) Social History Smoking/Tobacco Use Status: Current every day Tobacco Type: cigarettes Years smoked: 28 Smoking risk assessment performed?: Yes Alcohol Intake: current Alcohol Intake frequency: a few times a week Alcohol type: beer Drug use: Never Substance use type: does not use Do you feel safe at home: Yes Do you feel safe in your relationship?: Yes Exam Const General: cooperative, healthy appearing, comfortable and no acute distress Orientation: alert and awake [facility] Head: normal to inspection, normocephalic and atraumatic Eyes General: appearance normal, both eyes and all related structures Conjunctivae: conjunctivae normal Neck Neck: normal visual inspection, trachea midline and supple Resp Effort & Inspection: normal respiratory effort and able to speak in complete sentences Cardio Rate: regular rate Rhythm: regular rhythm Back/Spine/Pelvis Back: No back tenderness Skin General skin exam: no rashes or lesions noted Neuro General: patient alert, patient awake, moves all extremities and no focal motor deficits Cognition: normal cognition Speech: speech normal Gait: antalgic Motor: muscle tone normal throughout Sensory Exam: no sensory deficits noted Extrem General: full ROM and capillary refill normal Left lower extremity: full ROM, normal capillary refill and knee Details: tenderness, swelling, normal ROM and knee ligament exam normal Details: anterior drawer test normal (Unremarkable) and valgus stress test normal (Increase his discomfort) Other: Left knee full range of motion. There is diffuse anterior and medial swelling and discomfort. No posterior or lateral discomfort. No erythema, warmth, ecchymosis. Neuro, vascular, tendon intact. The examination is somewhat guarded but recommends feel stable. There is increased discomfort with valgus stress. There is no bony point tenderness. Patient is neuro, vascular, tendon intact. He is able to ambulate with an antalgic gait. Psych Appearance: grossly normal Mental Status: mental status grossly normal Course Vital Signs Vital signs: Vital Signs Temperature 36.6 C 08/14/20 14:29 Pulse 92 H 08/14/20 14:29 Respiratory Rate 20 08/14/20 14:29 Blood Pressure 149/85 H 08/14/20 14:29 Pulse Oximetry 97 08/14/20 14:29 Temperature 36.6 C 08/14/20 14:29 Temperature Source Skin 08/14/20 14:29 Pulse 92 H 08/14/20 14:29 Respiratory Rate 20 08/14/20 14:29 Respiratory Effort Non-Labored 08/14/20 14:34 Blood Pressure 149/85 H 08/14/20 14:29 Blood Pressure Position Sitting 08/14/20 14:29 Pulse Oximetry 97 08/14/20 14:29 Oxygen Delivery Method Room Air 08/14/20 14:29 Oxygen Flow Rate 0 08/14/20 14:29 Pain Level 6 08/14/20 14:29
== END 2020-08-14 15:55 | disposition home or self-care (01) ==
PROVIDERS: Emergency Provider Physician Assistant; PCP Nurse Practitioner Family
DX: M25.462 Effusion, left knee (principal); W10.8XXA Fall (on) (from) other stairs and steps, initial encounter
CPT/HCPCS: 29505; 99283; 73564

== ENCOUNTER 2020-08-25 11:50 | Emergency (ER) | payer MEDICARE, MEDICAID, SELFPAY ==
[2020-08-25 12:07] VITALS: BP 134/77; PULSE 94; RESP 16; TEMP 36.4; O2SAT 99
--- NOTE | 2020-08-25 13:04 | ED.GENADUL_ITS ---
Discharge Plan Disposition Patient Disposition: HOME Condition: Stable Discharge Details Clinical Impression: Leg pain Primary Care Provider: Perla Martin ED Provider: Yan Crow Home Meds and New Rx's Prescriptions: Continued budesonide-formoterol [Symbicort] 160-4.5 mcg/actuation HFA aerosol inhaler INHALATION RF: 0 risperidone 4 mg tablet 8 mg PO HS RF: 0 Risperdal Consta 50 mg/2 mL suspension,extended rel recon 50 mg IM Q2W RF: 0 omeprazole 20 mg capsule,delayed release(DR/EC) 20 mg PO DAILY RF: 0 loratadine [Allergy Relief (loratadine)] 10 mg tablet 10 mg PO DAILY RF: 0 Discharge Instructions Instructions: Leg Pain (ED) Additional Instructions: At this time your overall presentation appears better than when I saw you from your initial injury. Swelling and bruising are much improved. It appears as though you are more comfortable not wearing the splint then when you are wearing the splint. Please follow-up with orthopedics in 2 days as already scheduled. Wear splint as needed, advance activity as tolerated. [id number] Tylenol and/or Motrin as directed for discomfort. Rest, elevate, cool and/or warm compresses every 2 hours for 20 minutes Medical Decision Making 39-year-old gentleman presenting complaining that his left knee brace is not fitting well, to restrict his. He reports his pain is much improved. He is scheduled be seen by orthopedics in 2 days. Knee examination does reveal mild swelling, tenderness but is stable, without erythema or ecchymosis. No warmth. Neuro, vascular, tendon intact. Discussed options. Patient is able to ambulate steadily without any difficulty. We discussed that I do not believe that he will need a hinged brace, and he can likely discontinue using the long-leg knee immobilizer if he feels as though he is able to ambulate steadily without discomfort. If bracing or other management is necessary then he can discuss this with orthopedics in 2 days. Patient comfortable this plan and has no additional questions or concerns. Medical Records Medical records reviewed: Yes I reviewed the patient's medical records. HPI General Mode of arrival: ambulatory . Date/Time Provider Initiated Documentation: 08/25/20 13:03 . Limitations to Documentation: no limitations . Information obtained by: patient . HPI Narrative: This is a 39-year-old male who was seen in the ER on 08-15-20 by me for a twisting injury to his left knee. X-ray reveals joint effusion. Patient states that he is scheduled to be seen by orthopedics in 2 days. He presents today because he feels as though his knee brace is too restricting and he is wondering if there is a different type of brace. He reports that his pain is much improved, he is no longer ambulating with an antalgic gait. Denies any fever, rash, numbness, tingling, weakness. Denies new injury. Patient has no additional questions or concerns at this time Related Data Home Medications Medication Instructions Recorded Confirmed Risperdal Consta 50 mg IM Q2W 07/29/19 08/25/20 risperidone 8 mg PO HS 07/29/19 08/25/20 budesonide-formoterol [Symbicort] INHALATION 06/23/20 06/23/20 loratadine [Allergy Relief 10 mg PO DAILY 08/14/20 08/25/20 (loratadine)] omeprazole 20 mg PO DAILY 08/14/20 08/25/20 Allergies Allergy/AdvReac Type Severity Reaction Status Date / Time Penicillins Allergy Other (See Unverified 08/25/20 12:11 Comment) General Stated Complaint: Orthopedic SCARLETT: 4 Review of Systems Constitutional Constitutional: Denies fever(s) Musculoskeletal Musculoskeletal: Reports arthralgias, Reports joint swelling, Denies numbness, Reports stiffness and Denies tingling Integumentary/Breasts Skin/Breast: Denies rash Neurologic Neurologic: Denies numbness and Denies tingling [facility] Medical History Gastroesophageal reflux disease Mental disorder Poorly defined Paranoid schizophrenia Surgical History EGD - IV Sedation (06/14/16) Repair of inguinal hernia S/P laparoscopic appendectomy (~08/05/18) Social History Smoking/Tobacco Use Status: Current every day Tobacco Type: cigarettes Years smoked: 28 Smoking risk assessment performed?: Yes Alcohol Intake: current Alcohol Intake frequency: a few times a week Alcohol type: beer Drug use: Never Substance use type: does not use Do you feel safe at home: Yes Do you feel safe in your relationship?: Yes Exam Const General: cooperative, healthy appearing, comfortable and no acute distress Orientation: alert and awake [facility] Head: normal to inspection, normocephalic and atraumatic Eyes Conjunctivae: conjunctivae normal Neck Neck: normal visual inspection, trachea midline and supple Resp Effort & Inspection: normal respiratory effort and able to speak in complete sentences Cardio Rate: regular rate Rhythm: regular rhythm Skin General skin exam: no rashes or lesions noted Neuro General: patient alert, patient awake, moves all extremities and no focal motor deficits Cognition: normal cognition Speech: speech normal Gait: normal gait Motor: muscle tone normal throughout Sensory Exam: no sensory deficits noted Extrem General: full ROM and capillary refill normal Left lower extremity: full ROM and normal capillary refill Other: Left knee with diffuse anterior mild swelling, and discomfort to palpation. There is no erythema or ecchymosis. Full range of motion. There is no instability or discomfort with varus or valgus strain. Negative Albert test. Hip, calf, ankle, foot unremarkable. Normal dorsalis pedis pulse. Neuro, vascular, tendon intact. Psych Appearance: grossly normal Mental Status: mental status grossly normal Course Vital Signs Vital signs: Vital Signs Temperature 36.4 C L 08/25/20 12:07 Pulse 94 H 08/25/20 12:07 Respiratory Rate 16 08/25/20 12:07 Blood Pressure 134/77 08/25/20 12:07 Pulse Oximetry 99 08/25/20 12:07 Temperature 36.4 C L 08/25/20 12:07 Temperature Source Skin 08/25/20 12:07 Pulse 94 H 08/25/20 12:07 Respiratory Rate 16 08/25/20 12:07 Respiratory Effort Non-Labored 08/25/20 12:07 Blood Pressure 134/77 08/25/20 12:07 Blood Pressure Position Sitting 08/25/20 12:07 Pulse Oximetry 99 08/25/20 12:07 Oxygen Delivery Method Room Air 08/25/20 12:07 Oxygen Flow Rate 0 08/25/20 12:07 Pain Level 3 08/25/20 12:07
== END 2020-08-25 13:26 | disposition home or self-care (01) ==
PROVIDERS: Emergency Provider Physician Assistant; PCP Nurse Practitioner Family
DX: M79.605 Pain in left leg (principal)
CPT/HCPCS: 99282

== ENCOUNTER → 2020-08-27 08:34 | Outpatient (BNVA) | payer MEDICARE, MEDICAID, SELFPAY | PROVIDERS: PCP Nurse Practitioner Family; Referring Provider Student in an Organized Health Care Education/Training Program; Visit Provider Physician Assistant Surgical | DX: M25.462 Effusion, left knee (principal); S83.105A Unspecified dislocation of left knee, initial encounter; W10.8XXA Fall (on) (from) other stairs and steps, initial encounter | CPT/HCPCS: 20610; 99213; J1040 ==

== ENCOUNTER 2020-09-08 11:13 | Outpatient (CLI) | payer MEDICARE, MEDICAID, SELFPAY ==
--- NOTE | 2020-09-08 13:30 | DI.MRI_ITS ---
Exam(s) MR LOWER JOINT LT WO EXAM: MR LOWER JOINT LT WO CLINICAL HISTORY: Pain ACUTE TRAUMA INTERNAL DERANGEMENT OF LT KNEE. TECHNIQUE: Multiplanar multisequence MRI was performed. COMPARISON: CR XR KNEE LT 4V+ from 08/14/2020 FINDINGS: There is a small to moderate-sized joint effusion. There is abnormal high signal in the lateral femoral condyle and posterior aspects of the medial and lateral tibial plateaus, consistent with bone contusions. There is cartilage thinning extending down to bone of the lateral femoral condyle and mild irregular thinning of the cartilage over the lateral tibial plateau. The cartilage overlying the patella shows normal thickness. The anterior cruciate ligament is not well seen and presumed completely torn. The posterior cruciate ligament, medial and lateral collateral ligaments and extensor mechanism appear intact. Medial meniscus appears peripherally displaced, consistent with degenerative changes. There is linea r high signal in the body and posterior horn extending to the into inferior articular surface. There is also some blunting of the apex. There is a question of a of few tiny loose bodies near the apex of the posterior horn. The lateral meniscal body is diminutive. There is a triangular area of low signal adjacent to the to the posterior cruciate ligament consistent with a bucket-handle type tear. IMPRESSION: 1. Bone contusion with osteochondral defect of the lateral femoral condyle. Contusions of the poste rior aspects of both tibial plateaus. Question of loose bodies. 2. Inferior surfacing tear the body and posterior horn of the medial meniscus. 3. Bucket-handle tear of the lateral meniscus. 4. Full-thickness tear of the anterior cruciate ligament. DATA REPOSITORY:
== END 2020-09-08 11:33 ==
PROVIDERS: PCP Nurse Practitioner Family; Visit Provider Student in an Organized Health Care Education/Training Program
DX: M25.562 Pain in left knee (principal); M21.862 Other specified acquired deformities of left lower leg; S83.242A Other tear of medial meniscus, current injury, left knee, initial encounter; S83.252A Bucket-handle tear of lateral meniscus, current injury, left knee, initial encounter; S83.512A Sprain of anterior cruciate ligament of left knee, initial encounter
CPT/HCPCS: 73721

== ENCOUNTER → 2020-09-15 11:20 | Outpatient (BNVA) | payer MEDICARE, MEDICAID, SELFPAY | PROVIDERS: PCP Nurse Practitioner Family; Referring Provider Nurse Practitioner Family; Visit Provider Student in an Organized Health Care Education/Training Program | DX: S89.82XD Other specified injuries of left lower leg, subsequent encounter (principal); W10.8XXD Fall (on) (from) other stairs and steps, subsequent encounter; J44.9 Chronic obstructive pulmonary disease, unspecified; F17.210 Nicotine dependence, cigarettes, uncomplicated | CPT/HCPCS: 99213; 99214 ==

== ENCOUNTER 2020-10-02 16:17 | Outpatient (REF) | payer MEDICARE, MEDICAID, SELFPAY ==
[2020-10-04 14:15] LABS: COVID-19 RT-PCR UVMMC Result Negative (Negative)
== END 2020-10-02 16:18 | disposition home or self-care (01) ==
LOC: LBN 16:17
PROVIDERS: PCP Nurse Practitioner Family; Visit Provider Physician Assistant Medical
DX: Z20.822 Contact with and (suspected) exposure to COVID-19 (principal); R05 Cough
CPT/HCPCS: U0003

== ENCOUNTER 2020-10-21 16:13 | Emergency (ER) | payer MEDICARE, MEDICAID, SELFPAY ==
[2020-10-21] VITALS (22 sets, daily range): BP systolic 119–134; BP diastolic 72–81; PULSE 63–95; RESP 15–22; TEMP 36.6–36.7; O2SAT 94–99
--- NOTE | 2020-10-21 16:00 | RT.EKG_ITS ---
APPROVED REPORT Exam: Resting ECG Reason for Exam: chest pain Patient Location: E HR:84 bpm ECG Measurements Heart Rate 84 AXIS IL 132 P 79 QRSd 86 QRS 13 QT 381 T 26 QTc 452 Conclusion Sinus rhythm...normal P axis, V-rate 60- 99 Normal Electrocardiogram
--- NOTE | 2020-10-21 16:15 | DI.RAD_ITS ---
Exam(s) XR CHEST 2V PA LATERAL EXAM: XR CHEST 2V PA LATERAL CLINICAL HISTORY: left sided chest pain. TECHNIQUE: 2D digital imaging was performed. COMPARISON: CR,XR XR CHEST 2V PA LATERAL from 02/13/2019 FINDINGS: Heart size is normal. The mediastinum is not widened. Lungs are clear. No infiltrates nor pleural effusions. IMPRESSION: No acute pulmonary findings.No significant radiographic change compared 02/13/2019 DATA REPOSITORY: RADIATION DOSE DELIVERED:
--- NOTE | 2020-10-21 16:21 | W.ED.GENAD ---
Discharge Plan Disposition Patient Disposition: HOME Condition: Stable Discharge Details Clinical Impression: Chest pain Primary Care Provider: Perla Martin ED Provider: Yan Crow Home Meds and New Rx's Prescriptions: Continued budesonide-formoterol [Symbicort] 160-4.5 mcg/actuation HFA aerosol inhaler 1 inh INHALATION DAILY RF: 0 risperidone 4 mg tablet 8 mg PO HS RF: 0 Risperdal Consta 50 mg/2 mL suspension,extended rel recon 50 mg IM Q2W RF: 0 omeprazole 20 mg capsule,delayed release(DR/EC) 20 mg PO DAILY RF: 0 loratadine [Allergy Relief (loratadine)] 10 mg tablet 10 mg PO DAILY RF: 0 Discharge Instructions Instructions: Chest Pain (ED) Additional Instructions: At this time your work-up does not reveal any obvious emergent medical process. As we discussed I recommend reaching out your primary care provider tomorrow to discuss your ongoing symptoms, if you continue to have the symptoms an outpatient stress test and/or echocardiogram may be indicated for further evaluation. Please watch for new or worsening symptoms and return to the ER for any concerns Discharge Data Discharge Date/Time-TO BE ENTERED AT DEPARTURE: 10/21/20 20:45 Medical Decision Making This is a 40-year-old male, past medical history that includes current smoker, paranoid schizophrenia, GERD, Dillard's esophagus, presenting to the ER for evaluation of left-sided chest pain intermittently for the past 3 months. Last episode at 245 today, asymptomatic now, episode lasted 15 minutes. Clinically he appears well, nontoxic. Extremely low suspicion for ACS but will give aspirin and initiate cardiac work-up. Other differential include but not excluded to PE, chest wall discomfort, pneumonia, costochondritis, etc. Patient has mild nonspecific leukocytosis of 12.89. Initial troponin is less than 0.05. D-dimer 472. Chemistries unremarkable. Chest x-ray negative Patient has remained asymptomatic while under my care. Heart score of 1. Plan is to hold the patient for a repeat troponin and if negative will discharge home. Patient is comfortable with this plan but is concerned that his symptoms could return, 30 IV Toradol given Repeat troponin remains less than 0.05. Patient remains asymptomatic. Patient was given standard discharge and return precautions. Encouraged to return to the ER for new or worsening symptoms. Otherwise he will contact his primary care provider tomorrow to discuss his symptoms, the potential need for outpatient work-up including stress test and/or echocardiogram if indicated. Medical Records Medical records reviewed: Yes I reviewed the patient's medical records. Imaging Data Radiologic Study: Attestation: I personally reviewed and interpreted this imaging study as follows: Imaging: X-Ray Radiologist's impression: Chest x-ray negative Lab Data Lab results reviewed: Yes I reviewed the patient's lab results. Labs: Laboratory Tests Range/Units 10/21/20 10/21/20 10/21/20 16:30 16:30 16:45 WBC (4.4-10.8) 10^3/uL 12.89 H RBC (4.36-5.78) 10^6/uL 4.60 Hgb (13.5-17.5) g/dL 14.3 Hct (40.0-50.0) % 43.4 MCV (80-95) fL 94.3 MCH (27.0-33.0) pg 31.1 MCHC (32.0-36.0) % 32.9 RDW (11.8-14.1) % 12.2 Plt Count (130-400) 10^3/uL 254 MPV (8.0-11.0) fL 9.3 Immature Gran % 0.3 Neutrophils % 63.1 Lymphocytes % 28.4 Monocytes % 4.7 Eosinophils % 3.0 Basophils % 0.5 Nucleated RBC % % 0 Absolute Neutrophils (1.2-6.7) 10^3/uL 8.13 H Absolute Lymphocytes (1.2-3.4) 10^3/uL 3.66 H Absolute Monocytes (0.1-0.8) 10^3/uL 0.61 Absolute Eosinophils (0.0-0.7) 10^3/uL 0.39 Absolute Basophils (0.0-0.2) 10^3/uL 0.06 PT (9.3-11.0) sec 9.7 INR (0.9-1.1) 1.0 APTT (21.0-27.5) sec 24.5 D-Dimer (<500) ng/mlFEU 472 Sodium (136-145) mmol/L 139 Potassium (3.5-5.1) mmol/L 3.8 Chloride (98-107) mmol/L 104 Carbon Dioxide (21.0-32.0) mmol/L 28.3 Anion Gap (3-11) mmol/L 6.7 BUN (7-18) mg/dL 11 Creatinine (0.70-1.30) mg/dL 1.0 Estimated GFR/1.73 m2 (mL/min/1.73m2) >= 60.00 Glucose (74-106) mg/dL 124 H Calcium (8.5-10.1) mg/dL 8.7 Magnesium (1.8-2.4) mg/dL 2.1 Total Bilirubin (0.2-1.0) mg/dL 0.6 AST (15-37) U/L 21 ALT (16-63) U/L 24 Alkaline Phosphatase (46-116) U/L 94 Troponin I (<0.06) ng/mL < 0.05 Total Protein (6.4-8.2) g/dL 7.7 Albumin (3.4-5.0) g/dL 3.7 Range/Units 10/21/20 19:30 WBC (4.4-10.8) 10^3/uL RBC (4.36-5.78) 10^6/uL Hgb (13.5-17.5) g/dL Hct (40.0-50.0) % MCV (80-95) fL MCH (27.0-33.0) pg MCHC (32.0-36.0) % RDW (11.8-14.1) % Plt Count (130-400) 10^3/uL MPV (8.0-11.0) fL Immature Gran % Neutrophils % Lymphocytes % Monocytes % Eosinophils % Basophils % Nucleated RBC % % Absolute Neutrophils (1.2-6.7) 10^3/uL Absolute Lymphocytes (1.2-3.4) 10^3/uL Absolute Monocytes (0.1-0.8) 10^3/uL Absolute Eosinophils (0.0-0.7) 10^3/uL Absolute Basophils (0.0-0.2) 10^3/uL PT (9.3-11.0) sec INR (0.9-1.1) APTT (21.0-27.5) sec D-Dimer (<500) ng/mlFEU Sodium (136-145) mmol/L Potassium (3.5-5.1) mmol/L Chloride (98-107) mmol/L Carbon Dioxide (21.0-32.0) mmol/L Anion Gap (3-11) mmol/L BUN (7-18) mg/dL Creatinine (0.70-1.30) mg/dL Estimated GFR/1.73 m2 (mL/min/1.73m2) Glucose (74-106) mg/dL Calcium (8.5-10.1) mg/dL Magnesium (1.8-2.4) mg/dL Total Bilirubin (0.2-1.0) mg/dL AST (15-37) U/L ALT (16-63) U/L Alkaline Phosphatase (46-116) U/L Troponin I (<0.06) ng/mL < 0.05 Total Protein (6.4-8.2) g/dL Albumin (3.4-5.0) g/dL ECG Data Attestation: I personally reviewed and interpreted this ECG (s) as follows: Interpretation: Please see official report by Dr. Bolaños. Sinus rhythm, ventricular rate of 84. No STEMI. HPI General Mode of arrival: ambulatory. Date/Time Provider Initiated Documentation: 10/21/20 16:17. Limitations to Documentation: no limitations. Information obtained by: patient. HPI Narrative: Is a 40-year-old gentleman, past medical history that includes GERD, paranoid schizophrenia, Dillard's esophagus, presenting to the ER complaining of left-sided chest pain intermittent, 2 times weekly for the past 3 months. States that he has been seen at the [facility] and by his primary care provider, initially treated for potential seasonal allergies and a URI. Patient states that his last episode today was around 2:45 PM, occurred at rest, lasted 15 minutes, resolved spontaneously. Patient is currently asymptomatic. Patient states that when the pain is present it is achy, left-sided, does not radiate anywhere. He denies recent illness or trauma. He denies headache, neck pain, cough, shortness of breath, back pain, jaw pain, shoulder pain, abdominal pain, nausea, vomiting, change in bowel or bladder function, numbness, tingling, weakness in his extremities, pain or swelling in his lower extremities. Patient is a current smoker, roughly 1 pack of cigarettes daily. Occasional alcohol use, denies any drug use. Reports that he knows that his grandfather had a heart condition and had to take aspirin every day. Related Data Home Medications Medication Instructions Recorded Confirmed Risperdal Consta 50 mg IM Q2W 07/29/19 10/21/20 risperidone 8 mg PO HS 07/29/19 10/21/20 budesonide-formoterol [Symbicort] 1 inh INHALATION DAILY 06/23/20 10/21/20 loratadine [Allergy Relief 10 mg PO DAILY 08/14/20 10/21/20 (loratadine)] omeprazole 20 mg PO DAILY 08/14/20 10/21/20 Allergies Allergy/AdvReac Type Severity Reaction Status Date / Time Penicillins Allergy Other (See Unverified 10/21/20 16:22 Comment) General Stated Complaint: Chest Pain SCARLETT: 2 Review of Systems Constitutional Constitutional: Denies fatigue, Denies fever(s) and Denies headache(s) Eyes Eyes: Denies change in vision ENT Ears, Nose, Mouth, and Throat: Denies headache(s) and Denies neck pain Cardiovascular Cardiovascular: Reports chest pain and Denies dyspnea Respiratory Respiratory: Denies cough and Denies dyspnea Gastrointestinal Gastrointestinal: Denies abdominal pain, Denies nausea and Denies vomiting Musculoskeletal Musculoskeletal: Denies back pain, Denies neck pain, Denies numbness and Denies tingling Integumentary/Breasts Skin/Breast: Denies rash Neurologic Neurologic: Denies headache(s), Denies numbness and Denies tingling Endocrine Endocrine: Denies fatigue Hematologic/Lymphatic Hematologic/Lymphatic: Denies easy bleeding and Denies easy bruising [facility] Medical History 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) Gastroesophageal reflux disease Left ACL tear Mental disorder Poorly defined Paranoid schizophrenia Surgical History EGD - IV Sedation (06/14/16) Repair of inguinal hernia S/P laparoscopic appendectomy (~08/05/18) Social History Smoking/Tobacco Use Status: Current every day Tobacco Type: cigarettes Years smoked: 28 Smoking risk assessment performed?: Yes Alcohol Intake: current Alcohol Intake frequency: a few times a week Alcohol type: beer Drug use: Never Substance use type: does not use Current gender identity: male Do you feel safe at home: Yes Do you feel safe in your relationship?: Yes Exam Const General: cooperative, healthy appearing, comfortable and no acute distress Orientation: alert, awake and oriented x3 HENMT Head: normal to inspection, normocephalic and atraumatic Face and sinus: normal facial exam Mouth: moist mucous membranes Eyes General: appearance normal, both eyes and all related structures Conjunctivae: conjunctivae normal Neck Neck: normal visual inspection, full ROM, no meningeal signs, trachea midline, supple and nontender Chest Chest: normal inspection of the chest and normal palpation of entire chest wall Resp Effort & Inspection: normal respiratory effort and able to speak in complete sentences Auscultation: clear to auscultation bilaterally Cardio Rate: regular rate Rhythm: regular rhythm GI Palpation: soft and nontender Back/Spine/Pelvis Back: No back tenderness Skin General skin exam: no rashes or lesions noted Neuro General: patient alert, patient awake, moves all extremities and no focal motor deficits Cognition: normal cognition Speech: speech normal Gait: normal gait Motor: muscle tone normal throughout Sensory Exam: no sensory deficits noted Extrem General: normal to inspection, full ROM, capillary refill normal, no pedal edema and no calf tenderness Psych Appearance: grossly normal Mental Status: mental status grossly normal Course Vital Signs Vital signs: Vital Signs Temperature 36.6 C 10/21/20 16:17 Pulse 86 10/21/20 16:17 Respiratory Rate 10/21/20 16:17 Blood Pressure 129/81 10/21/20 16:17 Pulse Oximetry 96 10/21/20 16:17 Temperature 36.6 C 10/21/20 16:17 Temperature Source Temporal Artery Scan 10/21/20 16:17 Pulse 86 10/21/20 16:17 Respiratory Rate 10/21/20 16:17 Blood Pressure 129/81 10/21/20 16:17 Blood Pressure Position Supine 10/21/20 16:17 Pulse Oximetry 96 10/21/20 16:17 Oxygen Delivery Method Room Air 10/21/20 16:17 Oxygen Flow Rate 0 10/21/20 16:17 Pain Level 4 10/21/20 16:17
[2020-10-21] MEDS: Aspirin 81 MG CHEW 324 MG CH (16:41)
[2020-10-21 16:52] LABS: Abs Immature Grans 0.04 10^3/uL (0.0-0.06); Absolute Basophil Count 0.06 10^3/uL (0.0-0.2); Absolute Eosinophil Count 0.39 10^3/uL (0.0-0.7); Absolute Lymphocyte Count 3.66 10^3/uL (1.2-3.4); Absolute Monocyte Count 0.61 10^3/uL (0.1-0.8); Absolute Neutrophil Count 8.13 10^3/uL (1.2-6.7); Basophils % 0.5; HCT 43.4 % (40.0-50.0); HGB 14.3 g/dL (13.5-17.5); Immature Grans % 0.3; Lymphocytes % 28.4; MCH 31.1 pg (27.0-33.0); MCHC 32.9 % (32.0-36.0); MCV 94.3 fL (80-95); MPV 9.3 fL (8.0-11.0); Monocytes % 4.7; Neutrophils % 63.1; Nucleated RBC 0 %; Platelet Count 254 10^3/uL (130-400); RDW 12.2 % (11.8-14.1); RDW-SD 42.5 fL; WBC 12.89 10^3/uL (4.4-10.8)
[2020-10-21 17:03] LABS: ALT 24 U/L (16-63); AST 21 U/L (15-37); Albumin 3.7 g/dL (3.4-5.0); Alkaline Phosphatase 94 U/L (46-116); Anion Gap 6.7 mmol/L (3-11); BUN 11 mg/dL (7-18); Bilirubin, Total 0.6 mg/dL (0.2-1.0); CO2 28.3 mmol/L (21.0-32.0); Calcium 8.7 mg/dL (8.5-10.1); Chloride 104 mmol/L (98-107); Glucose 124 mg/dL (74-106); Magnesium 2.1 mg/dL (1.8-2.4); Potassium 3.8 mmol/L (3.5-5.1); Sodium 139 mmol/L (136-145); Total Protein 7.7 g/dL (6.4-8.2); Troponin I < 0.05 ng/mL (<0.06)
[2020-10-21 17:09] LABS: PTT Activated 24.5 sec (21.0-27.5); Prothrombin Time 9.7 sec (9.3-11.0)
--- NOTE | 2020-10-21 17:28 | DI.VRAD_ITS ---
PROCEDURE INFORMATION: Exam: XR Chest Exam date and time: 10/21/2020 4:31 PM Age: 40 years old Clinical indication: Chest pressure; Patient HX: Worsening chest pain TECHNIQUE: Imaging protocol: XR of the chest. Views: 2 views. COMPARISON: CR XR CHEST 2V PA LATERAL 02/13/2019 4:24 AM FINDINGS: Lungs: The lungs are clear. There is no pulmonary vascular congestion. Pleural spaces: There are no pleural effusions present. There is no evidence of pneumothorax. Heart/Mediastinum: The cardiomediastinal silhouette is within normal limits. Bones/joints: Unremarkable. IMPRESSION: No active cardiopulmonary disease identified. Dictated and Authenticated by: Jose Luis Sharma MD. Ordering:KOBE Heredia MD
[2020-10-21 17:29] LABS: D-Dimer 472 ng/mlFEU (<500)
[2020-10-21] MEDS: Ketorolac 30 MG/ML VIAL IVP (17:49)
[2020-10-21 20:26] LABS: Troponin I < 0.05 ng/mL (<0.06)
== END 2020-10-21 20:45 | disposition home or self-care (01) ==
PROVIDERS: Emergency Provider Physician Assistant; PCP Nurse Practitioner Family
DX: R07.9 Chest pain, unspecified (principal)
CPT/HCPCS: 80053; 93005; 96374; 99284; 71046; 83735; 84484; 85025; 85379; 85610; 85730; 93010; 99283; J1885

== ENCOUNTER 2020-10-30 11:08 | Emergency (ER) | payer MEDICARE, MEDICAID, SELFPAY ==
[2020-10-30 11:15] VITALS: BP 162/143; PULSE 103; RESP 16; TEMP 36.9; O2SAT 96
--- NOTE | 2020-10-30 11:28 | NUR.NOTE ---
Nursing Note: Received call from [facility] stating pt is accepted at the care bed and needs medical clearance to go. Pt arrives reporting he needs labs and pee done. Cooperative, maintains eye contact. Unable to provide urine sample at this time provided with water to drink
[2020-10-30 11:45] LABS: Bilirubin Negative (Negative); Blood Negative (Negative); Clarity Clear (Clear); Glucose Negative (Negative); Ketones Negative (Negative); Leukocyte Esterase Negative (Negative); Nitrite Negative (Negative); Specific Gravity 1.025 (1.005-1.025); Urobilinogen 0.2 EU/dL (Up TO 0.2)
[2020-10-30 11:57] LABS: *AMPHETAMINES SCREEN URINE Negative (Negative); *BARBITURATES SCREEN URINE Negative (Negative); *BENZODIAZEPINES SCREEN URINE Negative (Negative); Cannabinoids THC Negative (Negative); Cocaine Screen,Urine Negative (Negative); METHADONE URINE SCREEN Negative (Negative); OPIATES URINE SCREEN Negative (Negative); Tricyclic Antidepressants Negative (Negative)
[2020-10-30 12:05] LABS: Source Nasal/Nares
--- NOTE | 2020-10-30 12:41 | ED.GENADUL_ITS ---
Discharge Plan Disposition Patient Disposition: HOME Condition: Stable Discharge Details Clinical Impression: Mood disorder Primary Care Provider: Perla Martin ED Provider: Nu Low Home Meds and New Rx's Prescriptions: No Action budesonide-formoterol [Symbicort] 160-4.5 mcg/actuation HFA aerosol inhaler 1 inh INHALATION BID RF: 0 risperidone 4 mg tablet 8 mg PO HS RF: 0 Risperdal Consta 50 mg/2 mL suspension,extended rel recon 50 mg IM Q2W RF: 0 omeprazole 20 mg capsule,delayed release(DR/EC) 20 mg PO DAILY RF: 0 loratadine [Allergy Relief (loratadine)] 10 mg tablet 10 mg PO DAILY RF: 0 Discharge Instructions Additional Instructions: Please follow-up for crisis bed placement Please return to the emergency room should you develop any new or worsening symptoms Please follow-up with your primary care physician in the outpatient setting Discharge Data Discharge Date/Time-TO BE ENTERED AT DEPARTURE: 10/30/20 13:43 Medical Decision Making <Karl Healy MD - Last Filed: 11/01/20 10:34> Patient seen, examined, and discussed with JOSÉ MIGUEL Klein. I agree with treatment plan as discussed/documented. <JOSÉ MIGUEL Grant - Last Filed: 10/31/20 19:58> Patient is alert and oriented, he is pleasant throughout this encounter and cooperative He does not appear to be under the influence Any mood altering substance. He denies any attempts to harm self Clinically I see no indication for ordering any diagnostic blood work and the patient is medically cleared for at time of my evaluation [facility] human services made aware He adamantly denies suicidal ideation and will be discharged from the emergency room for care bed placement No suicidal ideation, homicidal ideation Competent to make decisions at time of my evaluation There is no indication for for placement inpatient at this time Medical Records Medical records reviewed: Yes I reviewed the patient's medical records. HPI <Karl Healy MD - Last Filed: 11/01/20 10:34> General Date/Time Provider Initiated Documentation: 10/30/20 11:37 . Related Data Home Medications Medication Instructions Recorded Confirmed Risperdal Consta 50 mg IM Q2W 07/29/19 10/30/20 risperidone 8 mg PO HS 07/29/19 10/30/20 budesonide-formoterol [Symbicort] 1 inh INHALATION BID 06/23/20 10/30/20 loratadine [Allergy Relief 10 mg PO DAILY 08/14/20 10/30/20 (loratadine)] omeprazole 20 mg PO DAILY 08/14/20 10/30/20 Allergies Allergy/AdvReac Type Severity Reaction Status Date / Time Penicillins Allergy Other (See Unverified 10/30/20 12:18 Comment) <JOSÉ MIGUEL Grant - Last Filed: 10/31/20 19:58> General Mode of arrival: ambulatory . Limitations to Documentation: no limitations . Information obtained by: patient . HPI Narrative: Very pleasant 40-year-old gentleman with history of schizophrenia presents with reports of worsening depression. Denies suicidal ideation. Taking his medication as prescribed. States he is here for care bed clearance. He already spoke with his primary care physician and counselor today. Denies any chest pain, shortness of breath, or any additional complaints at this time. Denies any attempt to harm self. Denies any auditory visual hallucinations. Denies any homicidal ideation. 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) Gastroesophageal reflux disease Left ACL tear Mental disorder Poorly defined Paranoid schizophrenia Surgical History EGD - IV Sedation (06/14/16) Repair of inguinal hernia S/P laparoscopic appendectomy (~08/05/18) Social History Smoking/Tobacco Use Status: Current every day Tobacco Type: cigarettes Years smoked: 28 Smoking risk assessment performed?: Yes Alcohol Intake: current Alcohol Intake frequency: a few times a week Alcohol type: beer Drug use: Never Substance use type: does not use Current gender identity: male Do you feel safe at home: Yes Do you feel safe in your relationship?: Yes <JOSÉ MIGUEL Grant - Last Filed: 10/31/20 19:58> Const Orientation: alert and oriented x3 Eyes Pupils: PERRL Resp Effort & Inspection: normal respiratory effort Cardio Rate: regular rate Skin General skin exam: no rashes or lesions noted Neuro General: patient alert and patient oriented x3 Cranial Nerves: CN's II-XI intact bilaterally Psych Appearance: well kempt Mental Status: mental status grossly normal Speech and Movement: speech and movement normal Attitude: cooperative <JOSÉ MIGUEL Grant - Last Filed: 10/31/20 19:58> Vital Signs Vital signs: Vital Signs Temperature 36.9 C 10/30/20 11:15 Pulse 103 H 10/30/20 11:15 Respiratory Rate 16 10/30/20 11:15 Blood Pressure 162/143 H 10/30/20 11:15 Pulse Oximetry 96 10/30/20 11:15 Temperature 36.9 C 10/30/20 11:15 Temperature Source Skin 10/30/20 11:15 Pulse 103 H 10/30/20 11:15 Respiratory Rate 16 10/30/20 11:15 Respiratory Effort Non-Labored 10/30/20 12:16 Blood Pressure 162/143 H 10/30/20 11:15 Blood Pressure Position Sitting 10/30/20 11:15 Pulse Oximetry 96 10/30/20 11:15 Oxygen Delivery Method Room Air 10/30/20 11:15 Oxygen Flow Rate 0 10/30/20 11:15 Pain Level 0 10/30/20 11:15 Lab/Test Results Lab/Test Results: Laboratory Tests Range/Units 10/30/20 10/30/20 10/30/20 11:35 11:35 12:00 Urine Color (Yellow) Yellow Urine Clarity (Clear) Clear Urine pH (5-8) 6.0 Ur Specific [place] (1.005-1.025) 1.025 Urine Protein (Negative) mg/dL Negative Urine Ketones (Negative) mg/dL Negative Urine Blood (Negative) Negative Urine Nitrite (Negative) Negative Urine Bilirubin (Negative) Negative Urine Urobilinogen (Up TO 0.2) EU/dL 0.2 Ur Leukocyte Esterase (Negative) Negative Urine Glucose (Negative) mg/dL Negative Urine Opiates Screen (Negative) Negative Urine Methadone Screen (Negative) Negative Ur Barbiturates Screen (Negative) Negative Ur Tricyclics Screen (Negative) Negative Ur Amphetamines Screen (Negative) Negative U Benzodiazepines Scrn (Negative) Negative Urine Cocaine Screen (Negative) Negative Ur THC Screen (Negative) Negative COVID-19 Source Nasal/Nares
[2020-10-30 13:10] LABS: COVID-19 PCR Negative (Negative)
== END 2020-10-30 13:43 | disposition home or self-care (01) ==
PROVIDERS: Emergency Provider Physician Assistant; PCP Nurse Practitioner Family
DX: F20.0 Paranoid schizophrenia (principal); F32.9 Major depressive disorder, single episode, unspecified; Z20.822 Contact with and (suspected) exposure to COVID-19; Z03.818 Encounter for observation for suspected exposure to other biological agents ruled out
CPT/HCPCS: 80307; 87635; 99283; 81003

== ENCOUNTER 2020-11-06 03:38 | Outpatient (CLI) | payer MEDICARE, MEDICAID, SELFPAY ==
[2020-11-06 09:38] LABS: Abs Immature Grans 0.04 10^3/uL (0.0-0.06); Absolute Basophil Count 0.07 10^3/uL (0.0-0.2); Absolute Eosinophil Count 0.39 10^3/uL (0.0-0.7); Absolute Lymphocyte Count 3.38 10^3/uL (1.2-3.4); Absolute Neutrophil Count 4.65 10^3/uL (1.2-6.7); Basophils % 0.8; Eosinophils % 4.3; HCT 41.7 % (40.0-50.0); HGB 13.9 g/dL (13.5-17.5); Immature Grans % 0.4; MCH 31.3 pg (27.0-33.0); MCHC 33.3 % (32.0-36.0); MCV 93.9 fL (80-95); MPV 8.6 fL (8.0-11.0); Monocytes % 6.6; Neutrophils % 50.9; Nucleated RBC 0 %; Platelet Count 210 10^3/uL (130-400); RBC 4.44 10^6/uL (4.36-5.78); RDW 12.1 % (11.8-14.1); RDW-SD 42.3 fL; WBC 9.13 10^3/uL (4.4-10.8)
[2020-11-06 10:36] LABS: BUN 17 mg/dL (7-18); Calcium 9.2 mg/dL (8.5-10.1); Chloride 105 mmol/L (98-107); Glucose 93 mg/dL (74-106); Potassium 4.3 mmol/L (3.5-5.1); Sodium 140 mmol/L (136-145)
[2020-11-06 22:27] LABS: Calculated LDL 124 mg/dL (<100); Cholesterol 189 mg/dL (<200); HDL Cholesterol 49 mg/dL (40-60); Triglyceride 83 mg/dL (<150)
[2020-11-10 09:19] LABS: 1,25-Dihydroxyvitamin D 42 pg/mL (18-64)
[2020-11-19 13:29] LABS: 9-Hydroxyrisperidone 104.6 ng/ml; Risperidone (Risperdal) 28.9 ng/ml
== END 2020-11-06 03:39 | disposition home or self-care (01) ==
LOC: LBO 03:39
PROVIDERS: PCP Nurse Practitioner Family; Visit Provider Nurse Practitioner Psychiatric/Mental Health
DX: F20.9 Schizophrenia, unspecified (principal); Z79.899 Other long term (current) drug therapy; Z51.81 Encounter for therapeutic drug level monitoring
CPT/HCPCS: 36415; 80048; 80061; 82306; 82542; 82652; 85025

== ENCOUNTER 2021-01-22 18:01 | Emergency (ER) | payer MEDICARE, MEDICAID, SELFPAY ==
[2021-01-22 18:07] VITALS: BP 137/88; PULSE 70; TEMP 36.5; O2SAT 96
--- NOTE | 2021-01-22 18:32 | ED.GENADUL_ITS ---
Discharge Plan Disposition Patient Disposition: OTHER Condition: Serious Discharge Details Chief Complaint: PsychEval Clinical Impression: Paranoid schizophrenia Primary Care Provider: Perla Martin ED Provider: Toshia Wade Home Meds and New Rx's Prescriptions: No Action budesonide-formoterol [Symbicort] 160-4.5 mcg/actuation HFA aerosol inhaler 1 inh INHALATION BID RF: 0 risperidone 4 mg tablet 8 mg PO HS RF: 0 Risperdal Consta 50 mg/2 mL suspension,extended rel recon 50 mg IM Q2W RF: 0 omeprazole 20 mg capsule,delayed release(DR/EC) 20 mg PO DAILY RF: 0 loratadine [Allergy Relief (loratadine)] 10 mg tablet 10 mg PO DAILY RF: 0 Medical Decision Making Patient is a pleasant 40-year-old male presenting today brought in by [place] [employer] after warrant was completed by [facility] for acute psychosis. Past medical history is pertinent for suicide ideation, paranoid schizophrenia. Patient reports he stopped his medications approximately 4 months ago because they have all making suicidal. He denies any thoughts of self-harm or harming others currently. Reviewed past few days, patient has had multiple episodes of acting erratically and psychotic. Patient has been evaluated by mental health prior to arrival here. He states that he does not want to speak with the current mental health provider because he believes that the mental health provider is attempting to force him to become a member of their family and he does not want to do so. Mental health reports that patient was directing traffic because they were police after he was attempting to hold at the bank. Was also reported that the patient was stopping cars and reporting that he had stabbed someone. Mental health also has known patient for several years and reports that his current physical state is very unusual and that typically he is very well kempt. They are concerned that he is been disheveled which is atypical. Patient denies any suicidal or homicidal ideations. Patient does not seem aware of the actions bringing him into the department this evening. On exam, patient does appear disheveled. He is calm and agreeable. However, personal insight seems very limited. He has grandiose ideas regarding himself and his relationship to provider. Nurses have grandiose ideas about his ability to control his bodily functions. He reports that the had multiple heart attacks in the past and is always able to stop them with his mind. States he did have 1 last week while watching golf on TV. He reports that this lasted approximately 10 minutes before he was able to resolve this through with relaxation techniques. Has not had any chest discomfort since then. I am concerned with the reported behavior prior to arrival that patient is a risk to himself as well as others despite his personal beliefs against this. We will have mental health consult with the patient. At this time, the patient is calm and agreeable. He is refusing any blood work. He would like to be able to be discharged to home where he feels safe. Mental health attempted to see the patient. However, he quickly became agitated and is refusing to speak with them. Feels that they were against me. They do not feel that they are able to trust mental health. Spoke with mental health again and was able to review the warrant prompting him to come in. After speaking with him, I am quite concerned regarding his safety in public and ability to have any type of personal insight. Patient is not actively taking any of his medications. Patient is at high risk for injury as he is attempting to stop active traffic as well as discussing stabbing people with a knife. I do feel that inpatient admission and continued evaluation is appropriate for the patient. I discussed plan with the patient for him to stay for continued monitoring and care as his increase paranoia chronic behavior. Patient became very agitated and began stepping towards me wanting to leave. With the patient's abrupt change in demeanor, visible agitation and aggressive behavior, I was concerned for small safety and patient quickly eloped from the department. We immediately contacted local police as well as mental health to have the patient brought back for continued evaluation, work-up and admission. HPI General Mode of arrival: ambulatory ([place] [employer]) . Date/Time Provider Initiated Documentation: 01/22/21 18:15 . Limitations to Documentation: no limitations . Information obtained by: patient, RN/MD (contacted by ) and RN notes reviewed . HPI Narrative: Patient is a pleasant 40-year-old male presenting today after warrant was submitted by mental health. Patient's brought in by Police Department. Patient reports he sees not sure why he is in regular. States that he was just simply trying to cross the street when he was arrested and brought here. He reports that is trying to force me to be part of their family and I wont do it so they made me come here. He denies hallucinations, denies SI or HI. States that last week he, had a heart attack while watching gold at home but I got it go away through mental relaxation. Denies any exertional symptoms and no pain since that singular event. States he has CA regularly and that he is always able to get them to go away. He denies ETOH or elicit drug use. Related Data Home Medications Medication Instructions Recorded Confirmed Risperdal Consta 50 mg IM Q2W 07/29/19 01/22/21 risperidone 8 mg PO HS 07/29/19 01/22/21 budesonide-formoterol [Symbicort] 1 inh INHALATION BID 06/23/20 01/22/21 loratadine [Allergy Relief 10 mg PO DAILY 08/14/20 01/22/21 (loratadine)] omeprazole 20 mg PO DAILY 08/14/20 01/22/21 Allergies Allergy/AdvReac Type Severity Reaction Status Date / Time Penicillins Allergy Other (See Unverified 01/22/21 18:17 Comment) General Stated Complaint: PsychEval SCARLETT: 2 Review of Systems Constitutional Constitutional: Reports as per HPI, Denies chills, Denies fatigue, Denies fever(s) and Denies headache(s) ENT Ears, Nose, Mouth, and Throat: Denies headache(s) Cardiovascular Cardiovascular: Reports as per HPI, Reports chest pain (one week ago x 10 minutes ), Denies chest pain with activity, Denies lightheadedness, Denies dyspnea and Denies dyspnea on exertion Respiratory Respiratory: Reports as per HPI, Denies cough, Denies dyspnea and Denies dyspnea on exertion Integumentary/Breasts Skin/Breast: Reports as per HPI and Denies rash Neurologic Neurologic: Denies abnormal movements, Denies abnormal speech, Denies headache(s) and Denies paresthesias Psychiatric Psychiatric: Reports paranoia, Denies visual hallucinations, Denies hallucinations, Denies homicidal ideation and Denies suicidal ideation Endocrine Endocrine: Denies fatigue [facility] Medical History 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) Gastroesophageal reflux disease Left ACL tear Mental disorder Poorly defined Paranoid schizophrenia Surgical History EGD - IV Sedation (06/14/16) Repair of inguinal hernia S/P laparoscopic appendectomy (~08/05/18) Social History Smoking/Tobacco Use Status: Current every day Tobacco Type: cigarettes Years smoked: 28 Smoking risk assessment performed?: Yes Alcohol Intake: current Alcohol Intake frequency: a few times a month Alcohol type: beer Drug use: Never Substance use type: does not use Current gender identity: male Do you feel safe at home: Yes Do you feel safe in your relationship?: Yes Exam Const General: cooperative, healthy appearing, comfortable, well developed and anxious Nutritional Appearance: average body habitus and well nourished Orientation: alert and awake Eyes General: appearance normal, both eyes and all related structures Resp Effort & Inspection: normal respiratory effort, able to speak in complete sentences and no respiratory distress Auscultation: clear to auscultation bilaterally, no rales, no rhonchi and no wheezes Cardio Rate: regular rate Rhythm: regular rhythm Heart Sounds: S1 normal and S2 normal Skin General skin exam: no rashes or lesions noted Trauma: no lacerations or abrasions Neuro General: patient alert and patient awake Cognition: normal cognition Speech: speech normal Gait: normal gait Psych Appearance: disheveled Mental Status: mental status grossly normal Speech and Movement: speech and movement normal Mood: congruent mood Affect: normal affect Attitude: guarded Thought Process: normal Thought Content: delusions Insight: limited Judgment: limited Course Vital Signs Vital signs: Vital Signs Temperature 36.5 C 01/22/21 18:07 Pulse 70 01/22/21 18:07 Blood Pressure 137/88 01/22/21 18:07 Pulse Oximetry 96 01/22/21 18:07 Temperature 36.5 C 01/22/21 18:07 Temperature Source Temporal Artery Scan 01/22/21 18:07 Pulse 70 01/22/21 18:07 Respiratory Effort Non-Labored 01/22/21 18:15 Blood Pressure 137/88 01/22/21 18:07 Pulse Oximetry 96 01/22/21 18:07 Pain Level 0 01/22/21 18:07 PAWSS Have you Been Recently Intoxicated or Drunk Within the Last 30 days?: No Have you Ever Experienced Previous Episodes of Alcohol Withdrawal?: No Have you ever Experienced Withdrawal Seizures?: No Have you ever Experienced Delirium Tremens(DT)s?: No Have you ever undergone Alcohol Rehabilitation Treatment (i.e, inpt ot outpatient treatment programs)?: No Have you ever Experienced Blackouts?: No Have you ever Combined Alcohol with other Downers within the last 90 days?: No Have you ever Combined Alcohol with any other Substance of Abuse during the last 90 days?: No Positive Blood Alcohol level on Presentation? [PCS.BAL]: No Evidence of Increased Autonomic Activity (i.e. HR>120, tremor, sweating, agitation, nausea)?: No Result: 0
--- NOTE | 2021-01-22 20:04 | PDOC.MHCN ---
Date of service: 01/22/21 Time of Service: 20:05 Mental Health Crisis Note Presenting Issue How did you arrive at the ED and why did you come: Pt arrived on a Mental Health Warranted executed by NEVIN Winters. Precipitating Factors Pt denied Si and HI however, recent behaviors in the last 24 hours suggest that his diminished mental wellbeing have compromised his ability to make sound decision making skills. Disposition BEHAVIOR: Pt is agitated and manipulative with
== END 2021-01-22 19:38 | disposition other institution (70) ==
PROVIDERS: Emergency Provider Physician Assistant; PCP Nurse Practitioner Family
DX: F20.0 Paranoid schizophrenia (principal); R45.1 Restlessness and agitation; T43.506A Underdosing of unspecified antipsychotics and neuroleptics, initial encounter; Z91.128 Patient's intentional underdosing of medication regimen for other reason; Z91.51 Personal history of suicidal behavior; Z53.29 Procedure and treatment not carried out because of patient's decision for other reasons
CPT/HCPCS: 36415; 80053; 80307; 87635; 93005; 94640; 99283; 99285; 80320; 80329; 81003; 81015; 84443; 84484; 85025; 87086; 99284; J1200; J2060

== ENCOUNTER 2021-01-22 20:12 | Emergency (ER) | payer MEDICARE, MEDICAID, SELFPAY ==
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
[2021-01-22 20:40] VITALS: BP 128/85; PULSE 73; RESP 18; TEMP 36.4; O2SAT 99
--- NOTE | 2021-01-22 20:45 | RT.EKG_ITS ---
APPROVED REPORT Exam: Resting ECG Reason for Exam: CP one week ago Patient Location: E HR:57 bpm ECG Measurements Heart Rate 57 AXIS CA 131 P 72 QRSd 96 QRS 16 QT 446 T 10 QTc 433 Conclusion Sinus bradycardia...rate< 60
[2021-01-22 20:47] LABS: Abs Immature Grans 0.02 10^3/uL (0.0-0.06); Absolute Basophil Count 0.07 10^3/uL (0.0-0.2); Absolute Lymphocyte Count 3.61 10^3/uL (1.2-3.4); Absolute Monocyte Count 0.56 10^3/uL (0.1-0.8); Absolute Neutrophil Count 4.72 10^3/uL (1.2-6.7); Basophils % 0.8; Eosinophils % 1.1; HCT 40.3 % (40.0-50.0); HGB 13.2 g/dL (13.5-17.5); Immature Grans % 0.2; Lymphocytes % 39.8; MCH 30.7 pg (27.0-33.0); MCHC 32.8 % (32.0-36.0); MCV 93.7 fL (80-95); MPV 8.7 fL (8.0-11.0); Monocytes % 6.2; Neutrophils % 51.9; Nucleated RBC 0 %; Platelet Count 215 10^3/uL (130-400); RDW 12.2 % (11.8-14.1); RDW-SD 42.5 fL; WBC 9.08 10^3/uL (4.4-10.8)
[2021-01-22 20:49] VITALS: BP 128/85; PULSE 73; RESP 18; TEMP 36.4; O2SAT 99
[2021-01-22 21:10] LABS: ALT 24 U/L (16-63); AST 16 U/L (15-37); Albumin 3.8 g/dL (3.4-5.0); Alkaline Phosphatase 82 U/L (46-116); Anion Gap 8.4 mmol/L (3-11); BUN 14 mg/dL (7-18); CO2 28.6 mmol/L (21.0-32.0); CREATININE 1.1 mg/dL (0.70-1.30); Calcium 8.9 mg/dL (8.5-10.1); Chloride 105 mmol/L (98-107); Glucose 93 mg/dL (74-106); Potassium 3.5 mmol/L (3.5-5.1); Sodium 142 mmol/L (136-145); TSH (W/Ref FT4) 1.71 uIU/mL (0.36-3.74); Total Protein 7.3 g/dL (6.4-8.2)
[2021-01-22 21:25] LABS: Salicylate < 2.8 mg/dL (<2.8)
[2021-01-22 21:26] LABS: Troponin I < 0.05 ng/mL (<0.06)
[2021-01-22 21:31] LABS: Source Nasal/Nares
[2021-01-22 21:43] LABS: ETHANOL BLOOD < 3.0 mg/dL (<3)
[2021-01-22 21:46] LABS: Acetaminophen < 2 ug/mL (10-30)
--- NOTE | 2021-01-22 22:09 | PDOC.MHCN ---
Date of service: 01/22/21 Time of Service: 22:10 Mental Health Crisis Note Presenting Issue How did you arrive at the ED and why did you come: Pt arrived on 01.22.2021 after this clinician executed a mental health Warrant. Pt was brought to the ED and then walked out only to be returned to the ED via [facility]. Precipitating Factors Pt denied SI and HI. He is displaying delusions and is not presenting as safe to self and others as a result. Disposition BEHAVIOR: Pt has been belligerent and manipulative toward this clinician and ED staff. He presented as fine with ED staff even though he was verbally aggressive and belligerent toward this clinician and [employer] Warner Moran during his initial interview. He only became belligerent when NEVIN Lee addressed that he was on a Warrant. EYE CONTACT: Pt makes good eye contact however his stare is intense and he appears tired despite his report that he is sleeping fine. MOOD: Pt presents as manic and responding to his delusional thoughts and not those of reality. It is important for team members to know that the Pt has had numerous hospitalizations and years of experience being able to alter his mood for sometimes extended moments in time to make people believe that he is well when he is in fact not. Those that know him are able to assess this more accurately than those that are new to him. AFFECT: Pt is able to alter his affect to meet the need he wants to portray. APPETITE: Pt reported that he is eating however, he appears malnourished. SLEEP(trouble falling/staying asleep: Pt reported that he is sleeping however appears that he has not been sleeping. Plan Pt was warranted to [facility] for evaluation by this clinician. It is up to the attending as to whether there is sufficient information to continue to hold the Pt at this time. If so than the Pt will be held on EE status and will be assessed twice daily by [facility] while [facility] seeks placement. If not enough, than the Pt will be discharged until there is more information to be able to write a Warrant or EE again. Signature Clinician's Name/Title: Jackelyn Winters MS, [facility] Emergency Services Clinician, [facility]
[2021-01-22 22:22] LABS: COVID-19 PCR Negative (Negative)
[2021-01-22] MEDS: Calcium Carbonate *TUMS* 500 MG CHEW 1000 MG PO (22:50)
[2021-01-23] VITALS (8 sets, daily range): BP systolic 117; BP diastolic 76; PULSE 68–96; RESP 1–18; O2SAT 93
[2021-01-23 06:10] LABS: Bilirubin Small (Negative); Blood Negative (Negative); Clarity Sl Cloudy (Clear); Glucose Negative (Negative); Ketones 80 mg/dL (Negative); Leukocyte Esterase Trace (Negative); Nitrite Negative (Negative); Specific Gravity >= 1.030 (1.005-1.025)
[2021-01-23 06:14] LABS: *AMPHETAMINES SCREEN URINE Negative (Negative); *BARBITURATES SCREEN URINE Negative (Negative); *BENZODIAZEPINES SCREEN URINE Negative (Negative); Cannabinoids THC Negative (Negative); Cocaine Screen,Urine Negative (Negative); METHADONE URINE SCREEN Negative (Negative); OPIATES URINE SCREEN Negative (Negative)
[2021-01-23 06:16] LABS: Tricyclic Antidepressants Negative (Negative)
[2021-01-23 06:20] LABS: Bacteria Few HPF (Negative); C & S Indicated? Yes; Casts Negative LPF (Negative); Crystals Negative HPF (Negative); Epithelial Cells Rare HPF (Negative); Mucus Moderate (Negative); RBC 0-2 HPF (0-2); WBC 20-50 HPF (0-5)
--- NOTE | 2021-01-23 09:07 | NUR.NOTE ---
Zoom meeting with Jackelyn Winters from [facility], patient refused to speak to her, pushed tablet out of the way and stated to take it from the room. Nursing Note:
--- NOTE | 2021-01-23 15:45 | PDOC.CMSAFED ---
- If Service Date Differs Date of service: 01/23/21 Time of Service: 15:45 Care Management Safety Plan Status: Involuntary - Reason for Wait Reason for Wait: Inpatient Admission INVOLUNTARY FOR INPATIENT PSYCHIATRIC STABILIZATION. CHIEF COMPLAINT: Nigel is a 40 year old male who resides in [facility]. He has an extensive psychiatric history with several hospitalizations. Jonny receives services through the INTERLOCKING AND SIGNAL MECHANIC program at [facility]. [facility] Police bring Jonny to the ED on a Warrant for Immediate Examination on 01/22/2021 after he is witnessed standing in the middle of the road during heavy traffic, placing himself and others at risk of harm. Jonny is reportedly experiencing auditory hallucinations and delusional thinking and has been threatening towards hospital staff since his arrival. CM attempts to meet with Jonny today. He at first answers questions appropriately but then tells CM to get out of the room and says he is done talking. A huddle is done at approximately 16:00 pm with Nisa, Nursing Savings Counselor, Dilia, Charge Nurse, YUNG Velez, and PARAMJIT Wen, in attendance. Safety plan has been established to meet the needs of the patient, and consideration of the care team, to adhere to patient goals, identify restrictions based on behavioral status, address nutrition, and determine allowed personal belongings, tools for hygiene and personal care. Determine level of activity including ambulation, level of supervision, visitors, and determine privileges based on behaviors and level of engagement by pt. SAFETY PLAN: 1. Will remain on SI/HI precautions. In Paper Clothes 2. Will remain in room under direct supervision of one-on-one staff at all times provided by CPSO, VICTOR M, INSPECTOR SEMICONDUCTOR WAFER rail transportation operator. 3. May have paper cups, plates, finger foods as well as a cardboard spoon with which to eat meals. 4. Follow [facility] Management of the Admitted Behavioral Health Patient policy. 5. Comfort bath system only. 6. No personal belongings. 7. Visitors: None at this time. 8. Activities: Soft cart items and other activities at RN discretion. 9. Bathroom privileges with escort in the ED. 10. Phone: May use the hospital phone dialed by staff to call legal contacts at RN discretion. 11. Due to INVOLUNTARY status, patient is being held at [facility] by the Department of Mental Health ([facility]) until 2nd certification by [facility] Psychiatrist can be performed (within 24 hours). Staff will provide de-escalation support (CPI) as needed. If patient wishes to leave [facility], staff will contact [facility] Crisis Screener ([phone]) and On-Call Field Representative/Health Education ([phone]) as soon as possible. In the event of elopement, notify [facility] Police ([phone]). Patient is currently involuntarily at [facility]. [facility] Frontline Digital Marketing Apprentice will continue seeking placement. Please contact the Interactive Digital Media Specialist Field Representative/Health Education ([phone]) for any needed changes to Safety Plan. Safety plan has been provided to interdepartmental care team. Patient will be transported by grand jury deputy sheriff at time of discharge.
--- NOTE | 2021-01-23 17:06 | PDOC.MHCN ---
Date of service: 01/23/21 Time of Service: 17:06 Mental Health Crisis Note Presenting Issue How did you arrive at the ED and why did you come: Pt arrived to the ED on 01.22.2021 after this clinician executed a mental health warrant. Precipitating Factors Pt refused to engage in any conversation with this clinician. Collateral reports from his nurse stated that Dr. Miranda inquired what would happen if restraints were removed and the Pt started talking about killing people and stabbing people. Disposition BEHAVIOR: Pt has not had any code roma per ED reports however, he has been in at least 3 point restraints for his and other's safety. Pt refused to engage in any conversation today. He used his free hand to force the computer away from him when this clinician arrived via zoom. During his sescond certification he also refused to speak to the psychiatrist, Dr. Carlitos Carter. EYE CONTACT: Pt's eye contact is purposefully avoidance and yet is still intense. MOOD: Pt is agitated and unpredictable. AFFECT: His affect is blunted and angry. APPETITE: Pt was eating his second breakfast during his morning zoom. SLEEP(trouble falling/staying asleep: Pt is reported to have slept fine through the night. Plan Pt was certified by Dr. Carter during his interview today. He will remain at [facility] and be re-evaluated twice daily by [facility] until placement is found. Based on the Pt's history it is not likely he will get to a point to safety plan back to the community without a hospital level of care. This clinician gave report to the Prison Guard Supervisor earlier in the day. No beds available today however, ref[place] were [place] to [place], [place] [facility], [facility] and [facility]. Signature Clinician's Name/Title: Jackelyn Winters MS, [facility] Emergency Services Clinician, [facility]
--- NOTE | 2021-01-23 17:17 | NUR.NOTE ---
Pt requested restraints be removed, stated that he had been calm for a while and stated to this brief writer that he did not have feelings of hurting or stabbing staff or others. Spoke with Dr. Miranda who advised we could trial restraint removal and possibly taking medications. Spoke with patient who advised he was not taking medications, but continued to state that he would not hurt or kill anyone. Restraints removed, pt escorted to restroom. Linens on bed changed. Patient asked about taking shower, advised on comfort care system at this time but we could discuss show in the future if continued good behavior. Patient agreeable to this plan.Nursing Note:
[2021-01-23] MEDS: risperiDONE 1 MG TAB 4 MG PO (18:10)
--- NOTE | 2021-01-24 07:54 | NUR.NOTE ---
refused his risperdol- states it gave him heart burn last night when he took it. says he is repeating himself-I was making him do it, trying to trick him. pt standing in doorway drinking coffee. Nursing Note:
--- NOTE | 2021-01-24 08:22 | NUR.NOTE ---
refuses heartburn medications -says he does not have heart burn right now. also raghu refused his risperdol-said he already said no once.Nursing Note:
--- NOTE | 2021-01-24 10:05 | PSYCO_ITS ---
Date of service: 01/24/21 Time of Service: 10:09 History of Present Illness History of Present Illness Chief Complaint: I don't want to talk to him Narrative: [address] Miranda 01/23 for evalaution of mental status and trestment recommendations. Exam deferred until today due to technical issues related to telemedicine connectivity in ED. Patient seen briefly through telemedciine. Repeatedly refused to cooperate with telepsychiatry examination Admitted to ED initially onn warrant from community and subsequent EE and recertification. He has a history of paranoid schizophrenia and has been untreated for an indeterminate amount of time with increase in psychotic symptoms including paranoia and increased threatening and aggressive behavior in the community. He required emergency medications and physical restraints upon first arriving in ED. Restraints have since been discontinued and he has had no further aggressive behavior. He accept a single 4 mg dose of oral risperidone yesterday evening, but declined risperidone this AM. He has been referred for involuntary psychiatric hospitalization with admission pending. Consults Consult date: 01/24/21 Requesting physician: Leoncio Miranda Assessment and Plan Assessment and plan (1) Psychosis: Status: Acute Assessment and plan: Acute psychosis in context of chronic paranoid schizophrenia exacerbated by indeterminate duration of untreated psychosis. 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 It would appears as if his insight into his illness is also quite impaired and he does not appreciate the consequences of his ongoing treatment refusals in terms of altering the natural course of his current illness. He will likely require hospital commitment and subsequent court medications to restore mental health and independent community functioning. In the meantime, continuing to offer risperidone as ordered is indicated or an acceptable alternative such as olanzapine 10 mg BID. In event of behavioral emergency, recommend using IM haloperdiol 5 mg, lorazepam 2 mg, diphenhydramine 50 mg as needed to restore calm. At this point, given persistent refusals to cooperate with examination, I will sign off. If need arises, please feel free to contact me to reconsult on the case. 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) Gastroesophageal reflux disease Left ACL tear Mental disorder Poorly defined Paranoid schizophrenia Surgical History EGD - IV Sedation (06/14/16) Repair of inguinal hernia S/P laparoscopic appendectomy (~08/05/18) Social History Smoking/Tobacco Use Status: Current every day Tobacco Type: cigarettes Years smoked: 28 Smoking risk assessment performed?: Yes Alcohol Intake: current Alcohol Intake frequency: a few times a month Alcohol type: beer Drug use: Never Substance use type: does not use Current gender identity: male Do you feel safe at home: Yes Do you feel safe in your relationship?: Yes Exam Psych Other: Noted restless and pacing in room, dressed in paper scrubs. Speech is coherent, loud, angry tone. Repeatedly refuses to cooperate with psychiatric exam with rapidly escalating level of agitation. Results Last Vital Signs Temp 36.4 C L 01/22/21 20:49 Pulse 96 H 01/23/21 19:11 Resp 18 01/23/21 19:11 BP 117/76 01/23/21 19:11 Pulse Ox 93 01/23/21 19:11 Labs Result diagrams: 01/22/21 20:42 01/22/21 20:42
--- NOTE | 2021-01-24 13:03 | PDOC.CMSAFED ---
- If Service Date Differs Date of service: 01/24/21 Time of Service: 13:03 Care Management Safety Plan Status: Involuntary - Reason for Wait Reason for Wait: Inpatient Admission INVOLUNTARY FOR INPATIENT PSYCHIATRIC STABILIZATION. A decentralized huddle is done at approximately 15:[address] Miranda, ED provider, Anne-Marie, Nursing Emergency Planning And Response Manager, YUNG Velez, and Bettye YUSUF. Safety plan has been established to meet the needs of the patient, and consideration of the care team, to adhere to patient goals, identify restrictions based on behavioral status, address nutrition, and determine allowed personal belongings, tools for hygiene and personal care. Determine level of activity including ambulation, level of supervision, visitors, and determine privileges based on behaviors and level of engagement by pt. SAFETY PLAN: 1. Will remain on SI/HI precautions. In Paper Clothes 2. Will remain in room under direct supervision of one-on-one staff at all times provided by CPSO, VICTOR M, PSYCHOLOGY TECHNICIAN supervisor lathing. 3. May have paper cups, plates, finger foods as well as a cardboard spoon with which to eat meals. 4. Follow [facility] Management of the Admitted Behavioral Health Patient policy. 5. Comfort bath system only. 6. No personal belongings. 7. Visitors: None at this time. 8. Activities: Soft cart items and other activities at RN discretion. 9. Bathroom privileges with escort in the ED. 10. Phone: May use the hospital phone dialed by staff to call legal contacts at RN discretion. 11. Due to INVOLUNTARY status, patient is being held at [facility] by the Department of Mental Health ([facility]). A 2nd certification by [facility] Psychiatrist occurred on 01/23/2021 and the EE was upheld, so patient is remaining on involuntary status. Staff will provide de-escalation support (CPI) as needed. If patient wishes to leave [facility], staff will contact [facility] Crisis Screener ([phone]) and On-Call Workers Compensation Claims Adjuster ([phone]) as soon as possible. In the event of elopement, notify [place] [employer] ([phone]). Patient is currently involuntarily at [facility]. [facility] Frontline Charge Nurse will continue seeking placement. Please contact the Card Tender Workers Compensation Claims Adjuster ([phone]) for any needed changes to Safety Plan. Safety plan has been provided to interdepartmental care team. Patient will be [facility] by [facility] at time of discharge.
--- NOTE | 2021-01-24 15:43 | PDOC.ERCMPRO ---
- If Service Date Differs Date of service: 01/24/21 Time of Service: 15:43 Care Management Progress Note S/O: Jonny is pacing back and forth in his room when CM comes to meet with him. He engages with CM but is soft spoken and accusatory. He states he knows why we are holding him here and threatens that bad things will happen if arrangements aren't made for him to return home in the next 3 days. He also says he knows where we want to send him and when CM asks where that is he replies none of your business. Jonny's thought content is paranoid and delusional and his affect is labile and at times angry. A: Jonny remains at [facility] on involuntary status while awaiting a psychiatric placement. P: [facility], [facility], [facility], [facility], and [facility] on 01/23/21 for review. There are no beds available this weekend. CM will continue to follow. - Status Status: Involuntary - Reason for Wait Reason for Wait: Inpatient Admission
[2021-01-25 01:36] VITALS: BP 129/83; PULSE 65; RESP 16; TEMP 36.5; O2SAT 94
[2021-01-25] MEDS: OLANZapine 10 MG VIAL IM ×2 (07:35→19:03)
[2021-01-25] MEDS: Normal Saline-STERILE FIELD 0.9% 10 ML SYR (07:35)
[2021-01-25 08:14] VITALS: BP 125/81; PULSE 56; RESP 18; TEMP 36.6; O2SAT 94
--- NOTE | 2021-01-25 09:29 | NUR.NOTE ---
MH attempted to speak to patient via Zoom. Patient stated Get that fucking thing out of my room! (repeatedly) attempting to grab screen. Zoom meeting ended due to patient's non-participation.
--- NOTE | 2021-01-25 09:54 | W.EDRSTF2F ---
Date of service: 01/25/21 Time of Service: 09:40 Restraint Face to Face Time of Face to Face Face to Face: Time of Face to Face: 09:40 Patient's Immediate Situation Requiring Restraints/Seclusion: Harm to Patient Patient Response to Restraints: Tolerating with minimum Problems Patient's Medical & Behavioral Condition: Patient occasionally moving arms in apparent attempt to free himself from restraints, yells fuck you. Resting quietly in between episodes. Given acute psychosis, patient violent, threatening, has not shown change in threatening behavior when interacted with, plan to continue restraints. Need for Continuation of Restraints Has Been Assessed: Restraints Continued
--- NOTE | 2021-01-25 10:01 | NUR.NOTE ---
Nursing Note: Pt refused his scheduled medication - Respirdoneb 4mg. MD Subramanian made aware.
[2021-01-25 10:23] VITALS: BP 131/90; PULSE 77; RESP 18; TEMP 36.5; O2SAT 95
--- NOTE | 2021-01-25 10:35 | PDOC.MHCN_ITS ---
Date of service: 01/25/21 Time of Service: 09:25 Mental Health Crisis Note Presenting Issue How did you arrive at the ED and why did you come: The patient has been on involuntary status at [facility] since 01.22.21 via warrant and is seen today for planned daily assessment. Precipitating Factors Attempted to perform assessment via telehealth and was unsuccessful. The patient turned his head to side and verbalized that he was not going to talk, became agitated with attending nurse, stated Fuck off get the screen out, and attempted to pull on restraints. Per attending nurse, the patient attempted to elope this morning, was brought back inside, and was subsequently placed on restraint order which will be continued due to apparent acute psychosis and lack of change in threatening behaviors. Disposition BEHAVIOR: Inappropriate EYE CONTACT: N/A MOOD: N/A AFFECT: Agitated / threatening APPETITE: N/A SLEEP(trouble falling/staying asleep: N/A Plan The patient will remain on involuntary status and be assessed twice daily by [facility] until transfer to psychiatric in-patient facility can be secured. Contact list update [facility] - Under review. [facility] - Under review. [facility] - At capacity. [facility] - Declined placement on waitlist due to acuity and capacity. [facility] - Awaiting callback.
--- NOTE | 2021-01-25 10:36 | PDOC.CMSAFED ---
- If Service Date Differs Date of service: 01/25/21 Time of Service: 10:36 Care Management Safety Plan Status: Involuntary - Reason for Wait Reason for Wait: Inpatient Admission INVOLUNTARY FOR INPATIENT PSYCHIATRIC STABILIZATION. A decentralized huddle is done with Dr. Shiloh Healy, ED provider, Mary, Nursing Mechanics Supervisor, YUNG Escobar, and PARAMJIT Wen. Safety plan has been established to meet the needs of the patient, and consideration of the care team, to adhere to patient goals, identify restrictions based on behavioral status, address nutrition, and determine allowed personal belongings, tools for hygiene and personal care. Determine level of activity including ambulation, level of supervision, visitors, and determine privileges based on behaviors and level of engagement by pt. SAFETY PLAN: 1. Will remain on SI/HI precautions. In Paper Clothes 2. Will remain in room under direct supervision of one-on-one staff at all times provided by CPSO, VICTOR M, SIGN HANGER living skills advisor. 3. May have paper cups, plates, finger foods as well as a cardboard spoon with which to eat meals. 4. Follow [facility] Management of the Admitted Behavioral Health Patient policy. 5. Comfort bath system only. 6. No personal belongings. 7. Visitors: None at this time. 8. Activities: Soft cart items and other activities at RN discretion. 9. Bathroom privileges with escort in the ED. 10. Phone: May use the hospital phone dialed by staff to call legal contacts at RN discretion. 11. Due to INVOLUNTARY status, patient is being held at [facility] by the Department of Mental Health ([facility]). A 2nd certification by [facility] Psychiatrist occurred on 01/23/2021 and the EE was upheld, so patient is remaining on involuntary status. Staff will provide de-escalation support (CPI) as needed. If patient wishes to leave [facility], staff will contact [facility] Crisis Screener ([phone]) and On-Call Production Assembly Supervisor ([phone]) as soon as possible. In the event of elopement, notify [place] [employer] Police ([phone]). Patient is currently involuntarily at [facility]. [facility] Frontline Claims Supervisor will continue seeking placement. Please contact the Toll Test Worker Production Assembly Supervisor ([phone]) for any needed changes to Safety Plan. Safety plan has been provided to interdepartmental care team. Patient will be transported by internal grinder tender at time of discharge.
--- NOTE | 2021-01-25 11:42 | W.EDRSTF2F ---
Date of service: 01/25/21 Time of Service: 11:40 Restraint Face to Face Time of Face to Face Face to Face: Time of Face to Face: 11:40 Patient's Immediate Situation Requiring Restraints/Seclusion: Harm to Patient Patient Response to Restraints: Tolerating without Problems Patient's Medical & Behavioral Condition: Patient reassessed, continues to be verbally threatening during interactions with staff, stating I'll fucking kill you, Fuck you. Strains again restraints during staff interactions, otherwise calm in bed. Need for Continuation of Restraints Has Been Assessed: Restraints Continued
--- NOTE | 2021-01-25 12:46 | NUR.NOTE ---
Patient resting quietly on cart. Three point restraints in place; right arm free. Radial and pedal pulses strong and regular bilaterally. Patient rates pain in R arm 4-5/10. Denies needs. Answers questions appropriately. Maintains eye contact. CPSO in direct line of sight.Nursing Note:
--- NOTE | 2021-01-25 14:01 | W.EDRSTF2F ---
Date of service: 01/25/21 Time of Service: 13:40 Restraint Face to Face Time of Face to Face Face to Face: Time of Face to Face: 13:40 Patient's Immediate Situation Requiring Restraints/Seclusion: Harm to Patient Patient Response to Restraints: Tolerating without Problems Patient's Medical & Behavioral Condition: Patient continues to intermittently make threats, otherwise sleeping intermittently. one arm restraint was removed the patient did have a meal. Patient ate meal without incident, however began to make threats after eating and then fell asleep. Continuing three-point restraints right now until patient wakes up and can be reassessed. Need for Continuation of Restraints Has Been Assessed: Restraints Continued
--- NOTE | 2021-01-25 14:54 | CMPROGNOTE_ITS ---
- If Service Date Differs Date of service: 01/25/21 Time of Service: 14:54 Care Management Progress Note S/O: Jonny eloped from [facility] this morning after becoming angry, agitated and threatening towards staff. [facility] Police were called and Jonny was subsequently returned to the ED at which time restraints were initiated. Mid- morning, Yan Hillman, [facility] Crisis Screener, attempted a telehealth assessment of Jonny but patient would not engage so the assessment was terminated. Jonny has since been sleeping off and on. He remains in restraints due to continued threatening behavior. A: Jonny remains at [facility] on involuntary status while awaiting a psychiatric placement. P: Referrals were faxed to [facility], [facility], [facility], [facility], and [facility] on 01/23/21 for review. Today CM [facility] per their request and Cassi Quintana PA-C, of [facility], speaks with Dr. Shiloh Healy, inquiring about Jonny's behavior. Jonny will remain at [facility] until a psychiatric bed can be secured for him. CM will continue to follow. - Status Status: Involuntary - Reason for Wait Reason for Wait: Inpatient Admission
--- NOTE | 2021-01-25 14:54 | PDOC.ERCMPRO ---
- If Service Date Differs Date of service: 01/25/21 Time of Service: 14:54 Care Management Progress Note S/O: Jonny eloped from [facility] this morning after becoming angry, agitated and threatening towards staff. [facility] Police were called and Jonny was subsequently returned to the ED at which time restraints were initiated. Mid-morning, Yan Hillman, [facility] Crisis Screener, attempted a telehealth assessment of Jonny but patient would not engage so the assessment was terminated. Jonny has since been sleeping off and on. He remains in restraints due to continued threatening behavior. A: Jonny remains at [facility] on involuntary status while awaiting a psychiatric placement. P: Referrals were faxed to [facility], [facility], [facility], [facility], and [facility] on 01/23/21 for review. Today CM [facility] and Cassi Quintana PA-C, of [facility], speaks with Dr. Shiloh Healy, inquiring about Jonny's behavior. Jonny will remain at [facility] until a psychiatric bed can be secured for him. CM will continue to follow. - Status Status: Involuntary - Reason for Wait Reason for Wait: Inpatient Admission
--- NOTE | 2021-01-25 15:40 | NUR.NOTE ---
Patient eats sandwich and ya jenna. Requests to use restroom, refuses urinal. Discussion regarding removing restraints and patient behaviors. Patient states Fuck You. You are treating me like an animal. I have been in these clothes for seven days. Get out of my room. Nursing Note:
--- NOTE | 2021-01-25 16:07 | W.EDRSTF2F ---
Date of service: 01/25/21 Time of Service: 15:40 Restraint Face to Face Time of Face to Face Face to Face: Time of Face to Face: 03:40 Patient's Immediate Situation Requiring Restraints/Seclusion: Harm to Patient Patient Response to Restraints: Tolerating without Problems Patient's Medical & Behavioral Condition: Patient continues to state I'll kill you when interacting with staff. Patient did not seem to have improvement in psychosis or violent tendencies at this point. Continuing restraints in order to protect patient from himself also to protect others. Need for Continuation of Restraints Has Been Assessed: Restraints Continued
--- NOTE | 2021-01-25 17:35 | NUR.NOTE ---
Requests coffee with cream and sugar; which is provided. Patient takes a drink, sets coffee down, states This tastes like shit. I ain't drinking it. Now states he refuses to talk with mental health. Plan of care discussed. Patient encouraged to remain calm and cooperative, demonstrate positive behavior to be taken out of restraints; states Get the fuck out of my room. Suck my jameel.
[2021-01-25] MEDS: diphenhydrAMINE 50 MG/ML VIAL IM (19:02)
[2021-01-25] MEDS: LORazepam 2 MG/ML VIAL IM (19:02)
--- NOTE | 2021-01-25 19:17 | NUR.NOTE ---
Zoom meeting with mental health in progress. Nursing Note:
[2021-01-25 20:00] VITALS: BP 130/82; PULSE 60; RESP 16; TEMP 36.4
[2021-01-25 20:27] VITALS: BP 130/82; PULSE 60; RESP 16; TEMP 36.4
--- NOTE | 2021-01-26 09:00 | W.ED.FU ---
Care signed out by Dr. Miller with plan to await placement. Notified by state the patient has been accepted at [facility]. Nursing contacted [facility] and Dr. Rashard rincon was offered and declined. Patient to be accepted by Dr. Loera. On review of patient's lab studies he did have a urinalysis with leukourea on 01/23. He has not noted any urinary symptoms and has not been febrile and has a normal serum white blood cell count. Patient has been resistant to taking medications thus far in his ED course. Plan to repeat urinalysis and also check urine GC and chlamydia when able to obtain repeat urine sample. 9:05 --Chief Contract Officer officers here to transport patient. I do not want to delay transfer to [facility] for psychiatric care but patient will need follow-up on regarding urinalysis. This will be conveyed to [facility] clinical staff.
== END 2021-01-26 09:23 | disposition short-term general hospital (02) ==
PROVIDERS: Physician Assistant; Emergency Provider Student in an Organized Health Care Education/Training Program; PCP Nurse Practitioner Family
DX: F20.0 Paranoid schizophrenia (principal); R45.850 Homicidal ideations; Z78.1 Physical restraint status; T43.506A Underdosing of unspecified antipsychotics and neuroleptics, initial encounter; Z91.128 Patient's intentional underdosing of medication regimen for other reason; Z20.822 Contact with and (suspected) exposure to COVID-19; Z03.818 Encounter for observation for suspected exposure to other biological agents ruled out
CPT/HCPCS: 36415; 80053; 80307; 87491; 87591; 87635; 93005; 94640; 99285; 80320; 80329; 81003; 81015; 84443; 84484; 85025; 87086; 93010; 99284; J1200; J2060

== ENCOUNTER 2021-02-27 14:36 | Emergency (ER) | payer MEDICARE, MEDICAID, SELFPAY ==
--- NOTE | 2021-02-27 14:30 | RT.EKG_ITS ---
APPROVED REPORT Exam: Resting ECG Reason for Exam: faintness Patient Location: E HR:95 bpm ECG Measurements Heart Rate 95 AXIS VT 131 P 72 QRSd 87 QRS -5 QT 361 T 21 QTc 456 Conclusion Sinus rhythm...normal P axis, V-rate 60- 99
--- NOTE | 2021-02-27 14:45 | DI.CT_ITS ---
Exam(s) CT HEAD WO EXAM: CT HEAD WO CLINICAL HISTORY: pain. TECHNIQUE: Imaging Protocol: Axial computed tomography images with coronal and sagittal reformatted images were created and reviewed COMPARISON: CT CT HEAD FACIAL WO from 06/23/2020 FINDINGS: The ventricular system is normal in appearance. No evidence of acute intracranial hemorrhage, mass effect, or midline shift. The orbital structures are unremarkable. The temporal bone structures appear intact. Calvarium: Normal. Visualized Paranasal sinuses/Mastoids: Predominantly clear with probable small retention cyst in the right maxillary antrum. IMPRESSION: Normal cranial CT. RADIATION DOSE DELIVERED: 697.68mGy.cm Total DLP 697.68mGy.cm Total DLP 35.19mGy CTDIvol DATA REPOSITORY: All CT scans at this facility are submitted to the National Radiology Data Registry (NRDR) Dose Index Registry (DIR) with the [employer] (ACR). RADIATION OPTIMIZATION: All CT scans at this facility use at least one of these dose optimization te chniques: automated exposure control; mA and/or kV adjustment per patient size (includes targeted exa ms where dose is matched to clinical indication); or iterative reconstruction.
[2021-02-27 14:46] VITALS: BP 137/86; PULSE 96; RESP 18; TEMP 36; O2SAT 96
[2021-02-27] MEDS: Acetaminophen 500 MG TAB 1000 MG PO (14:57)
--- NOTE | 2021-02-27 14:57 | ED.GENADUL_ITS ---
Discharge Plan Disposition Patient Disposition: HOME Condition: Stable Discharge Details Clinical Impression: Headache Primary Care Provider: Perla Martin ED Provider: Leoncio Miranda Home Meds and New Rx's Prescriptions: Continued budesonide-formoterol [Symbicort] 160-4.5 mcg/actuation HFA aerosol inhaler 1 inh INHALATION BID RF: 0 risperidone 4 mg tablet 8 mg PO HS RF: 0 Risperdal Consta 50 mg/2 mL suspension,extended rel recon 50 mg IM Q2W RF: 0 omeprazole 20 mg capsule,delayed release(DR/EC) 20 mg PO DAILY RF: 0 loratadine [Allergy Relief (loratadine)] 10 mg tablet 10 mg PO DAILY RF: 0 famotidine 20 mg tablet 20 mg PO BID RF: 0 Discharge Instructions Instructions: General Headache (ED) Additional Instructions: your cat scan of your head did not show concerning findings follow up with your primary care provider this week if you feel more ill, have severe worsening pain or fevers return to the emergency department Medical Decision Making 40 yo male with hx of schizophrenia, gerd, who comes in with headache. The patient is a poor historian but apparently came in because he has had pain at t he top of his head for a few hours, denies falls or trauma and denies fevers, chills or neck pain/stiffness. HAs not taken anything for the pain. He apparently said to access he was feeling lightheaded but denies this on my exam and denies chest pain, dyspnea and when I initially asked why he was here he said he wanted a sandwich. HE doesnt appear in distress on exam. HAs clear speech, CN II-XII intact and no focal motor or sensation deficits. Suspect tension headache, no findings to suggest industrial accountant infection on history or exam, no meningismus. Will obtain ct to evaluate for possible ich no acute findings, remains stable and now has no pain. Denies si/hi and is eating and drinking without issues or signs of distress. do not feel lp indicated, will d/c and advised to f/u with pcp and return precautions given Differential Diagnosis Differential Diagnosis: tension headache, migraine, ich Imaging Data Radiologic Study: Attestation: I personally reviewed and interpreted this imaging study as follows: Imaging: CT Scan Radiologist's impression: no acute findings HPI General Mode of arrival: ambulatory . Date/Time Provider Initiated Documentation: 02/27/21 14:37 . Limitations to Documentation: no limitations . Information obtained by: patient . History of Present Illness 40 year old M presents to the emergency department with the chief complaint of headache, described as moderate, with intensity rated at 6. Quality is described as aching, and is localized to the head. Patient started experiencing this hour(s) (2) and it has been constant. No relieving factors improve symptom(s), No exacerbating factors reported . Patient notes no other symptoms.. Patient did receive the following treatments prior to arrival, none Related Data Home Medications Medication Instructions Recorded Confirmed Risperdal Consta 50 mg IM Q2W 07/29/19 02/27/21 risperidone 8 mg PO HS 07/29/19 02/27/21 budesonide-formoterol [Symbicort] 1 inh INHALATION BID 06/23/20 02/27/21 loratadine [Allergy Relief 10 mg PO DAILY 08/14/20 02/27/21 (loratadine)] omeprazole 20 mg PO DAILY 08/14/20 02/27/21 famotidine 20 mg PO BID 02/27/21 02/27/21 Allergies Allergy/AdvReac Type Severity Reaction Status Date / Time Penicillins Allergy Other (See Unverified 02/27/21 14:51 Comment) General Stated Complaint: Headache SCARLETT: 4 Review of Systems All systems reviewed & are unremarkable except as noted in HPI and below Constitutional Constitutional: Denies chills, Denies fever(s) and Denies weakness Cardiovascular Cardiovascular: Denies chest pain and Denies dyspnea Respiratory Respiratory: Denies cough and Denies dyspnea Gastrointestinal Gastrointestinal: Denies abdominal pain, Denies nausea and Denies vomiting Musculoskeletal Musculoskeletal: Denies joint swelling Neurologic Neurologic: Denies weakness [facility] Medical History 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) Gastroesophageal reflux disease Left ACL tear Mental disorder Poorly defined Paranoid schizophrenia Surgical History EGD - IV Sedation (06/14/16) Repair of inguinal hernia S/P laparoscopic appendectomy (~08/05/18) Social History Smoking/Tobacco Use Status: Current every day Tobacco Type: cigarettes Years smoked: 28 Smoking risk assessment performed?: Yes Alcohol Intake: current Alcohol Intake frequency: a few times a month Alcohol type: beer Drug use: Never Substance use type: does not use Current gender identity: male Do you feel safe at home: Yes Do you feel safe in your relationship?: Yes Exam Const General: no acute distress Orientation: alert [facility] Head: normal to inspection Ears: external ears normal General nose exam: external nose normal Mouth: moist mucous membranes Eyes General: appearance normal, both eyes and all related structures Neck Neck: normal visual inspection Resp Effort & Inspection: normal respiratory effort and able to speak in complete sentences Cardio Rate: regular rate Skin General skin exam: no rashes or lesions noted Neuro General: patient alert Extrem General: normal to inspection Psych Mental Status: mental status grossly normal Course Vital Signs Vital signs: Vital Signs Temperature 36 C L 02/27/21 14:46 Pulse 96 H 02/27/21 14:46 Respiratory Rate 18 02/27/21 14:46 Blood Pressure 137/86 02/27/21 14:46 Pulse Oximetry 96 02/27/21 14:46 Temperature 36 C L 02/27/21 14:46 Temperature Source Temporal Artery Scan 02/27/21 14:46 Pulse 96 H 02/27/21 14:46 Respiratory Rate 18 02/27/21 14:46 Respiratory Effort Non-Labored 02/27/21 14:52 Blood Pressure 137/86 02/27/21 14:46 Blood Pressure Position Sitting 02/27/21 14:46 Pulse Oximetry 96 02/27/21 14:46 Oxygen Delivery Method Room Air 02/27/21 14:46 Oxygen Flow Rate 0 02/27/21 14:46 Pain Level 4 02/27/21 14:46
== END 2021-02-27 15:40 | disposition home or self-care (01) ==
PROVIDERS: Emergency Provider Emergency Medicine; PCP Nurse Practitioner Family
DX: R51.9 Headache, unspecified (principal); R42 Dizziness and giddiness
CPT/HCPCS: 36416; 82962; 93005; 99284; 70450; 93010; 99283

== ENCOUNTER 2021-02-28 15:51 | Emergency (ER) | payer MEDICARE, MEDICAID, SELFPAY ==
[2021-02-28 15:55] VITALS: BP 145/88; PULSE 86; RESP 18; TEMP 36.5; O2SAT 97
--- NOTE | 2021-02-28 15:55 | W.ED.GENAD ---
Discharge Plan Disposition Patient Disposition: HOME Condition: Stable Discharge Details Clinical Impression: Paranoid schizophrenia Primary Care Provider: Perla Martin ED Provider: Leoncio Miranda Home Meds and New Rx's Prescriptions: Continued budesonide-formoterol [Symbicort] 160-4.5 mcg/actuation HFA aerosol inhaler 1 inh INHALATION BID RF: 0 risperidone 4 mg tablet 8 mg PO HS RF: 0 Risperdal Consta 50 mg/2 mL suspension,extended rel recon 50 mg IM Q2W RF: 0 omeprazole 20 mg capsule,delayed release(DR/EC) 20 mg PO DAILY RF: 0 loratadine [Allergy Relief (loratadine)] 10 mg tablet 10 mg PO DAILY RF: 0 famotidine 20 mg tablet 20 mg PO BID RF: 0 Discharge Instructions Additional Instructions: follow up with mental health tomorrow if you feel more ill, have severe worsening symptoms or difficulty breathing return to the emergency department Medical Decision Making 40 yo male with hx of paranoid schizophrenia who comes in with Pd with apparent aggressive behavior and has been threatening people for about a week. He is currently caox4 though does appear paranoid, denies si now and when asked if he has any thoughts of harming others on my exam he says no. He has a normal gait and normal speech, I suspect his symptoms are due to his underlying schizophrenia, will have mental health evaluate. seen my tammi from [employer] and agrees he doesn't meet inpatient criteria nor does he meet ee status. He is stable for d/c and they will follow up with him tomorrow Differential Diagnosis Differential Diagnosis: schizophrenia, aggressive Medical Records Medical records reviewed: Yes I reviewed the patient's medical records. HPI General Mode of arrival: ambulatory. Date/Time Provider Initiated Documentation: 02/28/21 15:55. Information obtained by: patient and police. History of Present Illness 40 year old M presents to the emergency department with the chief complaint of mental health evaluation, described as moderate, and it has been constant. No relieving factors improve symptom(s), No exacerbating factors reported . Patient did receive the following treatments prior to arrival, none Related Data Home Medications Medication Instructions Recorded Confirmed Risperdal Consta 50 mg IM Q2W 07/29/19 02/27/21 risperidone 8 mg PO HS 07/29/19 02/27/21 budesonide-formoterol [Symbicort] 1 inh INHALATION BID 06/23/20 02/27/21 loratadine [Allergy Relief 10 mg PO DAILY 08/14/20 02/27/21 (loratadine)] omeprazole 20 mg PO DAILY 08/14/20 02/27/21 famotidine 20 mg PO BID 02/27/21 02/27/21 Allergies Allergy/AdvReac Type Severity Reaction Status Date / Time Penicillins Allergy Other (See Unverified 02/28/21 15:59 Comment) General SCARLETT: 4 Review of Systems All systems reviewed & are unremarkable except as noted in HPI and below Constitutional Constitutional: Denies chills, Denies fever(s) and Denies weakness Cardiovascular Cardiovascular: Denies chest pain and Denies dyspnea Respiratory Respiratory: Denies cough and Denies dyspnea Gastrointestinal Gastrointestinal: Denies abdominal pain, Denies nausea and Denies vomiting Musculoskeletal Musculoskeletal: Denies joint swelling Neurologic Neurologic: Denies weakness PFS Medical History 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) Gastroesophageal reflux disease Left ACL tear Mental disorder Poorly defined Paranoid schizophrenia Surgical History EGD - IV Sedation (06/14/16) Repair of inguinal hernia S/P laparoscopic appendectomy (~08/05/18) Social History Smoking/Tobacco Use Status: Current every day Tobacco Type: cigarettes Years smoked: 28 Smoking risk assessment performed?: Yes Alcohol Intake: current Alcohol Intake frequency: a few times a month Alcohol type: beer Drug use: Never Substance use type: does not use Current gender identity: male Do you feel safe at home: Yes Do you feel safe in your relationship?: Yes Exam Const General: no acute distress Orientation: alert [facility] Head: normal to inspection Ears: external ears normal General nose exam: external nose normal Mouth: moist mucous membranes Eyes General: appearance normal, both eyes and all related structures Neck Neck: normal visual inspection Resp Effort & Inspection: normal respiratory effort and able to speak in complete sentences Cardio Rate: regular rate Skin General skin exam: no rashes or lesions noted Neuro General: patient alert and patient oriented x3 Extrem General: normal to inspection
--- NOTE | 2021-02-28 16:26 | NUR.NOTE ---
PAtient is denying SI/HI. PAtient stated is here for a headache. Patient was [facility] by [facility]. Officer stated that patient has been threathing people on the street all this week. [employer] officer stayed with patient.
[2021-02-28 16:57] VITALS: BP 141/91; PULSE 85; TEMP 37.1; O2SAT 97
== END 2021-02-28 17:02 | disposition home or self-care (01) ==
PROVIDERS: Emergency Provider Emergency Medicine; PCP Nurse Practitioner Family
DX: F20.0 Paranoid schizophrenia (principal)
CPT/HCPCS: 99285; 99283

== ENCOUNTER 2021-03-03 03:06 | Emergency (ER) | payer MEDICARE, MEDICAID, SELFPAY ==
--- NOTE | 2021-03-03 03:00 | DI.RAD_ITS ---
Exam(s) XR PORTABLE CHEST AP EXAM: XR PORTABLE CHEST AP CLINICAL HISTORY: cough, r/o pneumonia. TECHNIQUE: 2D digital imaging was performed. COMPARISON: CR,XR XR CHEST 2V PA LATERAL from 10/21/2020 FINDINGS: Heart size is upper normal. The mediastinum is not widened. Lungs are clear. No infiltrates nor obvious pleural effusions. IMPRESSION: No acute pulmonary findings on this single AP portable view of the chest. DATA REPOSITORY: RADIATION DOSE DELIVERED: All CT scans at this facility use at least one of these dose optimization techniques: automated exposure control; mA and/or kV adjustment per patient size (includes targeted e xams where dose is matched to clinical indication); or iterative reconstruction.
[2021-03-03 03:14] VITALS: BP 125/75; PULSE 126; RESP 20; TEMP 36.9; O2SAT 95
--- NOTE | 2021-03-03 03:17 | W.ED.GENAD ---
Discharge Plan Disposition Patient Disposition: HOME Condition: Good Discharge Details Clinical Impression: Bronchitis Primary Care Provider: Perla Martin ED Provider: Kaleb Miller Home Meds and New Rx's Prescriptions: New benzonatate 100 mg capsule 100 mg PO TID Qty: 30 RF: 0 doxycycline hyclate 100 mg tablet 100 mg PO BID 7 Days Qty: 14 RF: 0 Continued budesonide-formoterol [Symbicort] 160-4.5 mcg/actuation HFA aerosol inhaler 1 inh INHALATION BID RF: 0 risperidone 4 mg tablet 8 mg PO HS RF: 0 Risperdal Consta 50 mg/2 mL suspension,extended rel recon 50 mg IM Q2W RF: 0 omeprazole 20 mg capsule,delayed release(DR/EC) 20 mg PO DAILY RF: 0 loratadine [Allergy Relief (loratadine)] 10 mg tablet 10 mg PO DAILY RF: 0 famotidine 20 mg tablet 20 mg PO BID RF: 0 Discharge Instructions Instructions: Acute Bronchitis (ED) Additional Instructions: At this time your chest x-ray is negative for evidence of pneumonia. Your Covid test has returned negative. I do feel that you have mild bronchitis. Please take the benzonoate pill to help with the cough. If your symptoms do not improve over the next 2 to 3 days you may be starting to develop pneumonia. Please take the doxycycline that as directed. If you notice any worsening of your symptoms, or any new symptoms such as vomiting, diarrhea, fever, chills, shortness of breath, chest pain, numbness, weakness, or fainting , please return immediately to the emergency department for reevaluation. Please follow up with your primary care provider as soon as possible for reassessment and reevaluation. As always, it was a pleasure participating in your medical care today. Referrals: Perla Martin [Primary Care Provider] - Medical Decision Making This is a 40-year-old male with a past medical history of paranoid schizophrenia who presents today for not feeling well. Patient is a notably diminished historian. He did not say much to nursing staff on initial triage, however upon my evaluation the patient, in addition to stating feeling well, also states she has had a cough, and intermittent chills. He denies any chest pain, shortness of breath, vomiting, or diarrhea. He does not add anything else to the history. He did have the Z[employer] Zan Covid vaccine. No other complaints at this time. No other modifying factors. Physical exam demonstrates clear lungs, no respiratory distress. Oxygenation is good at 95%. Patient does have mild tachycardia, but does state that he has not been drinking much. He is still urinating. Concern at this time is for Covid or community-acquired pneumonia. We will get a portable chest x-ray, Covid test, encourage p.o. fluids, monitor closely and reassess. 4:28 AM Patient's x-ray results have returned negative, Covid test is negative. Patient is feeling much better. Will give benzoate Perles for home use, as well as a prescription for doxycycline if the patient's symptoms continue and/or worsen. I do feel that he has clinical bronchitis, and the early start of clinical pneumonia at this time. Discussed red flags which to return. I have extensively reviewed the treatment plan and discharge instructions with the patient. I have addressed all patient concerns at this time. The patient was made aware of what symptoms to monitor for that would warrant a return to the emergency department. Discussed the plan with the patient, they demonstrate verbal understanding and agreement with our assessment and plan at this time. The documentation in this chart was dictated using [employer] dictation software. Please excuse any dictation errors. FINDINGS: Lungs: Hyperinflation as previously demonstrated. No dense parenchymal consolidation. Pleural spaces: Unremarkable. No pleural effusion. No pneumothorax. Heart/Mediastinum: Unremarkable. No cardiomegaly. Bones/joints: Unremarkable. IMPRESSION: No acute findings. Thank you for allowing us to participate in the care of your patient. Dictated and Authenticated by: Lyndon Multani DO 03/03/2021 4:05 AM Eastern Time ([place] & [place]) HPI General Date/Time Provider Initiated Documentation: 03/03/21 03:07. HPI Narrative: This is a 40-year-old male with a past medical history of paranoid schizophrenia who presents today for not feeling well. Patient is a notably diminished historian. He did not say much to nursing staff on initial triage, however upon my evaluation the patient, in addition to stating feeling well, also states she has had a cough, and intermittent chills. He denies any chest pain, shortness of breath, vomiting, or diarrhea. He does not add anything else to the history. He did have the Zan [employer] Zan Covid vaccine. No other complaints at this time. No other modifying factors. Related Data Home Medications Medication Instructions Recorded Confirmed Risperdal Consta 50 mg IM Q2W 07/29/19 03/03/21 risperidone 8 mg PO HS 07/29/19 03/03/21 budesonide-formoterol [Symbicort] 1 inh INHALATION BID 06/23/20 03/03/21 loratadine [Allergy Relief 10 mg PO DAILY 08/14/20 03/03/21 (loratadine)] omeprazole 20 mg PO DAILY 08/14/20 03/03/21 famotidine 20 mg PO BID 02/27/21 03/03/21 benzonatate 100 mg PO TID #30 cap 03/03/21 doxycycline hyclate 100 mg PO BID 7 Days #14 tab 03/03/21 Previous Rx's Medication Instructions Recorded benzonatate 100 mg PO TID #30 cap 03/03/21 doxycycline hyclate 100 mg PO BID 7 Days #14 tab 03/03/21 Allergies Allergy/AdvReac Type Severity Reaction Status Date / Time Penicillins Allergy Other (See Unverified 03/03/21 03:26 Comment) General SCARLETT: 2 Review of Systems All systems reviewed & are unremarkable except as noted in HPI and below PFSH Medical History 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) Gastroesophageal reflux disease Left ACL tear Mental disorder Poorly defined Paranoid schizophrenia Surgical History EGD - IV Sedation (06/14/16) Repair of inguinal hernia S/P laparoscopic appendectomy (~08/05/18) Social History Smoking/Tobacco Use Status: Current every day Tobacco Type: cigarettes Years smoked: 28 Smoking risk assessment performed?: Yes Alcohol Intake: never Drug use: Never Substance use type: does not use Current gender identity: male Do you feel safe at home: Yes Do you feel safe in your relationship?: Yes Exam Narrative Exam Narrative: 1.Const: Well-nourished, Well-developed, appearing stated age 2.Eyes: PERRL, no conjunctival injection, and symmetrical lids. 3.ENT: Atraumatic external nose and ears. Moist MM. Neck: Symmetric, trachea midline, No thyromegaly. 4.CVS: +S1/S2, No murmurs or gallops. Peripheral pulses 2+ and equal in all extremities. Brisk capillary refill in all extremities. 5.RESP: Unlabored respiratory effort. Clear to auscultation bilaterally. No wheezes rales or rhonchi 6.GI: Soft, Nontender/Nondistended, No hepatosplenomegaly. No guarding or rebound. 7.MSK: Normocephalic/Atraumatic, Extremities w/o deformity or ttp No cyanosis or clubbing, Normal movement of all extremities 8.Skin: Warm, Dry. No rashes or lesions. 9.Neuro: nutrition services aide II-XII grossly intact. Sensation grossly intact, no focal neurologic deficits. 10.Psych: (AAO) x3. Muted affect
[2021-03-03 03:21] LABS: Source Nasal/Nares
--- NOTE | 2021-03-03 04:06 | DI.VRAD_ITS ---
PROCEDURE INFORMATION: Exam: XR Chest Exam date and time: 03/03/2021 3:15 AM Age: 40 years old Clinical indication: Patient HX: Cough, R/O pneumonia TECHNIQUE: Imaging protocol: XR of the chest. Views: 1 view. COMPARISON: CR XR CHEST 2V PA LATERAL 10/21/2020 5:04 PM FINDINGS: Lungs: Hyperinflation as previously demonstrated. No dense parenchymal consolidation. Pleural spaces: Unremarkable. No pleural effusion. No pneumothorax. Heart/Mediastinum: Unremarkable. No cardiomegaly. Bones/joints: Unremarkable. IMPRESSION: No acute findings. Dictated and Authenticated by: Lyndon Multani MD. Ordering:KHADRA Manuel MD
[2021-03-03 04:11] LABS: COVID-19 PCR Negative (Negative)
[2021-03-03 04:27] VITALS: BP 143/97; PULSE 84; RESP 16; O2SAT 95
== END 2021-03-03 04:43 | disposition home or self-care (01) ==
PROVIDERS: Emergency Provider Student in an Organized Health Care Education/Training Program; PCP Nurse Practitioner Family
DX: J20.9 Acute bronchitis, unspecified (principal); R05.1 Acute cough; Z20.822 Contact with and (suspected) exposure to COVID-19
CPT/HCPCS: 87635; 99283; 71045

== ENCOUNTER 2021-03-04 01:13 | Emergency (ER) | payer MEDICARE, MEDICAID, SELFPAY ==
[2021-03-04 01:18] VITALS: BP 138/77; PULSE 100; RESP 18; TEMP 36; O2SAT 96
--- NOTE | 2021-03-04 01:30 | ED.GENADUL_ITS ---
Discharge Plan Disposition Patient Disposition: HOME Condition: Good Discharge Details Clinical Impression: Medication refill Primary Care Provider: Perla Martin ED Provider: Kaleb Miller Home Meds and New Rx's Prescriptions: Continued budesonide-formoterol [Symbicort] 160-4.5 mcg/actuation HFA aerosol inhaler 1 inh INHALATION BID RF: 0 risperidone 4 mg tablet 8 mg PO HS RF: 0 Risperdal Consta 50 mg/2 mL suspension,extended rel recon 50 mg IM Q2W RF: 0 omeprazole 20 mg capsule,delayed release(DR/EC) 20 mg PO DAILY RF: 0 loratadine [Allergy Relief (loratadine)] 10 mg tablet 10 mg PO DAILY RF: 0 Discharge Instructions Additional Instructions: You're being sent home with a single pill of your omeprazole and imaging will fill of the risperidone. Please take this at home on a scheduled time. Please contact your primary care provider tomorrow morning for the rest of your medications refilled. Referrals: Perla Martin [Primary Care Provider] - Medical Decision Making Patient is a 40-year-old male presents for refills of his medications. It is 1:31 AM, patient states that he has come here today to get a refill of his meds as he took a level still for his meds yesterday. He has not followed up with his primary care provider. He denies any other complaints. He states he is here solely for medication refill. Patient will be given a single tablet of his omeprazole, and 4 mg of risperidone. Recommend he follow-up closely with his primary care provider tomorrow for long-term medication refill. Discussed red flags which to return. I have extensively reviewed the treatment plan and discharge instructions with the patient. I have addressed all patient concerns at this time. The patient was made aware of what symptoms to monitor for that would warrant a return to the emergency department. Discussed the plan with the patient, they demonstrate verbal understanding and agreement with our assessment and plan at this time. The documentation in this chart was dictated using [employer] dictation software. Please excuse any dictation errors. HPI General Date/Time Provider Initiated Documentation: 03/04/21 01:17 . HPI Narrative: Patient is a 40-year-old male presents for refills of his medications. It is 1:31 AM, patient states that he has come here today to get a refill of his meds as he took a level still for his meds yesterday. He has not followed up with his primary care provider. He denies any other complaints. He states he is here solely for medication refill. Related Data Home Medications Medication Instructions Recorded Confirmed Risperdal Consta 50 mg IM Q2W 07/29/19 03/04/21 risperidone 8 mg PO HS 07/29/19 03/04/21 budesonide-formoterol [Symbicort] 1 inh INHALATION BID 06/23/20 03/04/21 loratadine [Allergy Relief 10 mg PO DAILY 08/14/20 03/04/21 (loratadine)] omeprazole 20 mg PO DAILY 08/14/20 03/04/21 Allergies Allergy/AdvReac Type Severity Reaction Status Date / Time Penicillins Allergy Other (See Unverified 03/04/21 01:25 Comment) General Stated Complaint: [employer] SCARLETT: 3 Review of Systems All systems reviewed & are unremarkable except as noted in HPI and below PFSH Medical History 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) Gastroesophageal reflux disease Left ACL tear Mental disorder Poorly defined Paranoid schizophrenia Surgical History EGD - IV Sedation (06/14/16) Repair of inguinal hernia S/P laparoscopic appendectomy (~08/05/18) Social History Smoking/Tobacco Use Status: Current every day Tobacco Type: cigarettes Years smoked: 28 Smoking risk assessment performed?: Yes Alcohol Intake: never Drug use: Never Substance use type: does not use Current gender identity: male Do you feel safe at home: Yes Do you feel safe in your relationship?: Yes Exam Narrative Exam Narrative: 1.Const: Well-nourished, Well-developed, appearing stated age 2.Eyes: PERRL, no conjunctival injection, and symmetrical lids. 3.ENT: Atraumatic external nose and ears. Moist MM. Neck: Symmetric, trachea midline, No thyromegaly. 4.CVS: +S1/S2, No murmurs or gallops. Peripheral pulses 2+ and equal in all extremities. Brisk capillary refill in all extremities. 5.RESP: Unlabored respiratory effort. Clear to auscultation bilaterally. No wheezes rales or rhonchi 6.GI: Soft, Nontender/Nondistended, No hepatosplenomegaly. No guarding or rebound. 7.MSK: Normocephalic/Atraumatic, Extremities w/o deformity or ttp No cyanosis or clubbing, Normal movement of all extremities 8.Skin: Warm, Dry. No rashes or lesions. 9.Neuro: physical instructor II-XII grossly intact. Sensation grossly intact, no focal neurologic deficits. 10.Psych: (AAO) x3. Appropriate mood and affect Course Vital Signs Vital signs: Vital Signs Temperature 36.0 C L 03/04/21 01:18 Pulse 100 H 03/04/21 01:18 Respiratory Rate 18 03/04/21 01:18 Blood Pressure 138/77 03/04/21 01:18 Pulse Oximetry 96 03/04/21 01:18 Temperature 36.0 C L 03/04/21 01:18 Temperature Source Skin 03/04/21 01:18 Pulse 100 H 03/04/21 01:18 Respiratory Rate 18 03/04/21 01:18 Respiratory Effort Non-Labored 03/04/21 01:29 Blood Pressure 138/77 03/04/21 01:18 Blood Pressure Position Supine 03/04/21 01:18 Pulse Oximetry 96 03/04/21 01:18 Oxygen Delivery Method Room Air 03/04/21 01:18 Oxygen Flow Rate 0 03/04/21 01:18 Pain Level 0 03/04/21 01:18
--- NOTE | 2021-03-04 01:44 | NUR.NOTE ---
Referral to Care Management to call patient's pcp [facility] to help get medication refills.Nursing Note:
[2021-03-04] MEDS: Omeprazole 20 MG CAPCR PO (01:50)
[2021-03-04] MEDS: risperiDONE 1 MG TAB 4 MG PO (01:51)
== END 2021-03-04 02:02 | disposition home or self-care (01) ==
LOC: ER 01:43
PROVIDERS: Emergency Provider Student in an Organized Health Care Education/Training Program; PCP Nurse Practitioner Family
DX: K21.9 Gastro-esophageal reflux disease without esophagitis (principal); F20.0 Paranoid schizophrenia
CPT/HCPCS: 99283

== ENCOUNTER 2021-03-05 13:54 | Emergency (ER) | payer MEDICARE, MEDICAID, SELFPAY ==
--- NOTE | 2021-03-05 14:19 | W.ED.GENAD ---
Discharge Plan Disposition Patient Disposition: LEFT WITHOUT BEING SEEN Discharge Details Chief Complaint: Headache Primary Care Provider: Perla Martin ED Provider: Juan Freeman Home Meds and New Rx's Prescriptions: No Action budesonide-formoterol [Symbicort] 160-4.5 mcg/actuation HFA aerosol inhaler 1 inh INHALATION BID RF: 0 risperidone 4 mg tablet 8 mg PO HS RF: 0 Risperdal Consta 50 mg/2 mL suspension,extended rel recon 50 mg IM Q2W RF: 0 omeprazole 20 mg capsule,delayed release(DR/EC) 20 mg PO DAILY RF: 0 loratadine [Allergy Relief (loratadine)] 10 mg tablet 10 mg PO DAILY RF: 0 Medical Decision Making <Kaleb Miller DO - Last Filed: 03/05/21 14:25> This is a 40-year-old male with a past medical history of Dillard's esophagus, paranoid schizophrenia, GERD, who presents today for evaluation of having a brain tumor. Patient has been to the emergency department 3 times in the last 5 days. Each time for various different issues. During those visits he made it clear that he had not been taking any of his medication at home, including his Risperdal injection or his risperidone pill. On the last visit I had with him just [address] a referral with our care management team to help get him his medications, and the follow-up that he needs on an outpatient basis. Today he states that he has developed a mild headache and he needs to be checked for a brain tumor. Aside for the headache he denies any other symptoms of weight loss, dizziness, imbalance, falls, or trauma. He says the headache came on this morning he is concerned that this may be fast growing brain tumor. The pain is described as achy and only present in the front of his head. He denies any fever or chills. He denies any homicidal or suicidal ideations. He denies any auditory or visual hallucinations. No other complaints at this time. Physical exam demonstrates no focal neurologic deficits, no meningeal signs. He denies any history of familial brain cancer. We will get a CT scan to rule out mass. I feel that perhaps the patient also demonstrates issues of the continued need for follow-up in outpatient management as well as close-knit administrator social welfare. We will again contact case management to make sure to confirm he has been getting his medications. We will also contact mental health to make sure that he has close follow-up with his counselors and biomedical equipment support specialist on an outpatient basis. <Juan Freeman MD - Last Filed: 03/05/21 15:31> Received signout from Dr. Miller. Please see his note regarding details of the initial presentation, exam and plan of care. Patient CT scan of the head unremarkable. Following the imaging study, I went to discuss the findings with the patient and he had eloped from the emergency department. He has been closely followed by outpatient podiatry. He will need to resume his outpatient medications. HPI <Kaleb Miller DO - Last Filed: 03/05/21 14:25> General Date/Time Provider Initiated Documentation: 03/05/21 13:58. HPI Narrative: This is a 40-year-old male with a past medical history of Dillard's esophagus, paranoid schizophrenia, GERD, who presents today for evaluation of having a brain tumor. Patient has been to the emergency department 3 times in the last 5 days. Each time for various different issues. During those visits he made it clear that he had not been taking any of his medication at home, including his Risperdal injection or his risperidone pill. On the last visit I had with him just 48 [address] place a referral with our care management team to help get him his medications, and the follow-up that he needs on an outpatient basis. Today he states that he has developed a mild headache and he needs to be checked for a brain tumor. Aside for the headache he denies any other symptoms of weight loss, dizziness, imbalance, falls, or trauma. He says the headache came on this morning he is concerned that this may be fast growing brain tumor. The pain is described as achy and only present in the front of his head. He denies any fever or chills. He denies any homicidal or suicidal ideations. He denies any auditory or visual hallucinations. No other complaints at this time. Related Data Home Medications Medication Instructions Recorded Confirmed Risperdal Consta 50 mg IM Q2W 07/29/19 03/05/21 risperidone 8 mg PO HS 07/29/19 03/05/21 budesonide-formoterol [Symbicort] 1 inh INHALATION BID 06/23/20 03/05/21 loratadine [Allergy Relief 10 mg PO DAILY 08/14/20 03/05/21 (loratadine)] omeprazole 20 mg PO DAILY 08/14/20 03/05/21 Allergies Allergy/AdvReac Type Severity Reaction Status Date / Time Penicillins Allergy Other (See Unverified 03/05/21 14:36 Comment) General SCARLETT: 3 Review of Systems <Kaleb Milelr DO - Last Filed: 03/05/21 14:25> All systems reviewed & are unremarkable except as noted in HPI and below PFSH <Kaleb Miller DO - Last Filed: 03/05/21 14:25> Medical History 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) Gastroesophageal reflux disease Left ACL tear Mental disorder Poorly defined Paranoid schizophrenia Surgical History EGD - IV Sedation (06/14/16) Repair of inguinal hernia S/P laparoscopic appendectomy (~08/05/18) Social History Smoking/Tobacco Use Status: Current every day Tobacco Type: cigarettes Years smoked: 28 Smoking risk assessment performed?: Yes Alcohol Intake: never Drug use: Never Substance use type: does not use Current gender identity: male Do you feel safe at home: Yes Do you feel safe in your relationship?: Yes Exam <DO Vijay Gaming Last Filed: 03/05/21 14:25> Narrative Exam Narrative: 1.Const: Well-nourished, Well-developed, appearing stated age 2.Eyes: PERRL, no conjunctival injection, and symmetrical lids. 3.ENT: Atraumatic external nose and ears. Moist MM. Neck: Symmetric, trachea midline, No thyromegaly. Patient demonstrates good movement of cervical neck. There is no nuchal rigidity, no nuchal tenderness. Patient is able to flex the neck without any difficulty or significant pain. Negative Kernig's and Brudzinski sign. 4.CVS: +S1/S2, No murmurs or gallops. Peripheral pulses 2+ and equal in all extremities. Brisk capillary refill in all extremities. 5.RESP: Unlabored respiratory effort. Clear to auscultation bilaterally. No wheezes rales or rhonchi 6.GI: Soft, Nontender/Nondistended, No hepatosplenomegaly. No guarding or rebound. 7.MSK: Normocephalic/Atraumatic, Extremities w/o deformity or ttp No cyanosis or clubbing, Normal movement of all extremities 8.Skin: Warm, Dry. No rashes or lesions. 9.Neuro: equip maint eng II-XII grossly intact. Sensation grossly intact, no focal neurologic deficits. All 6 cardinal planes of vision are fully intact. No evidence of rotatory or vertical nystagmus. The patient demonstrated a normal [id number], good dexterity. There was no evidence of dysdiadochokinesia. Patient was able to ambulate without difficulty. There was no wide-based gait. Romberg testing was normal. [id number] testing was normal. Sensation was intact bilaterally as well as muscle strength bilaterally for all extremities. Patient was able to verbalize butter cup with no slurring, or miss pronunciation. 10.Psych: (AAO) x3. Appropriate mood and affect Sign Out <Kaleb Miller DO - Last Filed: 03/05/21 14:25> Sign Out Data: Sign Out Comment: Follow-up on CT scan, coordination of care, and potential Risperdal injection need Last updated by Kaleb Miller DO at 03/05/21 14:54
[2021-03-05 14:32] VITALS: BP 140/89; PULSE 92; RESP 16; TEMP 36.7; O2SAT 99
[2021-03-05] MEDS: Acetaminophen 500 MG TAB 1000 MG PO (14:35)
[2021-03-05] MEDS: Ibuprofen 800 MG TAB PO (14:35)
--- NOTE | 2021-03-05 14:55 | DI.CT_ITS ---
Exam(s) CT HEAD WO EXAM: CT HEAD WO CLINICAL HISTORY: headache, patient very concerned he has tumor. TECHNIQUE: Imaging Protocol: Axial computed tomography images with coronal and sagittal reformatted images were created and reviewed COMPARISON: CT CT HEAD WO from 02/27/2021 FINDINGS: The ventricular system is normal in appearance. No evidence of acute intracranial hemorrhage, mass effect, or midline shift. The orbital structures are unremarkable. The temporal bone structures appear intact. Calvarium: Normal. Visualized Paranasal sinuses/Mastoids: Clear. IMPRESSION: Normal cranial CT. RADIATION DOSE DELIVERED: 666.01mGy.cm Total DLP 666.01mGy.cm Total DLP CTDIvol DATA REPOSITORY: All CT scans at this facility are submitted to the National Radiology Data Registry (NRDR) Dose Index Registry (DIR) with the [employer] (ACR). RADIATION OPTIMIZATION: All CT scans at this facility use at least one of these dose optimization te chniques: automated exposure control; mA and/or kV adjustment per patient size (includes targeted exa ms where dose is matched to clinical indication); or iterative reconstruction.
--- NOTE | 2021-03-05 15:31 | NUR.NOTE ---
patient eloped from waiting room
--- NOTE | 2021-03-05 15:48 | PDOC.ERCMPRO ---
- If Service Date Differs Date of service: 03/05/21 Time of Service: 15:48 Care Management Progress Note Jonny presents in the ED due to a headache and fears of having a brain tumor. At the request of ED provider, CM contacts [facility] and speaks with Roxanne Small of the [employer] to confirm whether Jonny has been taking his medication. Roxanne reports that Jonny last got a Risperdal 50 mg IM Q2W injection on 12/18/2020. He subsequently stopped taking all of his meds, resulting in his decompensation and hospitalization at [facility] ([facility]). Approximately 2 weeks ago, Jonny was discharged from [facility] back into the community. Roxanne states the discharge summary obtained from [facility] only lists Risperidone 8 mg PO at H.S., so it is unclear whether he was given I.M. Risperdal while hospitalized. Since his return home, Jonny has continued to refuse medication and no showed for an appointment with his med provider (Radha Enamorado) at [facility] on 02/24/21.
== END 2021-03-05 15:30 | disposition left before discharge ==
PROVIDERS: Emergency Provider Emergency Medicine; PCP Nurse Practitioner Family
DX: R51.9 Headache, unspecified (principal); F20.0 Paranoid schizophrenia; T43.506A Underdosing of unspecified antipsychotics and neuroleptics, initial encounter; Z91.128 Patient's intentional underdosing of medication regimen for other reason; Z53.29 Procedure and treatment not carried out because of patient's decision for other reasons
CPT/HCPCS: 99284; 70450; 99283

== ENCOUNTER 2021-03-07 17:15 | Emergency (ER) | payer MEDICARE, MEDICAID, SELFPAY ==
[2021-03-07 17:21] VITALS: BP 119/77; PULSE 103; RESP 16; TEMP 36.5; O2SAT 96
[2021-03-07 19:21] LABS: Abs Immature Grans 0.02 10^3/uL (0.0-0.06); Absolute Basophil Count 0.06 10^3/uL (0.0-0.2); Absolute Eosinophil Count 0.07 10^3/uL (0.0-0.7); Absolute Monocyte Count 0.82 10^3/uL (0.1-0.8); Basophils % 0.5; Eosinophils % 0.6; HCT 39.1 % (40.0-50.0); HGB 12.7 g/dL (13.5-17.5); Immature Grans % 0.2; Lymphocytes % 23.5; MCH 30.6 pg (27.0-33.0); MCHC 32.5 % (32.0-36.0); MCV 94.2 fL (80-95); Monocytes % 7.1; Neutrophils % 68.1; Nucleated RBC 0 %; Platelet Count 278 10^3/uL (130-400); RBC 4.15 10^6/uL (4.36-5.78); RDW 12.7 % (11.8-14.1); WBC 11.48 10^3/uL (4.4-10.8)
[2021-03-07 19:22] LABS: Absolute Neutrophil Count 7.82 10^3/uL (1.2-6.7)
--- NOTE | 2021-03-07 19:30 | DI.RAD_ITS ---
Exam(s) XR TIB/FIB RT EXAM: XR TIB/FIB RT CLINICAL HISTORY: pain, distal. TECHNIQUE: 2D digital imaging was performed. COMPARISON: No exams were available for comparison FINDINGS: There is mild soft tissue swelling over the lateral aspect of the ankle but no obvious lateral malleo iris fracture. No widening of the mortise. There does appear to be some degenerative change in the l ateral compartment of the knee. Tibia and fibula otherwise unremarkable. IMPRESSION: DATA REPOSITORY: RADIATION DOSE DELIVERED:
[2021-03-07 19:40] LABS: Albumin 3.7 g/dL (3.4-5.0); Alkaline Phosphatase 90 U/L (46-116); Anion Gap 8.7 mmol/L (3-11); BUN 8 mg/dL (7-18); Bilirubin, Total 0.9 mg/dL (0.2-1.0); CO2 30.3 mmol/L (21.0-32.0); CREATININE 1.1 mg/dL (0.70-1.30); Calcium 8.9 mg/dL (8.5-10.1); Chloride 105 mmol/L (98-107); Glucose 125 mg/dL (74-106); Potassium 3.8 mmol/L (3.5-5.1); Sodium 144 mmol/L (136-145); Total Protein 7.5 g/dL (6.4-8.2)
[2021-03-07 19:41] LABS: ALT 21 U/L (16-63); AST 23 U/L (15-37); ETHANOL BLOOD 4.7 mg/dL (<10); TSH (W/Ref FT4) 1.05 uIU/mL (0.36-3.74)
[2021-03-07 20:04] LABS: Acetaminophen < 2 ug/mL (10-30); Salicylate < 2.8 mg/dL (<2.8)
[2021-03-07 20:31] LABS: Source Nasal/Nares
[2021-03-07] MEDS: LORazepam 1 MG TAB PO (20:34)
[2021-03-07] MEDS: risperiDONE 1 MG TAB 8 MG PO (20:34)
--- NOTE | 2021-03-07 20:37 | DI.VRAD_ITS ---
PROCEDURE INFORMATION: Exam: XR Right Tibia and Fibula Exam date and time: 03/07/2021 7:40 PM Age: 40 years old Clinical indication: Other: Pain, distal TECHNIQUE: Imaging protocol: XR Right tibia and fibula. Views: 2 views. COMPARISON: No relevant prior studies available. FINDINGS: Bones/joints: Negative for fracture in the tibia or fibula. Moderate narrowing noted in the knee. The tibia is subluxed, lateral relative to the femur. Soft tissues: Soft tissue swelling is noted in the anterior distal calf. No evidence of joint effusion at the ankle. IMPRESSION: No acute osseous abnormality. If symptoms persist, follow-up imaging advised. Dictated and Authenticated by: Leoncio Traore MD. Ordering:KARYN Judge MD
[2021-03-07 21:21] LABS: COVID-19 PCR Negative (Negative)
--- NOTE | 2021-03-07 23:11 | ED.GENADUL_ITS ---
Discharge Plan Disposition Patient Disposition: [facility] Condition: Stable Discharge Details Clinical Impression: Paranoid schizophrenia Primary Care Provider: Perla Martin ED Provider: Juan Freeman Home Meds and New Rx's Prescriptions: No Action budesonide-formoterol [Symbicort] 160-4.5 mcg/actuation HFA aerosol inhaler 1 inh INHALATION BID RF: 0 risperidone 4 mg tablet 4 mg PO BID RF: 0 Risperdal Consta 50 mg/2 mL suspension,extended rel recon 50 mg IM Q2W RF: 0 omeprazole 20 mg capsule,delayed release(DR/EC) 20 mg PO DAILY RF: 0 loratadine [Allergy Relief (loratadine)] 10 mg tablet 10 mg PO DAILY RF: 0 Medical Decision Making <JOSÉ MIGUEL Grant - Last Filed: 03/09/21 16:26> Patient is quiet, paranoid, he is willing to take his Risperdal, he was given a milligram dose of 1 mg of Ativan, he has been cooperative throughout this evaluation He denies any antibiotic for CT denies any drug use or alcohol consumption He denies any suicidal or homicidal ideation. He is aware that his mental health worker would like him to be hospitalized at this time he is agreeable today I spoke with MADDY Jo and she states that patient is to be voluntary, pager wh en he is medically cleared, patient is medically cleared from my perspective but still pending urine drug screen at this time, his diagnostic labs are reassuring He has been sleeping throughout this encounter Care was transferred to Dr. Miller at 2330 pending tox screen and placement as a voluntary psychiatric admission report Medical Records Medical records reviewed: Yes I reviewed the patient's medical records. Lab Data Lab results reviewed: Yes I reviewed the patient's lab results. <Grecia Ruth DO - Last Filed: 03/09/21 19:32> 0800 --please see previous providers note for initial presentation, exam, plan, and course. Case endorsed to continue to monitor while awaiting placement 0930 --patient becoming restless, walking to the doorway, raising his voice at times. Able to be redirected. Consult to Dr. Lucía hunter for medication recommendations. He refused his Risperdal earlier yesterday but did take it last night. Discussed with nursing steamfitter supervisor and due to patient's history of violence, will hold in the ED at this time. There are also no beds available upstairs. 1030 --patient becoming more aggressive. A dose of Ativan oral ordered. Patient swearing at staff and raising his voice. Noted to be attempting to flip stretcher. He was able to be redirected and took the medication. 1130 --patient refusing to speak with Deysi from [facility] as well as Dr. Castrejon. 1420 --patient refusing to speak with staff from [facility]. 1430 --patient refusing to speak with Jackelyn from [facility]. Will complete EE as pt is not acting voluntary or willing to cooperative with plan. [facility] and [facility] have noted that pt has been responding to internal stimuli. 1999 --case endorsed to Dr. Miller to continue to monitor overnight while awaiting placement. Medical Records Medical records reviewed: Yes I reviewed the patient's medical records. Lab Data Lab results reviewed: Yes I reviewed the patient's lab results. Labs: 03/08/21 09:15 Urine - Reflex from Ua Urine Culture - Pending Laboratory Tests Range/Units 03/07/21 03/07/21 03/07/21 19:10 19:10 19:10 WBC (4.4-10.8) 10^3/uL 11.48 H RBC (4.36-5.78) 10^6/uL 4.15 L Hgb (13.5-17.5) g/dL 12.7 L Hct (40.0-50.0) % 39.1 L MCV (80-95) fL 94.2 MCH (27.0-33.0) pg 30.6 MCHC (32.0-36.0) % 32.5 RDW (11.8-14.1) % 12.7 Plt Count (130-400) 10^3/uL 278 MPV (8.0-11.0) fL 9.0 Immature Gran % 0.2 Neutrophils % 68.1 Lymphocytes % 23.5 Monocytes % 7.1 Eosinophils % 0.6 Basophils % 0.5 Nucleated RBC % % 0 Absolute Neutrophils (1.2-6.7) 10^3/uL 7.82 H Absolute Lymphocytes (1.2-3.4) 10^3/uL 2.70 Absolute Monocytes (0.1-0.8) 10^3/uL 0.82 H Absolute Eosinophils (0.0-0.7) 10^3/uL 0.07 Absolute Basophils (0.0-0.2) 10^3/uL 0.06 Sodium (136-145) mmol/L 144 Potassium (3.5-5.1) mmol/L 3.8 Chloride (98-107) mmol/L 105 Carbon Dioxide (21.0-32.0) mmol/L 30.3 Anion Gap (3-11) mmol/L 8.7 BUN (7-18) mg/dL 8 Creatinine (0.70-1.30) mg/dL 1.1 Estimated GFR/1.73 m2 (mL/min/1.73m2) >= 60.00 Glucose (74-106) mg/dL 125 H Calcium (8.5-10.1) mg/dL 8.9 Total Bilirubin (0.2-1.0) mg/dL 0.9 AST (15-37) U/L 23 ALT (16-63) U/L 21 Alkaline Phosphatase (46-116) U/L 90 Total Protein (6.4-8.2) g/dL 7.5 Albumin (3.4-5.0) g/dL 3.7 TSH (0.36-3.74) uIU/mL 1.05 Urine Color (Yellow) Urine Clarity (Clear) Urine pH (5-8) Ur Specific [place] (1.005-1.025) Urine Protein (Negative) mg/dL Urine Ketones (Negative) mg/dL Urine Blood (Negative) Urine Nitrite (Negative) Urine Bilirubin (Negative) Urine Urobilinogen (Up TO 0.2) EU/dL Ur Leukocyte Esterase (Negative) Urine RBC (0-2) HPF Urine WBC (0-5) HPF Ur Epithelial Cells (Negative) HPF Urine Crystals (Negative) HPF Urine Bacteria (Negative) HPF Urine Casts (Negative) LPF Urine Mucus (Negative) Ur Culture Indicated? Urine Glucose (Negative) mg/dL Salicylates (<2.8) mg/dL < 2.8 Urine Opiates Screen (Negative) Urine Methadone Screen (Negative) Acetaminophen (10-30) ug/mL < 2 Ur Barbiturates Screen (Negative) Ur Tricyclics Screen (Negative) Ur Amphetamines Screen (Negative) U Benzodiazepines Scrn (Negative) Urine Cocaine Screen (Negative) Ur THC Screen (Negative) Ethyl Alcohol (<10) mg/dL 4.7 COVID-19 Source SARS-CoV-2 (PCR) (Negative) Range/Units 03/07/21 03/08/21 03/08/21 20:20 09:15 09:15 WBC (4.4-10.8) 10^3/uL RBC (4.36-5.78) 10^6/uL Hgb (13.5-17.5) g/dL Hct (40.0-50.0) % MCV (80-95) fL MCH (27.0-33.0) pg MCHC (32.0-36.0) % RDW (11.8-14.1) % Plt Count (130-400) 10^3/uL MPV (8.0-11.0) fL Immature Gran % Neutrophils % Lymphocytes % Monocytes % Eosinophils % Basophils % Nucleated RBC % % Absolute Neutrophils (1.2-6.7) 10^3/uL Absolute Lymphocytes (1.2-3.4) 10^3/uL Absolute Monocytes (0.1-0.8) 10^3/uL Absolute Eosinophils (0.0-0.7) 10^3/uL Absolute Basophils (0.0-0.2) 10^3/uL Sodium (136-145) mmol/L Potassium (3.5-5.1) mmol/L Chloride (98-107) mmol/L Carbon Dioxide (21.0-32.0) mmol/L Anion Gap (3-11) mmol/L BUN (7-18) mg/dL Creatinine (0.70-1.30) mg/dL Estimated GFR/1.73 m2 (mL/min/1.73m2) Glucose (74-106) mg/dL Calcium (8.5-10.1) mg/dL Total Bilirubin (0.2-1.0) mg/dL AST (15-37) U/L ALT (16-63) U/L Alkaline Phosphatase (46-116) U/L Total Protein (6.4-8.2) g/dL Albumin (3.4-5.0) g/dL TSH (0.36-3.74) uIU/mL Urine Color (Yellow) Yellow Urine Clarity (Clear) Clear Urine pH (5-8) 6.0 Ur Specific Hollywood (1.005-1.025) >= 1.030 H Urine Protein (Negative) mg/dL Negative Urine Ketones (Negative) mg/dL 15 H Urine Blood (Negative) Negative Urine Nitrite (Negative) Negative Urine Bilirubin (Negative) Small H Urine Urobilinogen (Up TO 0.2) EU/dL 0.2 Ur Leukocyte Esterase (Negative) Trace Urine RBC (0-2) HPF 0-2 Urine WBC (0-5) HPF 10-20 H Ur Epithelial Cells (Negative) HPF Few Urine Crystals (Negative) HPF Negative Urine Bacteria (Negative) HPF Rare Urine Casts (Negative) LPF Negative Urine Mucus (Negative) Moderate Ur Culture Indicated? Yes Urine Glucose (Negative) mg/dL Negative Salicylates (<2.8) mg/dL Urine Opiates Screen (Negative) Negative Urine Methadone Screen (Negative) Negative Acetaminophen (10-30) ug/mL Ur Barbiturates Screen (Negative) Negative Ur Tricyclics Screen (Negative) Negative Ur Amphetamines Screen (Negative) Negative U Benzodiazepines Scrn (Negative) Negative Urine Cocaine Screen (Negative) Negative Ur THC Screen (Negative) Negative Ethyl Alcohol (<10) mg/dL COVID-19 Source Nasal/Nares SARS-CoV-2 (PCR) (Negative) Negative <Leoncio Miranda MD - Last Filed: 03/12/21 05:26> patient signed out to me and is now involuntary for paranoid schizophrenia, currently sleeping in no distress, will remain in the ED until bed placement found. 03/11 signed out to me and per Dr. Healy accepted at [facility] at 10am tomorrow. Pt without acute complaints now, laying in bed sleeping. Will continue to monitor notified by nursing that patient eloped, ran out of the buliding before he could be stopped. He was only gone for about 5 minutes and never left hospital grounds. He is back in the room and came back on his own accord, is sitting in his bed now. HE was advised he is supposed to leave today per sign out I received which he seemed relieved by. <Shiloh Healy MD - Last Filed: 03/10/21 12:04> note for clinical care date 03/08: Pt intermittently refusing to speak with mental health, reassessed by different mental health worker. Pt agreeable to inpatient placement. Pt requesting his biweekly IM risperdal, states he has not had any in months. This was verifed with mental health. Per pharmacy, restart dose 25 mg IM. Pt accepted IM risperdal, refusing Po meds. Verbally combative at times but overall cooperating with care. Pt signed out at time of shift change with inpt placement pending. <Karl Healy MD - Last Filed: 03/12/21 15:43> Care was signed out by Dr. Miller with plan to follow-up on placement. Patient slept most of the day. He was recently and continues to exhibit psychosis. He did not exhibit violent behavior. I did review the patient's urinalysis from a few days ago, urine culture is not consistent with urinary tract infection but given the leukourea I am concerned about potential for GC/chlamydia. Urine test pending. I spoke with Dr. Andrés Chu, on-call physician Maude mancia, he will accept the patient in transfer but notes bed not available till tomorrow a.m. HPI <JOSÉ MIGUEL Grant - Last Filed: 03/09/21 16:26> General Mode of arrival: ambulatory . Date/Time Provider Initiated Documentation: 03/07/21 17:47 . Limitations to Documentation: no limitations . Information obtained by: patient . HPI Narrative: 40-year-old gentleman with history of bipolar and schizophrenia presents with reports of numerous episodes of agitation and aggressive behavior, arrested by police on several occasions. There is concerned that the patient noncompliant with his psychiatric medications. He reportedly was assessed by COMPUTER SYSTEMS ARCHITECT prior to presentation today and they would like to pace patient on voluntary hospitalization at this time. Should he attempt to leave, he should be reassessed reportedly. Patient denies any illicit drug use. He denies any chest pain or shortness of breath. He is having some pain to his navarro. He states that he cannot tell me why he is having this pain . He would not tell me whether or not there has been any trauma. He tells me he has not taking his medications. He denies auditory or visual hallucinations. He denies suicidal or homicidal ideation. He denies any additional complaints time. When asked what happened today he states the police brought me here . When asked why he is not compliant with his medication, states I think I have autism and status schizophrenia. Related Data Home Medications Medication Instructions Recorded Confirmed Risperdal Consta 50 mg IM Q2W 07/29/19 03/07/21 risperidone 4 mg PO BID 07/29/19 03/10/21 budesonide-formoterol [Symbicort] 1 inh INHALATION BID 06/23/20 03/07/21 loratadine [Allergy Relief 10 mg PO DAILY 08/14/20 03/07/21 (loratadine)] omeprazole 20 mg PO DAILY 08/14/20 03/07/21 Allergies Allergy/AdvReac Type Severity Reaction Status Date / Time Penicillins Allergy Other (See Unverified 03/07/21 17:30 Comment) General Stated Complaint: PsychEval SCARLETT: 2 Review of Systems <JOSÉ MIGUEL Grant - Last Filed: 03/09/21 16:26> All systems reviewed & are unremarkable except as noted in HPI and below PFSH <JOSÉ MIGUEL Grant - Last Filed: 03/09/21 16:26> Active Problem List Leukocytes in urine (Acute) Headache (Acute) Bronchitis (Acute) Medication refill (Acute) Psychosis (Acute) No-show for appointment (Acute) Chest pain (Acute) Mood disorder (Acute) Acute lateral meniscus tear of left knee (Acute) Acute traumatic internal derangement of left knee (Acute 08/14/20) 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) Closed fracture nasal bone (Acute) Bilateral groin pain (Acute) Spermatocele of epididymis (Acute) Effusion of knee (Acute) Leg pain (Acute) Constipation (Acute) Suicidal ideation (Acute) S/P laparoscopic appendectomy (Acute ~08/05/18) Acute appendicitis (Acute) Paranoid schizophrenia (Chronic) GERD (gastroesophageal reflux disease) (Chronic) Person awaiting admission to adequate facility elsewhere (Acute 05/27/14) Medical History Gastroesophageal reflux disease Left ACL tear Mental disorder Poorly defined Surgical History EGD - IV Sedation (06/14/16) Repair of inguinal hernia Social History Smoking/Tobacco Use Status: Current every day Tobacco Type: cigarettes Years smoked: 28 Smoking risk assessment performed?: Yes Alcohol Intake: never Drug use: Never Substance use type: does not use Current gender identity: male Do you feel safe at home: Yes Do you feel safe in your relationship?: Yes Exam <JOSÉ MIGUEL Grant - Last Filed: 03/09/21 16:26> Const General: cooperative and comfortable HENMT Head: normal to inspection and no palpable skull fracture Resp Effort & Inspection: normal respiratory effort Auscultation: clear to auscultation bilaterally Cardio Rate: regular rate Rhythm: regular rhythm Skin General skin exam: no rashes or lesions noted Neuro General: patient alert and patient oriented x3 Cranial Nerves: CN's II-XI intact bilaterally Gait: normal gait Motor: strength 5/5 throughout Sensory Exam: no sensory deficits noted Psych Appearance: grossly normal Speech and Movement: slowed movement Attitude: cooperative Thought Process: tangential Thought Content: hallucinations Insight: poor Judgment: poor Course <JOSÉ MIGUEL Grant - Last Filed: 03/09/21 16:26> Vital Signs Vital signs: Vital Signs Temperature 36.5 C 03/07/21 17:21 Pulse 103 H 03/07/21 17:21 Respiratory Rate 16 03/07/21 17:21 Blood Pressure 119/77 03/07/21 17:21 Pulse Oximetry 96 03/07/21 17:21 Temperature 36.5 C 03/07/21 17:21 Temperature Source Skin 03/07/21 17:21 Pulse 103 H 03/07/21 17:21 Respiratory Rate 16 03/07/21 17:21 Respiratory Effort Non-Labored 03/07/21 17:21 Blood Pressure 119/77 03/07/21 17:21 Blood Pressure Position Sitting 03/07/21 17:21 Pulse Oximetry 96 03/07/21 17:21 Oxygen Delivery Method Room Air 03/07/21 17:21 Oxygen Flow Rate 0 03/07/21 17:21 Pain Level 7 03/07/21 17:21 Lab/Test Results Lab/Test Results: Laboratory Tests Range/Units 03/07/21 03/07/21 03/07/21 19:10 19:10 19:10 WBC (4.4-10.8) 10^3/uL 11.48 H RBC (4.36-5.78) 10^6/uL 4.15 L Hgb (13.5-17.5) g/dL 12.7 L Hct (40.0-50.0) % 39.1 L MCV (80-95) fL 94.2 MCH (27.0-33.0) pg 30.6 MCHC (32.0-36.0) % 32.5 RDW (11.8-14.1) % 12.7 Plt Count (130-400) 10^3/uL 278 MPV (8.0-11.0) fL 9.0 Immature Gran % 0.2 Neutrophils % 68.1 Lymphocytes % 23.5 Monocytes % 7.1 Eosinophils % 0.6 Basophils % 0.5 Nucleated RBC % % 0 Absolute Neutrophils (1.2-6.7) 10^3/uL 7.82 H Absolute Lymphocytes (1.2-3.4) 10^3/uL 2.70 Absolute Monocytes (0.1-0.8) 10^3/uL 0.82 H Absolute Eosinophils (0.0-0.7) 10^3/uL 0.07 Absolute Basophils (0.0-0.2) 10^3/uL 0.06 Sodium (136-145) mmol/L 144 Potassium (3.5-5.1) mmol/L 3.8 Chloride (98-107) mmol/L 105 Carbon Dioxide (21.0-32.0) mmol/L 30.3 Anion Gap (3-11) mmol/L 8.7 BUN (7-18) mg/dL 8 Creatinine (0.70-1.30) mg/dL 1.1 Estimated GFR/1.73 m2 (mL/min/1.73m2) >= 60.00 Glucose (74-106) mg/dL 125 H Calcium (8.5-10.1) mg/dL 8.9 Total Bilirubin (0.2-1.0) mg/dL 0.9 AST (15-37) U/L 23 ALT (16-63) U/L 21 Alkaline Phosphatase (46-116) U/L 90 Total Protein (6.4-8.2) g/dL 7.5 Albumin (3.4-5.0) g/dL 3.7 TSH (0.36-3.74) uIU/mL 1.05 Salicylates (<2.8) mg/dL < 2.8 Acetaminophen (10-30) ug/mL < 2 Ethyl Alcohol (<10) mg/dL 4.7 COVID-19 Source SARS-CoV-2 (PCR) (Negative) Range/Units 03/07/21 20:20 WBC (4.4-10.8) 10^3/uL RBC (4.36-5.78) 10^6/uL Hgb (13.5-17.5) g/dL Hct (40.0-50.0) % MCV (80-95) fL MCH (27.0-33.0) pg MCHC (32.0-36.0) % RDW (11.8-14.1) % Plt Count (130-400) 10^3/uL MPV (8.0-11.0) fL Immature Gran % Neutrophils % Lymphocytes % Monocytes % Eosinophils % Basophils % Nucleated RBC % % Absolute Neutrophils (1.2-6.7) 10^3/uL Absolute Lymphocytes (1.2-3.4) 10^3/uL Absolute Monocytes (0.1-0.8) 10^3/uL Absolute Eosinophils (0.0-0.7) 10^3/uL Absolute Basophils (0.0-0.2) 10^3/uL Sodium (136-145) mmol/L Potassium (3.5-5.1) mmol/L Chloride (98-107) mmol/L Carbon Dioxide (21.0-32.0) mmol/L Anion Gap (3-11) mmol/L BUN (7-18) mg/dL Creatinine (0.70-1.30) mg/dL Estimated GFR/1.73 m2 (mL/min/1.73m2) Glucose (74-106) mg/dL Calcium (8.5-10.1) mg/dL Total Bilirubin (0.2-1.0) mg/dL AST (15-37) U/L ALT (16-63) U/L Alkaline Phosphatase (46-116) U/L Total Protein (6.4-8.2) g/dL Albumin (3.4-5.0) g/dL TSH (0.36-3.74) uIU/mL Salicylates (<2.8) mg/dL Acetaminophen (10-30) ug/mL Ethyl Alcohol (<10) mg/dL COVID-19 Source Nasal/Nares SARS-CoV-2 (PCR) (Negative) Negative Sign Out <JOSÉ MIGUEL Grant - Last Filed: 03/09/21 16:26> Sign Out Data: Sign Out Comment: Schizophrenia, acute paranoia, active hallucinations, voluntary status, pending urine tox screen and reassessment by COMPUTER SYSTEMS ARCHITECT Last updated by Nu Low PA at 03/07/21 23:38 Sign Out Comment: Stable throughout the night, pending reassessment by mental health. Last updated by Kaleb Miller DO at 03/08/21 08:14 Sign Out Comment: signed out pending placement. Pt is voluntary status, please call mental health for reassessment if Pt wishes to leave. Pt took IM risperdal, refusing PO meds. Last updated by Shiloh Heayl MD at 03/08/21 16:41 Sign Out Comment: received ativan for mild anxoety/agitation. Awaits disposition Last updated by Juan Freeman MD at 03/08/21 21:19 Sign Out Comment: Pt refused to speak with [facility] staff and Dr. Castrejon today. Pt now EE status. Awaiting second certificate and placement. Last updated by Grecia Ruth DO at 03/09/21 19:03 Sign Out Comment: Patient remained stable throughout the night. No complications. Currently involuntary. No changes. Last updated by Kaleb Miller DO at 03/10/21 00:09 Sign Out Comment: involuntary for paranoid schizophrenia, no issues during the shift awaiting placement Last updated by Leoncio Miranda MD at 03/10/21 08:01 Sign Out Comment: Pt cooperative. Involuntary for paranoid schizophrenia. Alma Delia iting placement. Last updated by Grecia Ruth DO at 03/10/21 23:22 Sign Out Comment: Patient cooperative throughout the night. No interventions needed. Patient awaiting placement. Patient here involuntarily for paranoid schizophrenia. Last updated by Kaleb Miller DO at 03/11/21 07:51 Sign Out Comment: Tentative [facility] a[facility] Last updated by Karl Healy MD at 03/11/21 19:52 Sign Out Comment: briefly eloped from the ED and returned by himself, no other issues, reportedly accepted at [facility] at 10am this morning Last updated by Leoncio Miranda MD at 03/12/21 05:27
[2021-03-08 09:34] LABS: Clarity Clear (Clear); Leukocyte Esterase Trace (Negative); Specific Gravity >= 1.030 (1.005-1.025)
[2021-03-08 09:35] LABS: Bilirubin Small (Negative); Blood Negative (Negative); Glucose Negative (Negative); Ketones 15 mg/dL (Negative); Nitrite Negative (Negative); Urobilinogen 0.2 EU/dL (Up TO 0.2)
[2021-03-08 09:41] LABS: Bacteria Rare HPF (Negative); C & S Indicated? Yes; Casts Negative LPF (Negative); Crystals Negative HPF (Negative); Epithelial Cells Few HPF (Negative); Mucus Moderate (Negative); RBC 0-2 HPF (0-2)
[2021-03-08 10:25] LABS: *AMPHETAMINES SCREEN URINE Negative (Negative); *BENZODIAZEPINES SCREEN URINE Negative (Negative); Cocaine Screen,Urine Negative (Negative); METHADONE URINE SCREEN Negative (Negative)
[2021-03-08 10:26] LABS: *BARBITURATES SCREEN URINE Negative (Negative); Cannabinoids THC Negative (Negative); OPIATES URINE SCREEN Negative (Negative); Tricyclic Antidepressants Negative (Negative)
--- NOTE | 2021-03-08 12:05 | PDOC.CMSAFED ---
- If Service Date Differs Date of service: 03/08/21 Time of Service: 12:05 Care Management Safety Plan Status: Voluntary - Reason for Wait Reason for Wait: Inpatient Admission VOLUNTARY FOR INPATIENT PSYCHIATRIC STABILIZATION. Patient is appropriate in all interactions since arriving at [facility]; Pt has demonstrated appropriate coping and communication skills, has articulated his or her needs and concerns and is fully engaged during staff interactions. A decentralized huddle is done at approximately 11:30 am with Clari, Nursing Bearing Maker, Andrew, Charge Nurse, YUNG Land, and PARAMJIT Wen, in attendance. Safety plan has been established with patient, and care team, to adhere to patient goals, identify restrictions based on behavioral status, address nutrition, and determine allowed personal belongings, tools for hygiene and personal care. Determine level of activity including ambulation, level of supervision, visitors, and determine privileges based on behaviors and level of engagement by pt. SAFETY PLAN: 1. Will remain on suicide precautions. In Paper Clothes 2. Will remain in room under direct supervision of one-on-one staff at all times provided by [employer], VICTOR M, EQUIPMENT OPERAT0R packaging machine supplies distributor. 3. May have paper cups, plates, finger foods as well as a cardboard spoon with which to eat meals. 4. Follow [facility] Management of the Admitted Behavioral Health Patient policy. 5. May shower at RN discretion. 6. No personal belongings 7. Visitors-No visitors at this time 8. Activities: Soft cart items, music tablet, coloring book, crayons, television if available, and other activities at RN discretion. 9. Bathroom privileges with escort while in the ED; may use bathroom in room without limitation on Med/Surg. 10. Phone: May use hospital phone at RN discretion. 11. Due to VOLUNTARY status, if patient wishes to leave [facility], staff will contact [facility] Crisis Screener ([phone]) and On-Call Community Associate ([phone]) as soon as possible. In the event of elopement, notify [facility] Police ([phone]). Patient is currently voluntarily at [facility] and seeking inpatient admission when a bed becomes available. [facility] Frontline Turpentine Distiller will continue seeking placement. Please contact the Retail Greeter Community Associate ([phone]) and [facility] Turpentine Distiller ([phone]) for any needed changes in the Safety Plan. Safety plan has been provided to interdepartmental care team.
--- NOTE | 2021-03-08 16:58 | CMPROGNOTE_ITS ---
- If Service Date Differs Date of service: 03/08/21 Time of Service: 16:58 Care Management Progress Note S/O: Jonny is lying in bed when CM comes to meet with him. He answers questions asked of him with I'm not talking about that. Jonny was evaluated by Roxanne of [facility] this morning and again by Yan Sterling of [facility] in the afternoon, as he would not engage with Roxanne in the morning. He continues to deny suicidal and homicidal ideation but remains delusional and paranoid. Jonny has a history of decompensating when not taking his medications as prescribed. A: Jonny is a 40-year-old male admitted to [facility] on 03/07/21 for psychosis. P: Referrals are faxed to [facility], [facility], and [facility] for review. Jonny will be reassessed daily by [facility] SHEET METAL WORKER HELPER Program and will remain at [facility] voluntarily while [facility] continues to seek placement for him. CM will continue to follow. - Status Status: Voluntary - Reason for Wait Reason for Wait: Inpatient Admission
--- NOTE | 2021-03-08 16:58 | PDOC.ERCMPRO ---
- If Service Date Differs Date of service: 03/08/21 Time of Service: 16:58 Care Management Progress Note S/O: Jonny is lying in bed when CM comes to meet with him. He answers questions asked of him with I'm not talking about that. Jonny was evaluated by Roxanne of [facility] this morning and again by Yan Sterling of [facility] in the afternoon, as he would not engage with Roxanne in the morning. He continues to deny suicidal and homicidal ideation but remains delusional and paranoid. Jonny has a history of decompensating when not taking his medications as prescribed. A: Jonny is a 40-year-old male admitted to [facility] on 03/07/21 for psychosis. P: Referrals are faxed to , [facility], and [facility] for review. Jonny will be reassessed daily by [facility] FACULTY CRIMINAL JUSTICE Program and will remain at [facility] voluntarily while [facility] continues to seek placement for him. CM will continue to follow. - Status Status: Voluntary - Reason for Wait Reason for Wait: Inpatient Admission
[2021-03-08] MEDS: LORazepam 1 MG TAB 2 MG PO (17:35)
[2021-03-08] MEDS: LORazepam 1 MG TAB PO (20:14)
[2021-03-08] MEDS: risperiDONE 1 MG TAB 8 MG PO (20:14)
--- NOTE | 2021-03-08 20:47 | NUR.NOTE ---
Nursing Note: Patient pacing in room and starting to hit gonsalez, attempted to redirect patient without success. MD notified and medications ordered and administered.
--- NOTE | 2021-03-09 08:41 | NUR.NOTE ---
Patient agitated asking to speak with his Sr. Payroll Manager Shiloh.
--- NOTE | 2021-03-09 09:33 | NUR.NOTE ---
Patient asking for nurse stating My ankle is broke and needs to be reset. Patient reassured that he had an xray and it is not broken.
[2021-03-09] MEDS: LORazepam 1 MG TAB 2 MG PO (11:12)
--- NOTE | 2021-03-09 11:34 | PDOC.CMSAFED ---
- If Service Date Differs Date of service: 03/09/21 Time of Service: 11:34 Care Management Safety Plan Status: Voluntary - Reason for Wait Reason for Wait: Inpatient Admission VOLUNTARY FOR INPATIENT PSYCHIATRIC STABILIZATION. Patient is appropriate in all interactions since arriving at [facility]; Pt has demonstrated appropriate coping and communication skills, has articulated his or her needs and concerns and is fully engaged during staff interactions. A huddle is held at approximately 11:[address] Ruth, ED Provider, Clari, Nursing Furnace Filler, Andrew, Charge Nurse, Ryann RN, Rafael, sap solutions architect, and PARAMJIT Wen, in attendance. Safety plan has been established with patient, and care team, to adhere to patient goals, identify restrictions based on behavioral status, address nutrition, and determine allowed personal belongings, tools for hygiene and personal care. Determine level of activity including ambulation, level of supervision, visitors, and determine privileges based on behaviors and level of engagement by pt. SAFETY PLAN: 1. Will remain on suicide precautions. In Paper Clothes 2. Will remain in room under direct supervision of one-on-one staff at all times provided by CPSO, VICTOR M, OUTSIDE SALES ACCOUNT REPRESENTATIVE supervisor gate services. 3. May have paper cups, plates, finger foods as well as a cardboard spoon with which to eat meals. 4. Follow [facility] Management of the Admitted Behavioral Health Patient policy. 5. May shower with supervision and at RN discretion. 6. No personal belongings 7. Visitors-No visitors at this time 8. Activities: Soft cart items, music tablet, coloring book, crayons, television if available, and other activities at RN discretion. 9. Bathroom privileges with escort while in the ED; may use bathroom in room without limitation on Med/Surg. 10. Phone: May use hospital phone at RN discretion. 11. Due to VOLUNTARY status, if patient wishes to leave [facility], staff will contact [facility] Crisis Screener ([phone]) and On-Call Commercial Escrow Officer ([phone]) as soon as possible. In the event of elopement, notify [facility] Police ([phone]). Patient is currently voluntarily at [facility] and seeking inpatient admission when a bed becomes available. [facility] Frontline Process Improvement Consultant will continue seeking placement. Please contact the [employer] Commercial Escrow Officer ([phone]) and [facility] Process Improvement Consultant ([phone]) for any needed changes in the Safety Plan. Safety plan has been provided to interdepartmental care team.
--- NOTE | 2021-03-09 12:10 | CMPROGNOTE_ITS ---
- If Service Date Differs Date of service: 03/09/21 Time of Service: 12:10 Care Management Progress Note S/O: Jonny is becoming increasingly more confrontational with staff. He refused to speak with his [facility] heel caser, Deysi, so could not be reassessed this morning. A second attempt by [facility] at evaluating him in the afternoon also failed. A consult was requested by the ED provider with Dr. Castrejon but Jonny also refused to engage with him. Jonny is witnessed talking to himself. He seems re stless and fidgety, frequently rearranging the sheets on the bed or pacing around the room. A: Jonny is a 40-year-old male admitted to [facility] on 03/07/21 for psychosis. P: Referrals are faxed to [facility], [facility], [facility], and [facility] for review. Jonny will be reassessed daily by [facility] NETWORK ANALYST Program and will remain at [facility] voluntarily while [facility] continues to seek placement for him. CM will continue to follow. - MH Services (Omit if N/A) Current MH Services: NETWORK ANALYST - Status Status: Voluntary - Reason for Wait Reason for Wait: Inpatient Admission
--- NOTE | 2021-03-09 12:10 | PDOC.ERCMPRO ---
- If Service Date Differs Date of service: 03/09/21 Time of Service: 12:10 Care Management Progress Note S/O: Jonny is becoming increasingly more confrontational with staff. He refused to speak with his [facility] transplant case manager, Deysi, so could not be reassessed this morning. A second attempt by [facility] at evaluating him in the afternoon also failed. A consult was requested by the ED provider with Dr. Castrejon but Jonny also refused to engage with him. Jonny is witnessed talking to himself. He seems restless and fidgety, frequently rearranging the sheets on the bed or pacing around the room. A: Jonny is a 40-year-old male admitted to [facility] on 03/07/21 for psychosis. P: Referrals are faxed to [facility], [facility], [facility], and [facility] for review. Jonny will be reassessed daily by [facility] ENVIRONMENTAL HEALTH SANITARIAN Program and will remain at [facility] voluntarily while [facility] continues to seek placement for him. CM will continue to follow. - MH Services (Omit if N/A) Current MH Services: ENVIRONMENTAL HEALTH SANITARIAN - Status Status: Voluntary - Reason for Wait Reason for Wait: Inpatient Admission
--- NOTE | 2021-03-09 12:44 | NUR.NOTE ---
Pt asked CPSO to use a phone to call someone to get him his clothes. RN informed the patient about his safety plan and personal belongings. I stated that if someone were to bring in personal items they would be placed in a safe place because of what he is here for. Nursing Note:
--- NOTE | 2021-03-09 14:27 | NUR.NOTE ---
Maude mancia called, Nurse gave a report and Maude requested to talk to the patient over the phone. Staff transferred to portable phone, when Nurse went in to inform patient that Maude mancia was on the phone, looking to talk to him. Pt then stated I am not interest. Maude then told nurse that if the patient becomes involuntary then we can resubmit his packet. MD Ruth informed, Nursing Note:
--- NOTE | 2021-03-09 15:08 | NUR.NOTE ---
Pt has refused to talk to Shiloh from , the psychiatrist, Jackelyn from , and mima jimenezeat. Pt had requested to use the phone. I informed him that we are going to hold off on the phone (privilege is at nurses judgment). Pt yelling that he is just going to fucking leave! RN asked who he was planning to call? Pt yelling out again Are you fucking deaf, I already told you! You can go fuck yourself! Pt then slammed door to room multiple times and was told he needed to keep the door open. Pt mumbling to self at time. EE now. Will continue to monitor. Nursing Note:
--- NOTE | 2021-03-09 16:27 | W.PSYCHCONSU ---
Date of service: 03/09/21 Time of Service: 16:27 History of Present Illness History of Present Illness Chief Complaint: I don't want to talk Narrative: 4 hour telepsychiatry consultation requested by Dr. Ruth for evaluation of mental health and treatment recommendations. Records are reviewed. Patient exam attempted but he is unwilling to he is uncooperateive with exam. Notes indicate he has come to the ED on multiple occasions in recent days. He has been increasingly agitated and has made verbal threats to treatment providers. He has accepted risperidone orall as well as [facility]. Crisis service has referred patient for inpatient input. Assessment and Plan Assessment and plan (1) Psychosis: Status: Acute Assessment and plan: Continue risperidone 8 mg daily As for agitation: lorazepam 1-2 mg Q4H PRN Disposition: referral to inpatient psychatry pending If requesting AMA discharge, consider application of Emergency Examination Review of Systems All systems reviewed & are unremarkable except as noted in HPI and below PFSH Active Problem List Leukocytes in urine (Acute) Headache (Acute) Bronchitis (Acute) Medication refill (Acute) Psychosis (Acute) No-show for appointment (Acute) Chest pain (Acute) Mood disorder (Acute) Acute lateral meniscus tear of left knee (Acute) Acute traumatic internal derangement of left knee (Acute 08/14/20) 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) Closed fracture nasal bone (Acute) Bilateral groin pain (Acute) Spermatocele of epididymis (Acute) Effusion of knee (Acute) Leg pain (Acute) Constipation (Acute) Suicidal ideation (Acute) S/P laparoscopic appendectomy (Acute ~08/05/18) Acute appendicitis (Acute) Paranoid schizophrenia (Chronic) GERD (gastroesophageal reflux disease) (Chronic) Person awaiting admission to adequate facility elsewhere (Acute 05/27/14) Medical History Gastroesophageal reflux disease Left ACL tear Mental disorder Poorly defined Surgical History EGD - IV Sedation (06/14/16) Repair of inguinal hernia Social History Smoking/Tobacco Use Status: Current every day Tobacco Type: cigarettes Years smoked: 28 Smoking risk assessment performed?: Yes Alcohol Intake: never Drug use: Never Substance use type: does not use Current gender identity: male Do you feel safe at home: Yes Do you feel safe in your relationship?: Yes Exam Psych Other: Refuses exam Results Last Vital Signs Temp 36.5 C 03/07/21 17:21 Pulse 103 H 03/07/21 17:21 Resp 16 03/07/21 17:21 BP 119/77 03/07/21 17:21 Pulse Ox 96 03/07/21 17:21 Labs Result diagrams: 03/07/21 19:10 03/07/21 19:10
--- NOTE | 2021-03-10 08:11 | PDOC.CMSAFED ---
- If Service Date Differs Date of service: 03/10/21 Time of Service: 08:11 Care Management Safety Plan Status: Voluntary - Reason for Wait Reason for Wait: Inpatient Admission INVOLUNTARY FOR INPATIENT PSYCHIATRIC STABILIZATION. Safety plan has been established to meet the needs of the patient, and consideration of the care team, to adhere to patient goals, identify restrictions based on behavioral status, address nutrition, and determine allowed personal belongings, tools for hygiene and personal care. Determine level of activity including ambulation, level of supervision, visitors, and determine privileges based on behaviors and level of engagement by pt. SAFETY PLAN: 1. Will remain on suicide precautions. In Paper Clothes 2. Will remain in room under direct supervision of one-on-one staff at all times provided by CPSO, LIGHTING ENGINEERING TECHNICIAN, CURRICULUM DEVELOPMENT MANAGER supervisor nut processing. 3. May have paper cups, plates, finger foods as well as a cardboard spoon with which to eat meals. 4. Follow [facility] Management of the Admitted Behavioral Health Patient policy. 5. May shower with supervision and at RN discretion. 6. No personal belongings 7. Visitors-No visitors at this time 8. Activities: Soft cart items, music tablet, coloring book, crayons, television if available, and other activities at RN discretion. 9. Bathroom privileges with escort while in the ED; may use bathroom in room without limitation on Med/Surg. 10. Phone: May use hospital phone at RN discretion. 11. Due to INVOLUNTARY status, patient is being held at [facility] by the Department of Mental Health ([facility]) until 2nd certification by [facility] Psychiatrist can be performed (within 24 hours). Staff will provide de-escalation support (CPI) as needed. If patient wishes to leave [facility], staff will contact [facility] Crisis Screener ([phone]) and On-Call Administrative Resources Associate ([phone]) as soon as possible. In the event of elopement, notify [place] State Police ([phone]). Patient is currently involuntarily at [facility]. [facility] Frontline Passport Application Examiner will continue seeking placement. Please contact the Roofing Technician Administrative Resources Associate ([phone]) for any needed changes to Safety Plan. Safety plan has been provided to interdepartmental care team. Patient will be transported by [facility] at time of discharge.
--- NOTE | 2021-03-10 09:08 | NUR.NOTE ---
Bias Cutting Machine Operator [employer] brought in medication to PT. PT's medication comes in 1mg tablets provider ordered 8mg. PT is refusing to take 8 pills. States that You are trying to fucking kill me and overdose me He states that he would only take 1-2 tablet but not any more that. The provider spoke with the PT and told him that he could take 4 now and 4 later and the PT refused and stated Don't fucking come in my room again
[2021-03-10 10:14] VITALS: BP 112/73; PULSE 89; RESP 16; TEMP 36.4; O2SAT 93
--- NOTE | 2021-03-10 15:48 | PDOC.ERCMPRO ---
- If Service Date Differs Date of service: 03/10/21 Time of Service: 15:48 Care Management Progress Note S/O: Jonny originally came to [facility] voluntarily but was placed on involuntary status yesterday due to his refusal to engage with [facility] screeners and no longer being agreeable to seeking a psychiatric placement. Jonny continues to refuse medication and remains confrontational with staff. A Second Certification by Psychiatrist was done this morning at 11:[address] Elsie Spaulding, [facility] Psychiatrist, but Jonny refused to engage with her and walked out of the room swearing. Jonny paced the hallway and refused to return to his room until the tablet was removed from the room. He eventually was able to regain some of his composure and returned to the room without incident but continues to refuse to speak with Dr. Spaulding. A: Jonny is a 40-year-old male admitted to [facility] on 03/07/21 for psychosis. P: Referrals are faxed to [facility], [facility], [facility], and [facility] for review. Jonny will be reassessed daily by [facility] BAGGAGE CHECKER Program and will remain at [facility] voluntarily while [facility] continues to seek placement for him. CM will continue to follow. - MH Services (Omit if N/A) Current MH Services: BAGGAGE CHECKER - Status Status: Involuntary - Reason for Wait Reason for Wait: Inpatient Admission
[2021-03-10] MEDS: Calcium Carbonate *TUMS* 500 MG CHEW PO (16:48)
[2021-03-10 19:02] VITALS: BP 153/101; PULSE 88; RESP 18; TEMP 36.7; O2SAT 92
[2021-03-11 08:20] VITALS: BP 139/88; PULSE 101; RESP 16; TEMP 36.5; O2SAT 95
[2021-03-11] MEDS: OLANZapine 10 MG VIAL IM (08:24)
[2021-03-11] MEDS: LORazepam 1 MG TAB 2 MG PO (08:24)
--- NOTE | 2021-03-11 09:40 | CMSP_ITS ---
- If Service Date Differs Date of service: 03/11/21 Time of Service: 09:40 Care Management Safety Plan Status: Involuntary - Reason for Wait Reason for Wait: Inpatient Admission INVOLUNTARY FOR INPATIENT PSYCHIATRIC STABILIZATION. Safety plan has been established to meet the needs of the patient, and consideration of the care team, to adhere to patient goals, identify restrictions based on behavioral status, address nutrition, and determine allowed personal belongings, tools for hygiene and personal care. Determine level of activity including ambulation, level of supervision, visitors, and determine privileges based on behaviors and level of engagement by pt. SAFETY PLAN: 1. Will remain on suicide precautions. In Paper Clothes 2. Will remain in room under direct supervision of one-on-one staff at all times provided by CPSO, GROMMET MAN, ALUMINA PLANT SUPERVISOR music orchestrator. 3. May have paper cups, plates, finger foods as well as a cardboard spoon with which to eat meals. 4. Follow [facility] Management of the Admitted Behavioral Health Patient policy. 5. May shower with supervision and at RN discretion. 6. No personal belongings 7. Visitors-No visitors at this time 8. Activities: Soft cart items, music tablet, coloring book, crayons, television if available, and other activities at RN discretion. 9. Bathroom privileges with escort while in the ED; may use bathroom in room without limitation on Med/Surg. 10. Phone: May use hospital phone at RN discretion. 11. Due to INVOLUNTARY status, patient is being held at [facility] by the Department of Mental Health ([facility]) until 2nd certification by [facility] Psychiatrist can be performed (within 24 hours). Staff will provide de-escalation support (CPI) as needed. If patient wishes to leave [facility], staff will contact [facility] Crisis Screener ([phone]) and On-Call Bar Host ([phone]) as soon as possible. In the event of elopement, notify [place] [employer] Police ([phone]). Patient is currently involuntarily at [facility]. [facility] Frontline Reel Fed Printer will continue seeking placement. Please contact the Box Spinner Bar Host ([phone]) for any needed changes to Safety Plan. Safety plan has been provided to interdepartmental care team. Patient will be transported by [facility] at time of discharge.
--- NOTE | 2021-03-11 11:02 | NUR.NOTE ---
Nursing Note: Patient awoke and snack provided per request. RN offered patient PO routine medications (Respirdone), however patient declined. RN educated patient on the importance of taking prescribed medication routinely and its benefits regarding mental health, patient again declined. aware.
--- NOTE | 2021-03-11 16:06 | CMPROGNOTE_ITS ---
- If Service Date Differs Date of service: 03/11/21 Time of Service: 16:06 Care Management Progress Note S/O: Jonny was agreeable to taking some of his medications today, including Olanzapine 10 mg IM. He has been calm and has spent much of the day sleeping. Jonny has been accepted for admission at [facility] tomorrow morning with an arrival time after 10:30 am. [facility] has been notified and is currently arranging transport to [place] for Monday. A: Jonny is a 40-year-old male admitted to [facility] on 03/07/21 for psychosis. P: Jonny will be transported to the [facility] in the morning. Transport will be provided by [facility] [employer]. He will follow up with [facility] providers and his plan of care upon discharge from the [place]. CM will continue to follow. - MH Services (Omit if N/A) Current MH Services: OIL HEATER OPERATOR - Status Status: Involuntary - Reason for Wait Reason for Wait: Inpatient Admission
--- NOTE | 2021-03-11 17:12 | NUR.NOTE ---
Nursing Note: Atomic Fuel Assembler spoke with Kadie from [facility] and gave nurse to nurse report. Kadie stated that their facility could take Nigel tomorrow morning at 10am.
[2021-03-11 20:00] VITALS: BP 118/80; PULSE 86; RESP 16; TEMP 37.1; O2SAT 93
--- NOTE | 2021-03-12 05:09 | NUR.NOTE ---
Nursing Note: Patient started to escalate, RN's and security attempted to intervene, redirect patient and notify doctor however patient began to quickly more quickly and pushed passed staff and went out door. Again, attempted to redirect patient without success. MD aware and warehouse logistics manager notified.
--- NOTE | 2021-03-12 05:27 | NUR.NOTE ---
Nursing Note: Patient returned to facility by himself and was escorted back to room.
--- NOTE | 2021-03-12 08:11 | NUR.NOTE ---
Pt became agitated when advised that he would be going to [place] today. Pt overturned bedside table and got verbal threatening staff. Once left alone he sat back on bed and became more quiet.Nursing Note:
[2021-03-12] MEDS: risperiDONE 1 MG TAB 8 MG PO (08:29)
[2021-03-12] MEDS: LORazepam 1 MG TAB (08:31)
--- NOTE | 2021-03-12 09:07 | CMPROGNOTE_ITS ---
- If Service Date Differs Date of service: 03/12/21 Time of Service: 09:07 Care Management Progress Note DISCHARGE PLAN: Jonny is accepted for admission at the [facility] for mood stabilization. He will follow up with his [facility] med provider, GLASS PRODUCTION MACHINE OPERATOR gearcase assembler, and discharge plan of care as directed upon discharge from the [place]. Transport to [place] is provided by the [facility]'s Department. - Status Status: Involuntary - Reason for Wait Reason for Wait: Inpatient Admission
[2021-03-15 15:47] LABS: Chlamydia Result Negative (Negative); GC Result Negative (Negative)
== END 2021-03-12 09:17 | disposition short-term general hospital (02) ==
PROVIDERS: Physician Assistant; Student in an Organized Health Care Education/Training Program; Emergency Provider Emergency Medicine; PCP Nurse Practitioner Family
DX: F20.0 Paranoid schizophrenia (principal); Z75.1 Person awaiting admission to adequate facility elsewhere; M25.571 Pain in right ankle and joints of right foot; R45.1 Restlessness and agitation; R82.998 Other abnormal findings in urine
CPT/HCPCS: 36415; 80053; 80307; 87491; 87591; 87635; 96372; 99285; Q3014; 73590; 80320; 80329; 81003; 81015; 84443; 85025; 87086

== ENCOUNTER 2021-12-23 23:10 | Emergency (ER) | payer MEDICARE, MEDICAID, SELFPAY ==
[2021-12-23 23:21] VITALS: PULSE 82; RESP 18; TEMP 36.4; O2SAT 95
[2021-12-23 23:57] LABS: Abs Immature Grans 0.04 10^3/uL (0.0-0.06); HCT 43.2 % (40.0-50.0); HGB 14.8 g/dL (13.5-17.5); MCH 30.6 pg (27.0-33.0); MCHC 34.3 % (32.0-36.0); MCV 89 fL (80-95); MPV 9.2 fL (8.0-11.0); Platelet Count 232 10^3/uL (130-400); RBC 4.83 10^6/uL (4.36-5.78); RDW 12.6 % (11.8-14.1); RDW-SD 41.3 fL
--- NOTE | 2021-12-24 00:04 | ED.GENADUL_ITS ---
Discharge Plan Disposition Patient Disposition: HOME Condition: Good Discharge Details Clinical Impression: Stress at home Primary Care Provider: Perla Martin ED Provider: Kaleb Miller Home Meds and New Rx's Prescriptions: No Action budesonide-formoterol [Symbicort] 160-4.5 mcg/actuation HFA aerosol inhaler 1 inh INHALATION BID risperidone 4 mg tablet 4 mg PO BID Risperdal Consta 50 mg/2 mL suspension,extended rel recon 50 mg IM Q2W Rx Instructions: q2 weeks omeprazole 20 mg capsule,delayed release(DR/EC) 20 mg PO DAILY loratadine [Allergy Relief (loratadine)] 10 mg tablet 10 mg PO DAILY Discharge Instructions Additional Instructions: Please follow-up closely with your mental health advocates. If you notice any worsening of your symptoms, or any new symptoms such as vomiting, diarrhea, fever, chills, shortness of breath, chest pain, numbness, weakness, or fainting , please return immediately to the emergency department for reevaluation. Please follow up with your primary care provider as soon as possible for reassessment and reevaluation. As always, it was a pleasure participating in your medical care today. Referrals: Perla Martin [Primary Care Provider] - Medical Decision Making This is a 41-year-old male with a past medical history of reactive airway disease, paranoid schizophrenia, GERD, who presents today for mental health evaluation. Patient states that over the last few days he has had increased stress in his life, and felt that he needed to get some help. He states he has been taking his medications as directed. He did speak with mental health earlier this evening and was cleared at that time, however he asked the police to bring him in for evaluation. He denies any other complaints at this time. No other modifying factors. States he has taken all of his medications as directed, he states the only time he missed something was 3 weeks ago but has been taking it otherwise regularly. He denies any visual hallucinations. He refuses to answer the question about auditory hallucinations, however when I do ask him if his auditory hallucinations are pushing him towards harm or good, he states that they are not making things worse. He does not have illicit drug use. No other complaints at this time. He denies any homicidal or suicidal ideation. Physical exam demonstrates a well-appearing male. He appears very stable to me at this time. Patient is medically cleared. We will have mental health come and evaluate the patient. Patient does not want to change into blue scrubs, but his pockets have been emptied and he has been monitored by security. 12:47 AM Patient has been seen and assessed by mental health. They feel that he is safe for discharge as well. They have a good support structure for him. When I read discussed this with the patient he agrees as well, and states that he feels comfortable going home. Discussed red flags which to return. He does not appear to be any threat to himself or others at this time my clinical assessment. I have extensively reviewed the treatment plan and discharge instructions with the patient. I have addressed all patient concerns at this time. The patient was made aware of what symptoms to monitor for that would warrant a return to the emergency department. Discussed the plan with the patient, they demonstrate verbal understanding and agreement with our assessment and plan at this time. The documentation in this chart was dictated using [employer] Access dictation software. Please excuse any dictation errors. HPI General Date/Time Provider Initiated Documentation: 12/23/21 23:11 . HPI Narrative: This is a 41-year-old male with a past medical history of reactive airway disease, paranoid schizophrenia, GERD, who presents today for mental health evaluation. Patient states that over the last few days he has had increased stress in his life, and felt that he needed to get some help. He states he has been taking his medications as directed. He did speak with mental health earlier this evening and was cleared at that time, however he asked the police to bring him in for evaluation. He denies any other complaints at this time. No other modifying factors. States he has taken all of his medications as directed, he states the only time he missed something was 3 weeks ago but has been taking it otherwise regularly. He denies any visual hallucinations. He refuses to answer the question about auditory hallucinations, however when I do ask him if his auditory hallucinations are pushing him towards harm or good, he states that they are not making things worse. He does not have illicit drug use. No other complaints at this time. He denies any homicidal or suicidal ideation. Related Data Home Medications Medication Instructions Recorded Confirmed risperidone 4 mg tablet 4 mg PO BID 07/29/19 03/10/21 risperidone microspheres 50 mg/2 50 mg IM Q2W 07/29/19 03/07/21 mL intramuscular susp,ext release (Risperdal Consta) budesonide-formoterol HFA 160 1 inh inhalation BID 06/23/20 03/07/21 mcg-4.5 mcg/actuation aerosol inhaler (Symbicort) loratadine 10 mg tablet (Allergy 10 mg PO DAILY 08/14/20 03/07/21 Relief (loratadine)) omeprazole 20 mg capsule,delayed 20 mg PO DAILY 08/14/20 03/07/21 release Allergies Allergy/AdvReac Type Severity Reaction Status Date / Time Penicillins Allergy Other (See Unverified 03/07/21 17:30 Comment) General Stated Complaint: PsychEval SCARLETT: 2 Review of Systems All systems reviewed & are unremarkable except as noted in HPI and below PFSH All Active Problems Stress at home (Acute) Leukocytes in urine (Acute) Headache (Acute) Bronchitis (Acute) Medication refill (Acute) Psychosis (Acute) No-show for appointment (Acute) Chest pain (Acute) Mood disorder (Acute) Acute lateral meniscus tear of left knee (Acute) Acute traumatic internal derangement of left knee (Acute 08/14/20) second occurrence, prior traumatic injury 11/02/2017 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) Closed fracture nasal bone (Acute) Bilateral groin pain (Acute) Spermatocele of epididymis (Acute) Effusion of knee (Acute) Leg pain (Acute) Constipation (Acute) Suicidal ideation (Acute) S/P laparoscopic appendectomy (Acute ~08/05/18) Acute appendicitis (Acute) Paranoid schizophrenia (Chronic) GERD (gastroesophageal reflux disease) (Chronic) Person awaiting admission to adequate facility elsewhere (Acute 05/27/14) Medical History Gastroesophageal reflux disease Left ACL tear Mental disorder Poorly defined Surgical History EGD - IV Sedation (06/14/16) Repair of inguinal hernia Social History Smoking/Tobacco Use Status: Current every day Tobacco Type: cigarettes Years smoked: 28 Smoking risk assessment performed?: Yes Alcohol Intake: never Drug use: Never Substance use type: does not use Current gender identity: male Do you feel safe at home: Yes Do you feel safe in your relationship?: Yes Exam Narrative Exam Narrative: 1.Const: Well-nourished, Well-developed, appearing stated age 2.Eyes: PERRL, no conjunctival injection, and symmetrical lids. 3.ENT: Atraumatic external nose and ears. Moist MM. Neck: Symmetric, trachea midline, No thyromegaly. 4.CVS: +S1/S2, No murmurs or gallops. Peripheral pulses 2+ and equal in all extremities. Brisk capillary refill in all extremities. 5.RESP: Unlabored respiratory effort. Clear to auscultation bilaterally. No wh eezes rales or rhonchi 6.GI: Soft, Nontender/Nondistended, No hepatosplenomegaly. No guarding or rebound. 7.MSK: Normocephalic/Atraumatic, Extremities w/o deformity or ttp No cyanosis or clubbing, Normal movement of all extremities 8.Skin: Warm, Dry. No rashes or lesions. 9.Neuro: instructor private II-XII grossly intact. Sensation grossly intact, no focal neurologic deficits. 10.Psych: (AAO) x3. Appropriate mood and affect Course Vital Signs Vital signs: Vital Signs Temperature 36.4 C 12/23/21 23:21 Pulse 82 12/23/21 23:21 Respiratory Rate 18 12/23/21 23:21 Pulse Oximetry 95 12/23/21 23:21 Temperature 36.4 C 12/23/21 23:21 Temperature Source Oral 12/23/21 23:21 Pulse 82 12/23/21 23:21 Respiratory Rate 18 12/23/21 23:21 Respiratory Effort 12/23/21 23:31 Blood Pressure Position Sitting 12/23/21 23:21 Pulse Oximetry 95 12/23/21 23:21 Oxygen Delivery Method Room Air 12/23/21 23:21 Oxygen Flow Rate 0 12/23/21 23:21 Pain Level 0 12/23/21 23:21
[2021-12-24 00:08] LABS: Absolute Eosinophil Count 0.25 10^3/uL (0.0-0.7); Absolute Lymphocyte Count 4.32 10^3/uL (1.2-3.4); Absolute Monocyte Count 0.51 10^3/uL (0.1-0.8); Absolute Neutrophil Count 7.62 10^3/uL (1.2-6.7); Atypical Lymphocytes % 2; Diff Comment Manual Differential; RBC Morphology Normal
[2021-12-24 00:15] LABS: Salicylate 2.8 mg/dL (<2.8)
[2021-12-24 00:18] LABS: Acetaminophen < 2 ug/mL (10-30)
[2021-12-24 00:19] LABS: ALT 24 U/L (16-63); AST 15 U/L (15-37); Albumin 3.9 g/dL (3.4-5.0); Alkaline Phosphatase 94 U/L (46-116); Anion Gap 8.7 mmol/L (3-11); BUN 12 mg/dL (7-18); Bilirubin, Total 0.6 mg/dL (0.2-1.0); CO2 26.3 mmol/L (21.0-32.0); CREATININE 1.1 mg/dL (0.70-1.30); Calcium 8.7 mg/dL (8.5-10.1); Chloride 103 mmol/L (98-107); Estimated GFR 85.95 (mL/min/1.73m2); Glucose 142 mg/dL (74-106); Potassium 3.5 mmol/L (3.5-5.1); Sodium 138 mmol/L (136-145); TSH (W/Ref FT4) 4.93 uIU/mL (0.36-3.74); Total Protein 8.1 g/dL (6.4-8.2)
[2021-12-24 00:38] LABS: ETHANOL BLOOD < 3.0 mg/dL (<10)
--- NOTE | 2021-12-24 00:46 | PDOC.MHCN ---
Date of service: 12/24/21 Time of Service: 00:47 PHQ-9 Over the last 2 weeks, how often have you been bothered by any of the following problems? 1. Little interest or pleasure in doing things: not at all 2. Feeling down, depressed, or hopeless: nearly every day 3. Trouble falling or staying asleep, or sleeping too much: not at all 4. Feeling tired or having little energy: not at all 5. Poor appetite or overeating: not at all 6. Feeling bad about yourself - or that you are a failure or have let yourself and your family down: not at all 7. Trouble concentrating on things, such as reading the newspaper or watching television: not at all 8. Moving or speaking so slowly that other people could have noticed? - Or the opposite - being so fidgety or restless that you have been moving around a lot more than usual: not at all 9. Thoughts that you would be better off or of hurting yourself in some way: not at all Total score: 3 If you checked off any problems, how difficult have these problems made it for you to do your work, take care of things at home, or get along with other people?: not difficult at all PHQ-9 Results: Negative Source: Developed by Drs. Gonzales Morrow, Danika Urbina, Héctor Kelly and colleagues, with an educational jaret from [employer]. Suicide Severity Rate CSSRS Have you wished you were or wished you could go to sleep and not wake up?: No Have you actually had any thoughts of killing yourself?: No CSSRS4 Was this within the past three months?: No Screening Score Total Score: 0 Screening: Negative Mental Health Emergency Note Release [facility] release signed:: No Reason for Visit Client walked to the [facility] and requested a ride to the ED because he was not feeling himself. 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 Non Suicidal Self Injury Current: No History: No Safety Risk/Harm to Self or Others Current Ideation to Harm Self or Others: No Risk: Does risk to harm exist?: No Risk: N/A Duty to warn indicated: No Asssessment/Mental Status Appearance: Unremarkable Attitude: Cooperative and Guarded Behavior: Agitated Speech: Normal Affect: Cogruent with mood Mood: Stressed and Anxious Thought process: Racing and Circumstational Hallucinations: No Delusions: No Attention: Poor concentration Perception: Not impaired Orientation: Fully orientated Memory: Intact Insight: Fair Judgement: Fair Neurovegetative Symptoms Sleep: No change Appetitie: No change Interests: No change Energy: No change Libido: Not applicable Substance Use: Do you use nicotine?: Yes Have you used substances in the last 7 days?: No Additional Issues: Assaultive/Threatening Behavior: No Medical Concerns: No Client engaged in active self harm w/weapon: No Threatening to run away: No Child reported abuse/neglect: No Voluntarily presenting for services: Yes Domestic violence is a concern: No Extreme Psychosis or extreme behavior is present: No Impression Client is struggling with his closest friends being angry with him at this time over what client presents as a misunderstanding. This is causing the client a great deal of stress and anxiety as he is a very social person. Client is observed to be perseverating on his family's health and his relationship with his friends and is struggling on how to make things right. He struggles to be patient and allow the tension to settle down. [facility] [place] and given:: [id number] Plan/Disposition Recommended Disposition: SPOOLING OPERATOR. Plan: Client will be discharged home and he reported that he is feeling better now that he has been able to talk to someone about what he is going through. This clinician will have SPOOLING OPERATOR follow up during business hours. He thanked this clinician for the interaction and noted that he was feeling better. Person reported agreement to plan: Yes Reports/communication Reports: Reports made to DCF Outcome discussed with: ED/Personnel Final Disposition/Discharge Final accepting facility/transferred to: Other (Home) Transportation Checklist completed and faxed: No
[2021-12-24 01:26] LABS: FREE T4 1.18 ng/dL (0.76-1.46)
== END 2021-12-24 00:58 | disposition home or self-care (01) ==
PROVIDERS: Emergency Provider Student in an Organized Health Care Education/Training Program; PCP Nurse Practitioner Family
DX: F43.9 Reaction to severe stress, unspecified (principal); F17.210 Nicotine dependence, cigarettes, uncomplicated
CPT/HCPCS: 80053; 99284; 80320; 80329; 84439; 84443; 85025

== ENCOUNTER 2022-07-08 02:04 | Emergency (ER) | payer MEDICARE, MEDICAID, SELFPAY ==
[2022-07-08 02:09] VITALS: BP 141/101; PULSE 95; RESP 18; TEMP 36.1
--- NOTE | 2022-07-08 02:15 | RT.EKG_ITS ---
APPROVED REPORT Exam: Resting ECG Reason for Exam: chest pain Patient Location: E HR:100 bpm ECG Measurements Heart Rate 100 AXIS UT 128 P 49 QRSd 91 QRS 1 QT 360 T 4 QTc 463 Conclusion Sinus tachycardia...rate> 99 sinus tachycardia, normal axis, normal intervals, t wave inversion III, poor baseline V2
--- NOTE | 2022-07-08 02:22 | ED.GENADUL_ITS ---
Discharge Plan Disposition Patient Disposition: Home Condition: Improving Discharge Details Chief Complaint: Chest Pain Clinical Impression: Chest pain Primary Care Provider: Perla Martin ED Provider: Agustin Perez Home Meds and New Rx's Prescriptions: No Action fluticasone propionate [Flovent HFA] 110 mcg/actuation HFA aerosol inhaler 2 puff inhalation BID paliperidone palmitate 234 mg/1.5 mL syringe 234 mg IM QMONTH lorazepam 2 mg tablet 2 mg PO BID PRN olanzapine 20 mg tablet 10 mg PO BID omeprazole 20 mg capsule,delayed release(DR/EC) 20 mg PO DAILY loratadine [Allergy Relief (loratadine)] 10 mg tablet 10 mg PO DAILY Discharge Instructions Instructions: Chest Pain (ED) Additional Instructions: Please continue to take your medication as prescribed. Please see your primary care physician. Medical Decision Making 41-year-old male history of schizophrenia presents with anterior chest discomfort over the last day, has been off of his meds for approximately 24 to 48 hours, slight anxiety on arrival however, calm cooperative linear and logical. Likely component of medication withdrawal and anxiety, lower suspicion for ACS PE or aortic pathology. EKG sinus rhythm tachycardia normal axis normal intervals, poor baseline in V2 and T wave inversion in lead III. Will administer patient's medication and reassess. 3: 16 patient resting comfortably no acute distress feeling better after his medications. HPI General Date/Time Provider Initiated Documentation: 07/08/22 02:07 . HPI Narrative: 41-year-old male history of schizophrenia presents endorsing not taking his medications over the last 1 to 2 days he has a delivery service that watches him take his meds. Has been having mild chest pain no shortness of breath over the last day. Related Data Home Medications Medication Instructions Recorded Confirmed loratadine 10 mg tablet (Allergy 10 mg PO DAILY 08/14/20 03/07/21 Relief (loratadine)) omeprazole 20 mg capsule,delayed 20 mg PO DAILY 08/14/20 03/07/21 release fluticasone propionate 110 2 puff inhalation BID 04/06/22 mcg/actuation HFA aerosol inhaler (Flovent HFA) lorazepam 2 mg tablet 2 mg PO BID PRN 04/06/22 olanzapine 20 mg tablet 10 mg PO BID 04/06/22 paliperidone palmitate 234 mg/1.5 234 mg IM QMONTH 04/06/22 mL intramuscular syringe Allergies Allergy/AdvReac Type Severity Reaction Status Date / Time Penicillins Allergy Other (See Unverified 03/07/21 17:30 Comment) General Stated Complaint: Chest Pain SCARLETT: 3 Review of Systems Narrative: Review of Systems Constitutional: negative Eyes: negative ENT: negative Cardiovascular: Chest pain Respiratory: negative Gastrointestinal: negative : negative Musculoskeletal: negative Skin: negative Neurologic: negative Psych: negative PFSH All Active Problems (Updated 07/08/22 @ 03:16 by Agustin Perez MD) Chest pain (Acute) Tinnitus, bilateral (Acute) Schizophrenia (Chronic) Seasonal allergies (Acute) Chronic low back pain (Chronic) Leukocytes in urine (Acute) Headache (Acute) Bronchitis (Acute) Medication refill (Acute) Psychosis (Acute) No-show for appointment (Acute) Chest pain (Acute) Mood disorder (Acute) Acute lateral meniscus tear of left knee (Acute) Acute traumatic internal derangement of left knee (Acute 08/14/20) second occurrence, prior traumatic injury 11/02/2017 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) Closed fracture nasal bone (Acute) Bilateral groin pain (Acute) Spermatocele of epididymis (Acute) Effusion of knee (Acute) Leg pain (Acute) Constipation (Acute) Suicidal ideation (Acute) S/P laparoscopic appendectomy (Acute ~08/05/18) Acute appendicitis (Acute) Paranoid schizophrenia (Chronic) GERD (gastroesophageal reflux disease) (Chronic) Person awaiting admission to adequate facility elsewhere (Acute 05/27/14) Medical History (Updated 07/08/22 @ 03:16 by Agustin Perez MD) Gastroesophageal reflux disease Herpes simplex Left ACL tear Mental disorder Poorly defined Palpitation Postconcussion syndrome Surgical History EGD - IV Sedation (06/14/16) Repair of inguinal hernia Social History Smoking/Tobacco Use Status: Current every day Tobacco Type: cigarettes Years smoked: 28 Smoking risk assessment performed?: Yes Alcohol Intake: never Drug use: Never Substance use type: does not use Current gender identity: male Do you feel safe at home: Yes Do you feel safe in your relationship?: Yes Exam Narrative Exam Narrative: Physical Examination General: alert, awake, cooperative, mildly anxious appearing HEENT: normocephalic, atraumatic; PERRL, EOM intact, conjunctiva normal; no nasal discharge; moist mucous membranes, oral and pharyngeal mucosa normal, tolerating secretions Neck: supple, trachea midline; full ROM Chest: normal to inspection Respiratory: normal respiratory effort, speaking in full sentences, clear to auscultation, no wheezing, rales or rhonchi Cardiac: regular rate, regular rhythm, S1S2 intact, no murmurs rubs or gallops GI: abdomen soft, non-tender, non-distended; no palpable mass or hepatosplenomegaly Skin: no lesions, rashes or trauma appreciated Neuro: AAOx3, normal speech, moving all extremities Psych: Mild anxiety however appropriate interactive linear logical Course Vital Signs Vital signs: Vital Signs Temperature 36.1 C L 07/08/22 02:09 Pulse 95 H 07/08/22 02:09 Respiratory Rate 18 07/08/22 02:09 Blood Pressure 141/101 H 07/08/22 02:09 Temperature 36.1 C L 07/08/22 02:09 Temperature Source Temporal Artery Scan 07/08/22 02:09 Pulse 95 H 07/08/22 02:09 Respiratory Rate 18 07/08/22 02:09 Respiratory Effort Normal 07/08/22 02:19 Respiratory Depth Normal 07/08/22 02:19 Respiratory Pattern Normal 07/08/22 02:19 Blood Pressure 141/101 H 07/08/22 02:09 Blood Pressure Position Sitting 07/08/22 02:09 Oxygen Delivery Method Room Air 07/08/22 02:09 Oxygen Flow Rate 0 07/08/22 02:09 Pain Level 8 07/08/22 02:19
[2022-07-08] MEDS: Loratidine 10 MG TAB PO (02:29)
[2022-07-08] MEDS: LORazepam 1 MG TAB 2 MG PO (02:30)
[2022-07-08] MEDS: OLANZapine 10 MG TAB 20 MG PO (02:30)
--- NOTE | 2022-07-08 03:04 | NUR.NOTE ---
Nursing Note: Pt states chest pain is gone at this time.
[2022-07-08 03:16] VITALS: BP 124/89; PULSE 88; RESP 17; O2SAT 98
== END 2022-07-08 03:28 | disposition home or self-care (01) ==
PROVIDERS: Emergency Provider Emergency Medicine; PCP Nurse Practitioner Family
DX: R07.89 Other chest pain (principal); F41.9 Anxiety disorder, unspecified
CPT/HCPCS: 93005; 99283; 93010

== ENCOUNTER 2022-10-13 16:36 | Outpatient (REF) | payer MEDICARE, MEDICAID, SELFPAY ==
[2022-10-14 10:08] LABS: HIV-1/2 Ag & Ab Screen Negative (Negative)
[2022-10-14 10:11] LABS: Hepatitis C Ab w Rflx HCV PCR Negative (Negative)
[2022-10-14 13:17] LABS: Chlamydia Result Negative (Negative); GC Result Negative (Negative)
== END 2022-10-13 16:37 | disposition home or self-care (01) ==
LOC: NCHCN 16:36
PROVIDERS: PCP Nurse Practitioner Family; Visit Provider Family Medicine
DX: Z72.51 High risk heterosexual behavior; Z11.4 Encounter for screening for human immunodeficiency virus [HIV]; Z11.59 Encounter for screening for other viral diseases; Z11.3 Encounter for screening for infections with a predominantly sexual mode of transmission
CPT/HCPCS: 86803; 87389; 87491; 87591

== ENCOUNTER 2022-12-01 19:46 | Emergency (ER) | payer MEDICARE, MEDICAID, SELFPAY ==
[2022-12-01 19:49] VITALS: BP 189/116; PULSE 90; RESP 18; TEMP 37; O2SAT 95
[2022-12-01 20:05] VITALS: RESP 21
== END 2022-12-01 21:20 | disposition left against medical advice (07) ==
PROVIDERS: Emergency Provider Emergency Medicine Emergency Medical Services; PCP Nurse Practitioner Family
DX: Z53.21 Procedure and treatment not carried out due to patient leaving prior to being seen by health care provider (principal)

== ENCOUNTER 2023-02-09 11:27 | Outpatient (CLI) | payer MEDICARE, MEDICAID, SELFPAY ==
--- NOTE | 2023-02-09 11:11 | DI.RAD_ITS ---
Exam(s) XR KNEE LT 4V AP,LAT,ROBERT,PAT EXAM: XR KNEE LT 4V AP,LAT,ROBERT,PAT CLINICAL HISTORY: knee pain. TECHNIQUE: 2D digital imaging was performed of the left knee. Four images were obtained. Merchant, AP, lateral and PA tunnel views were obtained. COMPARISON: CR LEFT KNEE COMPLETE from 07/19/2007 FINDINGS: BONES: No acute fracture is present. No bony destructive lesion is seen. JOINTS: The knee is normally aligned. There is a small joint effusion. There are few small density s een posteriorly on the lateral view which may represent loose bodies. There is joint space narrowing in the femoral tibial joint. SOFT TISSUE: Normal. IMPRESSION: 1. Degenerative changes of the left knee. 2. Small joint effusion. 3. Question of loose bodies. DATA REPOSITORY: RADIATION DOSE DELIVERED:
== END 2023-02-09 11:28 | disposition home or self-care (01) ==
LOC: DIORS 11:27
PROVIDERS: PCP Nurse Practitioner Family; Referring Provider Nurse Practitioner Family; Visit Provider Student in an Organized Health Care Education/Training Program
DX: M17.12 Unilateral primary osteoarthritis, left knee
CPT/HCPCS: 99213; 73564

== ENCOUNTER 2023-04-15 23:48 | Emergency (ER) | payer MEDICARE, MEDICAID, SELFPAY ==
--- NOTE | 2023-04-15 23:45 | DI.CT_ITS ---
Exam(s) CT ABDOMEN PELVIS WO EXAM: CT ABDOMEN PELVIS WO CLINICAL HISTORY: rlq pain, vomitng diarrhea, hx LapAppe, ro stone. TECHNIQUE: Imaging Protocol: Axial computed tomography images with coronal and sagittal reformatted images were created and reviewed CONTRAST MATERIAL: Intravenous: none Oral: None COMPARISON: CT CT ABDOMEN PELVIS W from 07/29/2019 FINDINGS: VISUALIZED LUNG BASES: No nodules nor pleural effusions evident. ABDOMEN: There is no ascites. GI: There is small hiatal hernia noted. There also appears to be some thickening of the wall the sto mach just distal to the GE junction. Should undergo endoscopy. Bowel loops exhibit normal diameters . No evidence of bowel obstruction, free air, nor abscess. The distal half of the colon is collapse d. There has been prior appendectomy and right inguinal hernia repair. Small right-sided remaining fat containing hernia persists. There is also a small fat only containing umbilical hernia again not ed. LIVER: There are no obvious focal hepatic lesions evident of this noninfused study. GALLBLADDER/BILIARY: No obvious gallbladder pathology. CBD is not dilated. PANCREAS: No evidence of pancreatic mass nor dilatation of the pancreatic duct. SPLEEN: Spleen is not enlarged. No obvious intrasplenic lesions. ADRENALS: There are no significant adrenal masses. KIDNEYS:No cysts evident. No solid renal masses. No calculi nor hydronephrosis. . ABDOMINAL AORTA: Abdominal aorta is not enlarged. LYMPH NODES: There is no retroperitoneal nor paraaortic adenopathy. ABDOMINAL WALL: No evidence of significant anterior abdominal wall nor inguinal hernia. GI: There is no evidence of bowel obstruction, free air, nor abscess. PELVIS: LYMPH NODES: There is no intrapelvic nor inguinal adenopathy. GI: Appendix surgically absent.No evidence of sigmoid diverticulitis. URINARY BLADDER: No calculi nor obvious masses evident REPRODUCTIVE: Prostate size upper normal. OSSEOUS: No significant osseous lesions. IMPRESSION: 1. Prior appendectomy and right inguinal hernia repair. There is no evidence of bowel obstruction, f ree air, nor abscess. 2. There is a small hiatal hernia and there appears to be thickening of the wall the stomach at and j ust beyond the GE junction. Recommend endoscopy to rule out neoplasm. RADIATION DOSE DELIVERED: Total DLP DATA REPOSITORY: All CT scans at this facility are submitted to the National Radiology Data Registry (NRDR) Dose Index Registry (DIR) with the [employer] (ACR). RADIATION OPTIMIZATION: All CT scans at this facility use at least one of these dose optimization te chniques: automated exposure control; mA and/or kV adjustment per patient size (includes targeted exa ms where dose is matched to clinical indication); or iterative reconstruction.
--- NOTE | 2023-04-15 23:45 | RT.EKG_ITS ---
APPROVED REPORT Exam: Resting ECG Reason for Exam: SOB Patient Location: E HR:94 bpm ECG Measurements Heart Rate 94 AXIS DE 133 P 66 QRSd 80 QRS 10 QT 368 T 12 QTc 461 Conclusion Sinus rhythm...normal P axis, V-rate 60- 99 Physician: no stemi
[2023-04-15 23:52] VITALS: BP 159/118; PULSE 93; RESP 22; TEMP 36.2; O2SAT 97
--- OUTSIDE RECORDS SUMMARY | 2023-04-15 23:54 | XMS_ITS | Continuity of Care Document ---
Author Name Unknown Organization Psych Address [address] [place] [address] Care Team Providers Care Vice President Biostatistics Name Role Phone Unknown PCP, Unknown PCP Primary Care Physician Unavailable Encounter Date(s): 01/26/21 - 02/22/21 Psych [address] [place], [place] [address] [facility] Encounter Diagnosis Schizophrenia(Discharge Diagnosis) - 01/26/21 Discharge Disposition: Home or Self Care Attending Physician: Kirit Loera MD Admitting Physician: Kirit Loera MD Allergies, Adverse Reactions, Alerts Substance Reaction Severity Status penicillin Active Assessment and Plan Extracted from: Title:Physician Progress Note - Psychiatric Auth or:Felicia Blanc, BUSINESS OBJECTS Date:02/21/21 Patient continues to have pe riods of??agitation??and increased paranoia and delusions.?? He has been taking his medications without any difficulty and requesting as needed when needed.?? During the day he seems to do better. ??States he is anxious about discharge??tomorrow.?? No medication changes indicated at this time Schizophrenia ?? F20.9 Inpatient acetaminophen, 1000 mg, 2 tab(s), Oral, q6hr, PRN Ativan, 1 mg, 1 tab(s), Oral, q8hr, PRN calcium carbonate, 1000 mg, 2 tab(s), Oral, PCHS after meals/bedtime, PRN Cogentin, 1 mg, 1 tab(s), Oral, q6hr, PRN Epsom Salt, 1 ron, Topical, Daily, PRN melatonin, 6 mg, 2 tab(s), Oral, qHS, PRN Milk of Magnesia, 30 mL, Oral, Daily, PRN Mylanta, 30 mL, Oral, QID, PRN PANToprazole, 40 mg, 1 tab(s), Oral, Daily RisperDAL, 4 mg, 2 tab(s), Oral, BID RisperDAL, 2 mg, 1 tab(s), Oral, q6hr, PRN Vistaril, 50 mg, 1 cap(s), Oral, q6hr, PRN Home RisperDAL 4 mg oral tablet, 4 mg, 1 tab(s), Oral, BID ?? I certify that inpatient psychiatric hospital admission is medically necessary for treatment which could reasonably be expected to improve the patient's condition: _Yes In need of ILOC due to:_Potential dangerousness to others, inability to care for self Is the patient involuntary? _Yes Did the patient receive a court order for involuntary medication? _No ? Treatment Plan Discussed and Reviewed with Patient:_Yes Receiving active treatment through medication, individual, group, and milieu therapy Plan for discharge??tomorrow Extracted from: Title:Physician Progress Note - Psychiatric Auth or:Felicia Blanc, Date:02/20/21 Patient did have a difficult evening but that might've been in response to another difficult patient on the unit??who is now discharged.?? He is doing better today.?? No medication changes indicated at this time. ??Plan for discharge February 22 Schizophrenia ?? F20.9 Inpatient acetaminophen, 1000 mg, 2 tab(s), Oral, q6hr, PRN Ativan, 1 mg, 1 tab(s), Oral, q8hr, PRN calcium carbonate, 1000 mg, 2 tab(s), Oral, PCHS after meals/bedtime, PRN Cogentin, 1 mg, 1 tab(s), Oral, q6hr, PRN Epsom Salt, 1 ron, Topical, Daily, PRN melatonin, 6 mg, 2 tab(s), Oral, qHS, PRN Milk of Magnesia, 30 mL, Oral, Daily, PRN Mylanta, 30 mL, Oral, QID, PRN PANToprazole, 40 mg, 1 tab(s), Oral, Daily RisperDAL, 4 mg, 2 tab(s), Oral, BID RisperDAL, 2 mg, 1 tab(s), Oral, q6hr, PRN Vistaril, 50 mg, 1 cap(s), Oral, q6hr, PRN Home RisperDAL 4 mg oral tablet, 4 mg, 1 tab(s), Oral, BID ?? I certify that inpatient psychiatric hospital admission is medically necessary for treatment which could reasonably be expected to improve the patient's condition: Yes_ In need of ILOC due to:_Potential dangerousness to others, inability to care for self Is the patient involuntary? _Yes Did the patient receive a court order for involuntary medication? _No ? Treatment Plan Discussed and Reviewed with Patient:??Yes_ Receiving active treatment through medication, individual, group, and milieu therapy Plan for discharge?February 22 Extracted from: Title:Physician Progress Note - Psychiatric Auth or:Kirit Loera MD Date:02/19/21 The patient was much improve d at this point and no further medication changes were indicated.?? Discharge is being planned for 22 February. Schizophrenia ?? F20.9 Inpatient acetaminophen, 1000 mg, 2 tab(s), Oral, q6hr, PRN Ativan, 1 mg, 1 tab(s), Oral, q8hr, PRN calcium carbonate, 1000 mg, 2 tab(s), Oral, PCHS after meals/bedtime, PRN Cogentin, 1 mg, 1 tab(s), Oral, q6hr, PRN Epsom Salt, 1 ron, Topical, Daily, PRN melatonin, 6 mg, 2 tab(s), Oral, qHS, PRN Milk of Magnesia, 30 mL, Oral, Daily, PRN Mylanta, 30 mL, Oral, QID, PRN PANToprazole, 40 mg, 1 tab(s), Oral, Daily RisperDAL, 4 mg, 2 tab(s), Oral, BID RisperDAL, 2 mg, 1 tab(s), Oral, q6hr, PRN Vistaril, 50 mg, 1 cap(s), Oral, q6hr, PRN Home No active home medications ?? I certify that inpatient psychiatric hospital admission is medically necessary for treatment which could reasonably be expected to improve the patient's condition: _Yes In need of ILOC due to:_Potential dangerousness to others??and inability to safely care for self Is the patient involuntary? _Yes Did the patient receive a court order for involuntary medication? _No ?? Treatment Plan Discussed and Reviewed with Patient:_Yes Receiving active treatment through medication, individual, group, and milieu therapy Extracted from: Title:Physician Progress Note - Psychiatric Auth or:Felicia Blanc, BUSINESS OBJECTS Date:02/18/21 Patient continues to improve overall. ??He is much less irritable. ??Has been compliant with his medications and tolerating well. ??He is hopeful to be discharged early next week. ??No medication changes indicated at this time Schizophrenia ?? F20.9 Inpatient acetaminophen, 1000 mg, 2 tab(s), Oral, q6hr, PRN Ativan, 1 mg, 1 tab(s), Oral, q8hr, PRN calcium carbonate, 1000 mg, 2 tab(s), Oral, PCHS after meals/bedtime, PRN Cogentin, 1 mg, 1 tab(s), Oral, q6hr, PRN Epsom Salt, 1 ron, Topical, Daily, PRN melatonin, 6 mg, 2 tab(s), Oral, qHS, PRN Milk of Magnesia, 30 mL, Oral, Daily, PRN Mylanta, 30 mL, Oral, QID, PRN PANToprazole, 40 mg, 1 tab(s), Oral, Daily RisperDAL, 4 mg, 2 tab(s), Oral, BID RisperDAL, 2 mg, 1 tab(s), Oral, q6hr, PRN Vistaril, 50 mg, 1 cap(s), Oral, q6hr, PRN Home No active home medications ?? I certify that inpatient psychiatric hospital admission is medically necessary for treatment which could reasonably be expected to improve the patient's condition: _Yes In need of ILOC due to:_Potential dangerousness to others Is the patient involuntary? _Yes Did the patient receive a court order for involuntary medication? _No ? Treatment Plan Discussed and Reviewed with Patient:_Yes Receiving active treatment through medication, individual, group, and milieu therapy Potential discharge early next week Extracted from: Title:Physician Progress Note - Psychiatric Auth or:Kirit Loera MD Date:02/17/21 The patient has been doing b merari overall although still??having??a difficult time in the late afternoon/early evening.?? No further dosing changes will be made at this point but we will??continue to just give it more time. ??He is definitely trending in a much better direction at this point. ??Discharge for early next week is anticipated. Schizophrenia ?? F20.9 Inpatient acetaminophen, 1000 mg, 2 tab(s), Oral, q6hr, PRN Ativan, 1 mg, 1 tab(s), Oral, q8hr, PRN calcium carbonate, 1000 mg, 2 tab(s), Oral, PCHS after meals/bedtime, PRN Cogentin, 1 mg, 1 tab(s), Oral, q6hr, PRN Epsom Salt, 1 ron, Topical, Daily, PRN melatonin, 6 mg, 2 tab(s), Oral, qHS, PRN Milk of Magnesia, 30 mL, Oral, Daily, PRN Mylanta, 30 mL, Oral, QID, PRN PANToprazole, 40 mg, 1 tab(s), Oral, Daily RisperDAL, 4 mg, 2 tab(s), Oral, BID RisperDAL, 2 mg, 1 tab(s), Oral, q6hr, PRN Vistaril, 50 mg, 1 cap(s), Oral, q6hr, PRN Home No active home medications ?? I certify that inpatient psychiatric hospital admission is medically necessary for treatment which could reasonably be expected to improve the patient's condition: _Yes In need of ILOC due to:_Potential dangerousness to others Is the patient involuntary? _Yes Did the patient receive a court order for involuntary medication? _No ?? Treatment Plan Discussed and Reviewed with Patient:_Yes Receiving active treatment through medication, individual, group, and milieu therapy Extracted from: Title:History & Physical - Psychiatric Author:Fahad Loera MD Date:01/26/21 Reason for Admission This 40-year-old male??was admitted involuntarily??due to??erratic behavior associated with a relapse of his underlying??schizophrenia. Substance Abuse History Not much was known about the patient's substance history as he declined to go into any detail??short of saying that he occasionally uses alcohol. Mental Status Exam The patient was appropriately dressed and groomed in hospital attire.?? He was superficially??cooperative with the evaluation??but somewhat guarded overall. Speech was within normal limits. ??Mild to moderate psychomotor agitation was noted??in the form of restlessness. Mood was neutral with a congruent??restricted affect. Thought was concrete??with rare derailment. ??He did not admit to perceptual disturbances??but delusional thinking was noted. Recent and remote memories were intact. Concentration for the interview was fair but??grossly intact. ??He was oriented to person, place and time. There was no tangentiality and looseness of associations. Judgment and insight were fair.??There were no active suicidal and homicidal thoughts.?? Gait was??not observed as he remained seated for the entirety of the interview. ??Fund of knowledge was fair. ??Language was adequate.?? Muscle tone was??within normal limits. Assessment/Plan The patient's presentation was fully consistent with an exacerbation of underlying paranoid schizophrenia??in the context of medication nonadherence.?? He was actively engaging in unsafe behavior in both the??community and the emergency department.?? Although psychomotorically agitated,??his behavior has been safe during the 2 hours he has been??here at [facility].?? His outpatient dose of Risperdal will be ordered. ??He stated that he did not want to take this medication??due to??the side effect of suicidal thinking??but also declined to consider other options.?? He was aware that as long as??he continued to display safe??behavior toward self and others,??then medication would not be given??involuntarily. Diagnosis Schizophrenia ?? F20.9 Ordered: acetaminophen, 1,000 mg = 2 tab(s), Tab, Oral, q6hr PRN pain, Start date 01/26/21 11:44:00 EDT, Routine Al hydroxide/Mg hydroxide/simethicone, 30 mL, Susp, Start date 01/26/21 11:44:00 EDT, Oral, QID PRN dyspepsia, Routine ibuprofen, 600 mg = 1 tab(s), Tab, Oral, q6hr PRN pain, Start date 01/26/21 11:44:00 EDT, Routine magnesium hydroxide, 30 mL, Susp, Start date 01/26/21 11:44:00 EDT, Oral, Daily PRN constipation, Routine Abdominal Circumference Abdominal Circumference Admit to Psychiatric Unit Blood Pressure Diet Glucose Level Glucose Level Height/Length Height/Length Height/Length Height/Length Height/Length Hospital Based Inpatient Psychiatric Services Quality Measures Lipid Panel Lipid Panel Resuscitation Status Safety Checks Substance Abuse Quality Measures Tobacco Cessation Quality Measures Up ad Sosa Weight Weight Weight Weight Weight ?? Orders: benztropine, 1 mg = 1 tab(s), Tab, Oral, q6hr PRN other (see comment), Start date 01/26/21 11:47:00 EDT, Routine hydrOXYzine, 50 mg = 1 cap(s), Cap, Oral, q6hr PRN anxiety, Start date 01/26/21 11:44:00 EDT, Routine melatonin, 6 mg = 2 tab(s), Tab, Oral, qHS PRN insomnia, Start date 01/26/21 11:44:00 EDT, Routine PANToprazole, 40 mg = 1 tab(s), Tab-EC, Oral, Daily, Start date 01/27/21 8:00:00 EDT, Routine risperiDONE, 2 mg = 2 tab(s), Tab-Dis, Oral, q6hr PRN agitation/anxiety, Start date 01/26/21 11:45:00 EDT, Routine risperiDONE, 8 mg = 4 tab(s), Tab, Oral, qHS, Start date 01/26/21 21:00:00 EDT, Routine Functional Status 02/21/21 ADLs Independent Immunizations Given and Recorded Vaccine Date Status Refusal Reason Do(JJ) COVID-19 Ad26 vacc 1 10/05/20 Recorded 1Result Comment: [01/27/2021] [facility] Medications RisperDAL 4 mg oral tablet 4 mg = 1 tab(s), Oral, BID, # 60 tab(s), 0 Refill(s), Pharmacy: [facility] Start Date: 02/19/21 Stop Date: 03/21/21 Status: Ordered Mental Status 02/22/21 Level of Consciousness Alert Orientation Assessment Oriented x 4 Problem List Condition Effective Dates Status Health Status Inform ant Schizophrenia(Confirmed) Active Vital Signs Most recent to oldest [Reference Range]: 1 2 Temperature Temporal Artery [36.3-37.8 DegC] 36.7 DegC (02/20/21 7:12 AM) 37.2 DegC (01/26/21 11:56 AM) Peripheral Pulse Rate [60-100 bpm] 100 b pm (02/20/21 7:12 AM) 78 bpm (01/26/21 11:56 AM) Respiratory Rate [14-20 br/min] 16 br/mi n (01/26/21 11:56 AM) Blood Pressure [90-140/60-90 mmHg] 125/8 1mmHg (02/20/21 7:12 AM) 117/80mmHg (01/26/21 11:56 AM) Social History Social History Type Response Smoking Status Current every day sm oker; Previous treatment: None; Ready to change: No; Concerns about tobacco use in household: No entered on: 01/26/21 Sex Male Hospital Discharge Instructions Patient Education 02/22/2021 13:17:46 Gastroesophageal Reflux Disease, Adult, [id number] Gastroesophageal Reflux Disease, Adult Gastroesophageal reflux (CHRISTIANO) happens when acid from the stomach flows up into the tube that connects the mouth and the stomach (esophagus). Normally, food travels down the esophagus and stays in thestomach to be digested. With CHRISTIANO, food and stomach acid sometimes move back up into the esophagus. You may have a disease called gastroesophageal reflux disease (GERD) if the reflux: ??? Happens often. ??? Causes frequent or very bad symptoms. ??? Causes problems such as damage to the esophagus. When this happens, the esophagus becomes sore and swollen (inflamed). Over time, GERD can make small holes (ulcers) in the lining of the esophagus. What are the causes? This condition is caused by a problem with the muscle between the esophagus and the stomach. When this muscle is weak or not normal, it does not close properly to keep food and acid from coming back up from the stomach. The muscle can be weak because of: ??? Tobacco use. ??? . ??? Having a certain type of hernia (hiatal hernia). ??? Alcohol use. ??? Certain foods and drinks, such as coffee, chocolate, onions, and peppermint. What increases the risk? You are more likely to develop this condition if you: ??? Are overweight. ??? Have a disease that affects your connective tissue. ??? Use NSAID medicines. What are the signs or symptoms? Symptoms of this condition include: ??? Heartburn. ??? Difficult or painful swallowing. ??? The feeling of having a lump in the throat. ??? A bitter taste in the mouth. ??? Bad breath. ??? Having a lot of saliva. ??? Having an upset or bloated stomach. ??? Belching. ??? Chest pain. Different conditions can cause chest pain. Make sure you see your doctor if you have chest pain. ??? Shortness of breath or noisy breathing (wheezing). ??? Ongoing (chronic) cough or a cough at night. ??? Wearing away of the surface of teeth (tooth enamel). ??? Weight loss. How is this treated? Treatment will depend on how bad your symptoms are. Your doctor may suggest: ??? Changes to your diet. ??? Medicine. ??? Surgery. Follow these instructions at home: Eating and drinking ??? Follow a diet as told by your doctor. You may need to avoid foods and drinks such as: ??? Coffee and tea (with or without caffeine). ??? Drinks that contain alcohol. ??? Energy drinks and sports drinks. ??? Bubbly (carbonated) drinks or sodas. ??? Chocolate and cocoa. ??? Peppermint and mint flavorings. ??? Garlic and onions. ??? Horseradish. ??? Spicy and acidic foods. These include peppers, chili powder, oviedo powder, vinegar, hot sauces,and BBQ sauce. ??? [place] fruit juices and citrus fruits, such as oranges, maria g, and limes. ??? Tomato-based foods. These include red sauce, chili, salsa, and pizza with red sauce. ??? Fried and fatty foods. These include donuts, [place] fries, potato chips, and high-fat dressings. ??? High-fat meats. These include hot dogs, rib eye steak, sausage, ham, and coello. ??? High-fat dairy items, such as whole milk, butter, and cream cheese. ??? Eat small meals often. Avoid eating large meals. ??? Avoid drinking large amounts of liquid with your meals. ??? Avoid eating meals during the 2???3 hours before bedtime. ??? Avoid lying down right after you eat. ??? Do not exercise right after you eat. Lifestyle ??? Do not use any products that contain nicotine or tobacco. These include cigarettes, e-cigarettes, and chewing tobacco. If you need help quitting, ask your doctor. ??? Try to lower your stress. If you need help doing this, ask your doctor. ??? If you are overweight, lose an amount of weight that is healthy for you. Ask your doctor about a safe weight loss goal. General instructions ??? Pay attention to any changes in your symptoms. ??? Take wocc-zwr-ywtwitg and prescription medicines only as told by your doctor. Do not take aspirin, ibuprofen, or other NSAIDs unless your doctor says it is okay. ??? Wear loose clothes. Do not wear anything tight around your waist. ??? Raise (elevate) the head of your bed about 6 inches (15 cm). ??? Avoid bending over if this makes your symptoms worse. ??? Keep all follow-up visits as told by your doctor. This is important. Contact a doctor if: ??? You have new symptoms. ??? You lose weight and you do not know why. ??? You have trouble swallowing or it hurts to swallow. ??? You have wheezing or a cough that keeps happening. ??? Your symptoms do not get better with treatment. ??? You have a hoarse voice. Get help right away if: ??? You have pain in your arms, neck, jaw, teeth, or back. ??? You feel sweaty, dizzy, or light-headed. ??? You have chest pain or shortness of breath. ??? You throw up (vomit) and your throw-up looks like blood or coffee grounds. ??? You pass out (faint). ??? Your poop (stool) is bloody or black. ??? You cannot swallow, drink, or eat. Summary ??? If a person has gastroesophageal reflux disease (GERD), food and stomach acid move back up intothe esophagus and cause symptoms or problems such as damage to the esophagus. ??? Treatment will depend on how bad your symptoms are. ??? Follow a diet as told by your doctor. ??? Take all medicines only as told by your doctor. This information is not intended to replace advice given to you by your health care provider. Make sure you discuss any questions you have with your health care provider. Document Revised: 10/17/2018 Document Reviewed: 10/17/2018 [employer] Patient Education ?? 2020 [employer]. 02/22/2021 13:17:46 Schizophrenia Schizophrenia Schizophrenia is a mental illness. It may cause disturbed or disorganized thinking, speech, or behavior. People with schizophrenia have problems functioning in one or more areas of life. People with schizophrenia are at increased risk for suicide, certain long-term (chronic) physical illnesses, and unhealthy behaviors, such as smoking and drug use. People who have family members with schizophrenia are at higher risk of developing the illness. Schizophrenia affects men and women equally, but it usually appears at an earlier age (teenage or earlyadult years) in men. What are the causes? The cause of this condition is not known. What increases the risk? The following factors may make you more likely to develop this condition: ??? Having a family member who has schizophrenia. Some gene combinations may increase the risk, butthere is no single gene that causes schizophrenia. ??? Impaired brain or neurotransmitter development or chemistry. Neurotransmitters are chemicals inthe brain. What are the signs or symptoms? The earliest symptoms are often subtle and may go unnoticed until the illness becomes more severe (first-break psychosis). Symptoms of schizophrenia may be ongoing (continuous) or may come and go in severity. Episodes are often triggered by major life events, such as: ??? Family stress. ??? College. ??? service. ??? Marriage. ??? or childbirth. ??? Divorce. ??? Loss of a loved one. Symptoms may include: ??? Seeing, hearing, or feeling things that do not exist (hallucinations). ??? Having false beliefs (delusions). Delusions often involve beliefs that you are being attacked, harassed, cheated, persecuted, or conspired against (persecutory delusions). ??? Speech that does not make sense to others or is hard to understand (incoherent). ??? Behavior that is odd, confused, unfocused, withdrawn, or disorganized. ??? Extremely overactive or underactive motor activity (catatonia). Motor activity is any action that involves the muscles. ??? [place] or blunted emotions (flat affect). ??? Loss of will power (avolition). ??? Withdrawal from social contacts (social isolation). Symptoms may affect the level of functioning in one or more major areas of life, such as work, school, relationships, or self-care. How is this diagnosed? Schizophrenia is diagnosed through an assessment by a mental health care provider. ??? Your mental health care provider may ask questions about: ??? Your thoughts, behavior, and mood. ??? Your ability to function in daily life. ??? Your medical history. ??? Any use of alcohol or drugs, including prescription medicines. ??? You may have blood tests and imaging exams. How is this treated? Schizophrenia is a chronic illness that is best controlled with continuous treatment rather than treatment only when symptoms occur. The following treatments are used to manage schizophrenia: ??? Medicine. This is the most effective and important form of treatment for schizophrenia. Antipsychotic medicines are usually prescribed to help manage schizophrenia. Other types of medicine may beadded to relieve any symptoms that may occur despite the use of antipsychotic medicines. ??? Counseling or talk therapy. Individual, group, or family counseling may be helpful in providingeducation, support, and guidance. Many people also benefit from social skills and job skills (vocational) training. A combination of medicine and counseling is best for managing the disorder over time. A procedure in which electricity is applied to the brain through the scalp (electroconvulsive therapy) may be used to treat catatonic schizophrenia or schizophrenia in people who cannot take medicine or do not respond to medicine and counseling. Follow these instructions at home: ??? Keep stress under control. Stress may trigger psychosis and make symptoms worse. ??? Try to get as much sleep as you can. ??? Avoid alcohol and drugs. They can affect how medicine works and make symptoms worse. ??? Surround yourself with people who care about you and can help you manage your condition. ??? Take ijqs-cjv-tyfxvuo and prescription medicines only as told by your health care provider. ??? Keep all follow-up visits as told by your health care provider and counselor. This is important. Contact a health care provider if: ??? You have a bad response to changes in medicines or to your treatment plan. ??? You have trouble falling sleep. ??? You have a low mood that will not go away. ??? You are using: ??? Drugs. ??? Too much caffeine. ??? Tobacco products. ??? Alcohol. Get help right away if: ??? You feel out of control. ??? You or others notice warning signs of suicide such as: ??? Increased use of drugs or alcohol ??? Expressing feelings of not having a purpose in life, being trapped, guilty, anxious and agitated, or hopeless. ??? Withdrawing from friends and family. ??? Showing uncontrolled anger, recklessness, and dramatic mood changes. ??? Talking about suicide, discussing or searching for methods. If you ever feel like you may hurt yourself or others, or have thoughts about taking your own life,get help right away. You can go to your nearest emergency department or call: ??? Your local emergency services (911 in the [place] ??? A suicide crisis helpline, such as the National Suicide Prevention Lifeline at . This is open 24 hours a day. Summary ??? Schizophrenia is a mental illness that causes disturbed or disorganized thinking, speech, or behavior. ??? Symptoms of schizophrenia may be ongoing or may come and go. They are often triggered by major life events. ??? Keep stress under control. Stress may trigger psychosis and make symptoms worse. ??? Avoid alcohol and drugs. They can affect how medicine works and make symptoms worse. ??? Get help right away if you feel out of control. This information is not intended to replace advice given to you by your health care provider. Make sure you discuss any questions you have with your health care provider. Document Revised: 03/23/2018 Document Reviewed: 01/20/2017 Elsevier Patient Education ?? 2020 [employer] Inc[employer]
--- NOTE | 2023-04-15 23:57 | W.ED.GENAD ---
Discharge Plan Disposition Patient Disposition: Home Condition: Good Discharge Details Clinical Impression: Gastric wall thickening, Abdominal pain, Dehydration Primary Care Provider: Perla Martin ED Provider: Kaleb Miller Home Meds and New Rx's Prescriptions: No Action fluticasone propionate [Flovent HFA] 110 mcg/actuation HFA aerosol inhaler 2 puff inhalation BID paliperidone palmitate 234 mg/1.5 mL syringe 234 mg IM QMONTH lorazepam 2 mg tablet 2 mg PO BID PRN olanzapine 20 mg tablet 10 mg PO BID Patient Comments: pt denies taking this anymore 12/01/22 omeprazole 20 mg capsule,delayed release(DR/EC) 20 mg PO DAILY loratadine [Allergy Relief (loratadine)] 10 mg tablet 10 mg PO DAILY benztropine 1 mg tablet 1 mg PO BID Discharge Instructions Instructions: Dehydration (ED), Abdominal Pain (ED) Additional Instructions: At this time your workup is reassuring and shows no significant abnormalities. You have been rehydrated. Please drink plenty of fluids at home, avoid excessive caffeine use. Please follow-up closely with your mental health advocates and take your medications as directed. Please follow-up closely with your primary care provider for further discussion of your stomach thickening. If you notice any worsening of your symptoms, or any new symptoms such as vomiting, diarrhea, fever, chills, shortness of breath, chest pain, numbness, weakness, or fainting , please return immediately to the emergency department for reevaluation. Please follow up with your primary care provider as soon as possible for reassessment and reevaluation. As always, it was a pleasure participating in your medical care today. Referrals: Perla Martin [Primary Care Provider] - Medical Decision Making 42-year-old male who is very pleasant, but is a poor historian with a past medical history of appendicitis and lap appendectomy, paranoid schizophrenia, GERD, inguinal hernia repair on the left, presents today for evaluation of right lower quadrant pain and wanting to pass out. Patient states that about 15 minutes ago he had some nausea vomiting and diarrhea, sudden pain in his right lower quadrant, and felt like he wanted to pass out. He did not pass out. He did not hit his head. He denies any dysuria or hematuria. Unfortunately he is not able to give any other specifics as to the type of pain, his current pain status, or any other symptoms. History is otherwise limited. Physical exam demonstrates dry mucous membranes, mild right lower quadrant tenderness. Does have a history of a lap appendectomy, however the patient does not recall this even though it was only 4 years ago. Concern for urolithiasis, less likely diverticulitis, will get a CT scan, rehydrate, give Toradol and Tylenol, monitor closely and reassess. 2:10 AM Patient has refused the Toradol and Tylenol. He feels much better after saline. He feels well and feels comfortable going home. Laboratory workup demonstrates no significant abnormalities except for minimal elevation in white count. Still pending CT scan at this time. With the patient's notably benign appearing abdomen at this point, otherwise stable workup, his CT scan is normal I do feel that discharge is very reasonable. 2:[address] scan negative for acute process, there is some thickening of the stomach the gastric cardia, radiology is concern for potential for malignancy, this does not appear consistent with the patient's symptoms, and is likely due to under distention, however we will recommend outpatient follow-up with PCP for reassessment and potential scheduling of outpatient EGD if clinically indicated. No emergent clinical indication at this time. Patient otherwise looks well. Stable for discharge. No dysrhythmia, significant cardiac abnormality on workup, or other concerning etiology. Patient does not feel lightheaded or syncopal. He states he feels much better after the fluids, and dehydration may certainly have been a component. He states that he has been drinking excessive amounts of caffeine as that of late. He is following up closely with his mental health advocate. Discussed red flags for which to return. I have extensively reviewed the treatment plan and discharge instructions with the patient. I have addressed all patient concerns at this time. The patient was made aware of what symptoms to monitor for that would warrant a return to the emergency department. Discussed the plan with the patient, they demonstrate verbal understanding and agreement with our assessment and plan at this time. The documentation in this chart was dictated using [employer] dictation software. Please excuse any dictation errors. FINDINGS: Diaphragm: Small hiatal hernia. There is soft tissue thickening the gastric cardia which is probably due to under distended stomach; however, gastric neoplasm cannot be excluded on this study. Liver: Normal. No mass. Gallbladder and bile ducts: Normal. No calcified stones. No ductal dilation. Pancreas: Unremarkable. Spleen: Normal. Adrenal glands: Normal. No mass. Kidneys and ureters: Normal. No hydronephrosis. Stomach and bowel: See Diaphragm finding. Appendix: Prior appendectomy. Intraperitoneal space: Unremarkable. No pneumoperitoneum. No abscess. Vasculature: Unremarkable. Lymph nodes: Unremarkable. Urinary bladder: Unremarkable as visualized. Reproductive: Unremarkable as visualized. Bones/joints: Unremarkable. No acute fracture. Soft tissues: Unremarkable. MPRESSION: Small hiatal hernia. There is soft tissue thickening the gastric cardia which is probably due to under distended stomach; however, gastric neoplasm cannot be excluded on this study. Thank you for allowing us to participate in the care of your patient. Dictated and Authenticated by: Brendon Weston MD 04/16/2023 2:14 AM Eastern Time ([place] & [place]) HPI General Date/Time Provider Initiated Documentation: 04/15/23 23:50. HPI Narrative: 42-year-old male who is very pleasant, but is a poor historian with a past medical history of appendicitis and lap appendectomy, paranoid schizophrenia, GERD, inguinal hernia repair on the left, presents today for evaluation of right lower quadrant pain and wanting to pass out. Patient states that about 15 minutes ago he had some nausea vomiting and diarrhea, sudden pain in his right lower quadrant, and felt like he wanted to pass out. He did not pass out. He did not hit his head. He denies any dysuria or hematuria. Unfortunately he is not able to give any other specifics as to the type of pain, his current pain status, or any other symptoms. History is otherwise limited. Related Data Home Medications Medication Instructions Recorded Confirmed loratadine 10 mg tablet (Allergy 10 mg PO DAILY 08/14/20 04/15/23 Relief (loratadine)) omeprazole 20 mg capsule,delayed 20 mg PO DAILY 08/14/20 04/15/23 release fluticasone propionate 110 2 puff inhalation BID 04/06/22 04/15/23 mcg/actuation HFA aerosol inhaler (Flovent HFA) lorazepam 2 mg tablet 2 mg PO BID PRN 04/06/22 04/15/23 olanzapine 20 mg tablet 10 mg PO BID 04/06/22 04/15/23 paliperidone palmitate 234 mg/1.5 234 mg IM QMONTH 04/06/22 04/15/23 mL intramuscular syringe benztropine 1 mg tablet 1 mg PO BID 04/15/23 04/15/23 Allergies Allergy/AdvReac Type Severity Reaction Status Date / Time Penicillins Allergy Other (See Unverified 04/15/23 23:56 Comment) General Stated Complaint: Abd Prob SCARLETT: 3 Review of Systems All systems reviewed & are unremarkable except as noted in HPI and below PFSH All Active Problems (Updated 04/16/23 @ 02:23 by Kaleb Miller DO) Dehydration (Acute) Abdominal pain (Acute) Gastric wall thickening (Acute) Osteoarthritis of left knee (Acute) Tinnitus, bilateral (Acute) Schizophrenia (Chronic) Seasonal allergies (Acute) Chronic low back pain (Chronic) Leukocytes in urine (Acute) Headache (Acute) Bronchitis (Acute) Medication refill (Acute) Psychosis (Acute) No-show for appointment (Acute) Chest pain (Acute) Mood disorder (Acute) Acute lateral meniscus tear of left knee (Acute) Acute traumatic internal derangement of left knee (Acute 08/14/20) second occurrence, prior traumatic injury 11/02/2017 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) Closed fracture nasal bone (Acute) Bilateral groin pain (Acute) Spermatocele of epididymis (Acute) Effusion of knee (Acute) Leg pain (Acute) Constipation (Acute) Suicidal ideation (Acute) S/P laparoscopic appendectomy (Acute ~08/05/18) Acute appendicitis (Acute) Paranoid schizophrenia (Chronic) GERD (gastroesophageal reflux disease) (Chronic) Person awaiting admission to adequate facility elsewhere (Acute 05/27/14) Medical History Herpes simplex Postconcussion syndrome Palpitation Left ACL tear Gastroesophageal reflux disease Mental disorder Poorly defined Surgical History Repair of inguinal hernia EGD - IV Sedation (06/14/16) Social History Smoking/Tobacco Use Status: Current every day Tobacco Type: cigarettes Years smoked: 28 Smoking risk assessment performed?: Yes Alcohol Intake: current Alcohol Intake frequency: a few times a month Drug use: Never Substance use type: does not use Housing: apartment Current gender identity: male Do you feel safe at home: Yes Do you feel safe in your relationship?: Yes Exam Narrative Exam Narrative: 1.Const: Well-nourished, Well-developed, appearing stated age 2.Eyes: PERRL, no conjunctival injection, and symmetrical lids. 3.ENT: Atraumatic external nose and ears. Dry MM. Neck: Symmetric, trachea midline, No thyromegaly. 4.CVS: +S1/S2, No murmurs or gallops. Peripheral pulses 2+ and equal in all extremities. Brisk capillary refill in all extremities. 5.RESP: Unlabored respiratory effort. Clear to auscultation bilaterally. No wheezes rales or rhonchi 6.GI: Soft, nondistended. No guarding or rebound. Mild right lower quadrant tenderness. No focal CVA tenderness. No evidence of hernia, groin tenderness, testicular tenderness. 7.MSK: Normocephalic/Atraumatic, Extremities w/o deformity or ttp No cyanosis or clubbing, Normal movement of all extremities 8.Skin: Warm, Dry. No rashes or lesions. 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 Sensation grossly intact, no focal neurologic deficits. 10.Psych: (AAO) x3. Appropriate mood and affect Course Vital Signs Vital signs: Vital Signs Temperature 36.2 C L 04/15/23 23:52 Pulse 93 H 04/15/23 23:52 Respiratory Rate 22 04/15/23 23:52 Blood Pressure 159/118 H 04/15/23 23:52 Pulse Oximetry 97 04/15/23 23:52 Temperature 36.2 C L 04/15/23 23:52 Temperature Source Temporal Artery Scan 04/15/23 23:52 Pulse 93 H 04/15/23 23:52 Respiratory Rate 22 04/15/23 23:52 Blood Pressure 159/118 H 04/15/23 23:52 Blood Pressure Position Sitting 04/15/23 23:52 Pulse Oximetry 97 04/15/23 23:52 Oxygen Delivery Method Room Air 04/15/23 23:52 Oxygen Flow Rate 0 04/15/23 23:52 Pain Level 0 04/15/23 23:52
[2023-04-15 23:58] VITALS: RESP 22; O2SAT 96
[2023-04-15 23:59] VITALS: BP 141/87; PULSE 97; RESP 21; RESP 23; TEMP 36.6; O2SAT 95; O2SAT 96
[2023-04-16] VITALS (99 sets, daily range): BP systolic 121–142; BP diastolic 87–99; PULSE 70–101; RESP 13–25; TEMP 36.7; O2SAT 94–100
[2023-04-16] MEDS: Normal Saline 1,000 ML 1000 ML IV (00:21)
[2023-04-16 00:22] LABS: Abs Immature Grans 0.03 10^3/uL (0.0-0.06); Absolute Basophil Count 0.08 10^3/uL (0.0-0.2); Absolute Eosinophil Count 0.19 10^3/uL (0.0-0.7); Absolute Monocyte Count 0.62 10^3/uL (0.1-0.8); Absolute Neutrophil Count 7.79 10^3/uL (1.2-6.7); Basophils % 0.6; Eosinophils % 1.5; HCT 41.8 % (40.0-50.0); HGB 14.2 g/dL (13.5-17.5); Immature Grans % 0.2; Lactate 1.4 mmol/L (0.6-1.4); Lymphocytes % 32.1; MCV 88 fL (80-95); MPV 9.5 fL (8.0-11.0); Monocytes % 4.8; Neutrophils % 60.8; Platelet Count 212 10^3/uL (130-400); RBC 4.74 10^6/uL (4.36-5.78); RDW 12.5 % (11.8-14.1); RDW-SD 40.4 fL; WBC 12.82 10^3/uL (4.4-10.8)
[2023-04-16 00:28] LABS: Absolute Lymphocyte Count 4.12 10^3/uL (1.2-3.4)
[2023-04-16 00:38] LABS: ALT 19 U/L (16-63); AST 15 U/L (15-37); Albumin 3.8 g/dL (3.4-5.0); Alkaline Phosphatase 105 U/L (46-116); Anion Gap 11.7 mmol/L (3-11); BUN 13 mg/dL (7-18); Bilirubin, Total 0.5 mg/dL (0.2-1.0); CO2 26.3 mmol/L (21.0-32.0); CREATININE 1.2 mg/dL (0.70-1.30); Calcium 9.1 mg/dL (8.5-10.1); Chloride 102 mmol/L (98-107); Estimated GFR 76.95 (mL/min/1.73m2); Glucose 131 mg/dL (74-106); Lipase 25 U/L (16-77); Potassium 3.7 mmol/L (3.5-5.1); Sodium 140 mmol/L (136-145); Total Protein 7.3 g/dL (6.4-8.2)
[2023-04-16 01:15] LABS: Bilirubin Negative (Negative); Blood Negative (Negative); Clarity Clear (Clear); Glucose Negative (Negative); Ketones Negative (Negative); Leukocyte Esterase Negative (Negative); Nitrite Negative (Negative); Specific Gravity <= 1.005 (1.005-1.025); Urobilinogen 0.2 mg/dL (Up to 0.2); pH 5.5 (5-8)
--- NOTE | 2023-04-16 02:14 | DI.VRAD_ITS ---
PROCEDURE INFORMATION: Exam: CT Abdomen And Pelvis Without Contrast Exam date and time: 04/16/2023 12:27 AM Age: 42 years old Clinical indication: Patient HX: Rlq pain, vomiting \T\ diarrhea, HX lapappe, RO stone TECHNIQUE: Imaging protocol: Computed tomography of the abdomen and pelvis without contrast. COMPARISON: CT ABDOMEN PELVIS W 07/29/2019 7:36 PM FINDINGS: Diaphragm: Small hiatal hernia. There is soft tissue thickening the gastric cardia which is probably due to under distended stomach; however, gastric neoplasm cannot be excluded on this study. Liver: Normal. No mass. Gallbladder and bile ducts: Normal. No calcified stones. No ductal dilation. Pancreas: Unremarkable. Spleen: Normal. Adrenal glands: Normal. No mass. Kidneys and ureters: Normal. No hydronephrosis. Stomach and bowel: See Diaphragm finding. Appendix: Prior appendectomy. Intraperitoneal space: Unremarkable. No pneumoperitoneum. No abscess. Vasculature: Unremarkable. Lymph nodes: Unremarkable. Urinary bladder: Unremarkable as visualized. Reproductive: Unremarkable as visualized. Bones/joints: Unremarkable. No acute fracture. Soft tissues: Unremarkable. IMPRESSION: Small hiatal hernia. There is soft tissue thickening the gastric cardia which is probably due to under distended stomach; however, gastric neoplasm cannot be excluded on this study. Dictated and Authenticated by: Brendon Weston MD. Ordering:KHADRA Manuel MD
== END 2023-04-16 02:36 | disposition home or self-care (01) ==
PROVIDERS: Emergency Provider Student in an Organized Health Care Education/Training Program; PCP Nurse Practitioner Family
DX: E86.0 Dehydration (principal); R10.31 Right lower quadrant pain; R11.2 Nausea with vomiting, unspecified; R19.7 Diarrhea, unspecified
CPT/HCPCS: 80053; 83690; 93005; 96360; 99284; 74176; 81003; 83605; 85025; 93010

== ENCOUNTER 2024-03-05 14:09 | Outpatient (REF) | payer MEDICARE, MEDICAID, SELFPAY ==
--- OUTSIDE RECORDS SUMMARY | 2024-03-05 14:19 | XMS_ITS | Encounter Summary ---
Author Organization [facility] Address [address] [place] [address] Care Team Providers Care Commissary Agent Name Role Phone Juan Romeo MD Primary Care Provider [phone] Encounter Details Date Type Department Care Team (Late st Contact Info) Description 05/01/2020 Results Only [facility] - [address] [phone] Elsie Spaulding MD [address] [facility] [address] [place] [address] Social History Tobacco Use Types Packs/Day Years Used Date Smoking Tobacco: Every Day Cigarettes 1 30 Smokeless Tobacco: Current Chew Alcohol Use Standard Drinks/Week Comments Not Currently 0 (1 standard drink = 0.6 oz pur e alcohol) Interpersonal Safety Answer Date Record ed Physically Hurt Never 11/24/2019 Verbally Threaten Not on file 11/24/2019 Sex and Gender Information Value Date Recorded Sex Assigned at Not on file Legal Sex Male 17:28 EST Gender Identity Not on file Sexual Orientation Not on file documented as of this encounter Plan of Treatment Not on file documented as of this encounter Procedures Procedure Name Priority Date/Time Associated Diagnosis Comments OCCULT BLOOD DIAGNOSTIC, FECES Routine 05/01/2020 12:10 EST H. PYLORI ANTIGEN Routine 05/01/2020 12: 10 EST documented in this encounter Results * OCCULT BLOOD DIAGNOSTIC, FECES (05/01/2020 12:10 EST) STOOL FOR OCCULT BLOOD - [facility] [place] NEG NEG 05/01/2020 14:24 EST [facility] 05/01/2020 12:1 0 EST 05/01/2020 14:08 EST Elsie Spaulding MD MICROBIOLOGY - GENERAL ORDERABL ES Final Result Performing Organization Address [facility] [address] [place] [address] * H. PYLORI ANTIGEN (05/01/2020 12:10 EST) H.PYLORI ANTIGEN - [facility] [place] NEG FOR H.PYLORI 05/01/2020 14:24 EST [facility] Comment: *Antimicrobials,proton pump inhibitors and bismuth preparations are known to suppress H.Pylori. If a negative result is obtained for a patient ingesting these compounds within two weeks prior to performing the test, it may be a false negative result and the test should be repeated on a new specimen two weeks after discontinuing treatment.* 05/01/2020 12:1 0 EST 05/01/2020 14:08 EST Elsie Spaulding MD MICROBIOLOGY - GENERAL ORDERABL ES Final Result Performing Organization Address [facility] [address] [place] [address] documented in this encounter Visit Diagnoses Not on filedocumented in this encounter Care Teams Commissary Agent Relationship Specialty Start Date End Date Juan Romeo MD PCP - General Family Medicine - Primary Care 04/24/19 documented as of this encounter
--- OUTSIDE RECORDS SUMMARY | 2024-03-05 14:19 | XMS_ITS | Encounter Summary ---
Author Organization [facility] Address [address] [place] [address] Care Team Providers Care Supervisor Unloading Name Role Phone Juan Romeo MD Primary Care Provider [phone] Reason for Visit * Reason Comments Laceration Encounter Details Date Type Department Care Team (Late st Contact Info) Description 09/26/2020 12:45 EDT [place] [facility] [address], [place] [id number] Jessica Gamino MD [address] [facility] [address] [place], [place] [id number] Knee laceration, left, initial encounter (Primary Dx) Social History Tobacco Use Types Packs/Day Years [...] on file documented as of this encounter Last Filed Vital Signs Vital Sign Reading Time Taken Comments Blood Pressure 114/78 09/26/2020 1227 EDT Pulse 107 09/26/2020 1227 EDT Temperature 37.1 ??C (98.7 ??F) 09/26/2020 1227 EDT Respiratory Rate 16 09/26/2020 1227 EDT Oxygen Saturation 97% 09/26/2020 1227 EDT Inhaled Oxygen Concentration - - Weight - - Height - - Body Mass Index - - documented in this encounter Ordered Prescriptions Prescription Sig Dispense Quantity Refills Last Filled Start Date End Date doxycycline (VIBRA-TABS) 100 mg tabletIndications:Carolina mohamud laceration, left, initial encounter Take 1 Tab by mouth 2 times daily for 5 days. 10 Tab 09/26/2020 10/01/2020 documented in this encounter Progress Notes * Marcela Sanchez RN - 09/26/2020 1245 EDT CC: Lacerated l knee while clearing brush using chainsaw around 1130. Arrives with bandages in place, pt reports bleeding controlled at this time. Covid Screening: In the last 72 hours, has the patient had: Shortness of breath, cough, sore throat, nasal congestion, runny nose, fever/chills/body aches, headache, or loss of taste or smell without a reasonable alternative diagnosis*? (If yes, assign patient to [facility] schedule) runny nose If no, have they been advised to quarantine due to COVID exposure (<6ft for > 15 mins in 24hrperiod) or due to travel? (If no, see in [facility]) *may be determined by RN/FIELD OPERATIONS TECHNICIAN or in discussion with available provider (CCA's can defer to Charge Nurse or Nurse they are working with to complete triage when appropriate) This excludes people that have traveled for essential reasons, or fully covid-vaccinated individuals > 14 days out from date of immunization. Reason patient is referred to [facility]: Runny nose CC: see above HPI: Cough? 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 HPI: oJnny presents today, after cutting himself with his chain saw just above the left knee joint. The wound bled freely at onset, less so at present. Pain is mild-moderate at wound site. He notes some numbness over the area of wound. I have reviewed current problem list and current medications. Social History Occupational History ??? Not on file Tobacco Use ??? Smoking status: Current Every Day Smoker Packs/day: 1.00 Years: 30.00 Pack years: 30.00 ??? Smokeless tobacco: Current User Types: Chew Substance and Sexual Activity ??? Alcohol use: Not Currently ??? Drug use: Not Currently ??? Sexual activity: Not on file Objective: Examination: Vitals: BP 114/78 Pulse (!) 107 Temp 37.1 ??C (98.7 ??F) (Oral) Resp 16 SpO2 97% There is no heightor weight on file to calculate BMI. WDWN WM, a bit dirty, in NAD Skin- just superior to left patella, there is a 2.5 cm across laceration with a large flap. Total area of wound is 4.5 cm. Multiple specks of wood in the wound. Ragged edge. Laceration Repair Date/Time: 09/26/2020 13:46 Performed by: Jessica Gamino MD Authorized by: Jessica Gamino MD Consent: Verbal consent obtained. Written consent obtained. Risks and benefits: risks, benefits and alternatives were discussed Consent given by: patient Patient understanding: patient states understanding of the procedure being performed Patient consent: the patient's understanding of the procedure matches consent given Procedure consent: procedure consent matches procedure scheduled Patient identity confirmed: verbally with patient Time out: Immediately prior to procedure a time out was called to verify the correct patient, procedure, equipment, support architect and site/side marked as required. Body area: lower extremity Location details: left knee Laceration length: 4.5 cm Contamination: The wound is contaminated. Foreign bodies: wood Tendon involvement: none Nerve involvement: none Vascular damage: no Anesthesia: local infiltration Anesthesia: Local Anesthetic: lidocaine 1% with epinephrine Anesthetic total: 3 (30 gauge needle) mL Sedation: Patient sedated: no Preparation: Patient was prepped and draped in the usual sterile fashion. Irrigation solution: saline Irrigation method: syringe Amount of cleaning: extensive Debridement: moderate Degree of undermining: minimal Skin closure: 4-0 nylon Number of sutures: 9 Technique: simple and vertical mattress Approximation: loose Approximation difficulty: complex Dressing: antibiotic ointment and non-adhesive packing strip Patient tolerance: patient tolerated the procedure well with no immediate complications Patient signed consent with risks to include bleeding, infection, pain and scarring. Wound cleansedextensively with dilute Betasept. After anesthesia noted above, multiple pieces of wood removed with fine forceps, wound rinsed with Saline 20 mL to loosen up pieces. Suture used 4-0 nylon. 8 regular, 1 mattress suture placed. Jonny tolerated procedure quite well. See wound care in discharge. Assessment & Plan: 1. Knee laceration, left, initial encounter -Provided Jonny with 6 days of wound care supplies. Wash wound with soapy water daily. Pat dry. Apply antibiotic ointment/Bacitracin-then nonstick gauze, then 1/2 abdominal pad, then YOSEPH wrap. -Ice and elevate knee through the weekend to minimize swelling. - doxycycline (VIBRA-TABS) 100 mg tablet; Take 1 Tab by mouth 2 times daily for 5 days. Dispense: 10 Tab; Refill: 0 -handout includes directions for when to return: Increase in redness, swelling, pain, fever, purulent drainage. Otherwise sutures out in 7-10 days. documented in this encounter Plan of Treatment Not on file documented as of this encounter Procedures Procedure Name Priority Date/Time Associated Diagnosis Comments LACERATION REPAIR Routine 09/26/2020 12: 45 EDT Knee laceration, left, initial encounter LACERATION REPAIR Routine 09/26/2020 12: 45 EDT Knee laceration, left, initial encounter documented in this encounter Results * SC REPAIR COMPLEX SCALP/ARM/LEG 2.6-7.5 CM, HC - BEDSIDE CODING WORKFLOW 2 (09/26/2020 12:45 EDT) Narrative [facility] POINT OF CARE - 09/26/2020 12:45 EDT Jessica Gamino MD ? 09/26/2020 13:55 Laceration Repair Date/Time: 09/26/2020 13:46 Performed by: Jessica Gamino MD Authorized by: Jessica Gamino MD Consent: Verbal consent obtained. Written consent obtained. Risks and benefits: risks, benefits and alternatives were discussed Consent given by: patient Patient understanding: patient states understanding of the procedure being performed Patient consent: the patient's understanding of the procedure matches consent given Procedure consent: procedure consent matches procedure scheduled Patient identity confirmed: verbally with patient Time out: Immediately prior to procedure a time out was called to verify the correct patient, procedure, equipment, support architect and site/side marked as required. Body area: lower extremity Location details: left knee Laceration length: 4.5 cm Contamination: The wound is contaminated. Foreign bodies: wood Tendon involvement: none Nerve involvement: none Vascular damage: no Anesthesia: local infiltration Anesthesia: Local Anesthetic: lidocaine 1% with epinephrine Anesthetic total: 3 (30 gauge needle) mL Sedation: Patient sedated: no Preparation: Patient was prepped and draped in the usual sterile fashion. Irrigation solution: saline Irrigation method: syringe Amount of cleaning: extensive Debridement: moderate Degree of undermining: minimal Skin closure: 4-0 nylon Number of sutures: 9 Technique: simple and vertical mattress Approximation: loose Approximation difficulty: complex Dressing: antibiotic ointment and non-adhesive packing strip Patient tolerance: patient tolerated the procedure well with no immediate complications us Jessica Gamino MD PROCEDURE/MINOR SURGICAL ORDERAB LES Final Result [facility] POINT OF CARE documented in this encounter Visit Diagnoses Diagnosis Knee laceration, left, initial encounter- Primary documented in this encounter Discontinued Medications Medication Sig Discontinue Reason Start Date End Da te Risperidone 4 mg tablet,disintegrating Take 4 mg by mouth daily. Duplicate order 09/26/2020 documented as of this encounter Historical Medications * This list may reflect changes made after this encounter. naproxen sodium (ALEVE) 220 mg capsule Take 220 mg by mouth as needed. risperiDONE (RISPERDAL) 4 mg tablet Take 8 mg by mouth. 07/29/2019 omeprazole (PRILOSEC) 20 mg capsule Take 20 mg by mouth. 08/14/2020 loratadine (CLARITIN) 10 mg tablet Take 10 mg by mouth. 08/14/2020 budesonide-formo terol HFA (SYMBICORT) 160-4.5 mcg/actuation HFA aerosol inhaler inhaler Inhale as directed. Uses infrequently 06/23/2020 added in this encounter Care Teams Supervisor Unloading Relationship Specialty Start Date End Date Juan Romeo MD PCP - General Family Medicine - Primary Care 04/24/19 documented as of this encounter
--- OUTSIDE RECORDS SUMMARY | 2024-03-05 14:19 | XMS_ITS | Encounter Summary ---
Author Organization [facility] Address [address] [place] [address] Care Team Providers Care Defensive Fire Control Systems Operator Name Role Phone Rafael Jackson MD Primary Care Provider [phone] Encounter Details Date Type Department Care Team (Late st Contact Info) Description 08/05/2018 Results Only [facility] [phone] Melania Marino MD [address], [place] [id number] Social History Tobacco Use Types Packs/Day Years Used Date Smoking Tobacco: Never Assessed Sex and Gender Information Value Date Recorded Sex Assigned at Not on file Legal Sex Male 17:28 EST Gender Identity Not on file Sexual Orientation Not on file documented as of this encounter Plan of Treatment Not on file documented as of this encounter Procedures Procedure Name Priority Date/Time Associated Diagnosis Comments SURGICAL PATHOLOGY Routine 08/05/2018 10 :02 EDT documented in this encounter Results * SURGICAL PATHOLOGY (08/05/2018 10:02 EDT) Pathology Report: SURGICAL PATHOLOGY REPORT Reports generated via electronic interface contain original data; however they are lacking the format of the original report. Caution should be taken when reading/interpret ing unformatted reports. Name: ? KENY GOMEZS Jose Alejandro ? Accession #: ? [id number] ? : ? 1980 (Age: 37) ??M ? Collect Date: ? 08/05/2018 ? Location: ? [facility] ? Receive Date: ? 08/06/2018 ? Provider: MELANIA MARINO MD Copy to: [employer] [employer] ? Final Pathologic Diagnosis: APPENDIX, APPENDECTOMY: - Acute suppurative appendicitis and periappendicitis. Document reviewed and electronically signed by: ELIOT FERNANDES MD Report ??Date: 08/13/2018 12:00 By the signature above, the attending physician certifies that he/she has personally conducted a gross and/or microscopic examination of the described specimens and rendered or confirmed the above diagnosis. Specimen(s) Received: Appendix Clinical History: Acute appendicitis Gross Description: ? Received in formalin labelled with proper patient identification (initials P, N) and appendix is a vermiform appendix (6.0 cm in length x 0.7 cm in diameter), with a dusky hyperemic mesoappendix. The proximal margin is stapled. ? The serosa is mahmood to mahmood-brown with focal exudate. The cut surface is mahmood. The mucosa of the distal one third of the appendix is markedly hyperemic and dark brown. The average wall thickness is 0.4 cm with no discernable perforation site. The lumen measures 0.2 cm in diameter and contains no fecalith. The proximal margin is inked blue. ? The section adjacent to the proximal stapled margin, two leather goods sales representative cross sections and one half of the longitudinally bisected distal tip are submitted in 1. JOSÉ MIGUEL Robison (ASCP) 08/07/2018 11:20 AM End of Report [facility] 08/05/2018 10:0 2 EDT 08/06/2018 10:02 EDT us Melania Marino MD PATHOLOGY ORDERABLES Fin al Result [facility] [address] [place] [address] documented in this encounter Visit Diagnoses Not on filedocumented in this encounter Care Teams Defensive Fire Control Systems Operator Relationship Specialty Start Date End Date Rafael Jackson MD [address] [place] [address] PCP - General 06/17/16 04/23/19 documented as of this encounter
--- OUTSIDE RECORDS SUMMARY | 2024-03-05 14:19 | XMS_ITS | Encounter Summary ---
Author Organization [facility] Address [address] [place] [address] Care Team Providers Care Rip Machine Operator Name Role Phone Rafael Jackson MD Primary Care Provider [phone] Encounter Details Date Type Department Care Team (Late st Contact Info) Description 04/08/2019 Results Only [facility] - [facility] - Main [address] [phone] Juan Romeo MD [address] [place] [phone] Social History Tobacco Use Types Packs/Day Years [...] Procedure Name Priority Date/Time Associated Diagnosis Comments URINALYSIS - [facility] Routine 04/08/2019 17: 45 EST HEPATITIS C AB W/REFLEX - CV Routine 04/08/2019 17:45 EST VIT D, 25-HYDROXY - CV Routine 04/08/2019 17:45 EST HIV 1/2 AB, P24 AG - [facility] Routine 04/08/2019 17:45 EST COMPLETE BLOOD COUNT WITH DIFFERENTIAL (AUTO) Routine 04/08/2019 17:45 EST RAPID PLASMA REAGIN (RPR) WITH REFLEX, S Routine 04/08/2019 17:45 EST HEPATITIS B CORE ANTIBODY (TOTAL) Routine 04/08/2019 17:45 EST HEPATITIS B SURFACE ANTIBODY Routine 04/08/2019 17:45 EST HEPATITIS B SURFACE ANTIGEN Routine 04/08/2019 17:45 EST TSH Routine 04/08/2019 17:45 EST VITAMIN B12 Routine 04/08/2019 17:45 EST COMPREHENSIVE METABOLIC PANEL (CMP) Routine 04/08/2019 17:45 EST documented in this encounter Results * URINALYSIS - [facility] (04/08/2019 17:45 EST) URINE APPEARANCE - [facility] Clear CLEAR 04/08/2019 18:25 [facility] URINE BILIRUBIN - DIPSTICK - [facility] Negative NEGATIVE 04/08/2019 18:25 [facility] URINE BLOOD - [facility] Negative NEG 04/08/2019 18:25 [facility] URINE COLOR - [facility] Yellow YELLOW 04/08/2019 18:25 [facility] URINE GLUCOSE - [facility] - [facility] Negative NEGATIVE 04/08/2019 18:25 [facility] URINE KETONE - [facility] Negative NEGATIVE 04/08/2019 18:25 [facility] URINE LEUK ESTERASE - [facility] Negative NEG 04/08/2019 18:25 [facility] URINE NITRITE - [facility] - [facility] Negative NEG 04/08/2019 18:25 [facility] URINE PH - [facility] 7.0 4.0 - 8.0 9 18:25 [facility] URINE PROTEIN - [place] - [facility] Negative NEG 04/08/2019 18:25 [facility] URCULTIF+? - [facility] No Culture Indicated 04/08/2019 18:25 [facility] Comment:CULTURE IS NOT INDIC ATED, BASED ON RESULTS OF THE URINALYSIS URINE SPECIFIC GRAVITY - [facility] 1.010 1.001 - 1.035 04/08/2019 18:25 [facility] URINE UROBILINOGEN - [place] - [facility] 0.2 0.2 - 1.0 04/08/2019 18:25 [facility] 04/08/2019 17:4 5 EST 04/08/2019 18:03 EST Juan Romeo MD CHEMISTRY & BLOOD GAS ORDERAB LES Final Result [facility] * RAPID PLASMA REAGIN (RPR) WITH REFLEX, S (04/08/2019 17:45 EST) APID PLASMA REAGIN - [facility] Nonreactive NEG 04/11/2019 9:28 [facility] 04/08/2019 17:4 5 EST 04/08/2019 18:03 EST Juan Romeo MD IMMUNOLOGY AND SEROLOGY ORDER JENNIFER Final Result Performing Organization Address City/[facility]/ZIP Co de Phone Number [facility] * (ABNORMAL) VIT D, 25-HYDROXY - [facility] (04/08/2019 17:45 EST) VIT D, 25 HYDROXY - [facility] 27.0(L) 30 - 100 ng/ml 04/09/2019 15:47 [facility] Comment: ? 25-Hydroxy D Total (D2+D3) ?Expected Values Deficient: ?<20 ng/ml Insufficient: ? 20- <30 ng/ml Sufficient: ? 30-100 ng/ml Potential intoxication: >100 ng/ml 04/08/2019 17:4 5 EST 04/08/2019 18:03 EST Juan Romeo MD CHEMISTRY & BLOOD GAS ORDERAB LES Final Result [facility] * TSH (04/08/2019 17:45 EST) [facility] THYROID STIM HORMONE [facility] 3.23 0.46 - 4.68 uIU/ml 04/08/2019 21:[address] [facility] Comment: The results of this assay can be falsely lowered due to the consumption of Biotin. 04/08/2019 17:4 5 EST 04/08/2019 18:03 EST Juan Romeo MD CHEMISTRY & BLOOD GAS ORDERAB LES Final Result Performing Organization Address [facility] Co de Phone Number [facility] * VITAMIN B12 (04/08/2019 17:45 EST) [facility] VITAMIN B12 [facility] [phone] - 931 pg/mL 04/09/2019 15:[address] [facility] Comment: The results of this assay can be falsely elevated due to the consumption of Biotin. 04/08/2019 17:4 5 EST 04/08/2019 18:03 EST Juan Romeo MD CHEMISTRY & BLOOD GAS ORDERAB LES Final Result Performing Organization Address [facility] Co de Phone Number [facility] * HEPATITIS B CORE ANTIBODY (TOTAL) (04/08/2019 17:45 EST) [facility] Hepatitis B Core Ab, Total Negative Negative 04/09/2019 12:[address] [facility] Comment: Test performed [place] [address] 04/08/2019 17:4 5 EST 04/08/2019 18:03 EST us Juan Romeo MD CHEMISTRY & BLOOD GAS ORDERAB LES Final Result [facility] * HIV 1/2 AB, P24 AG - [facility] (04/08/2019 17:45 EST) HIV 1/2 AB, P24 AG - [facility] Negative Negative 04/08/2019 19:[address] [facility] 04/08/2019 17:4 5 EST 04/08/2019 18:03 EST us Juan Romeo MD CHEMISTRY & BLOOD GAS ORDERAB LES Final Result [facility] * HEPATITIS C AB W/REFLEX - [facility] (04/08/2019 17:45 EST) HEPATITIS C AB W/REFLEX - CV Negative 04/08/2019 19:[address] [facility] Comment:Expected Values: Neg ative. 04/08/2019 17:4 5 EST 04/08/2019 18:03 EST us Juan Romeo MD CHEMISTRY & BLOOD GAS ORDERAB LES Final Result Performing Organization Address [facility] Co de Phone Number [facility] * HEPATITIS B SURFACE ANTIGEN (04/08/2019 17:45 EST) Hep B Surface Ag Negative 04/08/2019 19:21 [facility] Comment: Expected Values: ??Negative. The results of this assay can be falsely lowered due to the consumption of Biotin. 04/08/2019 17:4 5 EST 04/08/2019 18:03 EST Juan Romeo MD CHEMISTRY & BLOOD GAS ORDERAB LES Final Result Performing Organization Address [facility] Co de Phone Number [facility] * HEPATITIS B SURFACE ANTIBODY (04/08/2019 17:45 EST) Hep B Surface Ab, Qualitative 0 04/08/2019 19:21 [facility] Comment: ?Interpretative Guidelines < 5.00 mIU/mL = ?Negative Clinical Interpretation of Immune Status: Patient is considered to be not immune to infection with HBV. The results of this assay can be falsely lowered due to the consumption of Biotin. 04/08/2019 17:4 5 EST 04/08/2019 18:03 EST us Juan Romeo MD CHEMISTRY & BLOOD GAS ORDERAB LES Final Result [facility] * (ABNORMAL) COMPREHENSIVE METABOLIC PANEL (CMP) (04/08/2019 17:45 EST) Albumin % 4.4 3.4 - 4.9 g/dL 04/08/2019 18:33 [facility] ALKALINE PHOSPHATASE - [facility] 74 38 - 126 U/L 04/08/2019 18:33 [facility] BILIRUBIN TOTAL 0.6 0.2 - 1.3 mg/dL 04/08/2019 18:33 [facility] BUN - [facility] 21 10 - 26 mg/dL 04/08/2019 18:33 [facility] CALCIUM - [facility] 9.5 8.5 - 10.5 mg/dL 04/08/2019 18:33 [facility] Chloride 100 96 - 110 mmol/L 04/08/2019 18:33 [facility] CO2 Total 29 21 - 32 mEq/L 04/08/2019 18:33 [facility] CREATININE 0.95 0.66 - 1.25 mg/dL 04/08/2019 18:33 [facility] eGFR >60 04/08/2019 18:33 [facility] Comment: Chronic renal impairment is defined as GFR <60 Multiply result by 1.210 for patients. Anion Gap 9 0 - 18 04/08/2019 18:33 [facility] GLUCOSE - [facility] 120(H) 70 - 100 mg/dL 04/08/2019 18:33 [facility] Potassium 4.1 3.5 - 5.0 mEq/L 04/08/2019 18:33 [facility] Sodium 138 136 - 145 mEq/L 04/08/2019 18:33 [facility] TOTAL PROTEIN - [facility] 7.5 6.2 - 8.2 gm/dL 04/08/2019 18:33 [facility] SGOT/AST - [facility] 25 17 - 59 U/L 04/08/2019 18:33 [facility] SGPT/ALT - [facility] 25 21 - 72 U/L 04/08/2019 18:33 [facility] 04/08/2019 17:4 5 EST 04/08/2019 18:03 EST us Juan Romeo MD CHEMISTRY & BLOOD GAS ORDERAB LES Final Result [facility] * (ABNORMAL) COMPLETE BLOOD COUNT WITH DIFFERENTIAL (AUTO) (04/08/2019 17:45 EST) ABSOLUTE NEUTROPHIL COUN - [facility] 5.5 2.2 - 8.85 10e3/uL 04/08/2019 18:10 [facility] BASO # - [facility] 0.07 0.01 - 0.11 10e/uL 04/08/2019 18:10 [facility] BASO % - [facility] 1 0 - 2 % 04/08/2019 18:10 [facility] EOS # - [facility] 0.32 0.03 - 0.61 10e3/ul 04/08/2019 18:10 [facility] EOS % - [facility] 3 0 - 5 % 04/08/2019 18:10 [facility] GRAN % - [facility] 58.1 40 - 80 % 04/08/2019 18:10 [facility] HEMATOCRIT - [facility] 40.6 39.5 - 50.2 % 04/08/2019 18:10 [facility] HEMOGLOBIN - [facility] 13.6(L) 13.8 - 17.3 g/dl 04/08/2019 18:10 [facility] IG# - [facility] 0.03 0 - 0.7 10e3/uL 04/08/2019 18:10 [facility] IG% - [facility] 0.3 0 - 0.9 % 04/08/2019 18:10 [facility] LYMPH # - [facility] 3.0 1.09 - 3.3 10e3/ul 04/08/2019 18:10 [facility] LYMPH% - [facility] 31.9 20 - 40 % 04/08/2019 18:10 [facility] MEAN CORPUSCULAR HGB - [facility] 31.7 27.6 - 33.0 pg 04/08/2019 18:10 [facility] MEAN CORPUSCULAR HGB CONC - [facility] 33.5 32.8 - 36.4 g/dL 04/08/2019 18:10 [facility] MEAN CELL VOLUME - [facility] 94.6 81 - 95 fl 04/08/2019 18:10 [facility] MONO # - [facility] 0.5 0.1 - 0.8 10e3/uL 04/08/2019 18:10 [facility] MONO% - [facility] 5.6 0 - 12 % 04/08/2019 18:10 [facility] PLATELET COUNT 216 141 - 377 10e3/ul 04/08/2019 18:10 [facility] RED BLOOD COUNT - [facility] 4.29(L) 4.36 - 5.78 10e3/ul 04/08/2019 18:10 [facility] RED CELL DISTRI WIDTH - [facility] 11.9 <14.2 % 04/08/2019 18:10 [facility] WHITE BLOOD COUNT - [facility] 9.4 4.0 - 10.4 10e3/ul 04/08/2019 18:10 [facility] 04/08/2019 17:4 5 EST 04/08/2019 18:03 EST us Juan Romeo MD HEMATOLOGY & PF4 ORDERABLES F inal Result [facility] documented in this encounter Visit Diagnoses Not on filedocumented in this encounter Care Teams Rip Machine Operator Relationship Specialty Start Date End Date Rafael Jackson MD [address] [place] [address] PCP - General 06/17/16 04/23/19 documented as of this encounter
--- OUTSIDE RECORDS SUMMARY | 2024-03-05 14:19 | XMS_ITS | Encounter Summary ---
Author Organization [facility] Address [address] [place] [address] Care Team Providers Care Lumber Straightened Name Role Phone Juan Romeo MD Primary Care Provider [phone] Encounter Details Date Type Department Care Team (Late st Contact Info) Description 02/18/2020 Lab Requisition [facility] Pathology & Laboratory Medicine - [address] [address] Outr Resulting Lab, Provider Social History Tobacco Use Types Packs/Day Years [...] Procedure Name Priority Date/Time Associated Diagnosis Comments ZZCOVID-19 TEST [facility] PCR Today 02/18/2020 10:49 EDT COVID-19 TESTING Routine 02/18/2020 10:4 9 EDT documented in this encounter Results * COVID-19 TEST [facility] PCR (02/18/2020 10:49 EDT) Swab ENTIRE NASOPHARYNX / Unknown 02/18/2020 10:49 EDT 02/18/2020 16:59 EDT us Provider Outr Resulting Lab MICROBIOLOGY - GENER AL ORDERABLES Final Result Performing Organization Address [facility] de Phone Number [facility] [address] [place] [address] * COVID-19 TESTING (02/18/2020 10:49 EDT) COVID-19 rt-PCR Result Negative Negative 02/18/2020 20:56 EDT [facility] Comment: This test has not been FDA cleared or approved. This test has been authorized by FDA under an EUA for use by authorized laboratories. This test has been authorized only for detection of nucleic acid from 2019-nCoV, not for any other viruses or pathogens. This test is only authorized for the duration of the declaration that circumstances exist justifying the authorization of emergency use of in vitro diagnostic tests for detection and/or diagnosis of 2019-nCoV under section 564(b)(1) of Act, 21 U.S.C ?? 360bbb-3(b) (1), unless the authorization is terminated or revoked sooner. Negative results do not preclude 2019-nCoV infection and should not be used as the sole basis for treatment or other patient management decisions. Negative results must be combined with clinical observations, patient history, and epidemiological information. Performed on the [employer] Fusion instrument Performing Lab [facility] 02/18/2020 20:56 EDT [facility] Swab 02/18/2020 10:4 9 EDT 02/18/2020 16:59 EDT us Provider Outr Resulting Lab MICROBIOLOGY - GENER AL ORDERABLES Final Result Performing Organization Address City/[facility]/ZIP Co de Phone Number [facility] [address] [place] [address] documented in this encounter Visit Diagnoses Not on filedocumented in this encounter Care Teams Lumber Straightened Relationship Specialty Start Date End Date Juan Romeo MD PCP - General Family Medicine - Primary Care 04/24/19 documented as of this encounter
--- OUTSIDE RECORDS SUMMARY | 2024-03-05 14:19 | XMS_ITS | Encounter Summary ---
Author Organization [facility] Address [address] [place] [address] Care Team Providers Care Kier Tender Name Role Phone Juan Romeo MD Primary Care Provider [phone] Encounter Details Date Type Department Care Team (Late st Contact Info) Description 10/13/2022 Lab Requisition [facility] Pathology & Laboratory Medicine - [address] [phone] Outr Resulting Lab, Provider Social History Tobacco [...] Procedure Name Priority Date/Time Associated Diagnosis Comments CHLAMYDIA/N. GONORRHOEAE AMPLIFIED NUCLEIC ACID Routine 10/13/2022 11:30 EDT documented in this encounter Results * CHLAMYDIA/N. GONORRHOEAE AMPLIFIED RNA (10/13/2022 11:30 EDT) Neisseria gonorrhoeae Result Negative Negative 10/14/2022 13:12 EDT [facility] Chlamydia trachomatis Result Negative Negative 10/14/2022 13:12 EDT [facility] Urine URINE / Unknown 10/13/2022 1 1:30 EDT 10/13/2022 21:30 EDT us Provider Outr Resulting Lab MICROBIOLOGY - GENER AL ORDERABLES Final Result [facility] [address] [place] [address] documented in this encounter Visit Diagnoses Not on filedocumented in this encounter Care Teams Kier Tender Relationship Specialty Start Date End Date Juan Romeo MD PCP - General Family Medicine - Primary Care 04/24/19 documented as of this encounter
--- OUTSIDE RECORDS SUMMARY | 2024-03-05 14:19 | XMS_ITS | Encounter Summary ---
Author Organization [facility] Address [address] [place] [address] Care Team Providers Care Ic Designer Gate Arrays Name Role Phone Rafael Jackson MD Primary Care Provider [phone] Juan Romeo MD Primary Care Provider [phone] Encounter Details Date Type Department Care Team (Late st Contact Info) Description 04/08/2019 Lab Requisition [facility] Pathology & Laboratory Medicine - [address] [phone] Unknown, Provider, Social History Tobacco Use Types Packs/Day Years [...] Procedure Name Priority Date/Time Associated Diagnosis Comments HEPATITIS B CORE ANTIBODY (TOTAL) Routine 04/08/2019 17:45 EST documented in this encounter Results * HEPATITIS B CORE ANTIBODY (TOTAL) (04/08/2019 17:45 EST) Hepatitis B Core Ab, Total Negative Negative 04/09/2019 11:29 EST [facility] Blood VENOUS BLOOD / Unknown 04/08/2019 17:45 EST 04/08/2019 21:48 EST us Provider Unknown CHEMISTRY & BLOOD GAS ORDERA BLES Final Result [facility] [address] [place] [address] documented in this encounter Visit Diagnoses Not on filedocumented in this encounter Care Teams Ic Designer Gate Arrays Relationship Specialty Start Date End Date Rafael Jackson MD [address] [facility] [place] [address] PCP - General 06/17/16 04/23/19 Juan Romeo MD [address] [facility] [place] [address] PCP - General Family Medicine - Primary Care 04/24/19 documented as of this encounter
--- OUTSIDE RECORDS SUMMARY | 2024-03-05 14:19 | XMS_ITS | Encounter Summary ---
Author Organization [facility] Address [address] [place] [address] Care Team Providers Care Associate Professor Plant Pathology Name Role Phone Juan Romeo MD Primary Care Provider [phone] Encounter Details Date Type Department Care Team (Late st Contact Info) Description 10/13/2022 Lab Requisition [facility] Pathology & Laboratory Medicine - [address] [phone] Outr Resulting Lab, Provider Social History Tobacco [...] Name Priority Date/Time Associated Diagnosis Comments HEPATITIS C AB W REFLEX TO HCV RNA BY PCR Routine 10/13/2022 11:30 EDT documented in this encounter Results * HEPATITIS C AB W REFLEX TO HCV RNA BY PCR (10/13/2022 11:30 EDT) Hep C Antibody Negative Negative 10/14/2022 10:06 EDT [facility] Blood VENOUS BLOOD / Unknown 10/13/2022 11:30 EDT 10/13/2022 21:15 EDT us Provider Outr Resulting Lab CHEMISTRY & BLOOD GA S ORDERABLES Final Result [facility] [address] [place] [address] documented in this encounter Visit Diagnoses Not on filedocumented in this encounter Care Teams Associate Professor Plant Pathology Relationship Specialty Start Date End Date Juan Romeo MD PCP - General Family Medicine - Primary Care 04/24/19 documented as of this encounter
--- OUTSIDE RECORDS SUMMARY | 2024-03-05 14:19 | XMS_ITS | Encounter Summary ---
Author Organization [facility] Address [address] [place] [address] Care Team Providers Care Civil Rights Attorney Name Role Phone Juan Romeo MD Primary Care Provider [phone] Encounter Details Date Type Department Care Team (Late st Contact Info) Description 05/06/2019 Results Only Imaging [facility] Cardiology Clinic [address] [place] [address] Jose Luis Colon MD [address] [place] [phone] Social History Tobacco Use Types Packs/Day Years [...] Procedure Name Priority Date/Time Associated Diagnosis Comments XR CHEST 2 VIEWS 05/06/2019 16:0 1 EST EKG 12-LEAD 05/06/2019 15:26 EST documented in this encounter Results * XR CHEST 2 VIEWS (05/06/2019 16:01 EST) Anatomical Region Laterality Modality Other 05/06/2019 15:5 8 EST Narrative 05/06/2019 16:01 EST ? EXAM: RADIOLOGY/CHEST PA ?? LAT ?EX. D/ (1551) ? CLINICAL INFORMATION: ? left upper chest pain ? INDICATION: left upper chest pain CHEST PAIN ? TECHNIQUE: ??Chest, PA and lateral views ? COMPARISON: None ? FINDINGS: The lungs are clear. The cardiomediastinal silhouette and ? pulmonary vessels are ??within normal limits. No pleural effusion or ? pneumothorax is seen. ? IMPRESSION: ? 1. No acute cardiopulmonary disease detected. ? REPORT SIGNED IN OTHER VENDOR SYSTEM 05/06/2019 ?Reported By: Bertin Osman MD ? CC: ? Transcribed Date/Time: 05/06/2019 (1601) ? Pastry Decorator: ? Printed Date/Time: 05/06/2019 (1601) ? PAGE 1 ? Signed Report ? Procedure Note Bertin Osman MD - 05/06/2019 EXAM: RADIOLOGY/CHEST PA LAT EX. D/ (1551) CLINICAL INFORMATION: left upper chest pain INDICATION: left upper chest pain CHEST PAIN TECHNIQUE: Chest, PA and lateral views COMPARISON: None FINDINGS: The lungs are clear. The cardiomediastinal silhouette and pulmonary vessels are within normal limits. No pleural effusion or pneumothorax is seen. IMPRESSION: 1. No acute cardiopulmonary disease detected. REPORT SIGNED IN OTHER VENDOR SYSTEM 05/06/2019 Reported By: Bertin Osman MD CC: Transcribed Date/Time: 05/06/2019 (1601) Pastry Decorator: Printed Date/Time: 05/06/2019 (1601) PAGE 1 Signed Report us Jose Luis Colon MD IMG DIAGNOSTIC IMAGING ORDERABLE S Final Result * EKG 12-LEAD (05/06/2019 15:26 EST) 05/06/2019 15:2 6 EST Narrative [facility] - 05/06/2019 15:26 EST ? [facility] ? Test Date: ?2019-05-06 15:26:01 Pat Name: ? NIGEL GOMEZ ? Department: ?Room: ? Gender: ? M ?Deckhand Maintenance: ?? RD : ?1980 ? Requested By: Order Number: ?Reading MD: ?? Fish Azar MD ? Measurements Intervals ?[place] ? Rate: ? 71 ? P: ?61 AK: ? 128 ?QRS: ?5 QRSD: ? 86 ? T: ?10 QT: ? 416 ? QTc: ?452 ? Interpretive Statements Normal sinus rhythm with sinus arrhythmia Normal ECG No previous ECG available for comparison Electronically Signed On 05-06-2019 15:33:07 EST by Fish Azar MD [email or web address] Procedure Note Fish Azar MD - 05/06/2019 [facility] Test Date: 2019-05-06 15:26:01 Pat Name: NIGEL GOMEZ Department: Room: Gender: M Deckhand Maintenance: : 1980 Requested By: Order Number: Reading MD: Fish Azar MD Measurements Intervals [place] Rate: 71 P: 61 AK: 128 QRS: 5 QRSD: 86 T: 10 QT: 416 QTc: 452 Interpretive Statements Normal sinus rhythm with sinus arrhythmia Normal ECG No previous ECG available for comparison Electronically Signed On 05-06-2019 15:33:07 EST by Fish Azar MD [email or web address] us Jose Luis Colon MD CARDIAC ECG ORDERABLES Final Res ult [facility] documented in this encounter Visit Diagnoses Not on filedocumented in this encounter Care Teams Civil Rights Attorney Relationship Specialty Start Date End Date Juan Romeo MD PCP - General Family Medicine - Primary Care 04/24/19 documented as of this encounter
--- OUTSIDE RECORDS SUMMARY | 2024-03-05 14:19 | XMS_ITS | Encounter Summary ---
Author Organization [facility] Address [address] [place] [address] Care Team Providers Care Nuclear Supervising Operator Name Role Phone Juan Romeo MD Primary Care Provider [phone] Encounter Details Date Type Department Care Team (Late st Contact Info) Description 05/06/2019 Results Only [facility] [phone] Jose Luis Colon MD [address] [place] [phone] Social History Tobacco Use Types Packs/Day [...] Procedure Name Priority Date/Time Associated Diagnosis Comments COMPLETE BLOOD COUNT WITH DIFFERENTIAL (AUTO) Routine 05/06/2019 14:56 EST TROPONIN I Routine 05/06/2019 14:56 EST MAGNESIUM Routine 05/06/2019 14:56 EST COMPREHENSIVE METABOLIC PANEL (CMP) Routine 05/06/2019 14:56 EST documented in this encounter Results * TROPONIN I (05/06/2019 14:56 EST) Troponin I (ng/mL) <0.034 0.000 - 0.034 ng/mL 05/06/2019 15:[address] [facility] Comment: Interpretation comments: ??Cutoff for a positive troponin result is set at the 99th percentile of the upper reference limit. ??Elevated troponin must always be interpreted in the context of the clinical presentation. ?Serial troponin testing 3-6 hr from baseline is favored over relying on a single troponin level. ?? The results of this assay can be falsely lowered due to the consumption of Biotin. 05/06/2019 14:5 6 EST 05/06/2019 15:21 EST Jose Luis Colon MD CHEMISTRY & BLOOD GAS ORDERABLES Final Result Performing Organization Address [facility]/ZIP Co de Phone Number [facility] * MAGNESIUM (05/06/2019 14:56 EST) Pathologist [facility] Magnesium 1.90 1.7 - 2.8 mg/dL 05/06/2019 15:38 [facility] 05/06/2019 14:5 6 EST 05/06/2019 15:21 EST Jose Luis Colon MD CHEMISTRY & BLOOD GAS ORDERABLES Final Result Performing Organization Address [facility]/ZIP Co de Phone Number [facility] * (ABNORMAL) COMPREHENSIVE METABOLIC PANEL (CMP) (05/06/2019 14:56 EST) Pathologist [facility] Albumin % 4.5 3.4 - 4.9 g/dL 05/06/2019 15:38 [facility] ALKALINE PHOSPHATASE - [facility] 90 38 - 126 U/L 05/06/2019 15:38 [facility] BILIRUBIN TOTAL 0.5 0.2 - 1.3 mg/dL 05/06/2019 15:38 [facility] BUN - [facility] 18 10 - 26 mg/dL 05/06/2019 15:38 [facility] CALCIUM - [facility] 9.3 8.5 - 10.5 mg/dL 05/06/2019 15:38 [facility] Chloride 102 96 - 110 mmol/L 05/06/2019 15:38 [facility] CO2 Total 26 21 - 32 mEq/L 05/06/2019 15:38 [facility] CREATININE 0.91 0.66 - 1.25 mg/dL 05/06/2019 15:38 [facility] eGFR >60 05/06/2019 15:38 [facility] Comment: Chronic renal impairment is defined as GFR <60 Multiply result by 1.210 for patients. Anion Gap 11 0 - 18 05/06/2019 15:38 [facility] GLUCOSE - [facility] 113(H) 70 - 100 mg/dL 05/06/2019 15:38 [facility] Potassium 4.2 3.5 - 5.0 mEq/L 05/06/2019 15:38 [facility] Sodium 139 136 - 145 mEq/L 05/06/2019 15:38 [facility] TOTAL PROTEIN - [facility] 7.8 6.2 - 8.2 gm/dL 05/06/2019 15:38 [facility] SGOT/AST - [facility] 23 17 - 59 U/L 05/06/2019 15:38 [facility] SGPT/ALT - [facility] 24 21 - 72 U/L 05/06/2019 15:38 [facility] 05/06/2019 14:5 6 EST 05/06/2019 15:21 EST us Jose Luis Colon MD CHEMISTRY & BLOOD GAS ORDERABLES Final Result [facility] * COMPLETE BLOOD COUNT WITH DIFFERENTIAL (AUTO) (05/06/2019 14:56 EST) Gran # 5.2 2.2 - 8.85 10e3/uL 05/06/2019 15:26 [facility] BASO # - [facility] 0.05 0.01 - 0.11 10e/uL 05/06/2019 15:26 [facility] BASO % - [facility] 1 0 - 2 % 05/06/2019 15:26 [facility] EOS # - [facility] 0.21 0.03 - 0.61 10e3/ul 05/06/2019 15:26 [facility] EOS % - [facility] 2 0 - 5 % 05/06/2019 15:26 [facility] GRAN % - [facility] 57.2 40 - 80 % 05/06/2019 15:26 [facility] HEMATOCRIT - [facility] 42.2 39.5 - 50.2 % 05/06/2019 15:26 [facility] HEMOGLOBIN - [facility] 14.2 13.8 - 17.3 g/dl 05/06/2019 15:26 [facility] IG# - [facility] 0.02 0 - 0.7 10e3/uL 05/06/2019 15:26 [facility] IG% - [facility] 0.2 0 - 0.9 % 05/06/2019 15:26 [facility] LYMPH # - [facility] 3.1 1.09 - 3.3 10e3/ul 05/06/2019 15:26 [facility] LYMPH% - [facility] 33.7 20 - 40 % 05/06/2019 15:26 [facility] MEAN CORPUSCULAR HGB - [facility] 31.3 27.6 - 33.0 pg 05/06/2019 15:26 [facility] MEAN CORPUSCULAR HGB CONC - [facility] 33.6 32.8 - 36.4 g/dL 05/06/2019 15:26 [facility] MEAN CELL VOLUME - [facility] 93.0 81 - 95 fl 05/06/2019 15:26 [facility] MONO # - [facility] 0.6 0.1 - 0.8 10e3/uL 05/06/2019 15:26 [facility] MONO% - [facility] 6.1 0 - 12 % 05/06/2019 15:26 [facility] PLATELET COUNT 217 141 - 377 10e3/ul 05/06/2019 15:26 [facility] RED BLOOD COUNT - [facility] 4.54 4.36 - 5.78 10e3/ul 05/06/2019 15:26 [facility] RED CELL DISTRI WIDTH - [facility] 11.6 <14.2 % 05/06/2019 15:26 [facility] WHITE BLOOD COUNT - [facility] 9.1 4.0 - 10.4 10e3/ul 05/06/2019 15:[address] [facility] 05/06/2019 14:5 6 EST 05/06/2019 15:21 EST us Jose Luis Colon MD HEMATOLOGY & PF4 ORDERABLES Aishwarya l Result [facility] documented in this encounter Visit Diagnoses Not on filedocumented in this encounter Care Teams Nuclear Supervising Operator Relationship Specialty Start Date End Date Juan Romeo MD PCP - General Family Medicine - Primary Care 04/24/19 documented as of this encounter
--- OUTSIDE RECORDS SUMMARY | 2024-03-05 14:19 | XMS_ITS | Encounter Summary ---
Author Organization [facility] Address [address] [place] [address] Care Team Providers Care Filing Writer Name Role Phone Juan Romeo MD Primary Care Provider [phone] Encounter Details Date Type Department Care Team (Late st Contact Info) Description 10/02/2019 Lab Requisition [facility] Pathology & Laboratory Medicine - [address] [id number] Outr Resulting Lab, Provider Social History Tobacco Use Types Packs/Day Years Used Date Smoking Tobacco: Every Day Cigarettes 1 30 Smokeless Tobacco: Current Chew Alcohol Use Standard Drinks/Week Comments Not Currently 0 (1 standard drink = 0.6 oz pur e alcohol) Sex and Gender Information Value Date Recorded Sex Assigned at Not on file Legal Sex Male 17:28 EST Gender Identity Not on file Sexual Orientation Not on file documented as of this encounter Plan of Treatment Not on file documented as of this encounter Procedures Procedure Name Priority Date/Time Associated Diagnosis Comments ZZCOVID-19 TEST [facility] PCR Today 10/01/2019 16:13 EDT COVID-19 TESTING Routine 10/01/2019 16:1 3 EDT documented in this encounter Results * COVID-19 TEST [facility] PCR (10/01/2019 16:13 EDT) Swab ENTIRE NASOPHARYNX / Unknown 10/01/2019 16:13 EDT 10/02/2019 21:33 EDT us Provider Outr Resulting Lab MICROBIOLOGY - GENER AL ORDERABLES Final Result Performing Organization Address [facility] de Phone Number [facility] [address] [place] [address] * COVID-19 TESTING (10/01/2019 16:13 EDT) COVID-19 rt-PCR Result Negative Negative 10/03/2019 10:11 EDT [facility] Comment: This test has not [...] history, and epidemiological information. Performed on the [employer] Fusion instrument Performing Lab [facility] 10/03/2019 10:11 EDT [facility] Swab 10/01/2019 16:1 3 EDT 10/02/2019 21:33 EDT us Provider Outr Resulting Lab MICROBIOLOGY - GENER AL ORDERABLES Final Result Performing Organization Address [facility] Co de Phone Number [facility] [address] [place] [address] documented in this encounter Visit Diagnoses Not on filedocumented in this encounter Care Teams Filing Writer Relationship Specialty Start Date End Date Juan Romeo MD PCP - General Family Medicine - Primary Care 04/24/19 documented as of this encounter
--- OUTSIDE RECORDS SUMMARY | 2024-03-05 14:19 | XMS_ITS | Encounter Summary ---
Author Organization [facility] Address [address] [place] [address] Care Team Providers Care Supervisor Production Department Name Role Phone Rafael Jackson MD Primary Care Provider [phone] Encounter Details Date Type Department Care Team (Late st Contact Info) Description 03/27/2019 Results Only [facility] [phone] Carlos John MD [address] [place] [phone] Social History Tobacco Use Types Packs/Day [...] Procedure Name Priority Date/Time Associated Diagnosis Comments ETHYL ALCOHOL - [facility] Routine 03/27/2019 23:43 EST COMPLETE BLOOD COUNT WITH DIFFERENTIAL (AUTO) Routine 03/27/2019 23:43 EST ACETAMINOPHEN Routine 03/27/2019 23:43 EST SALICYLATE Routine 03/27/2019 23:43 EST COMPREHENSIVE METABOLIC PANEL (CMP) Routine 03/27/2019 23:43 EST documented in this encounter Results * SALICYLATE (03/27/2019 23:43 EST) Salicylate <1.0 03/28/2019 0:33 [facility] Comment: Date and Time for last dose: UNKNOWN Therapeutic range = < 2.0 mg/dl Possible toxicity = < 20 ??mg/dl Probable toxicity = > 30 ??mg/dl 03/27/2019 23:4 3 EST 03/27/2019 23:49 EST Carlos John MD CHEMISTRY & BLOOD GAS ORDER JENNIFER Final Result Performing Organization Address [facility]/ZIP Co de Phone Number [facility] * ETHYL ALCOHOL - [facility] (03/27/2019 23:43 EST) ETHYL ALCOHOL - [facility] <10.0 <10 mg/dL 03/28/2019 0:23 [facility] 03/27/2019 23:4 3 EST 03/27/2019 23:49 EST Carlos John MD CHEMISTRY & BLOOD GAS ORDER JENNIFER Final Result Performing Organization Address [facility] de Phone Number [facility] * (ABNORMAL) COMPREHENSIVE METABOLIC PANEL (CMP) (03/27/2019 23:43 EST) Pathologist [facility] Albumin % 4.8 3.4 - 4.9 g/dL 03/28/2019 0:23 [facility] ALKALINE PHOSPHATASE - [facility] 89 38 - 126 U/L 03/28/2019 0:23 [facility] BILIRUBIN TOTAL 0.6 0.2 - 1.3 mg/dL 03/28/2019 0:23 [facility] BUN - [facility] 21 10 - 26 mg/dL 03/28/2019 0:23 [facility] CALCIUM - [facility] 9.8 8.5 - 10.5 mg/dL 03/28/2019 0:23 [facility] Chloride 101 96 - 110 mmol/L 03/28/2019 0:23 [facility] CO2 Total 27 21 - 32 mEq/L 03/28/2019 0:23 [facility] CREATININE 1.06 0.66 - 1.25 mg/dL 03/28/2019 0:23 [facility] eGFR >60 03/28/2019 0:23 [facility] Comment: Chronic renal impairment is defined as GFR <60 Multiply result by 1.210 for patients. Anion Gap 13 0 - 18 03/28/2019 0:23 [facility] GLUCOSE - [facility] 97 70 - 100 mg/dL 03/28/2019 0:23 [facility] Potassium 4.5 3.5 - 5.0 mEq/L 03/28/2019 0:23 [facility] Sodium 141 136 - 145 mEq/L 03/28/2019 0:23 [facility] TOTAL PROTEIN - [facility] 8.2 6.2 - 8.2 gm/dL 03/28/2019 0:23 [facility] SGOT/AST - [facility] 18 17 - 59 U/L 03/28/2019 0:23 [facility] SGPT/ALT - [facility] 17(L) 21 - 72 U/L 03/28/2019 0:23 [facility] 03/27/2019 23:4 3 EST 03/27/2019 23:49 EST Carlos John MD CHEMISTRY & BLOOD GAS ORDER JENNIFER Final Result [facility] * (ABNORMAL) ACETAMINOPHEN (03/27/2019 23:43 EST) Acetaminophen <10(L) ug/mL 03/28/2019 0:33 EST [facility] Comment: Date and Time for last dose: UNKNOWN Therapeutic range: 10-30 Possible Toxicity: 150-200 Probable toxicity: ??> 200 Critical: >150 @ 4 hrs post ingestion. ?> 50 @ 12 hours post ingestion. 03/27/2019 23:4 3 EST 03/27/2019 23:49 EST Carlos John MD CHEMISTRY & BLOOD GAS ORDER JENNIFER Final Result [facility] * (ABNORMAL) COMPLETE BLOOD COUNT WITH DIFFERENTIAL (AUTO) (03/27/2019 23:43 EST) ABSOLUTE NEUTROPHIL COUN - [facility] 8.3 2.2 - 8.85 10e3/uL 03/27/2019 23:52 [facility] BASO # - [facility] 0.10 0.01 - 0.11 10e/uL 03/27/2019 23:52 [facility] BASO % - [facility] 1 0 - 2 % 03/27/2019 23:52 [facility] EOS # - [facility] 0.37 0.03 - 0.61 10e3/ul 03/27/2019 23:52 [facility] EOS % - [facility] 3 0 - 5 % 03/27/2019 23:52 [facility] GRAN % - [facility] 59.9 40 - 80 % 03/27/2019 23:52 [facility] HEMATOCRIT - [facility] 46.4 39.5 - 50.2 % 03/27/2019 23:52 [facility] HEMOGLOBIN - [facility] 15.3 13.8 - 17.3 g/dl 03/27/2019 23:52 [facility] IG# - [facility] 0.06 0 - 0.7 10e3/uL 03/27/2019 23:52 [facility] IG% - [facility] 0.4 0 - 0.9 % 03/27/2019 23:52 [facility] LYMPH # - [facility] 4.1(H) 1.09 - 3.3 10e3/ul 03/27/2019 23:52 [facility] LYMPH% - [facility] 29.3 20 - 40 % 03/27/2019 23:52 [facility] MEAN CORPUSCULAR HGB - [facility] 31.5 27.6 - 33.0 pg 03/27/2019 23:52 [facility] MEAN CORPUSCULAR HGB CONC - [facility] 33.0 32.8 - 36.4 g/dL 03/27/2019 23:52 [facility] MEAN CELL VOLUME - [facility] 95.7(H) 81 - 95 fl 03/27/2019 23:52 [facility] MONO # - [facility] 1.0(H) 0.1 - 0.8 10e3/uL 03/27/2019 23:52 [facility] MONO% - [facility] 7.0 0 - 12 % 03/27/2019 23:52 [facility] PLATELET COUNT 258 141 - 377 10e3/ul 03/27/2019 23:52 [facility] RED BLOOD COUNT - [facility] 4.85 4.36 - 5.78 10e3/ul 03/27/2019 23:52 [facility] RED CELL DISTRI WIDTH - [facility] 12.1 <14.2 % 03/27/2019 23:52 [facility] WHITE BLOOD COUNT - [facility] 13.9(H) 4.0 - 10.4 10e3/ul 03/27/2019 23:52 [facility] 03/27/2019 23:4 3 EST 03/27/2019 23:49 EST us Carlos Mele John MD HEMATOLOGY & PF4 ORDERABLES Final Result [facility] documented in this encounter Visit Diagnoses Not on filedocumented in this encounter Care Teams Supervisor Production Department Relationship Specialty Start Date End Date Rafael Jackson MD [address] [place] [address] PCP - General 06/17/16 04/23/19 documented as of this encounter
--- OUTSIDE RECORDS SUMMARY | 2024-03-05 14:19 | XMS_ITS | Encounter Summary ---
Author Organization [facility] Address [address] [place] [address] Care Team Providers Care Assistant Professor Of Spanish Name Role Phone Juan Romeo MD Primary Care Provider [phone] Encounter Details Date Type Department Care Team (Late st Contact Info) Description 10/03/[address] Lab Requisition [facility] Pathology & Laboratory Medicine - [facility] [address] [place], [place] [address] Outr Resulting Lab, Provider Social History Tobacco [...] Comments ZZCOVID-19 TEST [facility] PCR Today 10/02/2020 10:00 EDT COVID-19 TESTING Routine 10/02/2020 10:0 0 EDT documented in this encounter Results * COVID-19 TEST [facility] PCR (10/02/2020 10:00 EDT) Swab ENTIRE NASOPHARYNX / Unknown 10/02/2020 10:00 EDT 10/03/2020 20:52 EDT us Provider Outr Resulting Lab MICROBIOLOGY - GENER AL ORDERABLES Final Result [facility] [address] [place] [address] * COVID-19 TESTING (10/02/2020 10:00 EDT) COVID-19 rt-PCR Result Negative Negative 10/04/2020 14:10 EDT [facility] Comment: This test has [...] clinical observations, patient history, and epidemiological information. This test was developed and its performance characteristics determined by [facility]. It has not been cleared or approved by the US Food and Drug Administration. FDA does not require this test to go through premarket FDA review. This test is used for clinical purposes. It should not be regarded as investigational or for research. This laboratory is certified under the Clinical Laboratory Improvement Amendments (CLIA) as qualified to perform high complexity clinical laboratory testing. This test is based on the [facility] COVID-19 Emergency Use Authorization (EUA) assay, with minor modification as defined by the FDA Performed on the [employer] Pro RT-PCR System. Performing Lab [facility] 10/04/2020 14:10 EDT [facility] Swab 10/02/2020 10:0 0 EDT 10/03/2020 20:52 EDT us Provider Outr Resulting Lab MICROBIOLOGY - GENER AL ORDERABLES Final Result [facility] [address] [place] [address] documented in this encounter Visit Diagnoses Not on filedocumented in this encounter Care Teams Assistant Professor Of Spanish Relationship Specialty Start Date End Date Juan Romeo MD PCP - General Family Medicine - Primary Care 04/24/19 documented as of this encounter
--- OUTSIDE RECORDS SUMMARY | 2024-03-05 14:19 | XMS_ITS | Clinical Summary ---
Author Organization [facility] Address [address] [place] [address] Care Team Providers Care Customer Support Assistant Name Role Phone Juan Romeo MD Primary Care Provider [phone] Allergies Active Allergy Reactions Criticality Noted Date Comments Penicillins 06/13/2019 Medications clonazePAM (KLONOPIN) 0.5 mg tablet Take 0.5 mg by mouth every 6 hours as needed. Active senna (SENOKOT) 8.6 mg tablet Take 1 Tab by mouth daily. Active nicotine (NICOTROL) 10 mg inhaler Inhale 1 Units as directed 6 times daily. Active risperiDONE microspheres (RISPERDAL CONSTA) 50 mg/2 mL injection Inject into the muscle every 14 days. Active LORazepam (ATIVAN) 1 mg tablet Take 1 mg by mouth as needed for Anxiety. Active acetaminophen (TYLENOL) 325 mg capsule Take 650 mg by mouth. Active ibuprofen (MOTRIN) 200 mg tablet Take 200 mg by mouth every 6 hours as needed for Pain. Active melatonin 3 mg capsule Take by mouth. Activ e omeprazole (PRILOSEC) 20 mg capsule Take 20 mg by mouth daily. Active cholecalciferol, Vitamin D3, 1,000 unit tablet Take 1,000 Units by mouth daily. Active docusate sodium (COLACE) 100 mg capsule Take 100 mg by mouth daily. Active ascorbic acid, vitamin C, (VITAMIN C) 500 mg tablet Take 500 mg by mouth daily. Active calcium carbonate (TUMS) 200 mg calcium (500 mg) tablet,chewable Take 1 Tab by mouth 4 times daily as needed. Active budesonide-formo terol HFA (SYMBICORT) 160-4.5 mcg/actuation HFA aerosol inhaler inhaler Inhale as directed. Uses infrequently 1 Active loratadine (CLARITIN) 10 mg tablet Take 10 mg by mouth. 1 Active omeprazole (PRILOSEC) 20 mg capsule Take 20 mg by mouth. 1 Active risperiDONE (RISPERDAL) 4 mg tablet Take 8 mg by mouth. 0 Active naproxen sodium (ALEVE) 220 mg capsule Take 220 mg by mouth as needed. Active Active Problems Problem Noted Date Diagnosed Date Acute appendicitis 09/26/2020 Closed fracture nasal bone 09/26/2020 Constipation 09/26/2020 Effusion of knee 09/26/2020 GERD (gastroesophageal reflux disease) 1 Leg pain 09/26/2020 Paranoid schizophrenia ([facility]) 09/26/2020 S/P laparoscopic appendectomy 09/26/2020 Spermatocele of epididymis 09/26/2020 Suicidal ideation 09/26/2020 Periumbilical abdominal pain 06/13/2019 Immunizations Name Administration Dates Next Due Historical Pneumococcal Vaccine, Unspecified 10/2014 Tdap Vaccine =>7YO IM 01/28/2018 Social History Tobacco Use Types Packs/Day Years [...] on file Sexual Orientation Not on file Obstetrics History Last Filed Vital Signs Vital Sign Reading Time Taken Comments Blood Pressure 114/78 09/26/2020 1227 EDT Pulse 107 09/26/2020 1227 EDT Temperature 37.1 ??C (98.7 ??F) 09/26/2020 1227 EDT Respiratory Rate 16 09/26/2020 1227 EDT Oxygen Saturation 97% 09/26/2020 1227 EDT Inhaled Oxygen Concentration - - Weight 90.7 kg (200 lb) 06/13/2019 1100 EST Height 182.9 cm (6') 06/13/2019 1100 EST Body Mass Index 27.12 06/13/2019 1100 EST Plan of Treatment Health Maintenance Due Date Last Done Comments Pneumococcal Immunization (1 of 2 - PCV) 10/07/1985 05/31/2014 Hepatitis B Vaccine (1 of 3 - 19+ 3-dose series) 10/07/1998 COVID-19 Vaccine ( - season) 2023 Hepatitis C Screen Completed 10/13/2022, 04/08/2019 Procedures Procedure Name Priority Date/Time Associated Diagnosis Comments HEPATITIS C AB W REFLEX TO HCV RNA BY PCR Routine 10/13/2022 11:30 EDT from Last 3 Months or Most Recently Relevant to Health Maintenance Results * HEPATITIS C AB W REFLEX TO HCV RNA BY PCR (10/13/2022 11:30 EDT) Hep C Antibody Negative Negative 10/14/2022 10:06 EDT [facility] Blood VENOUS BLOOD / Unknown 10/13/2022 11:30 EDT 10/13/2022 21:15 EDT us Provider Outr Resulting Lab CHEMISTRY & BLOOD GA S ORDERABLES Final Result [facility] [address] [place] [address] from Last 3 Months or Most Recently Relevant to Health Maintenance Insurance MEDICARE MEDICAID [place] MEDICARE Care Teams Customer Support Assistant Relationship Specialty Start Date End Date Juan Romeo MD PCP - General Family Medicine - Primary Care 04/24/19
--- OUTSIDE RECORDS SUMMARY | 2024-03-05 14:19 | XMS_ITS | Encounter Summary ---
Author Organization [facility] Address [address] [place] [address] Care Team Providers Care Battery Tester Field Name Role Phone Juan Romeo MD Primary Care Provider [phone] Encounter Details Date Type Department Care Team (Late st Contact Info) Description 07/07/2020 Lab Requisition [facility] Pathology & Laboratory Medicine - [address] [id number] Outr Resulting Lab, Provider Social History Tobacco [...] Comments CHLAMYDIA/N. GONORRHOEAE AMPLIFIED NUCLEIC ACID Routine 07/06/2020 20:10 EDT documented in this encounter Results * CHLAMYDIA/N. GONORRHOEAE AMPLIFIED RNA (07/06/2020 20:10 EDT) Neisseria gonorrhoeae Result Negative Negative 07/08/2020 14:04 EDT [facility] Chlamydia trachomatis Result Negative Negative 07/08/2020 14:04 EDT [facility] Urine URINE / Unknown 07/06/2020 2 0:10 EDT 07/07/2020 16:30 EDT us Provider Outr Resulting Lab MICROBIOLOGY - GENER AL ORDERABLES Final Result [facility] [address] [place] [address] documented in this encounter Visit Diagnoses Not on filedocumented in this encounter Care Teams Battery Tester Field Relationship Specialty Start Date End Date Juan Romeo MD PCP - General Family Medicine - Primary Care 04/24/19 documented as of this encounter
--- OUTSIDE RECORDS SUMMARY | 2024-03-05 14:19 | XMS_ITS | Encounter Summary ---
Author Organization [facility] Address [address] [place] [address] Care Team Providers Care Fly Worker Name Role Phone Juan Romeo MD Primary Care Provider [phone] Encounter Details Date Type Department Care Team (Late st Contact Info) Description 05/31/2020 Lab Requisition [facility] Pathology & Laboratory Medicine - [address] [id number] Outr Resulting Lab, Provider Social History Tobacco [...] Comments ZZCOVID-19 TEST [facility] PCR Today 05/30/2020 11:25 EST COVID-19 TESTING Routine 05/30/2020 11:2 5 EST documented in this encounter Results * COVID-19 TEST [facility] PCR (05/30/2020 11:25 EST) Swab ENTIRE NASOPHARYNX / Unknown 05/30/2020 11:25 EST 05/31/2020 17:53 EST us Provider Outr Resulting Lab MICROBIOLOGY - GENER AL ORDERABLES Final Result [facility] [address] [place] [address] * COVID-19 TESTING (05/30/2020 11:25 EST) COVID-19 rt-PCR Result Negative Negative 06/01/2020 13:21 EST [facility] Comment: This test has [...] clinical observations, patient history, and epidemiological information. Testing was performed using the florence SARS-CoV-2 assay ([employer] on the [place] 6800 System Performing Lab [place] [address] [facility] 06/01/2020 13:21 EST [facility] Swab 05/30/2020 11:2 5 EST 05/31/2020 17:53 EST us Provider Outr Resulting Lab MICROBIOLOGY - GENER AL ORDERABLES Final Result [facility] [address] [place] [address] documented in this encounter Visit Diagnoses Not on filedocumented in this encounter Care Teams Fly Worker Relationship Specialty Start Date End Date Juan Romeo MD PCP - General Family Medicine - Primary Care 04/24/19 documented as of this encounter
--- OUTSIDE RECORDS SUMMARY | 2024-03-05 14:19 | XMS_ITS | Encounter Summary ---
Author Organization [facility] Address [address] [place] [address] Care Team Providers Care Slurry Blender Name Role Phone Juan Romeo MD Primary Care Provider [phone] Encounter Details Date Type Department Care Team (Late st Contact Info) Description 06/04/2019 Results Only [facility] Psychiatry - [id number] Lisa [address] MD [address] [facility] Level [address] [place] [address] Social History Tobacco Use Types [...] Procedure Name Priority Date/Time Associated Diagnosis Comments RISPERIDONE - [facility] Routine 06/04/2019 16 :45 EST documented in this encounter Results * RISPERIDONE - [facility] (06/04/2019 16:45 EST) 9-HYDROXYRISPERIDONE - [facility] 74.7 () ng/ml 06/10/2019 14:[address] [facility] COMBINED TOTAL 94.2 () ng/ml 06/10/2019 14:[address] [facility] Comment: ?Expected steady state concentrations of risperidone and ?9-hydroxyrisperidone (combined total) in patients ?receiving recommended daily dosages: ??10 - 120 ng/ml. This test was developed and its performance characteristics determined by [facility]. It has not been cleared or approved by the Food and Drug Administration. Test Performed by: [employer] [address] [place] [id number] RISPERIDONE (RISPERDAL) 19.5 () ng/ml 06/10/2019 14:[address] [facility] 06/04/2019 16:4 5 EST 06/04/2019 20:[address] MD CHEMISTRY & BLOOD GAS ORDER JENNIFER Final Result [facility] documented in this encounter Visit Diagnoses Not on filedocumented in this encounter Care Teams Slurry Blender Relationship Specialty Start Date End Date Juan Romeo MD PCP - General Family Medicine - Primary Care 04/24/19 documented as of this encounter
--- OUTSIDE RECORDS SUMMARY | 2024-03-05 14:19 | XMS_ITS | Encounter Summary ---
Author Organization [facility] Address [address] [place] [address] Care Team Providers Care Manager Sound Name Role Phone Juan Romeo MD Primary Care Provider [phone] Reason for Visit * Reason Comments Hernia * Consult (Routine) - Closed Specialty Diagnoses / Procedures Referred By Tylor doyle Referred To Contact General Surgery Diagnoses Hernia, abdominal Juan Romeo MD Phone: tel: fax: [facility] General Surgery [address] [address] Phone: tel: fax: Referral ID Status Reason Start Date Expiration Date Visits Re quested Visits Authorized [id number] Closed 1 1 Encounter Details Date Type Department Care Team (Latest Contact Info) Description 06/13/2019 10:45 EST Office Visit [facility] Surgery [address] [address] Jules Valdez MD [address] [place] [id number] Periumbilical abdominal pain (Primary Dx) Social History Tobacco Use Types [...] Sign Reading Time Taken Comments Blood Pressure 110/72 06/13/2019 1100 EST Pulse 77 06/13/2019 1100 EST Temperature - - Respiratory Rate - - Oxygen Saturation - - Inhaled Oxygen Concentration - - Weight 90.7 kg (200 lb) 06/13/2019 1100 EST Height 182.9 cm (6') 06/13/2019 1100 EST Body Mass Index 27.12 06/13/2019 1100 EST documented in this encounter Progress Notes * Jules Valdez MD - 06/13/2019 1045 EST [facility] HISTORY AND PHYSICAL EXAMINATION Date of Service: 06/13/2019 PROBLEM: Chief Complaint Patient presents with ??? Hernia SUBJECTIVE: Mr. Nigel Gomez is a 38 y.o. White male, presenting with a history of occasional abdominal/umbilical discomfort. He has a history of schizophrenia and resides at the [facility]. However he is receiving treatment with plans to transition back to home in the next several weeks. There is no records with the patient but he states he had a triple Hernia repaired either severalyears ago or one year ago at [facility]. This may have been done through a scope.. PROBLEM LIST: does not have a problem list on file. History reviewed. No pertinent past medical history. History reviewed. No pertinent surgical history. History reviewed. No pertinent family history. Current Outpatient Medications: acetaminophen (TYLENOL) 325 mg capsule ascorbic acid, vitamin C, (VITAMIN C) 500 mg tablet calcium carbonate (TUMS) 200 mg calcium (500 mg) tablet,chewable cholecalciferol, Vitamin D3, 1,000 unit tablet clonazePAM (KLONOPIN) 0.5 mg tablet docusate sodium (COLACE) 100 mg capsule ibuprofen (MOTRIN) 200 mg tablet LORazepam (ATIVAN) 1 mg tablet melatonin 3 mg capsule nicotine (NICOTROL) 10 mg inhaler omeprazole (PRILOSEC) 20 mg capsule Risperidone 4 mg tablet,disintegrating risperiDONE microspheres (RISPERDAL CONSTA) 50 mg/2 mL injection senna (SENOKOT) 8.6 mg tablet No current facility-administered medications for this visit. ALLERGIES: Allergies Allergen Reactions ??? Penicillins REVIEW OF SYSTEMS: This is partially filled out PHYSICAL EXAM: BP 110/72 Pulse 77 Ht 182.9 cm (72) Wt 90.7 kg (200 lb) BMI 27.12 kg/m?? General appearance: alert, cooperative Head: Normocephalic, without obvious abnormality, atraumatic Throat/Mouth: poor dentition Abdomen: soft, non-tender; bowel sounds normal; no masses, no organomegaly, he has small scar abovethe umbilicus and another in the left mid abdomen just off of midline. At the umbilicu there is small crease from his scar giving the appearance of a bulge but no mass or nodule palapble. No hernia. Pt also examined standing. no evidence of inguinal hernias of either side. ASSESSMENT: No evidence of recurrent hernia or an umbilical hernia a this time. PLAN: I discussed with the patient I see no evidence of recurrent hernia. He has a subtle bulge at the umbilical scar but I think this is due to the scar. He should monitor the area and may follow up as needed. Or if he is discharged soon follow up with his surgeon in [facility]. Jules Valdez MD 06/13/2019 documented in this encounter Plan of Treatment Not on file documented as of this encounter Visit Diagnoses Diagnosis Periumbilical abdominal pain- Primary Abdominal pain, periumbilic documented in this encounter Historical Medications * This list may reflect changes made after this encounter. calcium carbonate (TUMS) 200 mg calcium (500 mg) tablet,chewable Take 1 Tab by mouth 4 times daily as needed. ascorbic acid, vitamin C, (VITAMIN C) 500 mg tablet Take 500 mg by mouth daily. docusate sodium (COLACE) 100 mg capsule Take 100 mg by mouth daily. cholecalciferol, Vitamin D3, 1,000 unit tablet Take 1,000 Units by mouth daily. omeprazole (PRILOSEC) 20 mg capsule Take 20 mg by mouth daily. melatonin 3 mg capsule Take by mouth. ibuprofen (MOTRIN) 200 mg tablet Take 200 mg by mouth every 6 hours as needed for Pain. acetaminophen (TYLENOL) 325 mg capsule Take 650 mg by mouth. LORazepam (ATIVAN) 1 mg tablet Take 1 mg by mouth as needed for Anxiety. risperiDONE microspheres (RISPERDAL CONSTA) 50 mg/2 mL injection Inject into the muscle every 14 days. nicotine (NICOTROL) 10 mg inhaler Inhale 1 Units as directed 6 times daily. senna (SENOKOT) 8.6 mg tablet Take 1 Tab by mouth daily. clonazePAM (KLONOPIN) 0.5 mg tablet Take 0.5 mg by mouth every 6 hours as needed. Risperidone 4 mg tablet,disintegrat ing Take 4 mg by mouth daily. 1 added in this encounter Care Teams Manager Sound Relationship Specialty Start Date End Date Juan Romeo MD PCP - General Family Medicine - Primary Care 04/24/19 documented as of this encounter
--- OUTSIDE RECORDS SUMMARY | 2024-03-05 14:19 | XMS_ITS | Encounter Summary ---
Author Organization [facility] Address [address] [place] [address] Care Team Providers Care Customer Advisor Name Role Phone Juan Romeo MD Primary Care Provider [phone] Encounter Details Date Type Department Care Team (Late st Contact Info) Description 10/13/2022 Lab Requisition [facility] Pathology & Laboratory Medicine - [address] [id number] Outr Resulting Lab, Provider Social History Tobacco [...] Procedure Name Priority Date/Time Associated Diagnosis Comments HIV 1/2 ANTIGEN AND ANTIBODY, 4TH GENERATION Routine 10/13/2022 11:30 EDT documented in this encounter Results * HIV 1/2 ANTIGEN AND ANTIBODY, 4TH GENERATION (10/13/2022 11:30 EDT) HIV 1 and 2 Antibody/p24 Antigen, 4th Generation Negative Negative 10/14/2022 10:[address] [facility] Comment:If acute HIV-1 infec tion is suspected in a high risk patient, submit plasma specimen for HIV-1 RNA quantitation test. Blood VENOUS BLOOD / Unknown 10/13/2022 11:30 EDT 10/13/2022 21:[address] [facility] - 10/14/2022 10:03 EDT Fourth Generation assay performed on the Siem[employer] XPT. us Provider Outr Resulting Lab IMMUNOLOGY AND SEROL OGY ORDERABLES Final Result [facility] [address] [place] [address] documented in this encounter Visit Diagnoses Not on filedocumented in this encounter Care Teams Customer Advisor Relationship Specialty Start Date End Date Juan Romeo MD PCP - General Family Medicine - Primary Care 04/24/19 documented as of this encounter
--- OUTSIDE RECORDS SUMMARY | 2024-03-05 14:19 | XMS_ITS | Encounter Summary ---
Author Organization [facility] Address [address] [place] [address] Care Team Providers Care Statistical Methods Teacher Name Role Phone Juan Romeo MD Primary Care Provider [phone] Encounter Details Date Type Department Care Team (Late st Contact Info) Description 04/22/2020 Results Only [facility] Psychiatry - [address] [id number] Elsie Spaulding MD [address] [facility] Level [address] [place] [address] Social History Tobacco Use Types [...] Procedure Name Priority Date/Time Associated Diagnosis Comments VIT D, 25-HYDROXY - [facility] Routine 04/22/2020 5:15 EST MAGNESIUM Routine 04/22/2020 5:15 EST HEMOGLOBIN A1C Routine 04/22/2020 5:15 EST LIPID PROFILE (INCLUDES CHOLESTEROL, TRIGLYCERIDES, HDL, LDL) Routine 04/22/2020 5:15 EST documented in this encounter Results * VIT D, 25-HYDROXY - [facility] (04/22/2020 5:15 EST) [facility] VIT D, 25 HYDROXY - [facility] 32.3 30 - 100 ng/ml 04/22/2020 14:45 EST [facility] Comment: ? 25-Hydroxy D Total (D2+D3) ?Expected Values Deficient: ?<20 ng/ml Insufficient: ? 20- <30 ng/ml Sufficient: ? 30-100 ng/ml Potential intoxication: >100 ng/ml 04/22/2020 5:15 EST 04/22/2020 9:08 EST Narrative [facility] - 04/22/2020 14:45 EST AOT: 04/22/20 1402: VD25 us Elsie Spaulding MD CHEMISTRY & BLOOD GAS ORDERABLE S Final Result Performing Organization Address [facility] de Phone Number [facility] [address] [place] [address] * MAGNESIUM (04/22/2020 5:15 EST) [facility] Magnesium 1.90 1.7 - 2.8 mg/dL 04/22/2020 14:29 EST [facility] 04/22/2020 5:15 EST 04/22/2020 9:08 EST Narrative [facility] - 04/22/2020 14:29 EST AOT: 04/22/20 1402: MG us Elsie Spaulding MD CHEMISTRY & BLOOD GAS ORDERABLE S Final Result Performing Organization Address [facility] Co de Phone Number [facility] [address] [place] [address] * HEMOGLOBIN A1C (04/22/2020 5:15 EST) Hemoglobin A1c 5.7 4.0 - 6.0 % 04/22/2020 12:44 [facility] Comment: > or =18 years: ??Increased risk for diabetes (prediabetes): 5.7-6.4% Diabetes: > or =6.5% Therapeutic goals for glycemic control (ADA) Adults: - Goal of therapy: <7.0% HbA1c - Action suggested: >8.0% HbA1c Pediatric patients: - Toddlers and preschoolers: <8.5% (but >7.5%) - School age (6-12 years): <8% - Adolescents and young adults (13-19 years): <7.5% Est Avg Glucose 117 mg/dL 0 12:44 [facility] 04/22/2020 5:15 EST 04/22/2020 9:08 EST us Elsie Spaulding MD CHEMISTRY & BLOOD GAS ORDERABLE S Final Result Performing Organization Address City/State/[facility] Co de Phone Number [facility] [address] [place] [address] * (ABNORMAL) LIPID PROFILE (INCLUDES CHOLESTEROL, TRIGLYCERIDES, HDL, LDL) (04/22/2020 5:15 EST) Triglyceride 105 <150 mg/dL 04/22/2020 9:20 [facility] Comment: Adult: Normal: ?<150 mg/dl ? Borderline High: 150-199 mg/dl ? High: ?200-499 mg/dl ? Very High: >tv=163 Cholesterol 185 <200 mg/dL 04/22/2020 9:20 [facility] Comment: Acceptable: ??<200 Borderline: ??200-239 High: ?> or = 240 Chol/HDL Ratio 4.0 0 - 5.0 04/22/2020 9:20 [facility] Comment: DESIRABLE RATIO IS LESS THAN 4.1 PATIENTS ARE CONSIDERED AT RISK: WOMEN RATIO >5 MEN RATIO >6 FASTING? - [facility] Yes 0 9:09 [facility] HDL 46 40 - 60 mg/dL 04/22/2020 9:20 EST [facility] Comment: ?? Reference Range Low: ? < 40 ??mg/dL Normal: ??40-60 mg/dL High: ?>= 60 mg/dL LDL CHOLESTEROL - [facility] 118(H) 60 - 100 mg/dL 04/22/2020 9:20 EST [facility] Non HDL Cholesterol 139 mg/dl 04/22/2020 9:20 EST [facility] Comment: Desirable: ?Less than 130 Borderline High: ??130-159 High: ? 160-189 Very High: ?Greater than or equal to 190 04/22/2020 5:15 EST 04/22/2020 9:08 EST Narrative [facility] - 04/22/2020 14:29 EST AOT: 04/22/20 1402: MG us Elsie Spaulding MD CHEMISTRY & BLOOD GAS ORDERABLE S Final Result [facility] [address] [place] [address] documented in this encounter Visit Diagnoses Not on filedocumented in this encounter Care Teams Statistical Methods Teacher Relationship Specialty Start Date End Date Juan Romeo MD PCP - General Family Medicine - Primary Care 04/24/19 documented as of this encounter
--- OUTSIDE RECORDS SUMMARY | 2024-03-05 14:19 | XMS_ITS | Encounter Summary ---
Author Organization [facility] Address [address] [place] [address] Care Team Providers Care Daycare Manager Name Role Phone Rafael Jackson MD Primary Care Provider [phone] Encounter Details Date Type Department Care Team (Latest Contact Info) Description 08/05/2018 12:02 EDT - 08/05/2018 23:59 EDT Hospital Encounter [address] [address] Unknown, Provider, MD Discharge Disposition: Home or Self Care Social History Tobacco Use Types Packs/Day Years Used Date Smoking Tobacco: Never Assessed Sex and Gender Information Value Date Recorded Sex Assigned at Not on file Legal Sex Male 17:28 EST Gender Identity Not on file Sexual Orientation Not on file documented as of this encounter Discharge Disposition Disposition Code Departure Means Destination Home or Self Mcfp documented in this encounter Plan of Treatment Not on file documented as of this encounter Visit Diagnoses Not on filedocumented in this encounter Care Teams Daycare Manager Relationship Specialty Start Date End Date Rafael Jackson MD [address] [place] [address] PCP - General 06/17/16 04/23/19 documented as of this encounter
--- OUTSIDE RECORDS SUMMARY | 2024-03-05 14:19 | XMS_ITS | Referral Summary ---
Author Organization [facility] Address [address] [place] [address] Care Team Providers Care Weed Sprayer Name Role Phone Juan Romeo MD Primary Care Provider [phone] Allergies Active Allergy Reactions Criticality Noted Date [...] disease) 1 Leg pain 09/26/2020 Paranoid schizophrenia ([facility]) 09/26/2020 S/P laparoscopic appendectomy 09/26/2020 Spermatocele of [...] on file Sexual Orientation Not on file Last Filed Vital Signs Vital Sign Reading [...] 27.12 06/13/2019 1100 EST Plan of Treatment Not on file Procedures Procedure Name Priority Date/Time Associated Diagnosis Comments HEPATITIS C AB W REFLEX TO HCV RNA BY PCR Routine 10/13/2022 11:30 EDT from Last 3 Months or Most Recently Relevant to Health Maintenance Results * HEPATITIS C AB W REFLEX TO HCV RNA BY PCR (10/13/2022 11:30 EDT) Hep C Antibody Negative Negative 10/14/2022 10:06 EDT [facility] Blood VENOUS BLOOD / Unknown 10/13/2022 11:30 EDT 10/13/2022 21:15 EDT us Provider Outr Resulting Lab CHEMISTRY & BLOOD GA S ORDERABLES Final Result Performing Organization Address City/State/[facility] Co de Phone Number [facility] [address] [place] [phone] from Last 3 Months or Most Recently Relevant to Health Maintenance Insurance MEDICARE MEDICAID [place] MEDICARE Care Teams Weed Sprayer Relationship Specialty Start Date End Date Juan Romeo MD PCP - General Family Medicine - Primary Care 04/24/19
--- OUTSIDE RECORDS SUMMARY | 2024-03-05 14:19 | XMS_ITS | Encounter Summary ---
Author Organization [facility] Address [address] [place] [address] Care Team Providers Care Wholesale Manager Name Role Phone Juan Romeo MD Primary Care Provider [phone] Encounter Details Date Type Department Care Team (Late st Contact Info) Description 03/12/2021 Lab Requisition [facility] Pathology & Laboratory Medicine - [address] [address] Outr Resulting Lab, Provider Social History Tobacco [...] Comments CHLAMYDIA/N. GONORRHOEAE AMPLIFIED NUCLEIC ACID Routine 03/12/2021 4:25 EST documented in this encounter Results * CHLAMYDIA/N. GONORRHOEAE AMPLIFIED RNA (03/12/2021 4:25 EST) Neisseria gonorrhoeae Result Negative Negative 03/15/2021 15:42 EST [facility] Chlamydia trachomatis Result Negative Negative 03/15/2021 15:42 EST [facility] Urine URINE / Unknown 03/12/2021 4 :25 EST 03/12/2021 20:44 EST us Provider Outr Resulting Lab MICROBIOLOGY - GENER AL ORDERABLES Final Result [facility] [address] [place] [address] documented in this encounter Visit Diagnoses Not on filedocumented in this encounter Care Teams Wholesale Manager Relationship Specialty Start Date End Date Juan Romeo MD PCP - General Family Medicine - Primary Care 04/24/19 documented as of this encounter
--- OUTSIDE RECORDS SUMMARY | 2024-03-05 14:20 | XMS_ITS | Encounter Summary ---
Author Organization [facility] Address [address] [place] [address] Care Team Providers Care Paperhanger Pipe Name Role Phone Unknown, Provider Primary Care Provider Unava ilable Encounter Details Date Type Department Care Team (Latest Contact Info) Description 06/14/2016 6:26 EST - 06/14/2016 23:59 EST Hospital Encounter [address] [address] Unknown, Provider, Discharge Disposition: Home or Self Care Social History Tobacco Use Types Packs/Day Years Used Date Smoking Tobacco: Never Assessed Sex and Gender Information Value Date Recorded Sex Assigned at Not on file Legal Sex Male 17:28 EST Gender Identity Not on file Sexual Orientation Not on file documented as of this encounter Discharge Disposition Disposition Code Departure Means Destination Home or Self Long Term documented in this encounter Plan of Treatment Not on file documented as of this encounter Visit Diagnoses Not on filedocumented in this encounter Care Teams Paperhanger Pipe Relationship Specialty Start Date End Date Unknown, Provider, PCP - General 06/14/16 06/16/16 documented as of this encounter
--- OUTSIDE RECORDS SUMMARY | 2024-03-05 14:20 | XMS_ITS | Encounter Summary ---
Author Organization [facility] Address [address] [place] [address] Care Team Providers Care Turbine Attendant Name Role Phone Unknown, Provider Primary Care Provider Unava ilable Encounter Details Date Type Department Care Team (Late st Contact Info) Description 06/14/2016 Results Only [facility]- [facility] [phone] Guanaco Ross, DO [address] [facility] [address] [place], [place] [phone] Social History Tobacco Use Types Packs/Day Years [...] Date/Time Associated Diagnosis Comments SURGICAL PATHOLOGY Routine 06/14/2016 15 :43 EST documented in this encounter Results * SURGICAL PATHOLOGY (06/14/2016 15:43 EST) Pathology Report: SURGICAL PATHOLOGY REPORT Reports generated via electronic interface contain original data; however they are lacking the format of the original report. Caution should be taken when reading/interpret ing unformatted reports. Name: ? NIGEL GOMEZ ? Accession #: ? [id number] ? : ? 1980 (Age: 35) ??M ? Collect Date: ? 06/14/2016 ? Location: ? [facility] ? Receive Date: ? 06/14/2016 ? Provider: GUANACO ROSS DO Copy to: [employer] ? Final Pathologic Diagnosis: A. STOMACH, ANTRUM, BIOPSY: - ??Antral and transitional mucosa with mild reactive gastropathy. - ??No evidence of Helicobacter pylori on H&E. B. ESOPHAGUS, DISTAL, BIOPSY: - ??Cardia type mucosa with intestinal metaplasia; negative for dysplasia. ?? - ??Adjoining squamous mucosa with features of reflux esophagitis. C. ESOPHAGUS, PROXIMAL, BIOPSY: - ??Squamous mucosa with no diagnostic abnormality. Document reviewed and electronically signed by: ELIOT FERNANDES MD Report ??Date: 06/15/2016 15:42 By the signature above, the attending physician certifies that he/she has personally conducted a gross and/or microscopic examination of the described specimens and rendered or confirmed the above diagnosis. Specimen(s) Received: A. ??Antrum bx B. ??Distal esophagus bx C. ??Proximal esophagus bx Clinical History: GERD x1 year, on PPI x1 month; hiatal hernia Gross Description: A. ?Received in formalin labelled with proper patient identification (initials P, N) and antrum bx are two fragments of mahmood-pink tissue (each 0.3 x 0.3 x 0.3 cm). The specimens are submitted entirely in A1. B. ?Received in formalin labelled with proper patient identification (initials P, N) and distal esophagus are two fragments of mahmood-pink tissue ranging from 0.3-0.5 cm in greatest dimension. The specimens are submitted entirely in B1 and B2. C. ?Received in formalin labelled with proper patient identification (initials P, N) and proximal esophagus are two fragments of colorless tissue (each 0.4 x 0.3 x 0.2 cm). The specimens are submitted entirely in C1. JOSÉ MIGUEL Shah (ASCP) 06/14/2016 4:20 PM End of Report [facility] 06/14/2016 15:4 3 EST 06/14/2016 15:43 EST us Guanaco Ross DO PATHOLOGY ORDERABLES Fi nal Result Performing Organization Address City/State/[facility] Co de Phone Number [facility] [address] [place] [address] documented in this encounter Visit Diagnoses Not on filedocumented in this encounter Care Teams Turbine Attendant Relationship Specialty Start Date End Date Unknown, Provider, PCP - General 06/14/16 06/16/16 documented as of this encounter
[2024-03-05 21:06] LABS: Abs Immature Grans 0.02 10^3/uL (0.0-0.06); Absolute Basophil Count 0.11 10^3/uL (0.0-0.2); Absolute Eosinophil Count 0.16 10^3/uL (0.0-0.7); Absolute Lymphocyte Count 3.59 10^3/uL (1.2-3.4); Absolute Monocyte Count 0.48 10^3/uL (0.1-0.8); Absolute Neutrophil Count 6.02 10^3/uL (1.2-6.7); Basophils % 1.1 %; Eosinophils % 1.5 %; HCT 41.1 % (40.0-50.0); HGB 13.9 g/dL (13.5-17.5); Immature Grans % 0.2 %; Lymphocytes % 34.6 %; MCH 30.8 pg (27.0-33.0); MCHC 33.8 % (32.0-36.0); MCV 91 fL (80-95); MPV 9.7 fL (8.0-11.0); Monocytes % 4.6 %; Platelet Count 255 10^3/uL (130-400); RBC 4.51 10^6/uL (4.36-5.78); RDW 12.4 % (11.8-14.1); RDW-SD 41.1 fL; WBC 10.38 10^3/uL (4.4-10.8)
[2024-03-05 21:18] LABS: ALT 32 U/L (16-63); AST 17 U/L (15-37); Albumin 3.8 g/dL (3.4-5.0); Alkaline Phosphatase 108 U/L (46-116); Anion Gap 9.6 mmol/L (3-11); BUN 12 mg/dL (7-18); Bilirubin, Total 0.35 mg/dL (0.2-1.0); CO2 27.4 mmol/L (21.0-32.0); CREATININE 1.2 mg/dL (0.70-1.30); Calcium 9.3 mg/dL (8.5-10.1); Chloride 106 mmol/L (98-107); Estimated GFR 76.48 (mL/min/1.73m2); Glucose 87 mg/dL (74-106); Potassium 4.4 mmol/L (3.5-5.1); Sodium 143 mmol/L (136-145); Total Protein 7.8 g/dL (6.4-8.2)
== END 2024-03-05 14:10 | disposition home or self-care (01) ==
LOC: NCHCN 14:09
PROVIDERS: PCP Nurse Practitioner Family; Visit Provider Family Medicine
DX: K22.70 Barrett's esophagus without dysplasia (principal); F10.20 Alcohol dependence, uncomplicated; K21.9 Gastro-esophageal reflux disease without esophagitis
CPT/HCPCS: 80053; 85025

== ENCOUNTER 2024-05-30 16:01 | Emergency (ER) | payer MEDICARE, MEDICAID, SELFPAY ==
--- NOTE | 2024-05-30 16:14 | NUR.NOTE ---
procedural sedation performed using intranasal midazolam 4 mg x 2 for nail bed laceration repair. pt received the initial dose of 4 mg intranasally with poor efficacy. the dose was repeated a second time allowing nail bed laceration to be preformed by Dr. Cox. pt notably resisted sedation maintaining patent Airway and moderately aware of laceration repair. post procedure patient was more consolable and began sleeping with nonlabored, even respirations. no complaints offered. wound care teaching provided to Mom at the bedside.
[2024-05-30 16:15] VITALS: BP 147/95; PULSE 89; RESP 20; TEMP 36.6; O2SAT 97
--- NOTE | 2024-05-30 16:30 | DI.RAD_ITS ---
Exam(s) XR FINGER RT LITTLE EXAM: XR FINGER RT LITTLE CLINICAL HISTORY: crush inj left pinky. TECHNIQUE: 2D digital imaging was performed of the right finger. Three views were obtained. PA/AP, oblique, and lateral views were obtained. COMPARISON: CR LEFT RING FINGER from 03/24/2012 FINDINGS: BONES: No acute fracture is present. No bony destructive lesion is seen. JOINTS: No dislocation present. SOFT TISSUE: Normal. IMPRESSION: No evidence of acute fracture or dislocation. DATA REPOSITORY: RADIATION DOSE DELIVERED:
--- NOTE | 2024-05-30 16:44 | ED.GENADUL_ITS ---
Discharge Plan Disposition Patient Disposition: Home Condition: Stable Discharge Details Clinical Impression: Crushing injury of right little finger Primary Care Provider: Perla Martin ED Provider: Comfort Jhaveri Home Meds and New Rx's Prescriptions: No Action fluticasone propionate [Flovent HFA] 110 mcg/actuation HFA aerosol inhaler 2 puff inhalation BID paliperidone palmitate 234 mg/1.5 mL syringe 234 mg IM QMONTH lorazepam 2 mg tablet 2 mg PO BID PRN olanzapine 20 mg tablet 10 mg PO BID Patient Comments: pt denies taking this anymore 12/01/22 omeprazole 20 mg capsule,delayed release(DR/EC) 20 mg PO DAILY loratadine [Allergy Relief (loratadine)] 10 mg tablet 10 mg PO DAILY benztropine 1 mg tablet 1 mg PO BID Discharge Instructions Instructions: Minor Contusion ED Additional Instructions: You were seen in the emergency department after crushing your pinky finger and a piece of wood on a splitter. In our department you do full physical examination performed, and had x-rays that did not show any broken bones or fractures. You likely have bad bruising and can continue to use your splint as needed for comfort. Please use Aleve and Tylenol, ice and elevation, and follow-up with your primary care provider with any other concerns. Thank you for allowing us to be part of your care. Stand Alone Forms: Work Release Discharge Data Discharge Date/Time-TO BE ENTERED AT DEPARTURE: 05/30/24 17:23 HPI General Mode of arrival: ambulatory . Date/Time Provider Initiated Documentation: 05/30/24 16:09 . Limitations to Documentation: no limitations . Information obtained by: patient and old records reviewed . HPI Narrative: HPI: This is a 43-year-old male patient with a past medical history significant for schizophrenia, GERD, Dillard's esophagus, who is presenting for evaluation of a right pinky injury. Yesterday around 1300 at the [employer] where he works he got his right pinky wedged underneath a piece of wood on a splitter. He is concerned that he has broken the finger, states that he has broken that finger previously several times. Right now his pain is well-controlled, but he did notice some redness and swelling at the distal tip of his finger. He did not injure the nail, did not break the skin, and did not sustain any additional injury in his body. Prior to this event he was in his normal state of health. Exam: Gen: Awake and alert, in no apparent distress HEENT: Non-icteric sclera Neck: Supple Lungs: No apparent respiratory distress, normal respiratory effort. CV: Appears well perfused Abdomen: Non-distended MSK: Moves 4 extremities without apparent limitation in ROM the patient has s welling and redness over the distal phalanx of the right pinky, pain with palpation. Full range of motion without pain. no abrasion, laceration or other skin breaks, nail and eponychium is uninjured. Skin: Visualized skin without rashes, cyanosis. Neuro: Normal Gait, no obvious focal deficits or facial asymmetry. Speaks in full, clear sentences. Psych: Appropriate for situation. MDM: This is a 43-year-old male patient presenting for evaluation of a right pinky injury. Differential includes but is not limited to fracture, dislocation, contusion and crush injury. No evidence for neurovascular derangement. The patient is not desiring of any medications for pain, we will proceed with an x-ray of the affected digit. ED Course: X-ray image does not reveal any fracture, dislocation, or other osseous abnormality. The patient likely suffered a contusion/minor crush injury. I did certified addiction counselor the patient on using his splint for comfort, Tylenol and ibuprofen, and ice and elevation. At this time, the patient has had a full medical evaluation and is safe for discharge to home. They are hemodynamically stable, ambulatory, and tolerating PO. They are understanding of the follow-up plan and return precautions. They left our facility without incident. Comfort Jhaveri MD Related Data Home Medications ?Medication ?Instructions ?Recorded ?Confirmed loratadine 10 mg tablet (Allergy 10 mg PO DAILY 08/14/20 05/30/24 Relief (loratadine)) omeprazole 20 mg capsule,delayed 20 mg PO DAILY 08/14/20 05/30/24 release fluticasone propionate 110 2 puff inhalation BID 04/06/22 05/30/24 mcg/actuation HFA aerosol inhaler (Flovent HFA) lorazepam 2 mg tablet 2 mg PO BID PRN 04/06/22 05/30/24 olanzapine 20 mg tablet 10 mg PO BID 04/06/22 05/30/24 paliperidone palmitate 234 mg/1.5 234 mg IM QMONTH 04/06/22 05/30/24 mL intramuscular syringe benztropine 1 mg tablet 1 mg PO BID 04/15/23 05/30/24 Allergies Allergy/AdvReac Type Severity Reaction Status Date / Time Penicillins Allergy Other (See Verified 05/30/24 16:22 Comment) General Stated Complaint: Orthopedic SCARLETT: 4 Course Vital Signs Vital signs: Vital Signs Temperature 36.6 C 05/30/24 16:15 Pulse 89 05/30/24 16:15 Respiratory Rate 20 05/30/24 16:15 Blood Pressure 147/95 H 05/30/24 16:15 Pulse Oximetry 97 05/30/24 16:15 Temperature 36.6 C 05/30/24 16:15 Temperature Source Oral 05/30/24 16:15 Pulse 89 05/30/24 16:15 Respiratory Rate 05/30/24 16:15 Blood Pressure 147/95 H 05/30/24 16:15 Blood Pressure Position Sitting 05/30/24 16:15 Pulse Oximetry 97 05/30/24 16:15 Oxygen Delivery Method Room Air 05/30/24 16:15 Oxygen Flow Rate 0 05/30/24 16:15 Pain Level 0 05/30/24 16:15 Medical Decision Making Quality:SDOH Health Related Social Needs: No Data to Display PFSH All Active Problems (Updated 05/30/24 @ 17:16 by Comfort Jhaveri MD) Crushing injury of right little finger (Acute) Osteoarthritis of left knee (Acute) Tinnitus, bilateral (Acute) Schizophrenia (Chronic) Seasonal allergies (Acute) Chronic low back pain (Chronic) Leukocytes in urine (Acute) Headache (Acute) Bronchitis (Acute) Medication refill (Acute) Psychosis (Acute) No-show for appointment (Acute) Chest pain (Acute) Mood disorder (Acute) Acute lateral meniscus tear of left knee (Acute) Acute traumatic internal derangement of left knee (Acute 08/14/20) second occurrence, prior traumatic injury 11/02/2017 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) Closed fracture nasal bone (Acute) Bilateral groin pain (Acute) Spermatocele of epididymis (Acute) Effusion of knee (Acute) Leg pain (Acute) Constipation (Acute) Suicidal ideation (Acute) S/P laparoscopic appendectomy (Acute ~08/05/18) Acute appendicitis (Acute) Paranoid schizophrenia (Chronic) GERD (gastroesophageal reflux disease) (Chronic) Person awaiting admission to adequate facility elsewhere (Acute 05/27/14) Medical History Herpes simplex Postconcussion syndrome Palpitation Left ACL tear Gastroesophageal reflux disease Mental disorder Poorly defined Surgical History Repair of inguinal hernia EGD - IV Sedation (06/14/16) Social History Smoking/Tobacco Use Status: Current every day Tobacco Type: cigarettes Years smoked: 32 Smoking risk assessment performed?: Yes Alcohol Intake: current Alcohol Intake frequency: a few times a month Drug use: Never Substance use type: does not use Housing: apartment Current gender identity: male Do you feel safe at home: Yes Do you feel safe in your relationship?: Yes
--- OUTSIDE RECORDS SUMMARY | 2024-05-30 17:24 | XMS_ITS | Encounter Summary ---
Author Organization [facility] Address [address] [place] [address] Care Team Providers Care Siderographist Name Role Phone Juan Romeo MD Primary Care Provider [phone] Encounter Details Date Type Department Care Team (Late st Contact Info) Description 05/01/2020 Results Only [facility] Psychiatry - [address] [phone] Elsie Spaulding MD [address] [facility] [address] [place] [address] Social History Tobacco Use Types [...] 12:10 EST) STOOL FOR OCCULT BLOOD - [facility]G 05/01/2020 14:24 EST [facility] 05/01/2020 12:1 0 EST 05/01/2020 14:08 EST Elsie Spaulding MD MICROBIOLOGY - GENERAL ORDERABL ES Final Result Performing Organization Address [facility] [address] [place] [address] * H. PYLORI ANTIGEN (05/01/2020 12:10 EST) H.PYLORI ANTIGEN - [facility] NEG FOR H.PYLORI 05/01/2020 14:24 EST [facility] Comment: *Antimicrobials,proton pump inhibitors and bismuth [...] ORDERABL ES Final Result Performing Organization Address [facility] Number [facility] [address] [place] [address] documented in this encounter Visit Diagnoses Not on filedocumented in this encounter Care Teams Siderographist Relationship Specialty Start Date End Date Juan Romeo MD PCP - General Family Medicine - Primary Care 04/24/19 documented as of this encounter
--- OUTSIDE RECORDS SUMMARY | 2024-05-30 17:24 | XMS_ITS | Encounter Summary ---
Author Organization [facility] Address [address] [place] [address] Care Team Providers Care Baby Sitter Name Role Phone Juan Romeo MD Primary Care Provider [phone] Reason for Visit * Reason Comments Laceration Encounter Details Date Type Department Care Team (Late st Contact Info) Description 09/26/2020 12:45 EDT Walk-In [facility] Acute Respiratory Clinic [address] [place], [place] [phone] Jessica Gamino MD [address] [facility] [address] [place], [place] [phone] Knee laceration, left, initial encounter (Primary Dx) [...] see in NRC) *may be determined by RN/TOWER CONTROL OPERATOR or in discussion with available provider (CCA's [...] Post-Procedure Diagnose(s): Knee laceration, left, initial encounter [facility] Express Care Chief Complaint(s): Laceration Tdap 01/28/18. HPI: Jonny presents today, after cutting himself with his [...] to verify the correct patient, procedure, equipment, sales support consultant and site/side marked as required. Body area: [...] encounter documented in this encounter Results * CA REPAIR COMPLEX SCALP/ARM/LEG 2.6-7.5 CM, HC - BEDSIDE CODING WORKFLOW 2 (09/26/2020 12:45 EDT) Narrative [facility] POINT OF CARE - 09/26/2020 12:45 EDT [...] to verify the correct patient, procedure, equipment, sales support consultant and site/side marked as required. Body area: [...] MD PROCEDURE/MINOR SURGICAL ORDERAB LES Final Result [facility] POINT OF CARE documented in this encounter [...] 06/23/2020 added in this encounter Care Teams Baby Sitter Relationship Specialty Start Date End Date Juan Romeo MD PCP - General Family Medicine - Primary Care 04/24/19 documented as of this encounter
--- OUTSIDE RECORDS SUMMARY | 2024-05-30 17:24 | XMS_ITS | Encounter Summary ---
Author Organization [facility] Address [address] [place] [address] Care Team Providers Care Museum Attendant Name Role Phone Juan Romeo MD Primary Care Provider [phone] Encounter Details Date Type Department Care Team (Late st Contact Info) Description 05/06/2019 Results Only [facility] [phone] Jose Luis Colon MD [address] [place] [phone] Social History Tobacco Use Types Packs/Day [...] 0.000 - 0.034 ng/mL 05/06/2019 15:51 EST [facility] Comment: Interpretation comments: ??Cutoff for [...] GAS ORDERABLES Final Result Performing Organization Address [facility]/ZIP Co de Phone Number [facility] * MAGNESIUM (05/06/2019 14:56 EST) Pathologist [facility] Magnesium 1.90 1.7 - 2.8 mg/dL 05/06/2019 15:38 [facility] 05/06/2019 14:5 6 EST 05/06/2019 15:21 EST Jose Luis Colon MD CHEMISTRY & BLOOD GAS ORDERABLES Final Result Performing Organization Address [facility]/ZIP Co de Phone Number [facility] * (ABNORMAL) COMPREHENSIVE METABOLIC PANEL (CMP) (05/06/2019 14:56 EST) Pathologist [facility] Albumin % 4.5 3.4 - 4.9 g/dL 05/06/2019 15:38 [facility] ALKALINE PHOSPHATASE - [facility] 90 38 - 126 U/L 05/06/2019 15:38 [facility] BILIRUBIN TOTAL 0.5 0.2 - 1.3 mg/dL 05/06/2019 15:38 [facility] BUN - [facility] 18 10 - 26 mg/dL 05/06/2019 15:38 [facility] CALCIUM - [facility] 9.3 8.5 - 10.5 mg/dL 05/06/2019 15:38 [facility] Chloride 102 96 - 110 mmol/L 05/06/2019 15:38 [facility] CO2 Total 26 21 - 32 mEq/L 05/06/2019 15:38 [facility] CREATININE 0.91 0.66 - 1.25 mg/dL 05/06/2019 15:38 [facility] eGFR >60 05/06/2019 15:38 [facility] Comment: Chronic renal impairment is defined as GFR <60 Multiply result by 1.210 for patients. Anion Gap 11 0 - 18 05/06/2019 15:38 [facility] GLUCOSE - [facility] 113(H) 70 - 100 mg/dL 05/06/2019 15:38 [facility] Potassium 4.2 3.5 - 5.0 mEq/L 05/06/2019 15:38 [facility] Sodium 139 136 - 145 mEq/L 05/06/2019 15:38 [facility] TOTAL PROTEIN - [facility] 7.8 6.2 - 8.2 gm/dL 05/06/2019 15:38 [facility] SGOT/AST - [facility] 23 17 - 59 U/L 05/06/2019 15:38 [facility] SGPT/ALT - [facility] 24 21 - 72 U/L 05/06/2019 15:38 [facility] 05/06/2019 14:5 6 EST 05/06/2019 15:21 EST us Jose Luis Colon MD CHEMISTRY & BLOOD GAS ORDERABLES Final Result [facility] * COMPLETE BLOOD COUNT WITH DIFFERENTIAL (AUTO) (05/06/2019 14:56 EST) Gran # 5.2 2.2 - 8.85 10e3/uL 05/06/2019 15:26 [facility] BASO # - [facility] 0.05 0.01 - 0.11 10e/uL 05/06/2019 15:26 [facility] BASO % - [facility] 1 0 - 2 % 05/06/2019 15:26 [facility] EOS # - [facility] 0.21 0.03 - 0.61 10e3/ul 05/06/2019 15:26 [facility] EOS % - [facility] 2 0 - 5 % 05/06/2019 15:26 [facility] GRAN % - [facility] 57.2 40 - 80 % 05/06/2019 15:26 [facility] HEMATOCRIT - [facility] 42.2 39.5 - 50.2 % 05/06/2019 15:26 [facility] HEMOGLOBIN - [facility] 14.2 13.8 - 17.3 g/dl 05/06/2019 15:26 [facility] IG# - [facility] 0.02 0 - 0.7 10e3/uL 05/06/2019 15:26 [facility] IG% - [facility] 0.2 0 - 0.9 % 05/06/2019 15:26 [facility] LYMPH # - [facility] 3.1 1.09 - 3.3 10e3/ul 05/06/2019 15:26 [facility] LYMPH% - [facility] 33.7 20 - 40 % 05/06/2019 15:26 [facility] MEAN CORPUSCULAR HGB - [facility] 31.3 27.6 - 33.0 pg 05/06/2019 15:26 [facility] MEAN CORPUSCULAR HGB CONC - [facility] 33.6 32.8 - 36.4 g/dL 05/06/2019 15:26 [facility] MEAN CELL VOLUME - [facility] 93.0 81 - 95 fl 05/06/2019 15:26 [facility] MONO # - [facility] 0.6 0.1 - 0.8 10e3/uL 05/06/2019 15:26 [facility] MONO% - [facility] 6.1 0 - 12 % 05/06/2019 15:26 [facility] PLATELET COUNT 217 141 - 377 10e3/ul 05/06/2019 15:26 [facility] RED BLOOD COUNT - [facility] 4.54 4.36 - 5.78 10e3/ul 05/06/2019 15:26 [facility] RED CELL DISTRI WIDTH - [facility] 11.6 <14.2 % 05/06/2019 15:26 [facility] WHITE BLOOD COUNT - [facility] 9.1 4.0 - 10.4 10e3/ul 05/06/2019 15:26 EST [facility] 05/06/2019 14:5 6 EST 05/06/2019 15:21 EST us Jose Luis Colon MD HEMATOLOGY & PF4 ORDERABLES Aishwarya l Result [facility] documented in this encounter Visit Diagnoses Not on filedocumented in this encounter Care Teams Museum Attendant Relationship Specialty Start Date End Date Juan Romeo MD PCP - General Family Medicine - Primary Care 04/24/19 documented as of this encounter
--- OUTSIDE RECORDS SUMMARY | 2024-05-30 17:24 | XMS_ITS | Encounter Summary ---
Author Organization [facility] Address [address] [place] [address] Care Team Providers Care Sole Rougher Name Role Phone Juan Romeo MD Primary Care Provider Reason for Visit * Reason Comments Hernia * Consult (Routine) - Closed Specialty Diagnoses / Procedures Referred By Tylor doyle Referred To Contact General Surgery Diagnoses Hernia, abdominal Juan Romeo MD Phone: tel: fax: [facility] General Surgery [address] [address] Phone: tel: fax: Referral ID Status Reason Start Date Expiration Date Visits Re quested Visits Authorized [id number] Closed 1 1 Encounter Details Date Type Department Care Team (Latest Contact Info) Description 06/13/2019 10:45 EST Office Visit [facility] Surgery [address] [address] Jules Valdez MD [address] [place] [phone] Periumbilical abdominal pain (Primary Dx) Social [...] Jules Valdez MD - 06/13/2019 1045 EST [facility] HISTORY AND PHYSICAL EXAMINATION Date of Service: 06/13/2019 PROBLEM: Chief Complaint Patient presents with ??? Hernia SUBJECTIVE: Mr. Nigel Gomez is a 38 y.o. White male, presenting with a history of occasional abdominal/umbilical discomfort. He has a history of schizophrenia and resides at the [facility]. However he is receiving treatment with plans to transition back to home in the next several weeks. There is no records with the patient but he states he had a triple Hernia repaired either severalyears ago or one year ago at [facility]. This may have been done through [...] soon follow up with his surgeon in [facility]. Jules Valdez MD 06/13/2019 documented in [...] 1 added in this encounter Care Teams Sole Rougher Relationship Specialty Start Date End Date Juan Romeo MD PCP - General Family Medicine - Primary Care 04/24/19 documented as of this encounter
--- OUTSIDE RECORDS SUMMARY | 2024-05-30 17:24 | XMS_ITS | Encounter Summary ---
Author Organization [facility] Address [address] [place] [address] Care Team Providers Care Water Quality Analyst Name Role Phone Rafael Jackson MD Primary Care Provider [phone] Encounter Details Date Type Department Care Team (Late st Contact Info) Description 04/08/2019 Results Only [facility] - [facility] Lab - Main [address] [id number] Juan Romeo MD [address] [place] [phone] Social History Tobacco Use Types Packs/Day [...] Priority Date/Time Associated Diagnosis Comments URINALYSIS - [facility] Routine 04/08/2019 17: 45 EST HEPATITIS C AB W/REFLEX - CV Routine 04/08/2019 17:45 EST VIT D, 25-HYDROXY - CV Routine 04/08/2019 17:45 EST HIV 1/2 AB, P24 AG - [facility] Routine 04/08/2019 17:45 EST COMPLETE BLOOD COUNT [...] in this encounter Results * URINALYSIS - [facility] (04/08/2019 17:45 EST) URINE APPEARANCE - [facility] Clear CLEAR 04/08/2019 18:25 [facility] URINE BILIRUBIN - DIPSTICK - [facility] Negative NEGATIVE 04/08/2019 18:25 [facility] URINE BLOOD - [facility] Negative NEG 04/08/2019 18:25 [facility] URINE COLOR - [facility] Yellow YELLOW 04/08/2019 18:25 [facility] URINE GLUCOSE - DIPSTICK - [facility] Negative NEGATIVE 04/08/2019 18:25 [facility] URINE KETONE - [facility] Negative NEGATIVE 04/08/2019 18:25 [facility] URINE LEUK ESTERASE - [facility] Negative NEG 04/08/2019 18:25 [facility] URINE NITRITE - [place] - [facility] Negative NEG 04/08/2019 18:25 [facility] URINE PH - [facility] 7.0 4.0 - 8.0 9 18:25 [facility] URINE PROTEIN - [place] - [facility] Negative NEG 04/08/2019 18:25 [facility] URCULTIF+? - [facility] No Culture Indicated 04/08/2019 18:25 [facility] Comment:CULTURE IS NOT INDIC ATED, BASED ON RESULTS OF THE URINALYSIS URINE SPECIFIC GRAVITY - [facility] 1.010 1.001 - 1.035 04/08/2019 18:25 [facility] URINE UROBILINOGEN - [place] - [facility] 0.2 0.2 - 1.0 04/08/2019 18:25 [facility] 04/08/2019 17:4 5 EST 04/08/2019 18:03 EST Juan Romeo MD CHEMISTRY & BLOOD GAS ORDERAB LES Final Result [facility] * RAPID PLASMA REAGIN (RPR) WITH REFLEX, S (04/08/2019 17:45 EST) APID PLASMA REAGIN - [facility] Nonreactive NEG 04/11/2019 9:28 [facility] 04/08/2019 17:4 5 EST 04/08/2019 18:03 EST Juan Romeo MD IMMUNOLOGY AND SEROLOGY ORDER JENNIFER Final Result Performing Organization Address City/[facility]/ZIP Co de Phone Number [facility] * (ABNORMAL) VIT D, 25-HYDROXY - [facility] (04/08/2019 17:45 EST) VIT D, 25 HYDROXY - [facility] 27.0(L) 30 - 100 ng/ml 04/09/2019 15:47 [facility] Comment: ? 25-Hydroxy D Total (D2+D3) ?Expected Values Deficient: ?<20 ng/ml Insufficient: ? 20- <30 ng/ml Sufficient: ? 30-100 ng/ml Potential intoxication: >100 ng/ml 04/08/2019 17:4 5 EST 04/08/2019 18:03 EST Juan Romeo MD CHEMISTRY & BLOOD GAS ORDERAB LES Final Result [facility] * TSH (04/08/2019 17:45 EST) [facility] THYROID STIM HORMONE [facility] 3.23 0.46 - 4.68 uIU/ml 04/08/2019 21:26 EST [facility] Comment: The results of this assay can be falsely lowered due to the consumption of Biotin. 04/08/2019 17:4 5 EST 04/08/2019 18:03 EST Juan Romeo MD CHEMISTRY & BLOOD GAS ORDERAB LES Final Result Performing Organization Address [facility] Co de Phone Number [facility] * VITAMIN B12 (04/08/2019 17:45 EST) [facility] VITAMIN B12 [facility] [phone] - 931 pg/mL 04/09/2019 15:47 EST [facility] Comment: The results of this assay can be falsely elevated due to the consumption of Biotin. 04/08/2019 17:4 5 EST 04/08/2019 18:03 EST Juan Romeo MD CHEMISTRY & BLOOD GAS ORDERAB LES Final Result Performing Organization Address [facility] Co de Phone Number [facility] * HEPATITIS B CORE ANTIBODY (TOTAL) (04/08/2019 17:45 EST) [facility] Hepatitis B Core Ab, Total Negative Negative 04/09/2019 12:03 EST [facility] Comment: Test performed [place] [address] 04/08/2019 17:4 5 EST 04/08/2019 18:03 EST us Juan Romeo MD CHEMISTRY & BLOOD GAS ORDERAB LES Final Result [facility] * HIV 1/2 AB, P24 AG - [facility] (04/08/2019 17:45 EST) HIV 1/2 AB, P24 AG - [facility] Negative Negative 04/08/2019 19:28 EST [facility] 04/08/2019 17:4 5 EST 04/08/2019 18:03 EST us Juan Romeo MD CHEMISTRY & BLOOD GAS ORDERAB LES Final Result [facility] * HEPATITIS C AB W/REFLEX - CV (04/08/2019 17:45 EST) HEPATITIS C AB W/REFLEX - CV Negative 04/08/2019 19:21 EST [facility] Comment:Expected Values: Neg ative. 04/08/2019 17:4 5 EST 04/08/2019 18:03 EST us Juan Romeo MD CHEMISTRY & BLOOD GAS ORDERAB LES Final Result Performing Organization Address [facility] Co de Phone Number [facility] * HEPATITIS B SURFACE ANTIGEN (04/08/2019 17:45 EST) Hep B Surface Ag Negative 04/08/2019 19:21 [facility] Comment: Expected Values: ??Negative. The results of this assay can be falsely lowered due to the consumption of Biotin. 04/08/2019 17:4 5 EST 04/08/2019 18:03 EST Juan Romeo MD CHEMISTRY & BLOOD GAS ORDERAB LES Final Result Performing Organization Address [facility] Co de Phone Number [facility] * HEPATITIS B SURFACE ANTIBODY (04/08/2019 17:45 EST) Hep B Surface Ab, Qualitative 0 04/08/2019 19:21 [facility] Comment: ?Interpretative Guidelines < 5.00 mIU/mL = ?Negative Clinical Interpretation of Immune Status: Patient is considered to be not immune to infection with HBV. The results of this assay can be falsely lowered due to the consumption of Biotin. 04/08/2019 17:4 5 EST 04/08/2019 18:03 EST us Juan Romeo MD CHEMISTRY & BLOOD GAS ORDERAB LES Final Result [facility] * (ABNORMAL) COMPREHENSIVE METABOLIC PANEL (CMP) (04/08/2019 17:45 EST) Albumin % 4.4 3.4 - 4.9 g/dL 04/08/2019 18:33 [facility] ALKALINE PHOSPHATASE - [facility] 74 38 - 126 U/L 04/08/2019 18:33 [facility] BILIRUBIN TOTAL 0.6 0.2 - 1.3 mg/dL 04/08/2019 18:33 [facility] BUN - [facility] 21 10 - 26 mg/dL 04/08/2019 18:33 [facility] CALCIUM - [facility] 9.5 8.5 - 10.5 mg/dL 04/08/2019 18:33 [facility] Chloride 100 96 - 110 mmol/L 04/08/2019 18:33 [facility] CO2 Total 29 21 - 32 mEq/L 04/08/2019 18:33 [facility] CREATININE 0.95 0.66 - 1.25 mg/dL 04/08/2019 18:33 [facility] eGFR >60 04/08/2019 18:33 [facility] Comment: Chronic renal impairment is defined as GFR <60 Multiply result by 1.210 for patients. Anion Gap 9 0 - 18 04/08/2019 18:33 [facility] GLUCOSE - [facility] 120(H) 70 - 100 mg/dL 04/08/2019 18:33 [facility] Potassium 4.1 3.5 - 5.0 mEq/L 04/08/2019 18:33 [facility] Sodium 138 136 - 145 mEq/L 04/08/2019 18:33 [facility] TOTAL PROTEIN - [facility] 7.5 6.2 - 8.2 gm/dL 04/08/2019 18:33 [facility] SGOT/AST - CV 25 17 - 59 U/L 04/08/2019 18:33 [facility] SGPT/ALT - [facility] 25 21 - 72 U/L 04/08/2019 18:33 [facility] 04/08/2019 17:4 5 EST 04/08/2019 18:03 EST us Juan Romeo MD CHEMISTRY & BLOOD GAS ORDERAB LES Final Result [facility] * (ABNORMAL) COMPLETE BLOOD COUNT WITH DIFFERENTIAL (AUTO) (04/08/2019 17:45 EST) ABSOLUTE NEUTROPHIL COUN - [facility] 5.5 2.2 - 8.85 10e3/uL 04/08/2019 18:10 [facility] BASO # - [facility] 0.07 0.01 - 0.11 10e/uL 04/08/2019 18:10 [facility] BASO % - [facility] 1 0 - 2 % 04/08/2019 18:10 [facility] EOS # - [facility] 0.32 0.03 - 0.61 10e3/ul 04/08/2019 18:10 [facility] EOS % - [facility] 3 0 - 5 % 04/08/2019 18:10 [facility] GRAN % - [facility] 58.1 40 - 80 % 04/08/2019 18:10 [facility] HEMATOCRIT - [facility] 40.6 39.5 - 50.2 % 04/08/2019 18:10 [facility] HEMOGLOBIN - [facility] 13.6(L) 13.8 - 17.3 g/dl 04/08/2019 18:10 [facility] IG# - [facility] 0.03 0 - 0.7 10e3/uL 04/08/2019 18:10 [facility] IG% - [facility] 0.3 0 - 0.9 % 04/08/2019 18:10 [facility] LYMPH # - [facility] 3.0 1.09 - 3.3 10e3/ul 04/08/2019 18:10 [facility] LYMPH% - [facility] 31.9 20 - 40 % 04/08/2019 18:10 [facility] MEAN CORPUSCULAR HGB - [facility] 31.7 27.6 - 33.0 pg 04/08/2019 18:10 [facility] MEAN CORPUSCULAR HGB CONC - [facility] 33.5 32.8 - 36.4 g/dL 04/08/2019 18:10 [facility] MEAN CELL VOLUME - [facility] 94.6 81 - 95 fl 04/08/2019 18:10 [facility] MONO # - [facility] 0.5 0.1 - 0.8 10e3/uL 04/08/2019 18:10 [facility] MONO% - [facility] 5.6 0 - 12 % 04/08/2019 18:10 [facility] PLATELET COUNT 216 141 - 377 10e3/ul 04/08/2019 18:10 [facility] RED BLOOD COUNT - [facility] 4.29(L) 4.36 - 5.78 10e3/ul 04/08/2019 18:10 [facility] RED CELL DISTRI WIDTH - [facility] 11.9 <14.2 % 04/08/2019 18:10 [facility] WHITE BLOOD COUNT - [facility] 9.4 4.0 - 10.4 10e3/ul 04/08/2019 18:10 [facility] 04/08/2019 17:4 5 EST 04/08/2019 18:03 EST us Juan Romeo MD HEMATOLOGY & PF4 ORDERABLES F inal Result [facility] documented in this encounter Visit Diagnoses Not on filedocumented in this encounter Care Teams Water Quality Analyst Relationship Specialty Start Date End Date Rafael Jackson MD [address] [place] [address] PCP - General 06/17/16 04/23/19 documented as of this encounter
--- OUTSIDE RECORDS SUMMARY | 2024-05-30 17:24 | XMS_ITS | Referral Summary ---
Author Organization [facility] Address [address] [place] [address] Care Team Providers Care Health Education Coordinator Name Role Phone Juan Romeo MD Primary Care Provider [phone] Allergies Active Allergy Reactions Criticality Noted Date [...] disease) 1 Leg pain 09/26/2020 Paranoid schizophrenia ([facility]) 09/26/2020 S/P laparoscopic appendectomy 09/26/2020 Spermatocele [...] C Antibody Negative Negative 10/14/2022 10:06 EDT [facility] Blood VENOUS BLOOD / Unknown 10/13/2022 11:30 EDT 10/13/2022 21:15 EDT us Provider Outr Resulting Lab CHEMISTRY & BLOOD GA S ORDERABLES Final Result Performing Organization Address City/State/[facility] Co de Phone Number [facility] [address] [place] [phone] from Last 3 Months or Most Recently Relevant to Health Maintenance Insurance MEDICARE MEDICAID [place] MEDICARE Care Teams Health Education Coordinator Relationship Specialty Start Date End Date Juan Romeo MD PCP - General Family Medicine - Primary Care 04/24/19
--- OUTSIDE RECORDS SUMMARY | 2024-05-30 17:24 | XMS_ITS | Encounter Summary ---
Author Organization [facility] Address [address] [place] [address] Care Team Providers Care Industrial Court Magistrate Name Role Phone Juan Romeo MD Primary Care Provider [phone] Encounter Details Date Type Department Care Team (Late st Contact Info) Description 06/04/2019 Results Only [facility] Psychiatry - S [address] [id number] Lisa [address] MD [address] [facility] [address] [place] [address] Social History Tobacco Use Types [...] [facility] 74.7 () ng/ml 06/10/2019 14:40 EST [facility] COMBINED TOTAL 94.2 () ng/ml 06/10/2019 14:40 EST [facility] Comment: ?Expected steady state concentrations of risperidone and ?9-hydroxyrisperidone (combined total) in patients ?receiving recommended daily dosages: ??10 - 120 ng/ml. This test was developed and its performance characteristics determined by [facility]. It has not been cleared or approved by the Food and Drug Administration. Test Performed by: [facility] [employer]. [address] [place] [id number] RISPERIDONE (RISPERDAL) 19.5 () ng/ml 06/10/2019 14:40 EST [facility] 06/04/2019 16:4 5 EST 06/04/2019 20:[address] MD CHEMISTRY & BLOOD GAS ORDER JENNIFER Final Result [facility] documented in this encounter Visit Diagnoses Not on filedocumented in this encounter Care Teams Industrial Court Magistrate Relationship Specialty Start Date End Date Juan Romeo MD PCP - General Family Medicine - Primary Care 04/24/19 documented as of this encounter
--- OUTSIDE RECORDS SUMMARY | 2024-05-30 17:24 | XMS_ITS | Encounter Summary ---
Author Organization [facility] Address [address] [place] [address] Care Team Providers Care Wood Finisher Name Role Phone Juan Romeo MD Primary Care Provider [phone] Encounter Details Date Type Department Care Team (Late st Contact Info) Description 02/18/2020 Lab Requisition [facility] Pathology & Laboratory Medicine - [address] [id number] Outr Resulting Lab, Provider Social History Tobacco [...] AL ORDERABLES Final Result Performing Organization Address [facility] de Phone Number [facility] [address] [place] [address] * COVID-19 TESTING (02/18/2020 10:49 EDT) COVID-19 rt-PCR Result Negative Negative 02/18/2020 20:56 EDT [facility] Comment: This test has [...] history, and epidemiological information. Performed on the Vizolutionher Fusion instrument Performing Lab [facility] 02/18/2020 20:56 EDT [facility] Swab 02/18/2020 10:4 9 EDT 02/18/2020 16:59 EDT us Provider Outr Resulting Lab MICROBIOLOGY - GENER AL ORDERABLES Final Result Performing Organization Address City/[facility]/ZIP Co de Phone Number [facility] [address] [place] [address] documented in this encounter Visit Diagnoses Not on filedocumented in this encounter Care Teams Wood Finisher Relationship Specialty Start Date End Date Juan Romeo MD PCP - General Family Medicine - Primary Care 04/24/19 documented as of this encounter
--- OUTSIDE RECORDS SUMMARY | 2024-05-30 17:24 | XMS_ITS | Encounter Summary ---
Author Organization [facility] Address [address] [place] [address] Care Team Providers Care Satellite Communications Operator Name Role Phone Unknown, Provider Primary Care Provider Unava ilable Encounter Details Date Type Department Care Team (Late st Contact Info) Description 06/14/2016 Results Only [facility] [phone] Guanaco Ross, DO [address] [facility] [address] [place], [place] [id number] Social History Tobacco Use Types Packs/Day Years [...] ? NIGEL GOMEZ ? Accession #: ? [id number] ? : ? 1980 (Age: 35) ??M ? Collect Date: ? 06/14/2016 ? Location: ? [facility] ? Receive Date: ? 06/14/2016 ? Provider: GUANACO ROSS DO Copy to: DINA HORTON EXECUTIVE DIRECTOR [employer] ? Final Pathologic Diagnosis: A. STOMACH, ANTRUM, [...] (ASCP) 06/14/2016 4:20 PM End of Report [facility] 06/14/2016 15:4 3 EST 06/14/2016 15:43 EST us Guanaco Ross DO PATHOLOGY ORDERABLES Fi nal Result Performing Organization Address City/State/[facility] Co de Phone Number [facility] [address] [place] [address] documented in this encounter Visit Diagnoses Not on filedocumented in this encounter Care Teams Satellite Communications Operator Relationship Specialty Start Date End Date Unknown, Provider, PCP - General 06/14/16 06/16/16 documented as of this encounter
--- OUTSIDE RECORDS SUMMARY | 2024-05-30 17:24 | XMS_ITS | Clinical Summary ---
Author Organization [facility] Address [address] [place] [address] Care Team Providers Care Solidworks Mechanical Designer Name Role Phone Juan Romeo MD Primary Care Provider [phone] Allergies Active Allergy Reactions Criticality Noted Date [...] disease) 1 Leg pain 09/26/2020 Paranoid schizophrenia ([facility]) 09/26/2020 S/P laparoscopic appendectomy 09/26/2020 Spermatocele of [...] C Antibody Negative Negative 10/14/2022 10:06 EDT [facility] Blood VENOUS BLOOD / Unknown 10/13/2022 11:30 EDT 10/13/2022 21:15 EDT us Provider Outr Resulting Lab CHEMISTRY & BLOOD GA S ORDERABLES Final Result [facility] [address] [place] [address] from Last 3 Months or Most Recently Relevant to Health Maintenance Insurance MEDICARE MEDICAID [place] MEDICARE Care Teams Solidworks Mechanical Designer Relationship Specialty Start Date End Date Juan Romeo MD PCP - General Family Medicine - Primary Care 04/24/19
--- OUTSIDE RECORDS SUMMARY | 2024-05-30 17:24 | XMS_ITS | Encounter Summary ---
Author Organization [facility] Address [address] [place] [address] Care Team Providers Care Carbon Sequestration Plant Operator Name Role Phone Rafael Jackson MD Primary Care Provider [phone] Encounter Details Date Type Department Care Team (Late st Contact Info) Description 03/27/2019 Results Only [facility] [phone] Carlos John MD [address] [place] [phone] Social History Tobacco Use Types Packs/Day [...] Date/Time Associated Diagnosis Comments ETHYL [place] [facility] Routine 03/27/2019 23:43 EST COMPLETE BLOOD COUNT WITH DIFFERENTIAL (AUTO) Routine 03/27/2019 23:43 EST ACETAMINOPHEN Routine 03/27/2019 23:43 EST SALICYLATE Routine 03/27/2019 23:43 EST COMPREHENSIVE METABOLIC PANEL (CMP) Routine 03/27/2019 23:43 EST documented in this encounter Results * SALICYLATE (03/27/2019 23:43 EST) Salicylate <1.0 03/28/2019 0:33 [facility] Comment: Date and Time for last dose: UNKNOWN Therapeutic range = < 2.0 mg/dl Possible toxicity = < 20 ??mg/dl Probable toxicity = > 30 ??mg/dl 03/27/2019 23:4 3 EST 03/27/2019 23:49 EST Carlos John MD CHEMISTRY & BLOOD GAS ORDER JENNIFER Final Result Performing Organization Address [facility]/ZIP Co de Phone Number [facility] * ETHYL ALCOHOL [place] [facility] (03/27/2019 23:43 EST) ETHYL ALCOHOL - [facility] <10.0 <10 mg/dL 03/28/2019 0:23 [facility] 03/27/2019 23:4 3 EST 03/27/2019 23:49 EST Carlos John MD CHEMISTRY & BLOOD GAS ORDER JENNIFER Final Result Performing Organization Address [facility] de Phone Number [facility] * (ABNORMAL) COMPREHENSIVE METABOLIC PANEL (CMP) (03/27/2019 23:43 EST) Pathologist [facility] Albumin % 4.8 3.4 - 4.9 g/dL 03/28/2019 0:23 [facility] ALKALINE PHOSPHATASE - [facility] 89 38 - 126 U/L 03/28/2019 0:23 [facility] BILIRUBIN TOTAL 0.6 0.2 - 1.3 mg/dL 03/28/2019 0:23 [facility] BUN - [facility] 21 10 - 26 mg/dL 03/28/2019 0:23 [facility] CALCIUM - [facility] 9.8 8.5 - 10.5 mg/dL 03/28/2019 0:23 [facility] Chloride 101 96 - 110 mmol/L 03/28/2019 0:23 [facility] CO2 Total 27 21 - 32 mEq/L 03/28/2019 0:23 [facility] CREATININE 1.06 0.66 - 1.25 mg/dL 03/28/2019 0:23 [facility] eGFR >60 03/28/2019 0:23 [facility] Comment: Chronic renal impairment is defined as GFR <60 Multiply result by 1.210 for patients. Anion Gap 13 0 - 18 03/28/2019 0:23 [facility] GLUCOSE - [facility] 97 70 - 100 mg/dL 03/28/2019 0:23 [facility] Potassium 4.5 3.5 - 5.0 mEq/L 03/28/2019 0:23 [facility] Sodium 141 136 - 145 mEq/L 03/28/2019 0:23 [facility] TOTAL PROTEIN - [facility] 8.2 6.2 - 8.2 gm/dL 03/28/2019 0:23 [facility] SGOT/AST - [facility] 18 17 - 59 U/L 03/28/2019 0:23 [facility] SGPT/ALT - [facility] 17(L) 21 - 72 U/L 03/28/2019 0:23 [facility] 03/27/2019 23:4 3 EST 03/27/2019 23:49 EST Carlos John MD CHEMISTRY & BLOOD GAS ORDER JENNIFER Final Result [facility] * (ABNORMAL) ACETAMINOPHEN (03/27/2019 23:43 EST) Acetaminophen <10(L) ug/mL 03/28/2019 0:33 EST [facility] Comment: Date and Time for last dose: UNKNOWN Therapeutic range: 10-30 Possible Toxicity: 150-200 Probable toxicity: ??> 200 Critical: >150 @ 4 hrs post ingestion. ?> 50 @ 12 hours post ingestion. 03/27/2019 23:4 3 EST 03/27/2019 23:49 EST Carlos John MD CHEMISTRY & BLOOD GAS ORDER JENNIFER Final Result [facility] * (ABNORMAL) COMPLETE BLOOD COUNT WITH DIFFERENTIAL (AUTO) (03/27/2019 23:43 EST) ABSOLUTE NEUTROPHIL COUN - [facility] 8.3 2.2 - 8.85 10e3/uL 03/27/2019 23:52 [facility] BASO # - [facility] 0.10 0.01 - 0.11 10e/uL 03/27/2019 23:52 [facility] BASO % - [facility] 1 0 - 2 % 03/27/2019 23:52 [facility] EOS # - [facility] 0.37 0.03 - 0.61 10e3/ul 03/27/2019 23:52 [facility] EOS % - [facility] 3 0 - 5 % 03/27/2019 23:52 [facility] GRAN % - [facility] 59.9 40 - 80 % 03/27/2019 23:52 [facility] HEMATOCRIT - [facility] 46.4 39.5 - 50.2 % 03/27/2019 23:52 [facility] HEMOGLOBIN - [facility] 15.3 13.8 - 17.3 g/dl 03/27/2019 23:52 [facility] IG# - [facility] 0.06 0 - 0.7 10e3/uL 03/27/2019 23:52 [facility] IG% - [facility] 0.4 0 - 0.9 % 03/27/2019 23:52 [facility] LYMPH # - [facility] 4.1(H) 1.09 - 3.3 10e3/ul 03/27/2019 23:52 [facility] LYMPH% - [facility] 29.3 20 - 40 % 03/27/2019 23:52 [facility] MEAN CORPUSCULAR HGB - [facility] 31.5 27.6 - 33.0 pg 03/27/2019 23:52 [facility] MEAN CORPUSCULAR HGB CONC - [facility] 33.0 32.8 - 36.4 g/dL 03/27/2019 23:52 [facility] MEAN CELL VOLUME - [facility] 95.7(H) 81 - 95 fl 03/27/2019 23:52 [facility] MONO # - [facility] 1.0(H) 0.1 - 0.8 10e3/uL 03/27/2019 23:52 [facility] MONO% - [facility] 7.0 0 - 12 % 03/27/2019 23:52 [facility] PLATELET COUNT 258 141 - 377 10e3/ul 03/27/2019 23:52 [facility] RED BLOOD COUNT - [facility] 4.85 4.36 - 5.78 10e3/ul 03/27/2019 23:52 [facility] RED CELL DISTRI WIDTH - [facility] 12.1 <14.2 % 03/27/2019 23:52 [facility] WHITE BLOOD COUNT - [facility] 13.9(H) 4.0 - 10.4 10e3/ul 03/27/2019 23:52 [facility] 03/27/2019 23:4 3 EST 03/27/2019 23:49 EST us Carlos Mele John MD HEMATOLOGY & PF4 ORDERABLES Final Result [facility] documented in this encounter Visit Diagnoses Not on filedocumented in this encounter Care Teams Carbon Sequestration Plant Operator Relationship Specialty Start Date End Date Rafael Jackson MD [address] [place] [address] PCP - General 06/17/16 04/23/19 documented as of this encounter
--- OUTSIDE RECORDS SUMMARY | 2024-05-30 17:24 | XMS_ITS | Encounter Summary ---
Author Organization [facility] Address [address] [place] [address] Care Team Providers Care Exchange Underwriting Consultant Name Role Phone Rafael Jackson MD Primary Care Provider [phone] Encounter Details Date Type Department Care Team (Late st Contact Info) Description 08/05/2018 Results Only [facility] [phone] Melania Marino MD [address] [place], [place] [id number] Social History Tobacco Use Types Packs/Day Years [...] GOMEZS Jose Alejandro ? Accession #: ? [id number] ? : ? 1980 (Age: 37) ??M ? Collect Date: ? 08/05/2018 ? Location: ? [facility] ? Receive Date: ? 08/06/2018 ? Provider: MELANIA MARINO MD Copy to: DINA HORTON [employer]GAGE OR LOAN UNDERWRITER ? Final Pathologic Diagnosis: APPENDIX, APPENDECTOMY: - [...] adjacent to the proximal stapled margin, two insurance representative cross sections and one half of the longitudinally bisected distal tip are submitted in 1. JOSÉ MIGUEL Robison (ASCP) 08/07/2018 11:20 AM End of Report [facility] 08/05/2018 10:0 2 EDT 08/06/2018 10:02 EDT us Melania Marino MD PATHOLOGY ORDERABLES Fin al Result [facility] [address] [place] [address] documented in this encounter Visit Diagnoses Not on filedocumented in this encounter Care Teams Exchange Underwriting Consultant Relationship Specialty Start Date End Date Rafael Jackson MD [address] [place] [address] PCP - General 06/17/16 04/23/19 documented as of this encounter
--- OUTSIDE RECORDS SUMMARY | 2024-05-30 17:24 | XMS_ITS | Encounter Summary ---
Author Organization [facility] Address [address] [place] [address] Care Team Providers Care Crna Name Role Phone Unknown, Provider Primary Care Provider Unava ilable Encounter Details Date Type Department Care Team (Latest Contact Info) Description 06/14/2016 6:26 EST - 06/14/2016 23:59 EST Hospital Encounter [address] [address] Unknown, Provider, Discharge Disposition: Home or Self [...] Code Departure Means Destination Home or Self [facility] documented in this encounter Plan of Treatment Not on file documented as of this encounter Visit Diagnoses Not on filedocumented in this encounter Care Teams Crna Relationship Specialty Start Date End Date Unknown, Provider, PCP - General 06/14/16 06/16/16 documented as of this encounter
--- OUTSIDE RECORDS SUMMARY | 2024-05-30 17:24 | XMS_ITS | Encounter Summary ---
Author Organization [facility] Address [address] [place] [address] Care Team Providers Care Tunnel Form Placing Supervisor Name Role Phone Juan Romeo MD Primary Care Provider [phone] Encounter Details Date Type Department Care Team (Late st Contact Info) Description 10/13/2022 Lab Requisition [facility] Pathology & Laboratory Medicine - [address] [id number] Outr Resulting Lab, Provider Social History Tobacco [...] 4th Generation Negative Negative 10/14/2022 10:[address] [facility] Comment:If acute HIV-1 infec tion is suspected in a high risk patient, submit plasma specimen for HIV-1 RNA quantitation test. Blood VENOUS BLOOD / Unknown 10/13/2022 11:30 EDT 10/13/2022 21:[address] [facility] - 10/14/2022 10:03 EDT Fourth Generation assay performed on the [employer] XPT. us Provider Outr Resulting Lab IMMUNOLOGY AND SEROL OGY ORDERABLES Final Result [facility] [address] [place] [address] documented in this encounter Visit Diagnoses Not on filedocumented in this encounter Care Teams Tunnel Form Placing Supervisor Relationship Specialty Start Date End Date Juan Romeo MD PCP - General Family Medicine - Primary Care 04/24/19 documented as of this encounter
--- OUTSIDE RECORDS SUMMARY | 2024-05-30 17:24 | XMS_ITS | Encounter Summary ---
Author Organization [facility] Address [address] [place] [address] Care Team Providers Care Data Processor Name Role Phone Juan Romeo MD Primary Care Provider [phone] Encounter Details Date Type Department Care Team (Late st Contact Info) Description 10/02/2019 Lab Requisition [facility] Pathology & Laboratory Medicine - [address] [phone] Outr Resulting Lab, Provider Social History Tobacco [...] AL ORDERABLES Final Result Performing Organization Address [facility] de Phone Number [facility] [address] [place] [address] * COVID-19 TESTING (10/01/2019 16:13 EDT) COVID-19 rt-PCR Result Negative Negative 10/03/2019 10:11 EDT [facility] Comment: This test has [...] history, and epidemiological information. Performed on the [employer] Fusion instrument Performing Lab [facility] 10/03/2019 10:11 EDT [facility] Swab 10/01/2019 16:1 3 EDT 10/02/2019 21:33 EDT us Provider Outr Resulting Lab MICROBIOLOGY - GENER AL ORDERABLES Final Result Performing Organization Address [facility] Co de Phone Number [facility] [address] [place] [address] documented in this encounter Visit Diagnoses Not on filedocumented in this encounter Care Teams Data Processor Relationship Specialty Start Date End Date Juan Romeo MD PCP - General Family Medicine - Primary Care 04/24/19 documented as of this encounter
--- OUTSIDE RECORDS SUMMARY | 2024-05-30 17:24 | XMS_ITS | Encounter Summary ---
Author Organization [facility] Address [address] [place] [address] Care Team Providers Care Drafter Apprentice Name Role Phone Juan Romeo MD Primary Care Provider Encounter Details Date Type Department Care Team (Late st Contact Info) Description 03/12/2021 Lab Requisition [facility] Pathology & Laboratory Medicine - [address] [address] Outr Resulting Lab, Provider Social History Tobacco [...] gonorrhoeae Result Negative Negative 03/15/2021 15:42 EST [facility] Chlamydia trachomatis Result Negative Negative 03/15/2021 15:42 EST [facility] Urine URINE / Unknown 03/12/2021 4 :25 EST 03/12/2021 20:44 EST us Provider Outr Resulting Lab MICROBIOLOGY - GENER AL ORDERABLES Final Result [facility] [address] [place] [address] documented in this encounter Visit Diagnoses Not on filedocumented in this encounter Care Teams Drafter Apprentice Relationship Specialty Start Date End Date Juan Romeo MD PCP - General Family Medicine - Primary Care 04/24/19 documented as of this encounter
--- OUTSIDE RECORDS SUMMARY | 2024-05-30 17:24 | XMS_ITS | Encounter Summary ---
Author Organization [facility] Address [address] [place] [address] Care Team Providers Care College Counselor Name Role Phone Juan Romeo MD Primary Care Provider Encounter Details Date Type Department Care Team (Late st Contact Info) Description 10/03/2020 Lab Requisition [facility] Pathology & Laboratory Medicine - [facility] [address] [place], [place] [address] Outr Resulting Lab, Provider Social History Tobacco [...] MICROBIOLOGY - GENER AL ORDERABLES Final Result [facility] [address] [place] [address] * COVID-19 TESTING (10/02/2020 10:00 EDT) COVID-19 rt-PCR Result Negative Negative 10/04/2020 14:10 EDT [facility] Comment: This test has not [...] developed and its performance characteristics determined by [facility]. It has not been cleared or approved [...] testing. This test is based on the [facility] COVID-19 Emergency Use Authorization (EUA) assay, with minor modification as defined by the FDA Performed on the [employer] 7 Pro RT-PCR System. Performing Lab [facility] 10/04/2020 14:10 EDT [facility] Swab 10/02/2020 10:0 0 EDT 10/03/2020 20:52 EDT us Provider Outr Resulting Lab MICROBIOLOGY - GENER AL ORDERABLES Final Result [facility] [address] [place] [address] documented in this encounter Visit Diagnoses Not on filedocumented in this encounter Care Teams College Counselor Relationship Specialty Start Date End Date Juan Romeo MD PCP - General Family Medicine - Primary Care 04/24/19 documented as of this encounter
--- OUTSIDE RECORDS SUMMARY | 2024-05-30 17:24 | XMS_ITS | Encounter Summary ---
Author Organization [facility] Address [address] [place] [address] Care Team Providers Care Chain Saw Operator Name Role Phone Juan Romeo MD Primary Care Provider [phone] Encounter Details Date Type Department Care Team (Late st Contact Info) Description 07/07/2020 Lab Requisition [facility] Pathology & Laboratory Medicine - [address] [id number] Outr Resulting Lab, Provider Social History Tobacco [...] gonorrhoeae Result Negative Negative 07/08/2020 14:04 EDT [facility] Chlamydia trachomatis Result Negative Negative 07/08/2020 14:04 EDT [facility] Urine URINE / Unknown 07/06/2020 2 0:10 EDT 07/07/2020 16:30 EDT us Provider Outr Resulting Lab MICROBIOLOGY - GENER AL ORDERABLES Final Result [facility] [address] [place] [address] documented in this encounter Visit Diagnoses Not on filedocumented in this encounter Care Teams Chain Saw Operator Relationship Specialty Start Date End Date Juan Romeo MD PCP - General Family Medicine - Primary Care 04/24/19 documented as of this encounter
--- OUTSIDE RECORDS SUMMARY | 2024-05-30 17:24 | XMS_ITS | Encounter Summary ---
Author Organization [facility] Address [address] [place] [address] Care Team Providers Care Lambskin Trimmer Name Role Phone Juan Romeo MD Primary Care Provider [phone] Encounter Details Date Type Department Care Team (Late st Contact Info) Description 04/22/2020 Results Only [facility] Psychiatry - [address] [address] Elsie Spaulding MD [address] [facility] [address] [place] [address] Social History Tobacco Use Types [...] D, 25-HYDROXY - [facility] (04/22/2020 5:15 EST) [facility] VIT D, 25 HYDROXY - [facility] 32.3 30 - 100 ng/ml 04/22/2020 14:45 EST [facility] Comment: ? 25-Hydroxy D Total (D2+D3) ?Expected Values Deficient: ?<20 ng/ml Insufficient: ? 20- <30 ng/ml Sufficient: ? 30-100 ng/ml Potential intoxication: >100 ng/ml 04/22/2020 5:15 EST 04/22/2020 9:08 EST Narrative [facility] - 04/22/2020 14:45 EST AOT: 04/22/20 1402: [id number] us Elsie Spaulding MD CHEMISTRY & BLOOD GAS ORDERABLE S Final Result Performing Organization Address [facility] de Phone Number [facility] [address] [place] [address] * MAGNESIUM (04/22/2020 5:15 EST) [facility] Magnesium 1.90 1.7 - 2.8 mg/dL 04/22/2020 14:29 EST [facility] 04/22/2020 5:15 EST 04/22/2020 9:08 EST Narrative [facility] - 04/22/2020 14:29 EST AOT: 04/22/20 1402: MG us Elsie Spaulding MD CHEMISTRY & BLOOD GAS ORDERABLE S Final Result Performing Organization Address [facility] Co de Phone Number [facility] [address] [place] [address] * HEMOGLOBIN A1C (04/22/2020 5:15 EST) Hemoglobin A1c 5.7 4.0 - 6.0 % 04/22/2020 12:44 [facility] Comment: > or =18 [...] Est Avg Glucose 117 mg/dL 0 12:44 [facility] 04/22/2020 5:15 EST 04/22/2020 9:08 EST us Elsie Spaulding MD CHEMISTRY & BLOOD GAS ORDERABLE S Final Result Performing Organization Address City/State/[facility] Co de Phone Number [facility] [address] [place] [address] * (ABNORMAL) LIPID PROFILE (INCLUDES CHOLESTEROL, TRIGLYCERIDES, HDL, LDL) (04/22/2020 5:15 EST) Triglyceride 105 <150 mg/dL 04/22/2020 9:20 [facility] Comment: Adult: Normal: ?<150 mg/dl ? Borderline High: 150-199 mg/dl ? High: ?200-499 mg/dl ? Very High: >dz=830 Cholesterol 185 <200 mg/dL 04/22/2020 9:20 [facility] Comment: Acceptable: ??<200 Borderline: ??200-239 High: ?> or = 240 Chol/HDL Ratio 4.0 0 - 5.0 04/22/2020 9:20 [facility] Comment: DESIRABLE RATIO IS LESS THAN 4.1 PATIENTS ARE CONSIDERED AT RISK: WOMEN RATIO >5 MEN RATIO >6 FASTING? - [employer] [employer] Yes 0 9:09 [facility] HDL 46 40 - 60 mg/dL 04/22/2020 9:20 EST [facility] Comment: ?? Reference Range Low: ? < 40 ??mg/dL Normal: ??40-60 mg/dL High: ?>= 60 mg/dL LDL CHOLESTEROL - [employer] [employer] 118(H) 60 - 100 mg/dL 04/22/2020 9:20 EST [facility] Non HDL Cholesterol 139 mg/dl 04/22/2020 9:20 EST [facility] Comment: Desirable: ?Less than 130 Borderline High: ??130-159 High: ? 160-189 Very High: ?Greater than or equal to 190 04/22/2020 5:15 EST 04/22/2020 9:08 EST Narrative [facility] - 04/22/2020 14:29 EST AOT: 04/22/20 1402: MG us Elsie Spaulding MD CHEMISTRY & BLOOD GAS ORDERABLE S Final Result [facility] [address] [place] [address] documented in this encounter Visit Diagnoses Not on filedocumented in this encounter Care Teams Lambskin Trimmer Relationship Specialty Start Date End Date Juan Romeo MD PCP - General Family Medicine - Primary Care 04/24/19 documented as of this encounter
--- OUTSIDE RECORDS SUMMARY | 2024-05-30 17:24 | XMS_ITS | Encounter Summary ---
Author Organization [facility] Address [address] [place] [address] Care Team Providers Care Marketing Assistant Name Role Phone Rafael Jackson MD Primary Care Provider [phone] Juan Romeo MD Primary Care Provider [phone] Encounter Details Date Type Department Care Team (Late st Contact Info) Description 04/08/2019 Lab Requisition [facility] Pathology & Laboratory Medicine - [address] [phone] Unknown, Provider, Social History Tobacco Use Types [...] Ab, Total Negative Negative 04/09/2019 11:29 EST [facility] Blood VENOUS BLOOD / Unknown 04/08/2019 17:45 EST 04/08/2019 21:48 EST us Provider Unknown CHEMISTRY & BLOOD GAS ORDERA BLES Final Result [facility] [address] [place] [address] documented in this encounter Visit Diagnoses Not on filedocumented in this encounter Care Teams Marketing Assistant Relationship Specialty Start Date End Date Rafael Jackson MD [address] [place] [address] PCP - General 06/17/16 04/23/19 Juan Romeo MD [address] [place] [address] PCP - General Family Medicine - Primary Care 04/24/19 documented as of this encounter
--- OUTSIDE RECORDS SUMMARY | 2024-05-30 17:24 | XMS_ITS | Encounter Summary ---
Author Organization [facility] Address [address] [place] [address] Care Team Providers Care Plate And Frame Filter Operator Name Role Phone Juan Romeo MD Primary Care Provider [phone] Encounter Details Date Type Department Care Team (Late st Contact Info) Description 05/31/2020 Lab Requisition [facility] Pathology & Laboratory Medicine - [address] [phone] Outr Resulting Lab, Provider Social History Tobacco [...] MICROBIOLOGY - GENER AL ORDERABLES Final Result [facility] [address] [place] [address] * COVID-19 TESTING (05/30/2020 11:25 EST) COVID-19 rt-PCR Result Negative Negative 06/01/2020 13:21 EST [facility] Comment: This test has not [...] performed using the [place] SARS-CoV-2 assay ([employer] on the [place] 6800 System Performing Lab [place] [address] [facility] 06/01/2020 13:21 EST [facility] Swab 05/30/2020 11:2 5 EST 05/31/2020 17:53 EST us Provider Outr Resulting Lab MICROBIOLOGY - GENER AL ORDERABLES Final Result [facility] [address] [place] [address] documented in this encounter Visit Diagnoses Not on filedocumented in this encounter Care Teams Plate And Frame Filter Operator Relationship Specialty Start Date End Date Juan Romeo MD PCP - General Family Medicine - Primary Care 04/24/19 documented as of this encounter
--- OUTSIDE RECORDS SUMMARY | 2024-05-30 17:24 | XMS_ITS | Encounter Summary ---
Author Organization [facility] Address [address] [place] [address] Care Team Providers Care Math Tutor Name Role Phone Juan Romeo MD Primary Care Provider [phone] Encounter Details Date Type Department Care Team (Late st Contact Info) Description 10/13/2022 Lab Requisition [facility] Pathology & Laboratory Medicine - [address] [id number] Outr Resulting Lab, Provider Social History Tobacco [...] C Antibody Negative Negative 10/14/2022 10:06 EDT [facility] Blood VENOUS BLOOD / Unknown 10/13/2022 11:30 EDT 10/13/2022 21:15 EDT us Provider Outr Resulting Lab CHEMISTRY & BLOOD GA S ORDERABLES Final Result [facility] [address] [place] [id number] documented in this encounter Visit Diagnoses Not on filedocumented in this encounter Care Teams Math Tutor Relationship Specialty Start Date End Date Juan Romeo MD PCP - General Family Medicine - Primary Care 04/24/19 documented as of this encounter
--- OUTSIDE RECORDS SUMMARY | 2024-05-30 17:24 | XMS_ITS | Encounter Summary ---
Author Organization [facility] Address [address] [place] [address] Care Team Providers Care Opal Miner Name Role Phone Juan Romeo MD Primary Care Provider [phone] Encounter Details Date Type Department Care Team (Late st Contact Info) Description 05/06/2019 Results Only Imaging [facility] [address] [place] [id number] Jose Luis Colon MD [address] [place] [id number] Social History Tobacco Use Types Packs/Day [...] CC: ? Transcribed Date/Time: 05/06/2019 (1601) ? Special Trackwork Blacksmith: ? Printed Date/Time: 05/06/2019 (1601) ? PAGE [...] Osman MD CC: Transcribed Date/Time: 05/06/2019 (1601) Special Trackwork Blacksmith: Printed Date/Time: 05/06/2019 (1601) PAGE 1 Signed Report us Jose Luis Colon MD IMG DIAGNOSTIC IMAGING ORDERABLE S Final Result * EKG 12-LEAD (05/06/2019 15:26 EST) 05/06/2019 15:2 6 EST Narrative [facility] - 05/06/2019 15:26 EST ? [facility] ? Test Date: ?2019-05-06 15:26:01 Pat Name: ? NIGEL GOMEZ ? Department: ?Room: ? Gender: ? M ?Application Integration Engineer: ?? RD : ?1980 ? Requested By: Order Number: ?Reading MD: ?? Fish Azar MD ? Measurements Intervals ?[place] ? Rate: ? 71 ? P: ?61 NE: ? 128 ?QRS: ?5 QRSD: ? 86 ? T: ?10 QT: ? 416 ? QTc: ?452 ? Interpretive Statements Normal sinus rhythm with sinus arrhythmia Normal ECG No previous ECG available for comparison Electronically Signed On 05-06-2019 15:33:07 EST by Fish Azar MD [email or web address] CITYEPWild [employer], [employer]..[email or web address] Procedure Note Fish Azar MD - 05/06/2019 [facility] Test Date: 2019-05-06 15:26:01 Pat Name: NIGEL GOMEZ Department: Room: Gender: M Application Integration Engineer: : 1980 Requested By: Order Number: Reading MD: Fish zAar MD Measurements Intervals [place] Rate: 71 P: 61 NE: 128 QRS: 5 QRSD: 86 T: 10 QT: 416 QTc: 452 Interpretive Statements Normal sinus rhythm with sinus arrhythmia Normal ECG No previous ECG available for comparison Electronically Signed On 05-06-2019 15:33:07 EST by Fish Azar MD [email or web address] CITYEPWild [employer] [email or web address] [email or web address] us Jose Luis Colon MD CARDIAC ECG ORDERABLES Final Res ult [facility] documented in this encounter Visit Diagnoses Not on filedocumented in this encounter Care Teams Opal Miner Relationship Specialty Start Date End Date Juan Romeo MD PCP - General Family Medicine - Primary Care 04/24/19 documented as of this encounter
--- OUTSIDE RECORDS SUMMARY | 2024-05-30 17:24 | XMS_ITS | Encounter Summary ---
Author Organization [facility] Address [address] [place] [address] Care Team Providers Care Cnc Laser Operator Name Role Phone Juan Romeo MD Primary Care Provider [phone] Encounter Details Date Type Department Care Team (Late st Contact Info) Description 10/13/2022 Lab Requisition [facility] Pathology & Laboratory Medicine - [address] [id number] Outr Resulting Lab, Provider Social History Tobacco [...] gonorrhoeae Result Negative Negative 10/14/2022 13:12 EDT [facility] Chlamydia trachomatis Result Negative Negative 10/14/2022 13:12 EDT [facility] Urine URINE / Unknown 10/13/2022 1 1:30 EDT 10/13/2022 21:30 EDT us Provider Outr Resulting Lab MICROBIOLOGY - GENER AL ORDERABLES Final Result [facility] [address] [place] [address] documented in this encounter Visit Diagnoses Not on filedocumented in this encounter Care Teams Cnc Laser Operator Relationship Specialty Start Date End Date Juan Romeo MD PCP - General Family Medicine - Primary Care 04/24/19 documented as of this encounter
--- OUTSIDE RECORDS SUMMARY | 2024-05-30 17:24 | XMS_ITS | Encounter Summary ---
Author Organization [facility] Address [address] [place] [id number] Care Team Providers Care Electronic Scale Tester Name Role Phone Rafael Jackson MD Primary Care Provider [phone] Encounter Details Date Type Department Care Team (Latest Contact Info) Description 08/05/2018 12:02 EDT - 08/05/2018 23:59 EDT Hospital Encounter [address] [address] Unknown, Provider, MD Discharge Disposition: Home or [...] Code Departure Means Destination Home or Self Senior Care documented in this encounter Plan of Treatment Not on file documented as of this encounter Visit Diagnoses Not on filedocumented in this encounter Care Teams Electronic Scale Tester Relationship Specialty Start Date End Date Rafael Jackson MD [address] [place] [address] PCP - General 06/17/16 04/23/19 documented as of this encounter
== END 2024-05-30 17:23 | disposition home or self-care (01) ==
LOC: ER 17:21
PROVIDERS: Emergency Provider Emergency Medicine; PCP Nurse Practitioner Family
DX: S67.21XA Crushing injury of right hand, initial encounter (principal); S67.196A Crushing injury of right little finger, initial encounter; W31.89XA Contact with other specified machinery, initial encounter
CPT/HCPCS: 99283; 73140

== ENCOUNTER 2024-10-02 14:48 | Outpatient (REF) | payer MEDICARE, MEDICAID, SELFPAY ==
[2024-10-02 21:38] LABS: Abs Immature Grans 0.02 10^3/uL (0.0-0.06); Absolute Basophil Count 0.06 10^3/uL (0.0-0.2); Absolute Eosinophil Count 0.22 10^3/uL (0.0-0.7); Absolute Lymphocyte Count 3.08 10^3/uL (1.2-3.4); Absolute Monocyte Count 0.57 10^3/uL (0.1-0.8); Absolute Neutrophil Count 5.54 10^3/uL (1.2-6.7); Basophils % 0.6 %; Eosinophils % 2.3 %; HCT 43.2 % (40.0-50.0); HGB 14.1 g/dL (13.5-17.5); Immature Grans % 0.2 %; Lymphocytes % 32.5 %; MCH 29.6 pg (27.0-33.0); MCHC 32.6 % (32.0-36.0); MCV 91 fL (80-95); Neutrophils % 58.4 %; Platelet Count 215 10^3/uL (130-400); RBC 4.77 10^6/uL (4.36-5.78); RDW 12.5 % (11.8-14.1); RDW-SD 41.6 fL; WBC 9.49 10^3/uL (4.4-10.8)
[2024-10-02 21:58] LABS: ALT 29 U/L (16-63); AST 16 U/L (15-37); Albumin 3.8 g/dL (3.4-5.0); Alkaline Phosphatase 107 U/L (46-116); BUN 15 mg/dL (7-18); Bilirubin, Total 0.7 mg/dL (0.2-1.0); CREATININE 1.1 mg/dL (0.70-1.30); Calcium 8.8 mg/dL (8.5-10.1); Chloride 103 mmol/L (98-107); Estimated GFR 84.89 (mL/min/1.73m2); Glucose 108 mg/dL (74-106); Potassium 4.3 mmol/L (3.5-5.1); Sodium 140 mmol/L (136-145); Total Protein 7.4 g/dL (6.4-8.2)
== END 2024-10-02 14:49 | disposition home or self-care (01) ==
LOC: NCHCN 14:48
PROVIDERS: PCP Nurse Practitioner Family; Visit Provider Family Medicine
DX: R42 Dizziness and giddiness (principal)
CPT/HCPCS: 80053; 85025

== ENCOUNTER 2024-12-01 09:09 | Emergency (ER) | payer MEDICARE, MEDICAID, SELFPAY ==
[2024-12-01 09:11] VITALS: BP 124/80; PULSE 98; RESP 15; TEMP 37.5; O2SAT 96
--- NOTE | 2024-12-01 09:15 | DI.RAD_ITS ---
Exam(s) XR KNEE LT 3V AP,LAT,ROBERT EXAM: XR KNEE LT 3V AP,LAT,ROBERT CLINICAL HISTORY: pain left knee after twisting, effusion. TECHNIQUE: 2D digital imaging was performed of the left knee. Three images were obtained. AP, lateral and PA tunnel views were obtained. COMPARISON: CR XR KNEE LT 4V AP,LAT,ROBERT,PAT from 02/09/2023 FINDINGS: BONES: No acute fracture is present. No bony destructive lesion is seen. JOINTS: There is mild narrowing of the lateral femoral tibial joint. Osteophytes are seen in the lateral femoral tibial joint and the patellofemoral joint. There is a small joint effusion. There again seen ossific densities in the posterior knee which may represent loose bodies. SOFT TISSUE: Normal. IMPRESSION: 1. Degenerative changes in the left knee. 2. There is no acute fracture or dislocation. 3. There is a small joint effusion. DATA REPOSITORY: RADIATION DOSE DELIVERED:
--- NOTE | 2024-12-01 15:05 | W.ED.GENAD ---
Discharge Plan Disposition Patient Disposition: Home Discharge Details Clinical Impression: Effusion of knee joint, left, Cellulitis Primary Care Provider: Perla Martin ED Provider: Nu Low Home Meds and New Rx's Prescriptions: New mupirocin [Centany] 2 % ointment 1 applic topical BID Qty: 22 0RF diclofenac sodium 1 % gel 2 g topical QID Qty: 100 0RF Rx Instructions: apply to single elbow, wrist or hand; for hand includes palm/fingers/back of hand Continued fluticasone propionate [Flovent HFA] 110 mcg/actuation HFA aerosol inhaler 2 puff inhalation BID paliperidone palmitate 234 mg/1.5 mL syringe 234 mg IM QMONTH lorazepam 2 mg tablet 2 mg PO BID PRN olanzapine 20 mg tablet 10 mg PO BID Patient Comments: pt denies taking this anymore 12/01/22 omeprazole 20 mg capsule,delayed release(DR/EC) 20 mg PO DAILY loratadine [Allergy Relief (loratadine)] 10 mg tablet 10 mg PO DAILY benztropine 1 mg tablet 1 mg PO BID Discharge Instructions Instructions: Swollen Joints (DC), Cellulitis (Skin Infection), Adult ED Additional Instructions: Apply diclofenac gel Apply mupirocin twice daily for the next 7 days to area of irritation and wear a Band-Aid while you are wearing your boots and longer socks allow to air dry when you arrive home Follow-up with orthopedics you have some degenerative changes to your knee with an effusion, wear your brace You may take Motrin and Tylenol as needed for discomfort Return with redness, swelling, or should you have any new or worsening complaints Referrals: Perla Martin [Primary Care Provider, Medicine] Discharge Data Discharge Date/Time-TO BE ENTERED AT DEPARTURE: 12/01/24 10:28 HPI General Date/Time Provider Initiated Documentation: 12/01/24 09:10. HPI Narrative: 44-year-old male with right knee pain after working in the [employer]. History of knee problems, swollen and tender for 3 days, worse with walking. No redness. Concern for infection in left lower leg wound from boot rubbing. No fever or diabetes. Related Data Home Medications ?Medication ?Instructions ?Recorded ?Confirmed loratadine 10 mg tablet (Allergy 10 mg PO DAILY 08/14/20 12/01/24 Relief (loratadine)) omeprazole 20 mg capsule,delayed 20 mg PO DAILY 08/14/20 12/01/24 release fluticasone propionate 110 2 puff inhalation BID 04/06/22 12/01/24 mcg/actuation HFA aerosol inhaler (Flovent HFA) lorazepam 2 mg tablet 2 mg PO BID PRN 04/06/22 12/01/24 olanzapine 20 mg tablet 10 mg PO BID 04/06/22 12/01/24 paliperidone palmitate 234 mg/1.5 234 mg IM QMONTH 04/06/22 12/01/24 mL intramuscular syringe benztropine 1 mg tablet 1 mg PO BID 04/15/23 12/01/24 diclofenac sodium 1 % topical gel 2 g topical QID #100 grams 12/01/24 mupirocin 2 % topical ointment 1 applic topical BID #22 grams 12/01/24 (Centany) Previous Rx's ?Medication ?Instructions ?Recorded diclofenac sodium 1 % topical gel 2 g topical QID #100 grams 12/01/24 mupirocin 2 % topical ointment 1 applic topical BID #22 grams 12/01/24 (Centany) Allergies Allergy/AdvReac Type Severity Reaction Status Date / Time Penicillins Allergy Other (See Verified 12/01/24 09:16 Comment) General Stated Complaint: Orthopedic SCARLETT: 4 Exam Narrative Exam Narrative: General Appearance: Alert and oriented, no acute distress. Vital signs: Within normal limits. HEENT: Within normal limits. Respiratory: Within normal limits. Back, Musculoskeletal: Right knee effusion, no joint laxity, no redness or infection. Tender left ankle. Extremities: 1-inch abrasion on medial lower extremity with surrounding erythema, no induration or purulent drainage. Skin: Warm and dry, no rash. Neurological: Normal. Course Vital Signs Vital signs: Vital Signs Temperature 37.5 C 12/01/24 09:11 Pulse 98 H 12/01/24 09:11 Respiratory Rate 15 12/01/24 09:11 Blood Pressure 124/80 12/01/24 09:11 Pulse Oximetry 96 12/01/24 09:11 Temperature 37.5 C 12/01/24 09:11 Temperature Source Temporal Artery Scan 12/01/24 09:11 Pulse 98 H 12/01/24 09:11 Respiratory Rate 15 12/01/24 09:11 Blood Pressure 124/80 0810/25 09:11 Blood Pressure Position Sitting 12/01/24 09:11 Pulse Oximetry 96 12/01/24 09:11 Oxygen Delivery Method Room Air 12/01/24 09:11 Oxygen Flow Rate 0 12/01/24 09:11 Pain Level 0 12/01/24 09:11 Comment Reports pain with ambulation- no pain with resting 12/01/24 09:11 Medical Decision Making Results: X-ray of left knee shows evidence of effusion with some degenerative changes near Initial Assessment: 44-year-old male with right knee pain and left lower leg wound. Differential Diagnosis: - Right knee pain: History of knee problems, swollen and tender for 3 days, worse with walking, no redness. X-ray ordered. - Left lower leg wound: Abrasion from boot rubbing, surrounding erythema, no induration or purulent drainage, concern for infection. ED Course: - X-ray ordered for right knee. -Effusion noted on x-ray with degenerative changes suspect internal derangement of knee placed in knee brace will need orthopedic follow-up for effusion and pain in conjunction with degenerative changes - Diclofenac gel -Evidence of DVT or secondary infection clinically on assessment, patient does have an abrasion to his left medial lower extremity will treat with topical mupirocin and patient will wear dressing when he is wearing his boots Final Assessment: Right knee pain with history of knee problems. Left lower leg wound with surrounding erythema, no signs of infection. Clinical Impression: - Right knee pain - Left lower leg wound bee sting PFSH All Active Problems (Updated 12/01/24 @ 10:09 by JOSÉ MIGUEL Grant) Cellulitis (Acute) Effusion of knee joint, left (Acute) Osteoarthritis of left knee (Acute) Tinnitus, bilateral (Acute) Schizophrenia (Chronic) Seasonal allergies (Acute) Chronic low back pain (Chronic) Leukocytes in urine (Acute) Headache (Acute) Bronchitis (Acute) Medication refill (Acute) Psychosis (Acute) No-show for appointment (Acute) Chest pain (Acute) Mood disorder (Acute) Acute lateral meniscus tear of left knee (Acute) Acute traumatic internal derangement of left knee (Acute 08/14/20) second occurrence, prior traumatic injury 11/02/2017 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) Closed fracture nasal bone (Acute) Bilateral groin pain (Acute) Spermatocele of epididymis (Acute) Effusion of knee (Acute) Leg pain (Acute) Constipation (Acute) Suicidal ideation (Acute) S/P laparoscopic appendectomy (Acute ~08/05/18) Acute appendicitis (Acute) Paranoid schizophrenia (Chronic) GERD (gastroesophageal reflux disease) (Chronic) Person awaiting admission to adequate facility elsewhere (Acute 05/27/14) Medical History Herpes simplex Postconcussion syndrome Palpitation Left ACL tear Gastroesophageal reflux disease Mental disorder Poorly defined Surgical History Repair of inguinal hernia EGD - IV Sedation (06/14/16) Social History Smoking/Tobacco Use Status: Current every day Tobacco Type: cigarettes Years smoked: 32 Smoking risk assessment performed?: Yes Alcohol Intake: current Alcohol Intake frequency: a few times a month Drug use: Never Substance use type: does not use Housing: apartment Current gender identity: male Do you feel safe at home: Yes Do you feel safe in your relationship?: Yes
--- NOTE | 2024-12-02 14:15 | NUR.NOTE ---
Access chart to print the demographic sheet to go with [facility] billing requisitions and discharge diagnosis.Nursing Note:
--- NOTE | 2024-12-02 14:16 | NUR.NOTE ---
Access chart to print the demographic sheet to go with [facility] billing requisitions and discharge diagnosis.Nursing Note:
--- NOTE | 2024-12-16 11:23 | NUR.NOTE ---
Access chart to print the provider note and the radiology report to fax to [facility] for billing purposes. Nursing Note:
== END 2024-12-01 10:28 | disposition home or self-care (01) ==
PROVIDERS: Emergency Provider Physician Assistant; PCP Nurse Practitioner Family
DX: S80.812A Abrasion, left lower leg, initial encounter (principal); L03.116 Cellulitis of left lower limb; M25.462 Effusion, left knee; M25.562 Pain in left knee; X58.XXXA Exposure to other specified factors, initial encounter
CPT/HCPCS: 99283 ×2; 73562

== ENCOUNTER → 2025-01-13 13:40 | Outpatient (BNVA) | payer MEDICARE, MEDICAID, SELFPAY | PROVIDERS: PCP Nurse Practitioner Family; Referring Provider Nurse Practitioner Family; Visit Provider Physician Assistant | DX: M17.12 Unilateral primary osteoarthritis, left knee (principal); M25.562 Pain in left knee; W01.0XXA Fall on same level from slipping, tripping and stumbling without subsequent striking against object, initial encounter; Y93.01 Activity, walking, marching and hiking | CPT/HCPCS: 99213; 20610; J1010 ==